=== PATIENT | male | born 1955 | race Caucasian/White ===

== ENCOUNTER 2017-10-18 15:13 | Outpatient (CLI) | payer MEDICARE ==
--- NOTE | 2017-10-18 16:26 | CT ---
NONCONTRAST HEAD CT 10/18/17 HISTORY: Followup intracranial hemorrhage. COMPARISON: 09/28/17, 09/27/17 at [facility]. FINDINGS: The previously noted hemorrhage in the cerebral rim is no longer seen. There is no midline shift. Bas ilar cisterns are patent. Brain volume is age appropriate. Cortical mina-white matter differentiation is preserved. Ventricles and sulci are patent and symmetric. Stable postsurgical changes involving the right mastoi d air cells. Opacification in the left mastoid air cells and left middle ear. The calvarium is intact . IMPRESSION: Interval resolution of the previously noted cerebellar vermian hemorrhage. POS: [facility]
== END 2017-10-18 15:14 | disposition home or self-care (01) ==
LOC: TBSIIMAG 15:13
PROVIDERS: ATTEND Neurological Surgery
DX: I61.9 Nontraumatic intracerebral hemorrhage, unspecified (principal)
CPT/HCPCS: 70450

== ENCOUNTER 2018-09-02 16:48 | Inpatient (IN) | payer MEDICARE ==
[2018-09-02 18:26] LABS: #Lymphocytes 1.5 thou/uL (1.20-3.40); #Monocytes 0.8 thou/uL (0.11-0.59); #Neutrophils 14.5 thou/uL (1.40-6.50); %Basophils 0.2 % (0.0-1.0); %Eosinophils 0.2 % (0.0-10.0); %Monocytes 4.5 % (0.0-10.0); %Neutrophils 86.1 % (42.0-75.0); Hemoglobin 14.2 g/dL (14.0-18.0); Mean Corpuscular HGB CONC 32.4 g/dL (32.0-36.0); Mean Corpuscular Hemoglobin 29.2 pg (27.0-31.0); Mean Platelet Volume 6.9 fL (7.4-10.4); Platelet Count 348 thou/uL (130-400); RBC Distribution Width 11.9 % (11.5-14.5); Red Blood Cell (RBC) Count 4.86 mill/uL (4.70-6.10); White Blood Cell (WBC) Count 16.9 thou/uL (4.8-10.8)
[2018-09-02 18:34] LABS: INR-International Normal Ratio 0.9; PTT 26.7 SEC (22.9-36.1); Prothrombin Time 12.4 SEC (12.0-14.7)
[2018-09-02 18:49] LABS: ALT (SGPT) 12 U/L (8-55); AST (SGOT) 12 U/L (5-34); Albumin 4.1 g/dL (3.4-4.8); Alkaline Phosphatase 62 U/L (40-150); Anion Gap 14 mmol/L (10-20); BUN (Urea Nitrogen) 25 mg/dL (8.4-25.7); Bilirubin, Total 0.8 mg/dL (0.2-1.2); Calc. Creatinine Clearance 0 mL/min (70-130); Calcium 9.1 mg/dL (7.8-10.44); Carbon Dioxide 26 mmol/L (23-31); Chloride 83 mmol/L (98-107); Estimated GFR-MDRD 71; Globulin 3.1 g/dL (2.4-3.5); Glucose 147 mg/dL (80-115); Potassium 4.5 mmol/L (3.5-5.1); Protein, Total 7.2 g/dL (5.8-8.1)
[2018-09-02 18:53] LABS: Sodium 118 mmol/L (136-145)
--- NOTE | 2018-09-02 19:23 | RAD ---
PORTABLE CHEST ONE VIEW: Date: 09-02-18 Time: 7:09 p.m. History: Altered mental status. FINDINGS: The heart size is normal. The lungs are expanded without lobar consolidation, pneumothoraces, yamilet p ulmonary edema or pleural effusions. IMPRESSION: No acute process. POS: [facility]
[2018-09-03] MEDS ORDERED: Senokot S 8.6-50 MG TAB PO PRN (01:25)
[2018-09-03] MEDS ORDERED: Bisacodyl 10 MG SUPP PR PRN (01:25)
[2018-09-03] MEDS ORDERED: Guaifenesin DM 100-10/5 ML UDCUP PO PRN (01:25)
[2018-09-03] MEDS ORDERED: Sodium Chloride 3% 500 ML IVPB SCH (01:45)
[2018-09-03 02:23] LABS: Band 2 % (5-11); Hemoglobin 14.4 g/dL (14.0-18.0); Lymphocytes 10 % (21-51); MDiff Complete? YES; Mean Corpuscular HGB CONC 34.2 g/dL (32.0-36.0); Mean Corpuscular Volume 90.4 fL (78.0-98.0); Mean Platelet Volume 6.6 fL (7.4-10.4); Monocytes 9 % (0-10); Neutrophil 79 % (42-75); Platelet Count 351 thou/uL (130-400); RBC Distribution Width 11.9 % (11.5-14.5); Red Blood Cell (RBC) Count 4.66 mill/uL (4.70-6.10); White Blood Cell (WBC) Count 20.4 thou/uL (4.8-10.8)
[2018-09-03 02:49] LABS: Thyroid Stimulating Hormone 1.3141 uIU/mL (0.35-4.94)
[2018-09-03 02:51] LABS: ALT (SGPT) 11 U/L (8-55); AST (SGOT) 14 U/L (5-34); Albumin 3.9 g/dL (3.4-4.8); Alkaline Phosphatase 58 U/L (40-150); Anion Gap 14 mmol/L (10-20); BUN (Urea Nitrogen) 27 mg/dL (8.4-25.7); Bilirubin, Total 0.8 mg/dL (0.2-1.2); Calc. Creatinine Clearance 97 mL/min (70-130); Calcium 9.4 mg/dL (7.8-10.44); Carbon Dioxide 26 mmol/L (23-31); Chloride 86 mmol/L (98-107); Estimated GFR-MDRD 80; Glucose 122 mg/dL (80-115); Potassium 4.2 mmol/L (3.5-5.1); Protein, Total 6.9 g/dL (5.8-8.1); Sodium 122 mmol/L (136-145)
[2018-09-03] MEDS: Acetaminophen 325 MG TAB PO PRN (04:10)
--- NOTE | 2018-09-03 04:16 | HP ---
REASON FOR ADMISSION: Quadriparesis from 08/26, hyponatremia, likely moderate dehydration. HISTORY OF PRESENTING ILLNESS: Please note majority of this history is obtained by talking to the patient's at bedside. The patient is lethargic. Per , the patient had right shoulder pain on 08/22/2018. He also became short of breath. He had uncontrolled hypertension with blood pressures going up to 200/111. He got admitted to [facility] and was there for 4 days. After that , he was walking with a walker. The patient went home and developed the same symptoms again on 08/26. The patient was told he had urinary tract infection and was given antibiotics and was discharged to inpatient rehab on the . At the rehab, the patient has not been able to move any of his extremities except for moving his right hand. They have tried to obtain an MRI of the brain and C-spine, but there was plenty of artifact with the patient moving during the MRI procedure and accurate interpretation was not able to be obtained. Physical therapy has been exercising on bed at the rehab and finally, a decision was made to transfer him to ER here and get hospitalized. At baseline, the patient is on home oxygen at 2.5 L either for heart failure or COPD, it is unclear, the does not know, thinks that it is for his heart. He sees Dr. Jmiénez for Cardiology, Dr. Cedeno for Pulmonology. No history of trauma to the C-spine. He apparently fell on Sunday when he was hospitalized at [facility], but he was able to get up and ambulate after that. No prior history of chronic neurologic issues including Parkinson's or prior history of Guillain-[place] syndrome. PAST MEDICAL AND SURGICAL HISTORY: The patient has had coronary artery disease and has had [address] Jiménez in 2010 and he had another 4 stents placed in 2013. Emphysema, likely end-stage and follows with Dr. Cedeno. History of CHF with unknown ejection fraction, benign prostatic hypertrophy, has had history of cerebellar bleed in September of 2017 and had seen a physician at [facility], they do not recall the name. History of right ear surgery with 7th nerve palsy in 1984, hernia repair, TURP, peptic ulcer disease. Colonoscopy x2 in the past with no history of colon cancer. CURRENT MEDICATIONS: The patient is on: 1. Carvedilol 12.5 mg twice daily. 2. Imdur 10 mg twice daily. 3. Plavix 75 mg daily. 4. Trazodone 50 mg p.o. at bedtime. 5. Fish oil 1000 mg twice daily. 6. Motrin p.r.n. for pain. 7. Pravastatin 80 mg p.o. daily. 8. Albuterol inhaler q.6 hourly p.r.n. 9. Aspirin 81 mg p.o. daily. 10. Dexilant 60 mg p.o. daily. 11. Fluoxetine 20 mg daily. 12. Ellipta Anoro inhaler daily. 13. Vitamin B12 1000 mcg p.o. daily. 14. Vitamin D3 1000 units p.o. daily. ALLERGIES: LEVAQUIN. PERSONAL HISTORY: Quit smoking in 2003, prior to which has smoked 1-1/2-pack a day for 30 years. Does not abuse alcohol or drugs. Lives with his . He was ambulating by himself prior to 08/22, of this year. FAMILY HISTORY: Mother at the age of 63 years, she has had history of CABG. Father got killed at his workplace when the patient was 10 years old. CODE STATUS: Full. Power of sports attorney is his . REVIEW OF SYSTEMS: CONSTITUTIONAL: Negative for weight loss or gain, ability to conduct usual activities. SKIN: Negative for rash, itching. EYES: Negative for double vision, pain. ENT/MOUTH: Negative for nose bleeding, neck stiffness, pain, tenderness. CARDIOVASCULAR: Negative for palpitations, dyspnea on exertion, orthopnea. RESPIRATORY: Negative for shortness of breath, wheezing, cough, hemoptysis, fever or night sweats. GASTROINTESTINAL: Negative for poor appetite, abdominal pain, heartburn, nausea , vomiting, constipation, or diarrhea. GENITOURINARY: Negative for urgency, frequency, dysuria, nocturia. MUSCULOSKELETAL: Negative for pain, swelling. NEUROLOGIC/PSYCHIATRIC: Negative for anxiety, depression. ALLERGY/IMMUNOLOGIC: Negative for skin rash, bleeding tendency. PHYSICAL EXAMINATION: GENERAL: The patient is a 63-year-old male, who is currently not in any acute distress. He is able to maintain airway. VITAL SIGNS: Blood pressure 138/80, pulse 74 per minute, respiratory rate 16 per minute, temperature 98.3 degrees Fahrenheit, saturating 95% on 2 L nasal cannula. NECK: Supple. No elevated JVD. HEENT: Eyes; extraocular muscles intact. Pupils reacting to light. Oral cavity, mucous membranes are dry. No exudates or congestion. CARDIOVASCULAR: S1 and S2 heard. Regular rhythm. RESPIRATORY: Air entry 1+ bilateral. There is rhonchi plus bilateral. No wheezes. ABDOMEN: Soft. Bowel sounds heard. No tenderness, rigidity, or guarding. EXTREMITIES: There is 1+ peripheral edema. No calf tenderness. Peripheral pulses are 1+ bilateral. No ischemic ulcerations or gangrene. 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 All other cranial nerves were intact. The patient has severe hypotonia. He is unable to lift any of the extremities. He can barely move the hands better on right side than left. He is right-handed person. Reflexes; right knee jerk is 1+, but all other reflexes in the lower extremities are absent at present. Strength is 0/5 in all 4 extremities. PSYCHIATRIC: The patient is very lethargic, but no obvious hallucinations or delusions. LABORATORY DATA: White count of 16 on arrival, H and H 14 and 43, platelet count 348 with 86% neutrophils. Sodium 118, serum bicarb 26, BUN 25, creatinine 1.0, serum glucose 147. Liver enzymes within normal limits. Troponin I 0.01. BNP less than 10. Albumin is 4.1. TSH 1.31. Urine culture drawn on the shows no growth. Chest x-ray done shows no acute process. MRI of the C-spine shows suboptimal evaluation due to motion artifact. There does appear to be varying degrees of significant central canal stenosis. Repeat imaging is recommended. MRI brain on 09/02/2018, showed limited evaluation due to motion degradation, grossly was unremarkable. EKG done shows normal sinus rhythm at 70 beats per minute. There is poor R-wave progression. 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 This was a rapid onset with the patient being able to only move both his hands. Otherwise , has severe hypotonia and mostly no reflexes in the lower extremities. Likely, the patient has quadriparesis and the exact etiology is unclear. I requested the ER physician, Dr. Brown to perform a lumbar puncture on him. The patient's sodium is very low and he also has moderate to severe dehydration. I have placed him on 3% sodium chloride and we will obtain q.4 hourly sodium levels. Once his sodium reaches around 126 millimoles per L, the patient will be switched over to 0.9% normal saline. Pancultures have been obtained including blood and urine. He does not have any diarrhea. TSH appears to be within normal limits. We will obtain Neurology, Neurosurgery, Nephrology, and Pulmonary Critical Care consultations. MRI brain with and without contrast along with MRI cervical spine with and without contrast and echo with 2D Doppler will be obtained. I have explained to that his prognosis is guarded at present. If his diaphragm and respiratory muscles are compromised, the patient will go into respiratory failure. The patient apparently wants to be resuscitated per and I have confirmed the same from him. He is clearly aware that he has end-stage emphysema and is on home oxygen with undiagnosed sleep apnea, as the patient could not afford 250 dollars as co-pay for sleep study in the past along with current quadriparesis. He is currently maintaining airway and will be closely monitored. He likely will need high-dose steroids. We will start this once Neurology evaluates him early this morning. We will continue aspirin, Lipitor, Coreg, fluoxetine for now. His Plavix will be held. We will continue to closely monitor him in the ICU. Job ID: [id number] MTDD
[2018-09-03 04:44] LABS: Free T4 (Free Thyroxine) 1.16 ng/dL (0.70-1.48)
--- NOTE | 2018-09-03 05:32 | PDOC.EVN ---
Event Note - Event Note Event Note: Patient was re-evaluated around 5 am, he has started to move his extremities now. He is able to move with gravity all 4 extremities, upper extre he lifts against gravity. No sob. continue 3%NS till sodium levels are 126, then switch to normal saline 0.9 at 50mls/hr.
[2018-09-03 05:58] LABS: Sodium 122 mmol/L (136-145)
[2018-09-03] MEDS ORDERED: Sodium Chloride 0.9% 1,000 ML IV SCH (06:45)
[2018-09-03] MEDS ORDERED: Lorazepam 2 MG/ML VIAL SLOW IVP SCH (08:00)
[2018-09-03] MEDS ORDERED: HYDROcodone/Acetaminophen 5/325 mg Tablet PO PRN (08:00)
[2018-09-03] MEDS: Aspirin Chewable 81 MG TAB PO SCH (08:29)
[2018-09-03] MEDS ORDERED: Enoxaparin Sodium 40 MG/0.4 ML SYRINGE SC SCH (09:00)
[2018-09-03] MEDS ORDERED: Ibuprofen 200 MG TAB PO SCH (09:00)
[2018-09-03] MEDS ORDERED: FLUoxetine HCl 20 MG CAP PO SCH (09:00)
[2018-09-03] MEDS ORDERED: cefTRIAXone\\ROCEPHIN 1 GM in Sodium Chloride 0.9% 100 ML IVPB SCH (09:15)
[2018-09-03 09:26] LABS: Potassium, Urine 44.6 mmol/L
[2018-09-03] MEDS: Carvedilol 6.25 MG TAB PO SCH ×2 (09:41→17:54)
[2018-09-03] MEDS: Famotidine 20 MG TAB PO SCH ×2 (09:41→21:10)
[2018-09-03 09:42] LABS: Sodium 125 mmol/L (136-145)
--- NOTE | 2018-09-03 12:01 | CON ---
DATE OF CONSULTATION: HISTORY OF PRESENT ILLNESS: The patient is a 63-year-old male with a past medical history of coronary artery disease with multiple prior stents placed by , congestive heart failure, end-stage COPD, who is recently being treated in rehab following a stay at the [facility] for chest pain and respiratory issues. At that time, the patient was reportedly ambulatory with a walker. However, during his time at rehab, he had progressive bilateral upper and lower extremity weakness. We attempted to obtain MRI of the cervical spine. Unfortunately, the patient was moving quite a bit during the exam and there was significant artifact, and suboptimal images were obtained. He was transferred to [facility] for further management of his worsening weakness. At that time, he was found to have significant hyponatremia at 118. This is currently being replaced by the Medicine Service, and the patient has had some improvement in his overall strength. He does have a history of a mechanical fall while at the [facility] initial evaluation, but was then able to ambulate without difficultly after that. No additional trauma was noted. PAST MEDICAL HISTORY: Hypertension, hyperlipidemia, coronary artery disease, COPD, CHF, peptic ulcer disease, prostate issues, history of cerebellar intracranial hemorrhage in 2018. PAST SURGICAL HISTORY: Multiple cardiac stents. SOCIAL HISTORY: Former smoker. Does not currently smoke, drink, or use any drugs. He previously lived at home with his . FAMILY HISTORY: Noncontributory. ALLERGIES: LEVAQUIN. REVIEW OF SYSTEMS: Per HPI. PHYSICAL EXAMINATION: GENERAL: The patient is awake, alert, in no acute distress. HEENT: Head, normocephalic and atraumatic. Eyes, PERRLA. Extraocular movements intact. ENT, oral mucosa is pink, intact, and moist. He has normal voice. NECK: Nontender to palpation. Free active range of motion. No meningismus. No nuchal rigidity. RESPIRATORY: He appears to be breathing comfortably. He is on 2 L nasal cannula. MUSCULOSKELETAL: He is significantly weak in bilateral upper and lower extremities. 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 He has decreased strength in the proximal upper extremity. He is unable to lift his arm overhead. In the lower extremities, he is able to wiggle his toes and his feet. He has significant loss of proximal strength in the legs. He is unable to lift these off the bed. He has normal reflexive and he has negative Damon's and negative clonus. NEURO: A and O x4. Strength noted in the musculoskeletal exam. ASSESSMENT AND PLAN: This is a 63-year-old male with progressively worsening upper and lower extremity weakness, which has been fairly rapid. No history of recent trauma other than a mechanical fall while at his previous hospital stay. He was reportedly ambulating fine after that. We will attempt to get a new MRI of the cervical spine for evaluation of his progressive weakness. The Medicine Services also consulted Neurology for evaluation of this patient. We will follow these results. Job ID: [id number]
[2018-09-03] MEDS ORDERED: Midazolam HCl 2 mg/2 ml Vial ONE (12:15)
[2018-09-03] MEDS ORDERED: Propofol 1,000 MG/100 ML VIAL IV ONE (12:16)
[2018-09-03 12:17] LABS: ANA Symphony (Qualitative) Negative (Negative); ANA Symphony (Quantitative) 0.1 Ratio (< 0.7 Negative); dsDNA IgG Antibody 0.5 IU/mL (<10 Negative)
[2018-09-03] MEDS ORDERED: CCU Electrolyte Replacement 1 EACH IVPB SCH (12:27)
[2018-09-03] MEDS ORDERED: SYSTANE 3.5 GM TUBE EA EYE PRN (12:27)
[2018-09-03] MEDS ORDERED: Ventilator Sedation Protocol 1 EACH FS SCH (12:30)
[2018-09-03] MEDS ORDERED: methylPREDNISolone Sod Succ 40 MG VIAL IVP SCH (12:30)
[2018-09-03] MEDS ORDERED: Midazolam HCl 2 mg/2 ml Vial SLOW IVP SCH (12:45)
[2018-09-03] MEDS ORDERED: Propofol BOLUS 1,000 MG/100 ML VIAL IV PRN (12:48)
[2018-09-03] MEDS ORDERED: DISCONTINUE PREVIOUS NARCOTIC PAIN MEDICATIONS AND BENZODIAZEPINES FS SCH (12:48)
[2018-09-03] MEDS ORDERED: Morphine 2 MG/ML SYRINGE SLOW IVP PRN (12:48)
[2018-09-03] MEDS ORDERED: Fentanyl BOLUS 250 ML IVPB PRN (12:48)
[2018-09-03] MEDS ORDERED: Lorazepam 2 MG/ML VIAL SLOW IVP PRN (12:48)
[2018-09-03] MEDS ORDERED: Potassium Chloride 20 MEQ TAB PO PRN (12:49)
[2018-09-03] MEDS ORDERED: Potassium Phosphate 9 MMOL in Sodium Chloride 0.9% 100 ML IVPB PRN (12:49)
[2018-09-03] MEDS ORDERED: Magnesium 2 GM/50 ML 2 GM in Premix Bag 1 BAG IVPB PRN (12:49)
[2018-09-03] MEDS ORDERED: Potassium Phosphate 15 MMOL in Sodium Chloride 0.9% 250 ML 250 ML IV PRN (12:49)
[2018-09-03] MEDS ORDERED: Potassium Phosphate 12 MMOL in Sodium Chloride 0.9% 250 ML 250 ML IV PRN (12:49)
[2018-09-03] MEDS ORDERED: Potassium Chloride 40 MEQ in Premix Bag 1 BAG IVPB PRN (12:49)
[2018-09-03] MEDS ORDERED: CCU ELECTROLYTE REPLACEMENT PROTOCOL FS PRN (12:49)
[2018-09-03] MEDS ORDERED: Magnesium Oxide 400 MG TAB PO PRN ×2 (12:49)
[2018-09-03] MEDS ORDERED: PHOS-NAK 1 PKT PACK PO PRN ×2 (12:49)
[2018-09-03] MEDS ORDERED: Fentanyl 100 MCG/2 ML VIAL ONE (12:57)
[2018-09-03] MEDS: Propofol 1,000 MG/100 ML VIAL IV PRN ×2 (13:33→18:06)
[2018-09-03 13:42] LABS: Actual Bicarbonate (HCO3a) 25.6 mEq/L (22-28); Base Excess (BEa) 1.2 mEq/L (-2.0 to +3.0); CO2 Tension 39.9 mmHg (35.0-45.0); Calcium, Ionized 1.15 mmol/L (1.12-1.30); Carboxyhemoglobin (COHb) 1.7 gm% (0.0-3.0); Hemoglobin (Hb) 13.8 g/dL (14.0-18.0); O2 Tension (PaO2) 94.5 mmHg (> 80.0); Potassium - ABG Lab 3.75 mmol/L (3.70-5.30); pH, Arterial 7.43 (7.35-7.45)
--- NOTE | 2018-09-03 13:43 | RAD ---
RADIOGRAPH CHEST 1 VIEW: Supine DATE: 09/03/2018 HISTORY: Status post intubation in 63-year-old male. FINDINGS: There is no airspace density or pulmonary edema. The lateral costophrenic angles are sharp. Supine po sitioning makes this study insensitive for the detection of pneumothorax. Endotracheal tube distal tip at mid thoracic trachea. No cardiomegaly or mediastinal widening. IMPRESSION: 1. No acute pulmonary findings. 2. Intubation.
[2018-09-03 13:51] LABS: ALV-art Gradient 76.655 (0-20); Puncture Site RRA
--- NOTE | 2018-09-03 15:12 | CT ---
CT guided lumbar puncture: DATE: 09/03/2018 HISTORY: 63-year-old male with altered mental status. CSF sampling requested to rule out meningitis. TECHNIQUE: Proxy signed informed consent obtained. Patient came to CT suite under general anesthesia. Skin of lo wer back prepared and draped in usual sterile fashion. 25-gauge needle used to apply buffered lidocaine. 22-gauge spinal needle advanced from right paramedian approach at the L2-3 interlaminal le savanah under step CT guidance, with distal tip placed into the thecal sac. CSF slowly removed, 1 mL placed in first vial, 3 mL in second vial, 3 mL in third vial, and 4 mL in fourth vial. CSF is either clear or perhaps minimally cloudy. Needle removed. Patient tolerated procedure well. No comp occasions. IMPRESSION: Successful lumbar puncture with acquisition of 11 mL cerebrospinal fluid sent to laboratory.
[2018-09-03 15:33] LABS: CSF Source CSF
[2018-09-03 15:34] LABS: Clarity Clear (Clear); RBC Count - Manual 0 /cumm (None Seen); Tube # 4; WBC/NonHematics Count - Manual 1 /cumm (0-5)
[2018-09-03] MEDS: cefTRIAXone\\ROCEPHIN 2 GM in Sodium Chloride 0.9% 100 ML IVPB SCH (15:35)
[2018-09-03 16:07] LABS: CSF, Glucose 88 mg/dl (40-70); CSF, Protein 163 mg/dL (15-40)
[2018-09-03 16:54] LABS: Sodium 125 mmol/L (136-145)
[2018-09-03] MEDS: fentaNYL Citrate/PF 2,000 MCG in Sodium Chloride 0.9% 60 ML IV SCH (18:48)
--- NOTE | 2018-09-03 19:05 | CON ---
DATE OF CONSULTATION: 09/03/2018 SERVICE: Pulmonary Medicine. REASON FOR CONSULTATION: ICU patient. HISTORY OF PRESENT ILLNESS: The patient is a 63-year-old white male with past medical history significant for recent paresis of the bilateral upper and lower extremities, and presentations to the emergency department because of urinary retention and urinary tract infections. He actually spent some time in hospital recently. He was discharged to rehab, but got increasingly weak. He started developing some slurred speech and was brought back to the emergency department. He had increasing weakness in the lower extremities. As such, an MRI of the head and neck was performed. Unfortunately, because the patient's agitation, he could not stay still during the MRI procedure. We did not get good pictures. Neurosurgery is requesting that we repeat with conscious sedation in order to help with his agitation issue, though he is intermittently obstructing without any sedation. He is intermittently sleepy and agitated. He is currently encephalopathic. As such, we are making preparations to electively intubate the patient to get the best quality pictures. I talked about the risks and benefits of an elective intubation with the patient's at bedside. In order to expedite an investigation, she accepted the risks associated with it including teeth issues, and an unlikely scenario in which he could pass away in the cameron-procedure period. PAST MEDICAL HISTORY: 1. Coronary artery disease. 2. COPD/emphysema. 3. Chronic hypoxic respiratory failure. 4. Chronic systolic heart failure. 5. BPH. 6. History of cerebellar bleed in September of 2017. 7. 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 8. Peptic ulcer disease. PAST SURGICAL HISTORY: 1. Transurethral resection of the prostate. 2. Herniorrhaphy. 3. Ear surgery. FAMILY HISTORY: Noncontributory. SOCIAL HISTORY: He has a remote history of smoking. He quit in 2003. Prior to that, he logged over 50 pack-year history. He denies any alcohol or illicit drugs. Recently, he came to us from a nursing facility/rehabilitation facility. Prior to July, he was ambulating without difficulties. He has no exposure to chemicals, dust, asbestos, or tuberculosis the is aware of. ALLERGIES: LEVAQUIN. MEDICATIONS: List of his inpatient medications was reviewed. No specific updates were made at this time. REVIEW OF SYSTEMS: This cannot be obtained because the patient has encephalopathy. PHYSICAL EXAMINATION: VITAL SIGNS: Afebrile, pulse 77, blood pressure 146/91, respirations 21, and saturation 95% on 2 L nasal cannula. GENERAL: The patient is somnolent. He is intermittently sedated and agitated. HEENT: Normocephalic and atraumatic. Sclerae white. Conjunctivae pink. Oral mucosa is moist without lesions. LUNGS: Decent air entry. There is a slightly prolonged expiratory phase. I do not hear polyphonic wheezing or significant crackles present. Rhonchi are there. HEART: Normal rate, regular. ABDOMEN: Soft, nontender, nondistended. Bowel sounds are positive. MUSCULOSKELETAL: No cyanosis or clubbing. There is trace 1+ pitting in the bilateral lower extremities. LABORATORY DATA: WBC 20.4, hemoglobin 14.4, and platelets about 351,000. Neutrophils 79% on top of 2% bands. INR 0.9. Sodium 129 and gently improving. Basic metabolic profile and liver function studies are otherwise unremarkable. Free T3 1.25, though the TSH falls within the normal limits. Uric acid level is unremarkable. Serum osmolality is reduced. Troponin and cortisol level are essentially unremarkable. Creatinine is downtrending. Urine sodium is reduced. IMAGING: Chest x-ray demonstrates no acute cardiopulmonary abnormality. There is a fairly significant left anterior oblique rotation. No consolidating changes or pneumothoraces are identified. There is decent contour of the bilateral diaphragm. No cephalization is present. MRI of the C-spine demonstrates probable central canal stenosis, though motion artifact prevented good interpretation. MRI of the brain demonstrates nothing grossly abnormal, but once again, motion artifact prevented good pictures. ASSESSMENT: 1. Chronic hypoxic respiratory failure. 2. Chronic obstructive pulmonary disease without current exacerbation. 3. Metabolic encephalopathy. 4. Hyponatremia. 5. Paresis of the bilateral upper and lower extremities. DISCUSSION AND PLAN: We will actively intubate the patient, so that we can expedite very good images with an MRI. The patient has already scheduled for an LP. Neurosurgery is following and requesting better images. We will electively intubate him, so that we can get these images. The risks and benefits of this were discussed with the patient's , and she is agreeable to proceed. Neurology has been consulted. The hyponatremia is correcting itself. As such, we will continue to observe through time. Pulmonary/Critical Care will follow along closely. CRITICAL CARE TIME: 30 minutes. Job ID: [id number] MTDD
--- NOTE | 2018-09-03 19:44 | CON ---
DATE OF CONSULTATION: 09/03/2018 REASON FOR CONSULT: Difficult Soares catheter placement, status post TURP. REASON FOR ADMISSION: Quadriplegia, 08/26 hyponatremia, mental status changes. HISTORY OF PRESENT ILLNESS: Mr. Page is a 63-year-old male currently in the ICU setting as he is being worked up for mental status changes. He is scheduled for lumbar puncture, MRI of the brain and spine as the final diagnosis of his quadriparesis is unclear. Due to mental status changes, moreover requiring strict I's and O's and concern regarding incomplete emptying, Soares catheter was attempted. at bedside relates that the patient was in rehab at [facility], and was subsequently transferred here to [facility] for higher level of care. They attempted to catheterize him at the rehab, however, unable to. Our nursing staff in the ICU tried x2 with a coude 14-Australian, unable to pass the Soares catheter. Therefore, urologic consultation was obtained. relates the patient underwent transurethral resection of prostate by Dr. Damon about 5 years ago. Over the last year, he has had decreased urinary caliber, double voiding, requiring him to sit to void complete. The patient has no prior history of having urinary retention requiring indwelling Soares catheter. Subjective history is obtained per , as well as chart review given his mental status changes. PAST MEDICAL HISTORY: 1. Coronary artery disease, status post stent. 2. Emphysema followed DR Posey 3. CHF. 4. BPH. 5. 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 6. History of seventh nerve palsy in 1984. 7. Peptic ulcer disease. SURGICAL HISTORY: Colonoscopy x2, cardiac stents, right ear surgery, transurethral resection of prostate by Dr. Damon at [facility] about 5 years ago. MEDICATIONS: Home medications include: 1. Imdur. 2. Carvedilol. 3. Plavix 75 mg. 4. Trazodone. 5. Albuterol. 6. Baby aspirin. 7. Fluoxetine. 9. Vitamin B. 10. Vitamin D. Current in-house medications include: 1. Baby aspirin. 2. Lovenox subcutaneous. 3. Dulcolax. 4. Carvedilol. 5. Hydrocodone. 6. Ibuprofen. 7. Nebulizers. 8. Steroids. 9. Methylprednisone. 10. Zofran. ALLERGIES: LEVAQUIN. SOCIAL HISTORY: Quit smoking in 2003. Prior history of 30 pack-year smoking history. Denies illicit drug use. Lives with his and was ambulating without assist prior to presenting this year in late July. FAMILY HISTORY: Positive for coronary artery disease. REVIEW OF SYSTEMS: A 10-point review of systems as above. PHYSICAL EXAMINATION: VITAL SIGNS: His vital signs are stable. He is afebrile, blood pressure 146/ 109. I's and O's, he has been incontinent. GENERAL: The patient is arousable with verbal stimuli. Answers questions. at bedside. HEENT: Grossly unremarkable. HEART: Regular rate. LUNGS: Clear. However, distant. ABDOMEN: Morbidly obese. There is a small umbilical hernia. No gross suprapubic distention appreciated. However, his body habitus is such that it is difficult to palpate obvious distention due to morbid obesity and globular abdomen. : Uncircumcised phallus. Meatus is grossly unremarkable. Testes descended. AMANDO demonstrates prostate about 30 g to 40 g with no discrete nodularity of concern. EXTREMITIES: No cyanosis, clubbing, or edema. NEUROLOGIC: Difficult to assess given his mental status. PSYCHIATRIC: Appears to be appropriate. However, he is confused with baseline mental status changes as above. PERTINENT LABORATORY DATA: White count 20,000 and presented with 16.9 white count, hemoglobin stable at 14, platelets 251, 79 segs. Coagulation profile is within normal limits. Renal function, sodium of 122, presented with sodium of 118; BUN 27; creatinine 0.95. LFTs are grossly unremarkable. UA culture was sent by nurse as he has voided approximately 400 mL. PVR check is 291 after voiding 400 mL spontaneously. BEDSIDE PROCEDURE: Informed consent was obtained. He was started on Rocephin preprocedure. The patient's genital area was formally prepped and draped. Using a flexible cystoscope, we surveyed the urethra. The urethra demonstrated a bulbar stricture and it was narrow. However, there is a mucosal flap from prior catheterization . I was able to negotiate a 0.35 Super Stiff wire, which passed without difficulty to the level of the bladder. I was unable to pass the cystoscope through the wire. Therefore, we transitioned to Bonifacio dilators. We subsequently dilated from 10-Australian to 22-Australian with ease. After the dilatation, repeat cystoscopy was performed demonstrating resolution of the stricture. There is a TUR defect from the previous TURP with no gross bladder neck contracture per se. I was able to enter the bladder. Visualization was somewhat suboptimal within the bladder due to hematuria component with the dilation. With the wire in situ confirmed to be in the bladder, I passed a 20-Australian [place] Tip 10 mL Soares catheter over the wire. There was some resistance at the level of the bladder neck. However, I was able to pass wire and was subsequently removed. Clear output of urine was noted. I did flush the catheter to ensure proper placement of the Soares catheter confirmed. It was secured to leg gravity bag with StatLock x2. UA, C and S have been obtained, which we will follow the results. IMPRESSION AND PLAN: Mr. Page is a 63-year-old male with history of congestive heart failure, coronary artery disease, history of benign prostatic hypertrophy, status post transurethral resection of prostate at an outside facility about 5 years ago, presents for quadriparesis, hyponatremia of unclear etiology. He is undergoing medical, neurologic workup. Due to inability to pass a Soares catheter, concern regarding urinary retention. Successful urethral stricture dilatation, Soares catheter placed over guidewire. UA, and C and S have been sent. It would be prudent to start the patient on antibiotic therapy until final culture can be reviewed. Pending his medical neurologic workup, voiding trial will be initiated by when mental status improves At minimum, Soares catheter needs to continue for the next 7 days due to urethral stricture dilatation. Hold Lovenox If urine output is clear, will proceed with re-initiating Lovenox. Job ID: [id number] [facility]
[2018-09-03 20:22] LABS: Potassium 3.5 mmol/L (3.5-5.1)
[2018-09-03] MEDS: Atorvastatin Calcium 40 MG TAB PO SCH (21:10)
[2018-09-03] MEDS ORDERED: Potassium Chloride 40 MEQ in Sodium Chloride 0.9% 500 ML IVPB SCH (21:15)
[2018-09-03] MEDS: Sodium Chloride 0.9% 1,000 ML IV SCH (21:27)
--- NOTE | 2018-09-03 22:54 | CON ---
DATE OF CONSULTATION: 09/03/2018 CONSULTING PHYSICIAN: Shilpa Galvan MD REASON FOR CONSULTATION: Hypernatremia. REASON FOR ADMISSION: Weakness. HISTORY OF PRESENT ILLNESS: This is a 63-year-old male with history of coronary artery disease, COPD, CHF, came to the hospital with above complaints and was found to have sodium level of 118. The patient was started on hypertonic saline, this morning sodium level is 125. Nephrology is consulted. The patient's last sodium was around 127 and 120. The patient not able to give a good history and was found to have right-sided weakness too. No nausea or vomiting reported. PAST MEDICAL HISTORY: Positive for heart disease, CHF, COPD. PAST SURGICAL HISTORY: TURP and hernia repair. HOME MEDICATIONS: 1. Carvedilol. 2. Imdur. 3. Plavix. 4. Trazodone. 5. Fish oil. 6. Motrin. 7. Pravastatin. 8. Albuterol. 9. Aspirin. 10. Fluoxetine. 11. Lyrica. 12. B12. 13. Vitamin D3. ALLERGIES: TO LEVAQUIN. SOCIAL HISTORY: Quit smoking. No alcohol use. FAMILY HISTORY: Positive for heart disease. REVIEW OF SYSTEMS: Could not be obtained. PHYSICAL EXAMINATION: GENERAL: This is a well-built male, in no apparent distress. VITAL SIGNS: Temperature 98.1, pulse 74, respiratory rate 18, blood pressure 147/91. HEENT: Atraumatic, normocephalic. NECK: Supple. CARDIOVASCULAR: S1 and S2 heard. RESPIRATORY: Clear to auscultation. MUSCULOSKELETAL: 1+ edema. DERMATOLOGIC: No rash. NEUROLOGICAL: Weakness present in all the extremities. LABORATORY DATA: Sodium 125, potassium 4.2, BUN is 27, and creatinine 0.9, hemoglobin is 14.4. ASSESSMENT AND PLAN: 1. Hyponatremia, most likely SIADH versus medications. Adequate correction with hypertonic saline. Plan is to hold hypertonic saline. Repeat labs at 3 p.m. or 4 p.m. today and further decision will be made based on the labs. 2. Hypochloremia. 3. Edema, controlled. 4. Hypertension, Stable. 5. We will continue close monitoring of sodium. We will follow. Job ID: [id number]
--- NOTE | 2018-09-03 23:06 | CON ---
DATE OF CONSULTATION: 09/03/2018 CONSULTING PHYSICIAN: Hospitalist Service. IMPRESSION: Possible Guillain-[place] versus cervical cord infarct. PLAN: 1. MRI of the cervical cord. 2. Consider need for IVIG depending on the findings. HISTORY OF PRESENT ILLNESS: Mr. Page is a 63-year-old man with a past history of COPD, coronary artery disease, cerebellar hemorrhage, hypertension, hyperlipidemia, who presents with a 2-week history of symptoms. He initially began complaining of bilateral shoulder pain. He was taken to the [facility] for evaluation. He apparently had some limited exam including a chest x-ray, was treated with some steroids and pain medication. He seemingly got better and was getting around with the use of a walker. They discharged him home. On return home, he started experiencing recurrent pain in the shoulder area according to his . At some point, he started experiencing some tingling and numbness in his hands and feet. He started having trouble walking again. He went back to the [facility] for evaluation. He was briefly admitted and then transferred over to rehab. His situation deteriorated with progressive weakness of his extremities. He was no longer able to walk whatsoever. He was transferred here for evaluation. They attempted an MRI of the cervical spine, but his images were uninterpretable. His lab work revealed a sodium of 122. He was initially treated with 3% saline and then switched over to normal saline. His sodium levels have gotten a bit better. He has been subsequently intubated and placed on sedation. PAST MEDICAL HISTORY: As listed above. ALLERGIES: LEVAQUIN. SOCIAL HISTORY: No tobacco or alcohol use. FAMILY HISTORY: Noncontributory. REVIEW OF SYSTEMS: Was through his , as noted above. PHYSICAL EXAMINATION: GENERAL: He is an overweight middle-aged man, on ventilatory support. VITAL SIGNS: Stable. He is afebrile. HEENT: Pupils are equal. Conjunctivae are clear. Eyes are conjugate. He is orally intubated. He had some spontaneous eye opening. Could not get him to follow any commands. NECK: Appeared to be supple. EXTREMITIES: No cyanosis. NEUROLOGIC: Exam was limited. His tone appeared to be reduced bilaterally. Reflexes were absent. Plantar response was mute on the right and questionably upgoing on the left. No abnormal movements were seen. Spinal analysis showed an acellular fluid with a protein over 160 and an elevated glucose. SUMMARY: A middle-aged man with subacute progressive paralysis of all 4 extremities with subjective sensory changes in the hands and feet in combination with bilateral shoulder pain. The leading possibility would appear to be a cervical cord infarct. This could explain the elevated protein as well. Guillain-[place] would be far better prognosis. I will await the MRI findings and make further recommendations. Job ID: [id number]
[2018-09-04] MEDS: Propofol 1,000 MG/100 ML VIAL IV PRN ×3 (03:35→21:01)
[2018-09-04 07:14] LABS: Anion Gap 10 mmol/L (10-20); BUN (Urea Nitrogen) 24 mg/dL (8.4-25.7); Calc. Creatinine Clearance 122 mL/min (70-130); Calcium 8.8 mg/dL (7.8-10.44); Carbon Dioxide 24 mmol/L (23-31); Chloride 97 mmol/L (98-107); Estimated GFR-MDRD Greater than 90; Glucose 119 mg/dL (80-115); Potassium 3.9 mmol/L (3.5-5.1); Sodium 127 mmol/L (136-145)
[2018-09-04 07:16] LABS: Actual Bicarbonate (HCO3a) 26.1 mEq/L (22-28); Base Excess (BEa) 0.2 mEq/L (-2.0 to +3.0); Calcium, Ionized 1.18 mmol/L (1.12-1.30); Carboxyhemoglobin (COHb) 1.7 gm% (0.0-3.0); Hemoglobin (Hb) 13.8 g/dL (14.0-18.0); O2 Tension (PaO2) 73.2 mmHg (> 80.0); Potassium - ABG Lab 3.83 mmol/L (3.70-5.30); pH, Arterial 7.36 (7.35-7.45)
[2018-09-04 07:22] LABS: Puncture Site L.R.
[2018-09-04] MEDS: Carvedilol 6.25 MG TAB PO SCH ×2 (07:48→17:19)
--- NOTE | 2018-09-04 08:07 | PRG ---
DATE OF SERVICE: 09/04/2018 SUBJECTIVE: The patient is intubated, sedated, getting ready to go down for MRI this morning. OBJECTIVE: VITAL SIGNS: Stable. He is afebrile. I's and O's 2293 in, urine output over 2 L, clear. ABDOMEN: Soft, morbidly obese. GENITOURINARY: Soares catheter is secured. Urine output is clear yellow. PERTINENT LABORATORY: Sodium 127, creatinine 0.77. Urine culture, final is negative. IMPRESSION AND PLAN: A 63-year-old male admitted due to hyponatremia, mental status changes, quadriparesis of unclear etiology. The patient is undergoing medical and urologic workup. Urology consultation was obtained due to inability pass Soares catheter. He has prior history of TURP. Cystoscopy at bedside yesterday demonstrated bulbar stricture dilated at bedside. As his urine output is clear , may re-initiate his Lovenox today. Continue Rocephin for the next few days given recent manipulation of his tract. Job ID: [id number] [facility]
[2018-09-04] MEDS: Famotidine 20 MG TAB PO SCH ×2 (09:00→20:25)
--- NOTE | 2018-09-04 09:23 | MRI ---
MRI Brain W WO Con: 09/04/2018 12:00 AM CLINICAL HISTORY: New onset quadriparesis. COMPARISON: Head CT September 2017 FINDINGS: Extra axial spaces: Normal in size and morphology for the patient's age. Acute infarction: None. Ventricular system: Normal in size and morphology for the patient's age. Basal cisterns: Normal. Cerebral parenchyma: Microvascular ischemic changes. Midline shift: None. Cerebellum: Normal. Brainstem: Normal. Paranasal sinuses:Mucosal thickening and retention cyst formation. Intraaxial Enhancement: None IMPRESSION: No acute intracranial abnormality. Microvascular ischemic disease of the cerebral white matter, mild/moderate in degree.
[2018-09-04] MEDS: Aspirin Chewable 81 MG TAB PO SCH (09:30)
--- NOTE | 2018-09-04 11:15 | MRI ---
MRI CERVICAL SPINE WITH AND WITHOUT CONTRAST: DATE: 09/04/2018. HISTORY: A 63-year-old male with spontaneous sudden onset of quadriparesis. TECHNIQUE: Multisequence MRI of the cervical spine obtained in sagittal and axial planes, pre- and post-IV injec tion of 18 mL of MultiHance Gadolinium-based contrast agent. FINDINGS: Endogastric tube and orogastric tube are present. The cervical spinal cord is normal in size and sign al. There is no abnormal intramedullary, extramedullary-intradural, extradural, intraosseous, or per ivertebral space abnormal enhancement or mass. There is no syringohydromyelia. No Chiari-I malforma tion. The cervical spinal canal is diffusely small in caliber on a congenital basis due to developme ntally short pedicles. No disk space narrowing at any level. No high-grade facet DJD. C1-2: No additional findings. C2-3: No additional findings. C3-4: No additional findings. C4-5: No additional findings. C5-6: Mild broad-based disk-osteophytic bar complex encroaches upon the anterior aspect of the spina l canal. Superimposed tiny focal central disk protrusion further encroaches upon the spinal canal. Minimal ligament flavum thickening encroaches upon the posterior aspect of the spinal canal. These c hanges, superimposed on the developmentally small caliber spinal canal, result in moderate to severe central spinal canal stenosis. There are small bilateral uncinate process osteophytes causing mild t o moderate right neural foraminal stenosis and moderate to severe left neural foraminal stenosis. C6-7: No additional findings. C7-T1: Normal. IMPRESSION: 1. Developmentally small caliber spinal canal. 2. Mild cervical spondylosis at C5-6 exacerbating the developmentally small caliber spinal canal, re sulting in moderate to severe central spinal canal stenosis, and high-grade left neural foraminal martha nosis. This is highly unlikely to be the cause of the patient's quadriparesis. 3. No other abnormality of the cervical spine. 4. The cervical spinal cord is normal. POS: [facility]
[2018-09-04] MEDS ORDERED: Enoxaparin Sodium 40 MG/0.4 ML SYRINGE SC SCH (11:30)
--- NOTE | 2018-09-04 11:43 | OP ---
DATE OF PROCEDURE: 09/03/2018 SERVICE: Pulmonary Medicine. PROCEDURE PERFORMED: Endotracheal intubation. CONSENT: The risks and benefits of the procedure were discussed with the patient's immediately prior to initiating. All questions were answered and alternative options discussed. MEDICATIONS: 1. Versed 2 mg IV push. 2. Etomidate 20 mg IV push. PREPROCEDURE DIAGNOSES: 1. Chronic hypoxic respiratory failure. 2. Metabolic encephalopathy, requiring sedation for accurate MRI. POSTPROCEDURE DIAGNOSES: 1. Chronic hypoxic respiratory failure. 2. Metabolic encephalopathy, requiring sedation for accurate MRI. DESCRIPTION OF PROCEDURE: Vital sign monitoring was accomplished by noninvasive hemodynamic monitoring, pulse oximetry, and telemetry. In the supine position, the patient was preoxygenated with [id number] ventilation and maintained with saturations of 100%. Following induction of anesthesia, a GlideScope was inserted through the mouth offering clear identification of the posterior oropharynx and laryngeal structures with a grade 1 view. A 7.5-Afghan endotracheal tube was visualized passing through the vocal cords. Placement was confirmed by condensation in the endotracheal tube and bi-axillary chest auscultation. The endotracheal tube was secured at 24 cm, measured at the teeth. The patient was placed on mechanical ventilation with good return of volumes. Postprocedure x-ray demonstrated good location for the endotracheal tube within the trachea. ESTIMATED BLOOD LOSS: None. COMPLICATIONS: None. Job ID: [id number]
--- NOTE | 2018-09-04 11:48 | PRG ---
DATE OF SERVICE: 09/04/2018 SUBJECTIVE: The patient was seen and examined in ICU. Remains intubated. OBJECTIVE: GENERAL: This is a well-built male seen in ICU, intubated. VITAL SIGNS: Temperature 97.2, pulse 81, respiratory rate 18, blood pressure 124/67. HEENT: Intubated. CVS: S1 and S2. RESPIRATORY: Clear. GI: Abdomen is soft. MUSCULOSKELETAL: No edema. DERMATOLOGIC: No skin rash. NEUROLOGIC: Currently intubated. LABORATORY DATA: Sodium is 127, potassium 3.9, BUN is 24, creatinine is 0.7. ASSESSMENT AND PLAN: 1. Hyponatremia, most likely SIADH. Given suspicion for Guillain-[place]. Plan is to continue on IV fluids for now and we will repeat a sodium at a noon time today. If no significant improvement, we will begin to stop IV fluids and continue treating for SIADH for now. We will monitor labs. 2. Hypochloremia. 3. Edema. 4. Hypertension. 5. 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 Follow up with Neurology. 6. We will follow. Job ID: [id number]
[2018-09-04 12:28] LABS: Potassium 3.8 mmol/L (3.5-5.1)
--- NOTE | 2018-09-04 14:32 | PRG ---
DATE OF SERVICE: 09/04/2018 SUBJECTIVE: The patient was seen and examined. I agree with Pat Catalan's evaluation. The patient is a 63-year-old man, who had initially presented with some neck and shoulder pain, which then over a period of couple of weeks has progressed now to quadriparesis. Quadriparesis became increasingly severe and ultimately prompted his evaluation. Currently, he is sedated and intubated, having just returned from MRI scan. Lumbar puncture was performed and results are pending. He has had Neurology evaluation. The patient has had better quality imaging now of the cervical spine and brain. The MRI of the brain reveals only chronic age-related changes and nothing to explain the current symptoms. MRI of the cervical spine reveals only moderate degenerative disease most pronounced at C5-C6, but without meaningful stenosis and certainly nothing from a degenerative perspective to explain the current deterioration. IMPRESSION AND PLAN: No neurosurgical lesions of the brain or cervical spine. We will defer to Neurology regarding ongoing evaluation. Job ID: [id number]
--- NOTE | 2018-09-04 15:44 | PDOC.EVN ---
Event Note - Event Note Event Note: Record reviewed. Patient seen and examined. He is having pain in his hips with lack of movement. He is awake, alert and fairly appropriate. sensation in both LE's and only spontaneous movement of the RUE. Otherwise, essentially quadriplegic. Imaging pending.
[2018-09-04] MEDS: cefTRIAXone\\ROCEPHIN 2 GM in Sodium Chloride 0.9% 100 ML IVPB SCH (15:45)
--- NOTE | 2018-09-04 15:47 | PDOC.PN ---
- Subjective Encounter Start Date: 09/04/18 Encounter Start Time: 13:40 Intubated, sedated. - Objective Resuscitation Status - Order Detail: 09/03/18 00:59 Resuscitation Status Routine Resuscitation Status: FULL: Full Resuscitation Discussed with: poa: Vital Signs & Weight: Vital Signs (12 hours) Temp Pulse Resp BP Pulse Ox 09/04/18 12:54 68 123/66 09/04/18 12:00 97.8 F 15 09/04/18 10:08 81 175/92 H 09/04/18 10:00 15 09/04/18 09:00 98.4 F 09/04/18 08:00 13 99 09/04/18 07:48 124/67 09/04/18 07:07 67 124/67 09/04/18 07:05 67 20 94 L 09/04/18 06:00 12 09/04/18 04:00 97.2 F L 12 Weight Admit Weight 190 lb 8 oz Weight 193 lb 12.581 oz Most Recent Monitor Data Heart Rate from ECG 70 NIBP 119/66 NIBP BP-Mean 83 Respiration from ECG 16 SpO2 96 I&O: 09/03/18 09/04/18 09/05/18 06:59 06:59 06:59 Intake Total 121 2293.9 120 Output Total 0 2195 340 Balance 121 98.9 -220 Result Diagrams: 09/03/18 01:55 09/04/18 11:42 Phys Exam - Physical Examination Constitutional: NAD Intubated, sedated, ventilated. Respiratory: no wheezing, no rales, no rhonchi Cardiovascular: RRR, no significant murmur Gastrointestinal: soft, non-tender, no distention, positive bowel sounds Musculoskeletal: no edema Psychiatric: normal affect Skin: normal turgor Dx/Plan (1) Quadriplegia Code(s): G82.50 - QUADRIPLEGIA, UNSPECIFIED Status: Acute (2) CAD (coronary artery disease) Code(s): I25.10 - ATHSCL HEART DISEASE OF [place] CORONARY ARTERY W/O ANG PCTRS Status: Acute (3) CHF (congestive heart failure) Code(s): I50.9 - HEART FAILURE, UNSPECIFIED Status: Acute (4) BPH (benign prostatic hyperplasia) Code(s): N40.0 - BENIGN PROSTATIC HYPERPLASIA WITHOUT LOWER URINRY TRACT SYMP Status: Acute - Plan * Had MRI, which apparently was negative for lesions. * May be able to wean off vent. * Check with Neuro to ensure no further imaging needed. * May be GBS, defer to neurology. * Soares per Urology. Continuing abx.
[2018-09-04] MEDS ORDERED: OCTAGAM 10% 60 GM, OCTAGAM 10% 10 GM in Premix Bag 1 BAG IVPB SCH (16:00)
[2018-09-04] MEDS: Sodium Chloride 0.9% 1,000 ML IV SCH (17:19)
[2018-09-04] MEDS: Atorvastatin Calcium 40 MG TAB PO SCH (20:25)
[2018-09-05] MEDS: Propofol 1,000 MG/100 ML VIAL IV PRN (05:53)
--- NOTE | 2018-09-05 07:47 | PRG ---
DATE OF SERVICE: 09/05/2018 SUBJECTIVE: The patient intubated. The patient did okay overnight. OBJECTIVE: VITAL SIGNS: Stable. Urine output 1700, clear yellow. ABDOMEN: Morbidly obese, protuberant. : Dry blood at the meatus, however, no active bleeding. Urine output itself is clear. Catheter is adequately secured. IMPRESSION: 1. Mr. Page is a 63-year-old male admitted for mental status changes, partial paralysis of unclear etiology. Per Neurology possible Guillain [place]. 2. Urologic consultation obtained due to difficult Soares. Initial post-void residual approximately 400 mL. Cystoscopy at bedside demonstrated urethral stricture, status post dilation at bedside, catheter placement over guidewire. Continue Rocephin for now for few days due to recent genitourinary manipulation. There was a transurethral resection defect with no obvious bladder neck contracture of concern. I will initiate a voiding trial, likely sometime next week, pending patient's clinical progress neurologically. Job ID: [id number] [facility]
[2018-09-05] MEDS: Carvedilol 6.25 MG TAB PO SCH ×2 (08:05→17:00)
[2018-09-05] MEDS: Aspirin Chewable 81 MG TAB PO SCH (09:05)
[2018-09-05] MEDS: Famotidine 20 MG TAB PO SCH ×2 (09:05→20:16)
[2018-09-05] MEDS: Enoxaparin Sodium 40 MG/0.4 ML SYRINGE SC SCH (09:06)
[2018-09-05] MEDS ORDERED: predniSONE 20 MG TAB PO SCH (10:30)
--- NOTE | 2018-09-05 10:51 | PRG ---
DATE OF SERVICE: 09/04/2018 SERVICE: Pulmonary Medicine. INTERVAL HISTORY: The patient is doing fine from respiratory standpoint. He is on mechanical ventilation. He just got back from his MRI of the spine, and brain. We will make preparations for extubation if Neurosurgery is done with additional studies that require MRI imaging. He cannot provide me with any additional elements of the history at this point. PHYSICAL EXAMINATION: VITAL SIGNS: Afebrile. Pulse 100, blood pressure 78/45, respirations 15, and saturation 93% on 2 L nasal cannula. GENERAL: The patient is awake and alert, in no apparent distress. LUNGS: Decent air entry. No crackles or wheezing is present. HEART: Normal rate, regular. ABDOMEN: Soft, nontender, nondistended. Bowel sounds are positive. MUSCULOSKELETAL: No cyanosis or clubbing. There is trace pitting in bilateral lower extremities. NEUROLOGIC: Grossly nonfocal. LABORATORY DATA: PH 7.36, pCO2 of 47, pO2 of 73. Sodium 127. Basic metabolic profile is otherwise unremarkable. LIZ is unremarkable. IMAGING DATA: 1. MRI of the C-spine demonstrates developmentally small caliber spinal cord. There is mild cervical spondylosis at C5-C6. This results in [id number] central spinal canal stenosis and high-grade left neuroforaminal stenosis. No other abnormalities of the C-spine are identified. Cervical spinal cord is normal. 2. MRI of the brain demonstrates no acute abnormality. ASSESSMENT: 1. 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 2. Chronic hypoxic respiratory failure. 3. Chronic obstructive pulmonary disease without current exacerbation. 4. Metabolic encephalopathy. 5. Hyponatremia. DISCUSSION AND PLAN: We will get CBC and basic metabolic panel in the morning. We will initiate a daily dose of steroids. Also schedule some nebulized medications. If Neurosurgery and Neurology do not need additional imaging, we will give the patient sedation holiday, put him on a spontaneous breathing trial, consider extubation. Pulmonary/Critical Care will continue to follow along. Critical care time: 30 minutes. Job ID: [id number] [facility]
[2018-09-05] MEDS ORDERED: Albumin 25% 25 GM/100 ML BOT IVPB SCH (11:30)
[2018-09-05] MEDS ORDERED: Sodium Chloride 0.9% 500 ML IV SCH (11:30)
[2018-09-05 11:37] LABS: Anion Gap 11 mmol/L (10-20); BUN (Urea Nitrogen) 20 mg/dL (8.4-25.7); Calc. Creatinine Clearance 0 mL/min (70-130); Calcium 8.1 mg/dL (7.8-10.44); Carbon Dioxide 22 mmol/L (23-31); Chloride 96 mmol/L (98-107); Estimated GFR-MDRD 75; Glucose 93 mg/dL (80-115); Magnesium 1.8 mg/dL (1.6-2.6); Phosphorus 4.2 mg/dL (2.3-4.7); Sodium 125 mmol/L (136-145)
[2018-09-05 11:45] LABS: Hemoglobin 13.5 g/dL (14.0-18.0); Mean Corpuscular HGB CONC 31.7 g/dL (32.0-36.0); Mean Corpuscular Hemoglobin 29.7 pg (27.0-31.0); Mean Corpuscular Volume 93.7 fL (78.0-98.0); Mean Platelet Volume 7.2 fL (7.4-10.4); Platelet Count 241 thou/uL (130-400); RBC Distribution Width 12.2 % (11.5-14.5); Red Blood Cell (RBC) Count 4.54 mill/uL (4.70-6.10); White Blood Cell (WBC) Count 21.9 thou/uL (4.8-10.8)
[2018-09-05 11:55] LABS: Band 19 % (5-11); Lymphocytes 5 % (21-51); MDiff Complete? YES; Monocytes 1 % (0-10); Neutrophil 74 % (42-75); RBC Morphology Normal; Reactive Lymphocytes 1 % (0-10)
--- NOTE | 2018-09-05 12:03 | PRG ---
DATE OF SERVICE: 09/05/2018 SUBJECTIVE: The patient was seen and examined in ICU. Remains intubated. OBJECTIVE: GENERAL: This is a well-built male, seen in ICU, intubated. VITAL SIGNS: Temperature 99.7, pulse 100, respiratory rate 18, blood pressure 78/45 up to 94/53. HEENT: Intubated. CV: S1 and S2 heard. RESPIRATORY: Clear. GI: Soft. MUSCULOSKELETAL: 1+ edema. DERMATOLOGIC: No skin rash. NEUROLOGICAL: Intubated. LABORATORY DATA: Sodium is 127, potassium 3.8, creatinine is 0.7. ASSESSMENT AND PLAN: 1. Hyponatremia, most likely secondary to Guillain-[place] Syndrome. Plan to monitor sodium. He is hypotensive today and need IV fluids. We will continue monitoring sodium closely with possible Guillain-[place] syndrome, treatment of which would help sodium. We will continue close monitoring. 2. Hypochloremia. 3. Edema. 4. 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 5. We will monitor sodium level closely. We will follow. Job ID: [id number] [facility]
[2018-09-05] MEDS: cefTRIAXone\\ROCEPHIN 2 GM in Sodium Chloride 0.9% 100 ML IVPB SCH (12:31)
[2018-09-05] MEDS ORDERED: Piperacillin/Tazobactam 3.375 GM in Sodium Chloride 0.9% 100 ML IVPB SCH (13:00)
[2018-09-05 13:13] LABS: West Nile Virus IgG Ab - CSF Positive (Negative); West Nile Virus IgM Ab - CSF Negative (Negative)
[2018-09-05] MEDS: fentaNYL Citrate/PF 2,000 MCG in Sodium Chloride 0.9% 60 ML IV SCH (15:36)
[2018-09-05] MEDS ORDERED: Vancomycin HCl 1.5 GM in Sodium Chloride 0.9% 250 ML 300 ML IVPB SCH (16:00)
[2018-09-05] MEDS ORDERED: Vancomycin HCl 1.5 GM in Premix Bag 1 BAG IVPB SCH (16:00)
[2018-09-05] MEDS ORDERED: OCTAGAM 10% 60 GM, OCTAGAM 10% 10 GM in Premix Bag 1 BAG IVPB SCH (16:00)
[2018-09-05] MEDS ORDERED: Sodium Chloride 0.9% 1,000 ML IV SCH ×2 (17:15→18:30)
--- NOTE | 2018-09-05 17:29 | PRG ---
DATE OF SERVICE: 09/05/2018 SERVICE: Pulmonary Medicine. INTERVAL HISTORY: The patient is doing poorly from respiratory standpoint. Oxygen requirements are going up. He stated he spiked a fever. He is also having very nasty purulent sputum production. He cannot provide any additional elements of the history at this point. Otherwise, there has been no change to his condition. His blood pressure is dropping off a little bit. PHYSICAL EXAMINATION: VITAL SIGNS: Afebrile with a T-max of 99.8, pulse 99, blood pressure 96/61, respirations are 18, and saturation 92% on 45% FiO2 and PEEP of 5. GENERAL: The patient is awake and alert, in no apparent distress. LUNGS: Decent air entry. Extensive rhonchi present. There is a prolonged expiratory phase. No wheezing or crackles are appreciated. HEART: Normal rate, regular. ABDOMEN: Soft, nontender, and nondistended. Bowel sounds are positive. MUSCULOSKELETAL: No cyanosis or clubbing. There is trace pitting in the bilateral lower extremities. NEUROLOGIC: Grossly nonfocal. LABORATORY DATA: WBC 21.9 and up trending, hemoglobin 13.5, and platelets are 241,000. Band count is 19%, which has jumped. INR 0.9. Sodium 125 and downtrending. Basic metabolic profile is otherwise unremarkable. Magnesium and phosphorus are within the normal limits. Acetylcholine receptor antibodies are negative. LIZ screen is also unremarkable. ASSESSMENT: 1. 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 2. Tjfez-uw-boohptf hypoxic respiratory failure. 3. Chronic obstructive pulmonary disease with acute exacerbation. 4. Community-acquired pneumonia secondary to overt aspiration. 5. Metabolic encephalopathy. 6. Hyponatremia. DISCUSSION AND PLAN: I will continue to trend the CBC and a basic metabolic profile. I will get chest x-ray tomorrow morning. Sputum will be sent for Gram stain and culture and we will initiate empiric antibiotics directed aspiration related organisms. I will leave the decreasing sodium to Nephrology. He is initiated therapy for Guillain-[place] syndrome with IVIG. Hopefully, he will have a quick neurologic recovery. CRITICAL CARE TIME: 30 minutes. Job ID: [id number]
[2018-09-05] MEDS: Piperacillin/Tazobactam 3.375 GM in Sodium Chloride 0.9% 100 ML IVPB SCH (18:38)
[2018-09-05 18:41] LABS: Potassium 4.5 mmol/L (3.5-5.1)
[2018-09-05] MEDS ORDERED: Sodium Chloride 3% 250 ML IVPB SCH (20:00)
[2018-09-05] MEDS: Atorvastatin Calcium 40 MG TAB PO SCH (20:17)
[2018-09-05] MEDS: Tolvaptan 15 MG TAB PO SCH ×2 (20:32→20:34)
[2018-09-06] MEDS: Piperacillin/Tazobactam 3.375 GM in Sodium Chloride 0.9% 100 ML IVPB SCH ×4 (00:02→17:45)
[2018-09-06 04:56] LABS: Hemoglobin 10.2 g/dL (14.0-18.0); Mean Corpuscular HGB CONC 31.9 g/dL (32.0-36.0); Mean Corpuscular Hemoglobin 30.4 pg (27.0-31.0); Mean Corpuscular Volume 95.5 fL (78.0-98.0); Mean Platelet Volume 7.6 fL (7.4-10.4); Platelet Count 187 thou/uL (130-400); RBC Distribution Width 12.1 % (11.5-14.5); Red Blood Cell (RBC) Count 3.35 mill/uL (4.70-6.10); White Blood Cell (WBC) Count 19.8 thou/uL (4.8-10.8)
[2018-09-06 04:57] LABS: Anion Gap 10 mmol/L (10-20); BUN (Urea Nitrogen) 21 mg/dL (8.4-25.7); Band 9 % (5-11); Calc. Creatinine Clearance 0 mL/min (70-130); Carbon Dioxide 19 mmol/L (23-31); Chloride 102 mmol/L (98-107); Estimated GFR-MDRD 75; Glucose 137 mg/dL (80-115); Hypochromia SLIGHT = 6-15 cells (100X) (0-5/hpf); Lymphocytes 4 % (21-51); MDiff Complete? YES; Monocytes 1 % (0-10); Neutrophil 86 % (42-75); Platelet Morphology Comment Appears Adequate; Potassium 4.3 mmol/L (3.5-5.1); Sodium 127 mmol/L (136-145)
--- NOTE | 2018-09-06 08:03 | RAD ---
PORTABLE CHEST: Date: 09/06/18 COMPARISON: 09/04/11 study. HISTORY: Intubation. Respiratory distress. FINDINGS: There has been a significant change in appearance of the chest. There is now consolidation in the lef t lung base, more suggestive of a pneumonic process than mucus plugging. I do not see any definite vo lume loss change. Patient is rotated and it is difficult to assess. Endotracheal tube is in satisfact ory position. The tip of the NG tube is somewhat difficult to visualize but appears to be at possibly the mid esophagus level. I would recommend a repeat film to evaluate NG tube placement. IMPRESSION: 1. Development of some consolidation in the left lower lobe. 2. Position of the NG tube appears to be mid esophagus on this study. Repeat film would be recommend ed as it is somewhat difficult to assess due to technique. POS: CHULA
--- NOTE | 2018-09-06 08:08 | PRG ---
DATE OF SERVICE: 09/06/2018 SUBJECTIVE: The patient is still intubated, sedated. OBJECTIVE: VITAL SIGNS: T-max of 100.3, T-current 99, blood pressure stable. I's and O's 2475 in, 1285 out. Urine output is clear yellow. ABDOMEN: Morbidly obese, protuberant, no rigidity, no rebound. : Soares catheter adequately secured, urine output clear. PERTINENT LABORATORY: White count 19, hemoglobin 10, platelet 187. Sodium 127, creatinine 1.0. Blood culture and urine culture negative. IMPRESSION AND PLAN: 1. Mr. Page is a 63-year-old male admitted for mental status changes, quadriparesis with suspected Guillain [place]. Neurology following. 2. Respiratory failure. 3. Pneumonia. 4. Hyponatremia. 5. Urologic issues of status post transurethral resection of the prostate, urethral stricture, status post cystoscopy, urethral stricture dilatation and catheter placement at bedside. Currently on broad-spectrum antibiotics of Zosyn and vancomycin by Primary Service due to pneumonia. Therefore, Rocephin discontinued. Continue indwelling Soares catheter. Do not remove his Soares catheter unless it is initiated by for voiding trial. No acute urologic issues at this time. Dr. Leyva will be covering me over the weekend. Job ID: [id number] [facility]
[2018-09-06] MEDS: Enoxaparin Sodium 40 MG/0.4 ML SYRINGE SC SCH (08:49)
[2018-09-06] MEDS: Famotidine 20 MG TAB PO SCH ×2 (08:50→21:23)
[2018-09-06] MEDS: predniSONE 20 MG TAB PO SCH (08:50)
[2018-09-06] MEDS: Aspirin Chewable 81 MG TAB PO SCH (08:50)
[2018-09-06] MEDS: Carvedilol 6.25 MG TAB PO SCH ×2 (08:52→17:43)
[2018-09-06] MEDS ORDERED: Tolvaptan 15 MG TAB PO ONE (11:49)
--- NOTE | 2018-09-06 13:18 | PRG ---
DATE OF SERVICE: 09/06/2018 SUBJECTIVE: Mr. Page remains intubated at this point. OBJECTIVE: VITAL SIGNS: His blood pressure is 109/57, pulse is 84, respirations are 12, saturations are 100%. NEUROLOGIC: He awakens despite being on propofol. I can get him to follow commands. He denies being in any pain. He has some movement of all 4 extremities, albeit is quite weak. He has no antigravity strength in the extremities that I can elicit. His MRI of the cervical spine did not show any evidence of a cord lesion. Given that his CSF showed a high protein with acellular fluid, I suspect that we are dealing with Guillain-[place] syndrome. He has been started on IVIG. Hopefully, I see some gradual improvement in strength. He will be weaned as able. Continue DVT prophylaxis. Agree with current management. Job ID: [id number]
[2018-09-06] MEDS ORDERED: Lorazepam 2 MG/ML VIAL SLOW IVP PRN (13:19)
--- NOTE | 2018-09-06 13:38 | PRG ---
DATE OF SERVICE: 09/06/2018 SERVICE: Pulmonary Medicine. INTERVAL HISTORY: The patient is doing really well from respiratory standpoint. Denies any current chest pain, fevers, cough, nausea, or vomiting. His strength is improving. He is following some simple commands. He is able to squeeze his upper extremities much better today. He is still too weak to lift his head up off the bed. PHYSICAL EXAMINATION: VITAL SIGNS: Afebrile, pulse 78, blood pressure 127/73, respirations 14, and saturation 97% on 33% FiO2 and a PEEP of 5. GENERAL: The patient is awake and alert, in no apparent distress. LUNGS: Much improved air entry. There is a prolonged expiratory phase. Rhonchi are much less intense. HEART: Normal rate. Regular. ABDOMEN: Soft, nontender, and nondistended. Bowel sounds are positive. MUSCULOSKELETAL: No cyanosis or clubbing. There is diffuse 1+ pitting throughout. LABORATORY DATA: WBC 19.8, hemoglobin 10.2, platelets 187,000. Band count is dropping to 9%. INR 0.9. Sodium increasing to 127. Basic metabolic profile is otherwise unremarkable. Creatinine is stable at 1.01. Lactate is unremarkable. CSF [place] IgG antibody is positive. IgM, however, is unremarkable. VDRL is nonreactive. Immunology is negative. Blood cultures x2, respiratory culture, and body fluid culture all negative to date. IMAGING: Chest x-ray demonstrates consolidation in the left lower lobe. Endotracheal tube is in good position. I feel that the course of the enteric catheter is running more inferior. That being said, we will pursue additional diagnostic studies. ASSESSMENT: 1. Acute on chronic hypoxic respiratory failure. 2. Community-acquired pneumonia, secondary to aspiration-related disease. 3. Quadriparesis, secondary to Guillain-[place] syndrome. 4. Chronic obstructive pulmonary disease with acute exacerbation. 5. Metabolic encephalopathy, improving. 6. Hyponatremia. DISCUSSION AND PLAN: We are going to interrupt the sedation. We will give him intermittent doses of Ativan or morphine, but only if he needs it. We will have him work with Physical Therapy and get him out of bed and into a chair. We will initiate tube feeds, but before we do that, we will need to confirm placement of this enteric catheter with a KUB. I have made multiple adjustments to the ventilator. I am putting him on pressure control ventilation as his lung function and strength have improved ever so slightly. CRITICAL CARE TIME: 30 minutes. Job ID: [id number]
--- NOTE | 2018-09-06 14:28 | PRG ---
DATE OF SERVICE: 09/06/2018 SUBJECTIVE: The patient was seen and examined in ICU. OBJECTIVE: GENERAL: This is a well-built male, seen in ICU, intubated. VITAL SIGNS: Temperature 98.9, pulse 80, respiratory rate 11, blood pressure . HEENT: Intubated. CV: S1 and S2 heard. RESPIRATORY: Clear. GI: Abdomen is soft. MUSCULOSKELETAL: 1+ edema. DERMATOLOGIC: No skin rash. NEUROLOGICAL: Intubated. LABORATORY DATA: Sodium is 127, potassium is 4.3, BUN is 21, and creatinine is 1.01. ASSESSMENT AND PLAN: 1. Hyponatremia, most likely syndrome of inappropriate antidiuretic hormone from Guillain-[place] syndrome. We will give tolvaptan. Sodium level is better with hypertonic saline. 2. Hypochloremia. 3. Edema. 4. Possible Guillain-[place] syndrome. We will follow. Plan is to give tolvaptan and monitor labs. Job ID: [id number]
--- NOTE | 2018-09-06 14:39 | RAD ---
ABDOMEN 1 VIEW: HISTORY: Placement of enteric catheter. FINDINGS/IMPRESSION: The tip of the enteric catheter is in the projection of the proximal stomach close to the GE junction . Further advancement is recommended. The bowel gas pattern is unremarkable. There are degenerative changes in the spine. A urinary carola ter is present. POS: CHULA
--- NOTE | 2018-09-06 17:29 | PDOC.PN ---
- Subjective Encounter Start Date: 09/06/18 Encounter Start Time: 10:00 Pt seen for followup re: acute hypoxic respiratory failure. Is intubated, opening eyes yo voice, nodding or shaking head to answer questions. - Objective Resuscitation Status - Order Detail: 09/03/18 00:59 Resuscitation Status Routine Resuscitation Status: FULL: Full Resuscitation Discussed with: poa: MARQUISE Reviewed: Yes Vital Signs & Weight: Vital Signs (12 hours) Temp Pulse Pulse Pulse Resp BP BP 09/06/18 16:00 98.8 F 15 09/06/18 15:18 88 131/74 09/06/18 14:23 82 13 09/06/18 14:00 87 15 138/86 09/06/18 12:00 98.9 F 17 09/06/18 11:41 77 78 119/60 09/06/18 10:51 83 115/66 09/06/18 10:00 14 09/06/18 08:52 110/56 L 09/06/18 08:00 98.8 F 15 09/06/18 07:55 83 110/56 L 09/06/18 07:53 83 17 09/06/18 05:55 16 BP Pulse Ox Pulse Ox Pulse Ox 09/06/18 16:00 09/06/18 15:18 09/06/18 14:23 97 09/06/18 14:00 09/06/18 12:00 09/06/18 11:41 127/76 98 98 09/06/18 10:51 09/06/18 10:00 09/06/18 08:52 09/06/18 08:00 99 09/06/18 07:55 09/06/18 07:53 100 09/06/18 05:55 Weight Admit Weight 190 lb 8 oz Weight 196 lb Most Recent Monitor Data Heart Rate from ECG 91 NIBP 147/89 NIBP BP-Mean 108 Respiration from ECG 18 SpO2 98 I&O: 09/05/18 09/06/18 09/07/18 06:59 06:59 06:59 Intake Total 1736.1 2472.3 7.9 Output Total 1925 1285 770 Balance -188.9 1187.3 -762.1 Result Diagrams: 09/06/18 04:17 09/06/18 04:17 EKG Reviewed by me: Yes (Tele: NSR) Phys Exam - Physical Examination Obese HEENT: moist MMs ETT Neck: no nodes Respiratory: clear to auscultation bilateral Cardiovascular: RRR Gastrointestinal: soft Neurological: moves all 4 limbs Psychiatric: normal affect Dx/Plan (1) Acute respiratory failure Code(s): J96.00 - ACUTE RESPIRATORY FAILURE, UNSP W HYPOXIA OR HYPERCAPNIA Status: Acute Qualifiers: Respiratory failure complication: hypoxia Qualified Code(s): J96.01 - Acute respiratory failure with hypoxia Comment: Improving, continues to be intubated, in CCU (2) Aspiration pneumonia Code(s): J69.0 - PNEUMONITIS DUE TO INHALATION OF FOOD AND VOMIT Status: Acute Comment: continue IV Zosyn (3) Hyponatremia Code(s): E87.1 - HYPO-OSMOLALITY AND HYPONATREMIA Status: Acute Comment: sodium improved to 127. (4) BPH (benign prostatic hyperplasia) Code(s): N40.0 - BENIGN PROSTATIC HYPERPLASIA WITHOUT LOWER URINRY TRACT SYMP Status: Chronic Comment: stable (5) CAD (coronary artery disease) Code(s): I25.10 - ATHSCL HEART DISEASE OF [place] CORONARY ARTERY W/O ANG PCTRS Status: Chronic Comment: stable - Plan * . Review of Systems - Review of Systems Cardiovascular: negative: chest pain, palpitations, orthopnea, paroxysmal nocturnal dyspnea, edema, light headedness Gastrointestinal: negative: Nausea, Vomiting, Abdominal Pain, Diarrhea, Constipation, Melena, Hematochezia - Medications/Allergies Allergies/Adverse Reactions: Allergies Allergy/AdvReac Type Severity Reaction Status Date / Time levofloxacin [From Levaquin] Allergy Verified 09/02/18 23:11 Medications: Current Medications Acetaminophen (Tylenol) 650 mg PO Q4H PRN PRN Reason: Headache/Fever/Mild Pain (1-3) Last Admin: 09/03/18 04:10 Dose: 650 mg Albuterol/Ipratropium (Duoneb) 3 ml NEB [id number] JUNAID Last Admin: 09/06/18 14:23 Dose: 3 ml Aspirin (Aspirin Chewable) 81 mg PO DAILY JUNAID Last Admin: 09/06/18 08:50 Dose: 81 mg Atorvastatin Calcium (Lipitor) 40 mg PO HS JUNAID Last Admin: 09/05/18 20:17 Dose: 40 mg Bisacodyl (Dulcolax) 10 mg NV DAILYPRN PRN PRN Reason: Constipation Carvedilol (Coreg) 6.25 mg PO BID-WM [facility] Last Admin: 09/06/18 08:52 Dose: 6.25 mg Enoxaparin Sodium (Lovenox) 40 mg SC 0900 [facility] Last Admin: 09/06/18 08:49 Dose: 40 mg Famotidine (Pepcid) 20 mg PO BID [facility] Last Admin: 09/06/18 08:50 Dose: 20 mg Potassium Chloride 40 meq/ (Sodium Chloride) 270 mls @ 135 mls/hr IVPB ASDIR PRN PRN Reason: FOR SERUM K+ 2.5 - 3.5 Potassium Chloride 40 meq/ (Device) 100 mls @ 50 mls/hr IVPB ASDIR PRN PRN Reason: FOR SERUM K+ 2.5 - 3.5 Magnesium Sulfate 1 gm/ Sodium (Chloride) 102 mls @ 102 mls/hr IV PRN PRN PRN Reason: MAG LEVEL 1.4 - 2.0 Magnesium Sulfate 2 gm/ Device 50 mls @ 50 mls/hr IVPB ASDIR PRN PRN Reason: MAGNESIUM < 1.4 Potassium Phosphate 9 mmol/ (Sodium Chloride) 103 mls @ 25.75 mls/hr IVPB ASDIR PRN PRN Reason: Phosphate 1.0-1.8 Potassium Phosphate 12 mmol/ (Sodium Chloride) 254 mls @ 63.5 mls/hr IV ASDIR PRN PRN Reason: Serum phosphate 0.5-0.9 Potassium Phosphate 15 mmol/ (Sodium Chloride) 255 mls @ 63.75 mls/hr IV ASDIR PRN PRN Reason: Serum Phos < 0.5 Piperacillin Sod/Tazobactam (Sod 3.375 gm/ Sodium Chloride) 100 mls @ 200 mls/ hr IVPB Q6HR [facility] Last Admin: 09/06/18 13:15 Dose: 100 mls Lorazepam (Ativan) 1 mg SLOW IVP Q1H PRN PRN Reason: Anxiety/Agitation Magnesium Oxide (Magnesium Oxide) 400 mg PO BIDPRN PRN PRN Reason: FOR SERUM MAG 1.4 - 2.0 Magnesium Oxide (Magnesium Oxide) 800 mg PO PRN PRN PRN Reason: FOR SERUM MAG < 1.4 Mineral Oil/White Petrolatum (Systane Nighttime Eye Ointment) 0 gm EA EYE PRN PRN PRN Reason: Dry Eyes Miscellaneous Medication (Ccu Electrolyte Replacement) 1 each IVPB ASDIR JUNAID Miscellaneous Medication (Phos-Nak) 1 pkt PO TIDPRN PRN PRN Reason: FOR PHOS LEVEL 1.0 - 1.8 Miscellaneous Medication (Phos-Nak) 2 pkt PO TIDPRN PRN PRN Reason: FOR PHOS LEVEL 0.5 - 1.0 Morphine Sulfate (Morphine) 1 mg SLOW IVP Q1H PRN PRN Reason: Moderate to Severe Pain (6-10) Discontinue Previous Narcotic Pain Medications And Benzodiazepines 1 each FS .ONE [facility] Stop: 10/03/18 12:48 Ccu Electrolyte (Replacement Protocol) 0 each FS PRN PRN PRN Reason: FOR ELECTROLYTE REPLACEMENT Ondansetron HCl (Zofran) 4 mg IVP Q6H PRN PRN Reason: Nausea/Vomiting Potassium Chloride (K-Dur) 40 meq PO ASDIR PRN PRN Reason: FOR SERUM K+ 2.5 - 3.5 Potassium Chloride (Klor-Con) 40 meq PER TUBE ASDIR PRN PRN Reason: FOR SERUM K+ 2.5-3.5 Prednisone (Prednisone) 40 mg PO QA-[facility] Stop: 09/10/18 08:01 Last Admin: 09/06/18 08:50 Dose: 40 mg Senna/Docusate Sodium (Senokot S) 2 tab PO BIDPRN PRN PRN Reason: Constipation Sodium Chloride (Flush - Normal Saline) 10 ml IVF Q12HR [facility] Last Admin: 09/06/18 08:52 Dose: 10 ml Sodium Chloride (Flush - Normal Saline) 10 ml IVF PRN PRN PRN Reason: Saline Flush
[2018-09-06] MEDS: Morphine 2 MG/ML SYRINGE SLOW IVP PRN ×2 (17:43→21:45)
[2018-09-06 20:07] LABS: Neuron Specific Enolase-CSF Less than 1.0 ug/L (1.0-7.0)
[2018-09-06 20:36] LABS: Anion Gap 12 mmol/L (10-20); BUN (Urea Nitrogen) 21 mg/dL (8.4-25.7); Calc. Creatinine Clearance 111 mL/min (70-130); Calcium 8.8 mg/dL (7.8-10.44); Carbon Dioxide 22 mmol/L (23-31); Chloride 104 mmol/L (98-107); Estimated GFR-MDRD 90; Glucose 142 mg/dL (80-115); Potassium 3.9 mmol/L (3.5-5.1); Sodium 134 mmol/L (136-145)
--- NOTE | 2018-09-06 21:21 | PDOC.PN ---
- Subjective Encounter Start Date: 09/05/18 Encounter Start Time: 10:30 Subjective: pt intubated, family updated - Objective Resuscitation Status - Order Detail: 09/03/18 00:59 Resuscitation Status Routine Resuscitation Status: FULL: Full Resuscitation Discussed with: poa: Vital Signs & Weight: Vital Signs (12 hours) Temp Pulse Pulse Pulse Resp BP BP 09/06/18 20:00 98.9 F 09/06/18 19:52 09/06/18 19:35 14 09/06/18 18:39 88 09/06/18 18:38 89 14 09/06/18 18:00 16 09/06/18 17:43 131/74 09/06/18 16:00 98.8 F 15 09/06/18 15:18 88 131/74 09/06/18 14:23 82 13 09/06/18 14:00 87 15 138/86 09/06/18 12:00 98.9 F 17 09/06/18 11:41 77 78 119/60 09/06/18 10:51 83 115/66 09/06/18 10:00 14 BP Pulse Ox Pulse Ox Pulse Ox 09/06/18 20:00 09/06/18 19:52 96 09/06/18 19:35 09/06/18 18:39 09/06/18 18:38 99 09/06/18 18:00 09/06/18 17:43 09/06/18 16:00 09/06/18 15:18 09/06/18 14:23 97 09/06/18 14:00 09/06/18 12:00 09/06/18 11:41 127/76 98 98 09/06/18 10:51 09/06/18 10:00 Weight Admit Weight 190 lb 8 oz Weight 196 lb Most Recent Monitor Data Heart Rate from ECG 91 NIBP 142/85 NIBP BP-Mean 104 Respiration from ECG 13 SpO2 95 I&O: 09/05/18 09/06/18 09/07/18 06:59 06:59 06:59 Intake Total 1736.1 2472.3 7.9 Output Total 1925 1285 1295 Balance -188.9 1187.3 -1287.1 Result Diagrams: 09/06/18 04:17 09/06/18 20:05 Phys Exam - Physical Examination Respiratory: no wheezing, no rales, clear to auscultation bilateral mild rhonchi all over Cardiovascular: RRR, no significant murmur, no rub, gallop, irregular Gastrointestinal: soft, non-tender, no distention, positive bowel sounds Musculoskeletal: no edema, pulses present, edema present Dx/Plan (1) Acute respiratory failure Code(s): J96.00 - ACUTE RESPIRATORY FAILURE, UNSP W HYPOXIA OR HYPERCAPNIA Status: Acute Qualifiers: Respiratory failure complication: hypoxia Qualified Code(s): J96.01 - Acute respiratory failure with hypoxia Comment: Improving, continues to be intubated, in CCU (2) Aspiration pneumonia Code(s): J69.0 - PNEUMONITIS DUE TO INHALATION OF FOOD AND VOMIT Status: Acute Comment: continue IV Zosyn (3) Quadriplegia Code(s): G82.50 - QUADRIPLEGIA, UNSPECIFIED Status: Acute (4) CAD (coronary artery disease) Code(s): I25.10 - ATHSCL HEART DISEASE OF [place] CORONARY ARTERY W/O ANG PCTRS Status: Chronic Comment: stable (5) Hyponatremia Code(s): E87.1 - HYPO-OSMOLALITY AND HYPONATREMIA Status: Acute (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 he may need plasmapherisis * . Review of Systems - Review of Systems Other: unable able to obtain - Medications/Allergies Allergies/Adverse Reactions: Allergies Allergy/AdvReac Type Severity Reaction Status Date / Time levofloxacin [From Levaquin] Allergy Verified 09/02/18 23:11 Medications: Current Medications Acetaminophen (Tylenol) 650 mg PO Q4H PRN PRN Reason: Headache/Fever/Mild Pain (1-3) Last Admin: 09/03/18 04:10 Dose: 650 mg Albuterol/Ipratropium (Duoneb) 3 ml NEB [id number] JUNAID Last Admin: 09/06/18 18:38 Dose: 3 ml Aspirin (Aspirin Chewable) 81 mg PO DAILY [facility] Last Admin: 09/06/18 08:50 Dose: 81 mg Atorvastatin Calcium (Lipitor) 40 mg PO HS [facility] Last Admin: 09/05/18 20:17 Dose: 40 mg Bisacodyl (Dulcolax) 10 mg [place] DAILYPRN PRN PRN Reason: Constipation Carvedilol (Coreg) 6.25 mg PO BID-[facility] Last Admin: 09/06/18 17:43 Dose: 6.25 mg Enoxaparin Sodium (Lovenox) 40 mg SC 0900 [facility] Last Admin: 09/06/18 08:49 Dose: 40 mg Famotidine (Pepcid) 20 mg PO BID [facility] Last Admin: 09/06/18 08:50 Dose: 20 mg Potassium Chloride 40 meq/ (Sodium Chloride) 270 mls @ 135 mls/hr IVPB ASDIR PRN PRN Reason: FOR SERUM K+ 2.5 - 3.5 Potassium Chloride 40 meq/ (Device) 100 mls @ 50 mls/hr IVPB ASDIR PRN PRN Reason: FOR SERUM K+ 2.5 - 3.5 Magnesium Sulfate 1 gm/ Sodium (Chloride) 102 mls @ 102 mls/hr IV PRN PRN PRN Reason: MAG LEVEL 1.4 - 2.0 Magnesium Sulfate 2 gm/ Device 50 mls @ 50 mls/hr IVPB ASDIR PRN PRN Reason: MAGNESIUM < 1.4 Potassium Phosphate 9 mmol/ (Sodium Chloride) 103 mls @ 25.75 mls/hr IVPB ASDIR PRN PRN Reason: Phosphate 1.0-1.8 Potassium Phosphate 12 mmol/ (Sodium Chloride) 254 mls @ 63.5 mls/hr IV ASDIR PRN PRN Reason: Serum phosphate 0.5-0.9 Potassium Phosphate 15 mmol/ (Sodium Chloride) 255 mls @ 63.75 mls/hr IV ASDIR PRN PRN Reason: Serum Phos < 0.5 Piperacillin Sod/Tazobactam (Sod 3.375 gm/ Sodium Chloride) 100 mls @ 200 mls/ hr IVPB Q6HR [facility] Last Admin: 09/06/18 17:45 Dose: 100 mls Lorazepam (Ativan) 1 mg SLOW IVP Q1H PRN PRN Reason: Anxiety/Agitation Magnesium Oxide (Magnesium Oxide) 400 mg PO BIDPRN PRN PRN Reason: FOR SERUM MAG 1.4 - 2.0 Magnesium Oxide (Magnesium Oxide) 800 mg PO PRN PRN PRN Reason: FOR SERUM MAG < 1.4 Mineral Oil/White Petrolatum (Systane Nighttime Eye Ointment) 0 gm EA EYE PRN PRN PRN Reason: Dry Eyes Miscellaneous Medication (Ccu Electrolyte Replacement) 1 each IVPB ASDIR JUNAID Miscellaneous Medication (Phos-Nak) 1 pkt PO TIDPRN PRN PRN Reason: FOR PHOS LEVEL 1.0 - 1.8 Miscellaneous Medication (Phos-Nak) 2 pkt PO TIDPRN PRN PRN Reason: FOR PHOS LEVEL 0.5 - 1.0 Morphine Sulfate (Morphine) 1 mg SLOW IVP Q1H PRN PRN Reason: Moderate to Severe Pain (6-10) Last Admin: 09/06/18 17:43 Dose: 1 mg Discontinue Previous Narcotic Pain Medications And Benzodiazepines 1 each FS .ONE [facility] Stop: 10/03/18 12:48 Ccu Electrolyte (Replacement Protocol) 0 each FS PRN PRN PRN Reason: FOR ELECTROLYTE REPLACEMENT Ondansetron HCl (Zofran) 4 mg IVP Q6H PRN PRN Reason: Nausea/Vomiting Potassium Chloride (K-Dur) 40 meq PO ASDIR PRN PRN Reason: FOR SERUM K+ 2.5 - 3.5 Potassium Chloride (Klor-Con) 40 meq PER TUBE ASDIR PRN PRN Reason: FOR SERUM K+ 2.5-3.5 Prednisone (Prednisone) 40 mg PO QAM-WM [facility] Stop: 09/10/18 08:01 Last Admin: 09/06/18 08:50 Dose: 40 mg Senna/Docusate Sodium (Senokot S) 2 tab PO BIDPRN PRN PRN Reason: Constipation Sodium Chloride (Flush - Normal Saline) 10 ml IVF Q12HR [facility] Last Admin: 09/06/18 08:52 Dose: 10 ml Sodium Chloride (Flush - Normal Saline) 10 ml IVF PRN PRN PRN Reason: Saline Flush
[2018-09-06] MEDS: Atorvastatin Calcium 40 MG TAB PO SCH (21:23)
[2018-09-07] MEDS: Piperacillin/Tazobactam 3.375 GM in Sodium Chloride 0.9% 100 ML IVPB SCH ×4 (00:16→17:43)
[2018-09-07] MEDS: Vancomycin HCl 1.25 GM in Sodium Chloride 0.9% 250 ML 250 ML IVPB SCH ×2 (06:02→18:14)
[2018-09-07] MEDS ORDERED: Vancomycin HCl 1 GM in Premix Bag 1 BAG IVPB SCH (09:00)
--- NOTE | 2018-09-07 09:58 | PRG ---
DATE OF SERVICE: 09/07/2018 TIME SPENT: 35 minutes of critical care time. SUBJECTIVE: The patient remains intubated on mechanical ventilation. He is actually much stronger than what I got in report. He did get 3 days of IVIG. His also noticed improvement in his strength. He can lift his head off the bed. He passed spontaneous breathing trial with tidal volumes about 1500 mL per breath on a pressure support of 5. He is able to move his arms without difficulty. He does have some weakness in his legs. OBJECTIVE: VITAL SIGNS: Temperature is 99.0, pulse 78, blood pressure 144/86, and O2 saturation 100%. HEENT: Otherwise unremarkable. NECK: No JVD. LUNGS: Clear to auscultation. CARDIAC: S1 and S2. Regular. ABDOMEN: Soft. EXTREMITIES: No edema. LABORATORY DATA: No new labs were done today. ASSESSMENT: 1. 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 2. Acute on chronic respiratory failure. 3. Left lower lobe pneumonia. 4. Improved encephalopathy. PLAN: 1. Trial of extubation, see if he tolerates. 2. Recheck labs tomorrow. 3. Have Speech Therapy assess swallowing. Job ID: [id number]
--- NOTE | 2018-09-07 10:18 | RAD ---
CHEST 1 VIEW: Date: 09/07/18 INDICATION: Sputum change, intubation. COMPARISON: Prior exam dated 09/06/18. FINDINGS: There is persistent consolidation and air space opacity involving both lower lobes, left greater than right. Patient is heavily rotated to the right side, limiting exam. ET tube and gastric catheter rem ain in position. No pneumothorax is evident. IMPRESSION: 1. Stable bilateral lower lobe air space opacities, left greater than right. 2. ET tube projects in expected position. Gastric catheter projects beyond the left hemidiaphragm an d beyond the field of view. POS: BH
[2018-09-07] MEDS: Enoxaparin Sodium 40 MG/0.4 ML SYRINGE SC SCH (10:24)
[2018-09-07] MEDS ORDERED: Bacteriostatic Water 30 ML VIAL FS PRN (11:02)
[2018-09-07] MEDS: Carvedilol 6.25 MG TAB PO SCH ×2 (11:09→16:11)
[2018-09-07] MEDS: Aspirin Chewable 81 MG TAB PO SCH (11:10)
[2018-09-07] MEDS: predniSONE 20 MG TAB PO SCH (11:10)
[2018-09-07] MEDS: Famotidine 20 MG TAB PO SCH (11:10)
--- NOTE | 2018-09-07 12:46 | EKG ---
Test Reason : Blood Pressure : / mmHG Vent. Rate : 070 BPM Atrial Rate : 070 BPM P-R Int : 152 ms QRS Dur : 106 ms QT Int : 400 ms P-R-T Axes : 059 063 094 degrees QTc Int : 432 ms Normal sinus rhythm Normal ECG Confirmed by SARAH MOYA DO ([id number]), mapping editor STARR SOARES ([id number]) on 09/07/2018 12:46:09 PM Referred By: Confirmed By:SARAH MOYA DO
--- NOTE | 2018-09-07 13:22 | PRG ---
DATE OF SERVICE: 09/07/2018 SUBJECTIVE: Patient was seen and examined at bedside and overnight events noted. Patient denies any shortness of breath or chest pain or palpitation. No history of nausea or vomiting or diarrhea or fever or chills or cramps. OBJECTIVE: GENERAL: This is a well-built male, in no apparent distress. VITAL SIGNS: Temperature 98.3, pulse 82, respiratory rate 14, blood pressure 149/97. HEENT: Atraumatic, normocephalic. Oral mucosa is moist NECK: Supple. CARDIOVASCULAR: S1, S2 heard. Rate and rhythm regular. RESPIRATORY: Clear to auscultation. GASTROINTESTINAL: Abdomen is soft. MUSCULOSKELETAL: No tenderness. No edema. DERMATOLOGIC: No skin rash. NEUROLOGIC: Alert and awake and oriented X3. No focal neurologic deficits. Moving all the extremities. PSYCHIATRIC: Mood and affect normal. LABORATORY DATA: Potassium 3.9, BUN is 21, creatinine 0.8, these are labs from yesterday. ASSESSMENT AND PLAN: 1. Hyponatremia, recheck labs. Sodium improved with tolvaptan. We will monitor. 2. Hypochloremia. 3. Edema. 4. Possible Guillain-[place]. Follow with Neurology. 5. The patient is feeling better. We will monitor sodium. Job ID: [id number]
[2018-09-07 13:38] LABS: Anion Gap 11 mmol/L (10-20); BUN (Urea Nitrogen) 26 mg/dL (8.4-25.7); Calc. Creatinine Clearance 106 mL/min (70-130); Calcium 9.1 mg/dL (7.8-10.44); Carbon Dioxide 24 mmol/L (23-31); Chloride 103 mmol/L (98-107); Estimated GFR-MDRD 89; Glucose 130 mg/dL (80-115); Potassium 3.3 mmol/L (3.5-5.1); Sodium 135 mmol/L (136-145)
--- NOTE | 2018-09-07 13:52 | PDOC.PN ---
- Subjective Encounter Start Date: 09/07/18 Encounter Start Time: 10:00 Pt seen for followup re: acute hypoxic respiratory failure. Extubated, answering questions, says he feels better. - Objective Resuscitation Status - Order Detail: 09/03/18 00:59 Resuscitation Status Routine Resuscitation Status: FULL: Full Resuscitation Discussed with: poa: Vital Signs & Weight: Vital Signs (12 hours) Temp Pulse Resp BP Pulse Ox 09/07/18 13:37 87 22 H 100 09/07/18 12:00 98.3 F 100 09/07/18 11:09 142/85 H 09/07/18 09:15 85 26 H 98 09/07/18 08:00 13 100 09/07/18 07:48 83 142/85 H 09/07/18 07:46 86 14 100 09/07/18 07:00 99.0 F 09/07/18 06:00 12 09/07/18 04:00 99.0 F 14 09/07/18 02:43 82 09/07/18 02:00 14 Weight Admit Weight 190 lb 8 oz Weight 190 lb 14.725 oz Most Recent Monitor Data Heart Rate from ECG 80 NIBP 141/92 NIBP BP-Mean 108 Respiration from ECG 15 SpO2 99 I&O: 09/06/18 09/07/18 09/08/18 06:59 06:59 06:59 Intake Total 2472.3 639.9 470 Output Total 1285 2475 735 Balance 1187.3 -1835.1 -265 Result Diagrams: 09/06/18 04:17 09/07/18 13:11 Phys Exam - Physical Examination Constitutional: NAD HEENT: moist MMs Neck: supple Respiratory: clear to auscultation bilateral Cardiovascular: RRR Gastrointestinal: soft Neurological: moves all 4 limbs Psychiatric: normal affect Deviation from normal: Oriented to person only Dx/Plan (1) Acute respiratory failure Code(s): J96.00 - ACUTE RESPIRATORY FAILURE, UNSP W HYPOXIA OR HYPERCAPNIA Status: Acute Qualifiers: Respiratory failure complication: hypoxia Qualified Code(s): J96.01 - Acute respiratory failure with hypoxia Comment: Improved, s/p intubation (2) Aspiration pneumonia Code(s): J69.0 - PNEUMONITIS DUE TO INHALATION OF FOOD AND VOMIT Status: Acute Comment: on IV Zosyn (3) Hyponatremia Code(s): E87.1 - HYPO-OSMOLALITY AND HYPONATREMIA Status: Acute Comment: sodium improved to 135. (4) BPH (benign prostatic hyperplasia) Code(s): N40.0 - BENIGN PROSTATIC HYPERPLASIA WITHOUT LOWER URINRY TRACT SYMP Status: Chronic Comment: stable (5) CAD (coronary artery disease) Code(s): I25.10 - ATHSCL HEART DISEASE OF [place] CORONARY ARTERY W/O ANG PCTRS Status: Chronic Comment: stable - Plan * . Review of Systems - Review of Systems Cardiovascular: negative: chest pain, palpitations, orthopnea, paroxysmal nocturnal dyspnea, edema, light headedness Gastrointestinal: negative: Nausea, Vomiting, Abdominal Pain, Diarrhea, Constipation, Melena, Hematochezia - Medications/Allergies Allergies/Adverse Reactions: Allergies Allergy/AdvReac Type Severity Reaction Status Date / Time levofloxacin [From Levaquin] Allergy Verified 09/02/18 23:11 Medications: Current Medications Acetaminophen (Tylenol) 650 mg PO Q4H PRN PRN Reason: Headache/Fever/Mild Pain (1-3) Last Admin: 09/03/18 04:10 Dose: 650 mg Albuterol/Ipratropium (Duoneb) 3 ml NEB [id number] [facility] Last Admin: 09/07/18 13:37 Dose: 3 ml Aspirin (Aspirin Chewable) 81 mg PO DAILY [facility] Last Admin: 09/07/18 11:10 Dose: Not Given Atorvastatin Calcium (Lipitor) 40 mg PO HS [facility] Last Admin: 09/06/18 21:23 Dose: 40 mg Bisacodyl (Dulcolax) 10 mg [place] DAILYPRN PRN PRN Reason: Constipation Last Admin: 09/07/18 11:27 Dose: 10 mg Carvedilol (Coreg) 6.25 mg PO BID-WM [facility] Last Admin: 09/07/18 11:09 Dose: Not Given Enoxaparin Sodium (Lovenox) 40 mg SC 0900 [facility] Last Admin: 09/07/18 10:24 Dose: 40 mg Famotidine (Pepcid) 20 mg SLOW IVP BID [facility] Hydralazine HCl (Apresoline) 10 mg SLOW IVP Q6H PRN PRN Reason: SBP Greater Than 170 Potassium Chloride 40 meq/ (Sodium Chloride) 270 mls @ 135 mls/hr IVPB ASDIR PRN PRN Reason: FOR SERUM K+ 2.5 - 3.5 Potassium Chloride 40 meq/ (Device) 100 mls @ 50 mls/hr IVPB ASDIR PRN PRN Reason: FOR SERUM K+ 2.5 - 3.5 Magnesium Sulfate 1 gm/ Sodium (Chloride) 102 mls @ 102 mls/hr IV PRN PRN PRN Reason: MAG LEVEL 1.4 - 2.0 Magnesium Sulfate 2 gm/ Device 50 mls @ 50 mls/hr IVPB ASDIR PRN PRN Reason: MAGNESIUM < 1.4 Potassium Phosphate 9 mmol/ (Sodium Chloride) 103 mls @ 25.75 mls/hr IVPB ASDIR PRN PRN Reason: Phosphate 1.0-1.8 Potassium Phosphate 12 mmol/ (Sodium Chloride) 254 mls @ 63.5 mls/hr IV ASDIR PRN PRN Reason: Serum phosphate 0.5-0.9 Potassium Phosphate 15 mmol/ (Sodium Chloride) 255 mls @ 63.75 mls/hr IV ASDIR PRN PRN Reason: Serum Phos < 0.5 Piperacillin Sod/Tazobactam (Sod 3.375 gm/ Sodium Chloride) 100 mls @ 200 mls/ hr IVPB Q6HR [facility] Last Admin: 09/07/18 11:36 Dose: 100 mls Vancomycin HCl 1.25 gm/ Sodium (Chloride) 250 mls @ 166.667 mls/hr IVPB 0600, 1800 [facility] Last Admin: 09/07/18 06:02 Dose: 250 mls Magnesium Oxide (Magnesium Oxide) 400 mg PO BIDPRN PRN PRN Reason: FOR SERUM MAG 1.4 - 2.0 Magnesium Oxide (Magnesium Oxide) 800 mg PO PRN PRN PRN Reason: FOR SERUM MAG < 1.4 Methylprednisolone Sodium Succinate (Solu-Medrol) 32 mg IVP DAILY [facility] Stop: 09/11/18 09:01 Mineral Oil/White Petrolatum (Systane Nighttime Eye Ointment) 0 gm EA EYE PRN PRN PRN Reason: Dry Eyes Miscellaneous Medication (Ccu Electrolyte Replacement) 1 each IVPB ASDIR [facility] Miscellaneous Medication (Phos-Nak) 1 pkt PO TIDPRN PRN PRN Reason: FOR PHOS LEVEL 1.0 - 1.8 Miscellaneous Medication (Phos-Nak) 2 pkt PO TIDPRN PRN PRN Reason: FOR PHOS LEVEL 0.5 - 1.0 Miscellaneous Medication (Pharmacy To Dose) 1 each IVPB PRN PRN PRN Reason: Pharmacy to dose Discontinue Previous Narcotic Pain Medications And Benzodiazepines 1 each FS .ONE [facility] Stop: 10/03/18 12:48 Ccu Electrolyte (Replacement Protocol) 0 each FS PRN PRN PRN Reason: FOR ELECTROLYTE REPLACEMENT Ondansetron HCl (Zofran) 4 mg IVP Q6H PRN PRN Reason: Nausea/Vomiting Potassium Chloride (K-Dur) 40 meq PO ASDIR PRN PRN Reason: FOR SERUM K+ 2.5 - 3.5 Potassium Chloride (Klor-Con) 40 meq PER TUBE ASDIR PRN PRN Reason: FOR SERUM K+ 2.5-3.5 Prednisone (Prednisone) 40 mg PO QAM-WM [facility] Stop: 09/10/18 08:01 Last Admin: 09/07/18 11:10 Dose: Not Given Senna/Docusate Sodium (Senokot S) 2 tab PO BIDPRN PRN PRN Reason: Constipation Sodium Chloride (Flush - Normal Saline) 10 ml IVF Q12HR [facility] Last Admin: 09/07/18 10:25 Dose: 10 ml Sodium Chloride (Flush - Normal Saline) 10 ml IVF PRN PRN PRN Reason: Saline Flush Sterile Water (Bacteriostatic Water) 1 ml FS PRN PRN PRN Reason: RECONSTITUTION
[2018-09-07] MEDS ORDERED: Lorazepam 2 MG/ML VIAL SLOW IVP PRN (17:59)
[2018-09-07] MEDS: Atorvastatin Calcium 40 MG TAB PO SCH (20:21)
[2018-09-07] MEDS: Famotidine/PF 20 mg/2ml Vial SLOW IVP SCH (20:22)
[2018-09-07] MEDS: Potassium Chloride 40 MEQ in Sodium Chloride 0.9% 250 ML 250 ML IVPB PRN (20:22)
[2018-09-07] MEDS: hydrALAZINE 20 MG/ML VIAL SLOW IVP PRN (22:13)
[2018-09-07] MEDS: Morphine 2 MG/ML SYRINGE SLOW IVP PRN (22:31)
[2018-09-08] MEDS: Piperacillin/Tazobactam 3.375 GM in Sodium Chloride 0.9% 100 ML IVPB SCH ×5 (00:09→23:44)
[2018-09-08] MEDS: Morphine 2 MG/ML SYRINGE SLOW IVP PRN (02:09)
[2018-09-08 04:43] LABS: Anion Gap 13 mmol/L (10-20); BUN (Urea Nitrogen) 21 mg/dL (8.4-25.7); Calc. Creatinine Clearance 114 mL/min (70-130); Calcium 9.1 mg/dL (7.8-10.44); Carbon Dioxide 22 mmol/L (23-31); Chloride 104 mmol/L (98-107); Estimated GFR-MDRD Greater than 90; Glucose 97 mg/dL (80-115); Potassium 3.3 mmol/L (3.5-5.1); Sodium 136 mmol/L (136-145)
[2018-09-08] MEDS: hydrALAZINE 20 MG/ML VIAL SLOW IVP PRN ×2 (05:04→14:08)
[2018-09-08] MEDS: Vancomycin HCl 1.25 GM in Sodium Chloride 0.9% 250 ML 250 ML IVPB SCH ×2 (05:05→18:23)
[2018-09-08 05:17] LABS: Band 3 % (5-11); Hemoglobin 11.4 g/dL (14.0-18.0); Lymphocytes 10 % (21-51); MDiff Complete? YES; Mean Corpuscular HGB CONC 32.8 g/dL (32.0-36.0); Mean Corpuscular Hemoglobin 29.8 pg (27.0-31.0); Mean Corpuscular Volume 90.9 fL (78.0-98.0); Mean Platelet Volume 6.8 fL (7.4-10.4); Monocytes 5 % (0-10); Neutrophil 82 % (42-75); Platelet Count 214 thou/uL (130-400); Platelet Morphology Comment Appears Adequate; RBC Distribution Width 12.2 % (11.5-14.5); RBC Morphology Normal; Red Blood Cell (RBC) Count 3.81 mill/uL (4.70-6.10); White Blood Cell (WBC) Count 17.4 thou/uL (4.8-10.8)
[2018-09-08] MEDS: Potassium Chloride 40 MEQ in Sodium Chloride 0.9% 250 ML 250 ML IVPB PRN (06:51)
[2018-09-08] MEDS: Carvedilol 6.25 MG TAB PO SCH ×2 (08:49→16:36)
[2018-09-08] MEDS: Aspirin Chewable 81 MG TAB PO SCH (08:50)
[2018-09-08] MEDS: Enoxaparin Sodium 40 MG/0.4 ML SYRINGE SC SCH (08:51)
[2018-09-08] MEDS: Famotidine/PF 20 mg/2ml Vial SLOW IVP SCH ×2 (08:51→21:19)
[2018-09-08] MEDS ORDERED: methylPREDNISolone Sod Succ 40 MG VIAL IVP SCH (09:00)
[2018-09-08] MEDS: methylPREDNISolone Sod Succ 40 MG VIAL IVP SCH (09:57)
--- NOTE | 2018-09-08 10:28 | PRG ---
DATE OF SERVICE: 09/08/2018 SUBJECTIVE: The patient has been extremely agitated since extubation. He wants to go home. He is currently seeing things on the [place]. OBJECTIVE: VITAL SIGNS: Temperature is 98.4, pulse 107, blood pressure 143/90, O2 saturation 94%. Intake for 24 hours 1400, output 2745. HEENT: Unremarkable. NECK: No JVD. LUNGS: Fairly clear anteriorly. CARDIAC: S1, S2. Regular. ABDOMEN: Soft and nontender. EXTREMITIES: No edema. Muscle strength is diminished throughout arms and legs. LABORATORY DATA: White blood cell count 17.4, hematocrit 34.6, and platelet count 214. Sodium 136, potassium 3.3, chloride 104, CO2 of 23, BUN 21, creatinine 0.8, and glucose 97. ASSESSMENT: 1. Guillain-[place] syndrome with some neurologic recovery and definite improvement in respiratory status. 2. 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 3. Left lower lobe pneumonia. PLAN: 1. Continue antibiotics. 2. Add some Geodon for the psychosis. 3. Stop oral steroids. Continue IV steroids. 4. Discussed with speech pathologist. Job ID: [id number]
--- NOTE | 2018-09-08 13:55 | PRG ---
DATE OF SERVICE: 09/08/2018 SUBJECTIVE: Patient was seen and examined at bedside and overnight events noted. Patient denies any shortness of breath or chest pain or palpitation. No history of nausea or vomiting or diarrhea or fever or chills or cramps. OBJECTIVE: GENERAL: This is a well-built male, in no apparent distress. VITAL SIGNS: Temperature 98.7, pulse 106, respiratory rate 18, blood pressure 170/77. Musculoskeletal : No tenderness, No edema HEENT: Atraumatic normocephalic Neck: Supple Cardiovascular: S1S2 heard, Rate and rhythm regular Respiratory: Clear to auscultation Gastrointestinal: Abdomen is soft Dermatologic : No skin rash Neurologic: Alert and awake and oriented X3 No focal neurologic deficits. Moving all the extremities. Psychiatric: Mood and affect normal LABORATORY DATA: Potassium is 3.3, sodium 136, BUN is 21, creatinine is 0.8. ASSESSMENT AND PLAN: 1. Hyponatremia. Labs are stable. 2. Edema, controlled. 3. Hypochloremia. 4. Possible Guillain-[place] syndrome. 5. Sodium level is stable. I will sign off. Monitor sodium closely. Please call back with any questions. Job ID: [id number] MTDD
[2018-09-08] MEDS: Ondansetron PF 4 MG/2 ML Vial IVP PRN ×2 (16:59→23:41)
[2018-09-08] MEDS ORDERED: Labetalol HCl 100 MG/20 ML VIAL SLOW IVP PRN (17:44)
[2018-09-08 17:51] LABS: Vancomycin, Trough 19.1 ug/mL
--- NOTE | 2018-09-08 18:44 | PDOC.PN ---
- Subjective Encounter Start Date: 09/08/18 Encounter Start Time: 09:20 Pt seen for followup re: acute hypoxic respiratory failure. Says he feels better. - Objective Resuscitation Status - Order Detail: 09/03/18 00:59 Resuscitation Status Routine Resuscitation Status: FULL: Full Resuscitation Discussed with: poa: MARQUISE Reviewed: Yes Vital Signs & Weight: Vital Signs (12 hours) Temp Pulse Resp BP Pulse Ox 09/08/18 18:26 92 22 H 96 09/08/18 18:01 101 H 188/110 H 09/08/18 16:36 144/86 H 09/08/18 16:00 98.4 F 09/08/18 14:08 97 09/08/18 13:56 97 17 98 09/08/18 12:00 98.7 F 09/08/18 09:00 98.2 F 09/08/18 08:49 174/121 H 09/08/18 08:00 95 09/08/18 07:53 104 H 20 94 L Weight Admit Weight 190 lb 8 oz Weight 190 lb 0.615 oz Most Recent Monitor Data Heart Rate from ECG 89 NIBP 170/105 NIBP BP-Mean 126 Respiration from ECG 14 SpO2 95 I&O: 09/07/18 09/08/18 09/09/18 06:59 06:59 06:59 Intake Total 639.9 1400 604 Output Total 3275 2745 1280 [place] -1835.1 -1345 -676 Result Diagrams: 09/08/18 04:05 09/08/18 04:05 Additional Labs: Tele: NSR Phys Exam - Physical Examination Constitutional: NAD HEENT: moist MMs Neck: supple Respiratory: clear to auscultation bilateral Cardiovascular: RRR Gastrointestinal: soft Psychiatric: normal affect Deviation from normal: Oriented to person only Dx/Plan (1) Acute respiratory failure Code(s): J96.00 - ACUTE RESPIRATORY FAILURE, UNSP W HYPOXIA OR HYPERCAPNIA Status: Acute Qualifiers: Respiratory failure complication: hypoxia Qualified Code(s): J96.01 - Acute respiratory failure with hypoxia Comment: Improved (2) Aspiration pneumonia Code(s): J69.0 - PNEUMONITIS DUE TO INHALATION OF FOOD AND VOMIT Status: Acute Comment: on IV Zosyn and vancomycin (3) BPH (benign prostatic hyperplasia) Code(s): N40.0 - BENIGN PROSTATIC HYPERPLASIA WITHOUT LOWER URINRY TRACT SYMP Status: Chronic Comment: stable (4) CAD (coronary artery disease) Code(s): I25.10 - ATHSCL HEART DISEASE OF [place] CORONARY ARTERY W/O ANG PCTRS Status: Chronic Comment: stable (5) Hyponatremia Code(s): E87.1 - HYPO-OSMOLALITY AND HYPONATREMIA Status: Resolved - Plan continue antibiotics, PT/OT, out of bed/ambulate * . Received IVIg for ? GBS Review of Systems - Review of Systems Constitutional: negative: fever, chills, sweats, weakness, malaise Cardiovascular: negative: chest pain, palpitations, orthopnea, paroxysmal nocturnal dyspnea, edema, light headedness - Medications/Allergies Allergies/Adverse Reactions: Allergies Allergy/AdvReac Type Severity Reaction Status Date / Time levofloxacin [From Levaquin] Allergy Verified 09/02/18 23:11 Medications: Current Medications Acetaminophen (Tylenol) 650 mg PO Q4H PRN PRN Reason: Headache/Fever/Mild Pain (1-3) Last Admin: 09/03/18 04:10 Dose: 650 mg Albuterol/Ipratropium (Duoneb) 3 ml NEB [id number] [facility] Last Admin: 09/08/18 18:26 Dose: 3 ml Aspirin (Aspirin Chewable) 81 mg PO DAILY [facility] Last Admin: 09/08/18 08:50 Dose: 81 mg Atorvastatin Calcium (Lipitor) 40 mg PO HS [facility] Last Admin: 09/07/18 20:21 Dose: Not Given Bisacodyl (Dulcolax) 10 mg [place] DAILYPRN PRN PRN Reason: Constipation Last Admin: 09/07/18 11:27 Dose: 10 mg Carvedilol (Coreg) 6.25 mg PO BID-WM [facility] Last Admin: 09/08/18 16:36 Dose: 6.25 mg Enoxaparin Sodium (Lovenox) 40 mg SC 0900 [facility] Last Admin: 09/08/18 08:51 Dose: 40 mg Famotidine (Pepcid) 20 mg SLOW IVP BID [facility] Last Admin: 09/08/18 08:51 Dose: 20 mg Hydralazine HCl (Apresoline) 10 mg SLOW IVP Q6H PRN PRN Reason: SBP Greater Than 170 Last Admin: 09/08/18 14:08 Dose: 10 mg Potassium Chloride 40 meq/ (Sodium Chloride) 270 mls @ 135 mls/hr IVPB ASDIR PRN PRN Reason: FOR SERUM K+ 2.5 - 3.5 Last Admin: 09/08/18 06:51 Dose: 270 mls Potassium Chloride 40 meq/ (Device) 100 mls @ 50 mls/hr IVPB ASDIR PRN PRN Reason: FOR SERUM K+ 2.5 - 3.5 Magnesium Sulfate 1 gm/ Sodium (Chloride) 102 mls @ 102 mls/hr IV PRN PRN PRN Reason: MAG LEVEL 1.4 - 2.0 Magnesium Sulfate 2 gm/ Device 50 mls @ 50 mls/hr IVPB ASDIR PRN PRN Reason: MAGNESIUM < 1.4 Potassium Phosphate 9 mmol/ (Sodium Chloride) 103 mls @ 25.75 mls/hr IVPB ASDIR PRN PRN Reason: Phosphate 1.0-1.8 Potassium Phosphate 12 mmol/ (Sodium Chloride) 254 mls @ 63.5 mls/hr IV ASDIR PRN PRN Reason: Serum phosphate 0.5-0.9 Potassium Phosphate 15 mmol/ (Sodium Chloride) 255 mls @ 63.75 mls/hr IV ASDIR PRN PRN Reason: Serum Phos < 0.5 Piperacillin Sod/Tazobactam (Sod 3.375 gm/ Sodium Chloride) 100 mls @ 200 mls/ hr IVPB Q6HR [facility] Last Admin: 09/08/18 17:32 Dose: 100 mls Vancomycin HCl 1.25 gm/ Sodium (Chloride) 250 mls @ 166.667 mls/hr IVPB 0600, 1800 [facility] Last Admin: 09/08/18 18:23 Dose: 250 mls Labetalol HCl (Normodyne) 10 mg SLOW IVP Q6H PRN PRN Reason: SBP Greater Than 180 Last Admin: 09/08/18 18:01 Dose: 10 mg Lorazepam (Ativan) 0.25 mg SLOW IVP Q12H PRN PRN Reason: Anxiety/Agitation Last Admin: 09/07/18 18:14 Dose: 0.25 mg Magnesium Oxide (Magnesium Oxide) 400 mg PO BIDPRN PRN PRN Reason: FOR SERUM MAG 1.4 - 2.0 Magnesium Oxide (Magnesium Oxide) 800 mg PO PRN PRN PRN Reason: FOR SERUM MAG < 1.4 Methylprednisolone Sodium Succinate (Solu-Medrol) 20 mg IVP DAILY [facility] Stop: 09/11/18 09:01 Last Admin: 09/08/18 09:57 Dose: 20 mg Mineral Oil/White Petrolatum (Systane Nighttime Eye Ointment) 0 gm EA EYE PRN PRN PRN Reason: Dry Eyes Miscellaneous Medication (Ccu Electrolyte Replacement) 1 each IVPB ASDIR JUNAID Miscellaneous Medication (Phos-Nak) 1 pkt PO TIDPRN PRN PRN Reason: FOR PHOS LEVEL 1.0 - 1.8 Miscellaneous Medication (Phos-Nak) 2 pkt PO TIDPRN PRN PRN Reason: FOR PHOS LEVEL 0.5 - 1.0 Miscellaneous Medication (Pharmacy To Dose) 1 each IVPB PRN PRN PRN Reason: Pharmacy to dose Morphine Sulfate (Morphine) 2 mg SLOW IVP Q2H PRN PRN Reason: Moderate to Severe Pain (6-10) Last Admin: 09/08/18 02:09 Dose: 2 mg Discontinue Previous Narcotic Pain Medications And Benzodiazepines 1 each FS .ONE [facility] Stop: 10/03/18 12:48 Ccu Electrolyte (Replacement Protocol) 0 each FS PRN PRN PRN Reason: FOR ELECTROLYTE REPLACEMENT Ondansetron HCl (Zofran) 4 mg IVP Q6H PRN PRN Reason: Nausea/Vomiting Last Admin: 09/08/18 16:59 Dose: 4 mg Potassium Chloride (K-Dur) 40 meq PO ASDIR PRN PRN Reason: FOR SERUM K+ 2.5 - 3.5 Potassium Chloride (Klor-Con) 40 meq PER TUBE ASDIR PRN PRN Reason: FOR SERUM K+ 2.5-3.5 Senna/Docusate Sodium (Senokot S) 2 tab PO BIDPRN PRN PRN Reason: Constipation Sodium Chloride (Flush - Normal Saline) 10 ml IVF Q12HR [facility] Last Admin: 09/08/18 10:00 Dose: 10 ml Sodium Chloride (Flush - Normal Saline) 10 ml IVF PRN PRN PRN Reason: Saline Flush Sterile Water (Bacteriostatic Water) 1 ml FS PRN PRN PRN Reason: RECONSTITUTION Ziprasidone (Geodon) 20 mg IM Q4H PRN PRN Reason: Agitation
[2018-09-08] MEDS: predniSONE 20 MG TAB PO SCH (20:35)
[2018-09-08] MEDS: Atorvastatin Calcium 40 MG TAB PO SCH (21:19)
[2018-09-09 00:32] LABS: #Lymphocytes 1.2 thou/uL (1.20-3.40); #Monocytes 1.2 thou/uL (0.11-0.59); #Neutrophils 11.7 thou/uL (1.40-6.50); %Basophils 0.1 % (0.0-1.0); %Eosinophils 0.1 % (0.0-10.0); %Lymphocytes 8.5 % (21.0-51.0); %Monocytes 8.6 % (0.0-10.0); %Neutrophils 82.7 % (42.0-75.0); Hemoglobin 11.4 g/dL (14.0-18.0); Mean Corpuscular HGB CONC 33.2 g/dL (32.0-36.0); Mean Corpuscular Hemoglobin 30.2 pg (27.0-31.0); Mean Corpuscular Volume 90.8 fL (78.0-98.0); Mean Platelet Volume 6.7 fL (7.4-10.4); Platelet Count 200 thou/uL (130-400); RBC Distribution Width 12.1 % (11.5-14.5); Red Blood Cell (RBC) Count 3.79 mill/uL (4.70-6.10); White Blood Cell (WBC) Count 14.2 thou/uL (4.8-10.8)
--- NOTE | 2018-09-09 00:47 | PDOC.EVN ---
Event Note - Event Note Event Note: RN called - Abd pain. KUB - Probable Ileus. Plan - NG tube - low int suction
[2018-09-09] MEDS: Ziprasidone 20 MG VIAL IM PRN ×2 (02:22→21:43)
[2018-09-09 05:18] LABS: #Lymphocytes 1.3 thou/uL (1.20-3.40); #Monocytes 1.4 thou/uL (0.11-0.59); #Neutrophils 11.8 thou/uL (1.40-6.50); %Basophils 0.2 % (0.0-1.0); %Eosinophils 0.3 % (0.0-10.0); %Lymphocytes 8.7 % (21.0-51.0); %Monocytes 9.6 % (0.0-10.0); %Neutrophils 81.2 % (42.0-75.0); Hemoglobin 10.9 g/dL (14.0-18.0); Mean Corpuscular HGB CONC 31.4 g/dL (32.0-36.0); Mean Corpuscular Hemoglobin 28.4 pg (27.0-31.0); Mean Corpuscular Volume 90.5 fL (78.0-98.0); Mean Platelet Volume 6.4 fL (7.4-10.4); Platelet Count 195 thou/uL (130-400); RBC Distribution Width 12.1 % (11.5-14.5); Red Blood Cell (RBC) Count 3.85 mill/uL (4.70-6.10); White Blood Cell (WBC) Count 14.6 thou/uL (4.8-10.8)
[2018-09-09 05:35] LABS: Phosphorus 4.7 mg/dL (2.3-4.7)
[2018-09-09 05:37] LABS: Anion Gap 14 mmol/L (10-20); BUN (Urea Nitrogen) 30 mg/dL (8.4-25.7); Calc. Creatinine Clearance 96 mL/min (70-130); Calcium 8.9 mg/dL (7.8-10.44); Carbon Dioxide 25 mmol/L (23-31); Chloride 107 mmol/L (98-107); Estimated GFR-MDRD 79; Glucose 112 mg/dL (80-115); Magnesium 1.8 mg/dL (1.6-2.6); Potassium 3.5 mmol/L (3.5-5.1); Sodium 142 mmol/L (136-145)
[2018-09-09] MEDS: Piperacillin/Tazobactam 3.375 GM in Sodium Chloride 0.9% 100 ML IVPB SCH ×3 (06:20→18:03)
[2018-09-09] MEDS: Vancomycin HCl 1.25 GM in Sodium Chloride 0.9% 250 ML 250 ML IVPB SCH ×2 (06:20→18:06)
--- NOTE | 2018-09-09 09:13 | PRG ---
DATE OF SERVICE: 09/09/2018 SUBJECTIVE: The patient extubated, alert, oriented, answers questions appropriately. Events over the weekend reviewed. OBJECTIVE: VITAL SIGNS: Stable. Urine output over 2 L clear. ABDOMEN: Soft, nontender, nondistended. : Soares catheter is adequately secured. EXTREMITIES: Moving all 4 extremities. Right upper extremity is weaker than his left. LABORATORY DATA: Pertinent labs; creatinine 0.9. Urine culture negative. Respiratory culture with MRSA. IMPRESSION AND PLAN: Mr. Page is a 63-year-old male, admitted for weakness, hyponatremia, mental status changes, urologic issues of urinary retention, PVR 400 mL, status post TURP in the remote past. He underwent cystoscopy, Soares catheter placement over guidewire, urethral stricture dilatation at bedside on September 03, 2018. Currently on antibiotics due to pneumonia. Recommend he continue his BPH medication, Flomax, Avodart. I will initiate voiding trial per my discretion pending his clinical course Do not remove Soares unless initiated by . Job ID: [id number] [facility]
--- NOTE | 2018-09-09 09:25 | RAD ---
KUB: INDICATION: Vomiting, rule out ileus. COMPARISON: Prior exam dated 09/06/2018. FINDINGS: The gastric catheter has been intervally removed. There is gaseous distention of the stomach as well as loops of large bowel in the lower abdomen. Catheter is seen within the lower aspect of the pelvi s. There is prominent cardiomegaly and chronic lung changes. IMPRESSION: 1. Nonspecific gaseous distention of the stomach and colon. 2. Interval removal of enteric catheter. 3. Soares catheter within the lower pelvis. POS: BH
[2018-09-09] MEDS ORDERED: Magnesium Sulfate 2 GM in Sodium Chloride 0.9% 100 ML IVPB SCH (11:45)
[2018-09-09] MEDS ORDERED: Potassium Chloride 40 MEQ in Premix Bag 1 BAG IVPB SCH (11:45)
--- NOTE | 2018-09-09 12:02 | PRG ---
DATE OF SERVICE: 09/09/2018 SERVICE: Pulmonary Medicine. INTERVAL HISTORY: The patient's strength has improved over the weekend. He is able to get extubated. He does not have any complaints of fevers, chills, cough, nausea, or vomiting. He has had increasing agitation and confusion. PHYSICAL EXAMINATION: VITAL SIGNS: Afebrile, pulse 100, blood pressure 160/97, respirations 25, and saturation 97% on 2 L nasal cannula. GENERAL: The patient is awake and alert, in no apparent distress. LUNGS: Very good air entry. Rhonchi that improved. There is mildly prolonged expiratory phase, but I do not hear any wheezing. No crackles are appreciated. HEART: Normal rate and regular. ABDOMEN: Soft, nontender, and nondistended. Bowel sounds are positive. MUSCULOSKELETAL: No cyanosis or clubbing. No pitting in the bilateral lower extremities. There is skin tenting throughout. NEUROLOGIC: Grossly nonfocal. LABORATORY DATA: Hemoglobin 10.9 and stable . Sodium 142, and up-trending. His potassium is 3.5. Magnesium 1.8, phosphorus 4.7. Sputum is growing MRSA. IMAGING: KUB demonstrates nonspecific bowel gas pattern. Enteric catheter had been removed. There is a Soares catheter in the lower pelvis. ASSESSMENT: 1. Acute hypoxic respiratory failure. 2. Community-acquired pneumonia, secondary to MRSA. 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 4. Chronic obstructive pulmonary disease with acute exacerbation. 5. Metabolic encephalopathy, resolving. 6. Delirium. 7. Hyponatremia, resolved. DISCUSSION AND PLAN: We will need to introduce some normal saline to prevent significant dehydration. The patient is without p.o., he has been having significant output from his NG tube. Potassium and magnesium will be replaced. We will repeat laboratories tomorrow morning at the earliest. Pulmonary/Critical Care will continue to follow along. From my perspective, he is stable for transition out of the ICU to the intermediate care unit, though he is not ready for the floor at this point. Job ID: [id number] [facility]
[2018-09-09] MEDS: Enoxaparin Sodium 40 MG/0.4 ML SYRINGE SC SCH (12:24)
[2018-09-09] MEDS: Aspirin Chewable 81 MG TAB PO SCH (12:25)
[2018-09-09] MEDS: Carvedilol 6.25 MG TAB PO SCH ×2 (12:25→18:04)
[2018-09-09] MEDS: Famotidine/PF 20 mg/2ml Vial SLOW IVP SCH ×2 (12:25→21:42)
--- NOTE | 2018-09-09 12:45 | RAD ---
XR Abdomen 2 View 2 view abdomen series CLINICAL INDICATION: Pain FINDINGS: Compared to previous day's exam Interstitial prominence at the lung bases. No free air. Differential air-fluid levels are present, involving scattered loops of air-filled bowel. Catheter tubing overlies the central pelvis. IMPRESSION: Differential air-fluid levels of the abdomen which may relate to a mechanical obstruction . Correlate clinically. Recommend continued imaging follow-up.
[2018-09-09] MEDS ORDERED: Magnesium 2 GM/50 ML 2 GM in Premix Bag 1 BAG IVPB SCH (13:00)
[2018-09-09] MEDS: Sodium Chloride 0.9% 1,000 ML IV SCH (13:57)
--- NOTE | 2018-09-09 18:59 | PDOC.PN ---
- Subjective Encounter Start Date: 09/09/18 Encounter Start Time: 11:00 Pt seen for followup re: acute hypoxic respiratory failure. Sleepy but arousable, wants to know if he can go home today. - Objective Resuscitation Status - Order Detail: 09/03/18 00:59 Resuscitation Status Routine Resuscitation Status: FULL: Full Resuscitation Discussed with: poa: MARQUISE Reviewed: Yes Vital Signs & Weight: Vital Signs (12 hours) Temp Pulse Pulse Resp BP BP BP 09/09/18 18:40 96 21 H 09/09/18 18:04 150/98 H 09/09/18 13:55 100 141/101 H 160/104 H 09/09/18 13:53 105 H 24 H 09/09/18 12:25 158/101 H 09/09/18 11:00 98.0 F 09/09/18 08:00 09/09/18 07:00 97.7 F Pulse Ox Pulse Ox 09/09/18 18:40 95 09/09/18 18:04 09/09/18 13:55 100 09/09/18 13:53 99 09/09/18 12:25 09/09/18 11:00 09/09/18 08:00 97 09/09/18 07:00 Weight Admit Weight 190 lb 8 oz Weight 190 lb 0.615 oz Most Recent Monitor Data Heart Rate from ECG 93 NIBP 150/98 NIBP BP-Mean 115 Respiration from ECG 25 SpO2 98 I&O: 09/08/18 09/09/18 09/10/18 06:59 06:59 06:59 Intake Total 1400 1012 1347 Output Total 7164 6605 1480 Balance -1345 -1573 -133 Result Diagrams: 09/10/18 04:17 09/10/18 04:17 EKG Reviewed by me: Yes (Tele: sinus tachycardia) Phys Exam - Physical Examination Obese Dry mucosae Neck: supple Respiratory: clear to auscultation bilateral Cardiovascular: RRR Gastrointestinal: soft Neurological: moves all 4 limbs Psychiatric: normal affect Dx/Plan (1) Acute respiratory failure Code(s): J96.00 - ACUTE RESPIRATORY FAILURE, UNSP W HYPOXIA OR HYPERCAPNIA Status: Acute Qualifiers: Respiratory failure complication: hypoxia Qualified Code(s): J96.01 - Acute respiratory failure with hypoxia Comment: Improved, to be transitioned out of CCU (2) Aspiration pneumonia Code(s): J69.0 - PNEUMONITIS DUE TO INHALATION OF FOOD AND VOMIT Status: Acute Comment: continue IV Zosyn and vancomycin. Sputum culture + for MRSA (3) BPH (benign prostatic hyperplasia) Code(s): N40.0 - BENIGN PROSTATIC HYPERPLASIA WITHOUT LOWER URINRY TRACT SYMP Status: Chronic Comment: stable (4) CAD (coronary artery disease) Code(s): I25.10 - ATHSCL HEART DISEASE OF [place] CORONARY ARTERY W/O ANG PCTRS Status: Chronic Comment: stable (5) Hyponatremia Code(s): E87.1 - HYPO-OSMOLALITY AND HYPONATREMIA Status: Resolved - Plan * . Review of Systems - Review of Systems Respiratory: negative: Cough, Shortness of Breath, SOB with Excertion, Pleuritic Pain, Wheezing Cardiovascular: negative: chest pain, palpitations, orthopnea, paroxysmal nocturnal dyspnea, edema, light headedness - Medications/Allergies Allergies/Adverse Reactions: Allergies Allergy/AdvReac Type Severity Reaction Status Date / Time [facility] Allergy Verified 09/02/18 23:11 Medications: Current Medications Acetaminophen (Tylenol) 650 mg PO Q4H PRN PRN Reason: Headache/Fever/Mild Pain (1-3) Last Admin: 09/03/18 04:10 Dose: 650 mg Albuterol/Ipratropium (Duoneb) 3 ml NEB [id number] [facility] Last Admin: 09/09/18 18:40 Dose: 3 ml Aspirin (Aspirin Chewable) 81 mg PO DAILY [facility] Last Admin: 09/09/18 12:25 Dose: 81 mg Atorvastatin Calcium (Lipitor) 40 mg PO HS [facility] Last Admin: 09/08/18 21:19 Dose: Not Given Bisacodyl (Dulcolax) 10 mg [place] DAILYPRN PRN PRN Reason: Constipation Last Admin: 09/07/18 11:27 Dose: 10 mg Carvedilol (Coreg) 6.25 mg PO BID-WM [facility] Last Admin: 09/09/18 18:04 Dose: 6.25 mg Enoxaparin Sodium (Lovenox) 40 mg SC 0900 [facility] Last Admin: 09/09/18 12:24 Dose: 40 mg Famotidine (Pepcid) 20 mg SLOW IVP BID [facility] Last Admin: 09/09/18 12:25 Dose: 20 mg Hydralazine HCl (Apresoline) 10 mg SLOW IVP Q6H PRN PRN Reason: SBP Greater Than 170 Last Admin: 09/08/18 14:08 Dose: 10 mg Piperacillin Sod/Tazobactam (Sod 3.375 gm/ Sodium Chloride) 100 mls @ 200 mls/ hr IVPB Q6HR [facility] Last Admin: 09/09/18 18:03 Dose: 100 mls Vancomycin HCl 1.25 gm/ Sodium (Chloride) 250 mls @ 166.667 mls/hr IVPB 0600, 1800 [facility] Last Admin: 09/09/18 18:06 Dose: 250 mls Sodium Chloride (Normal Saline 0.9%) 1,000 mls @ 75 mls/hr IV .[id number] [facility] Last Admin: 09/09/18 13:57 Dose: 1,000 mls Labetalol HCl (Normodyne) 10 mg SLOW IVP Q6H PRN PRN Reason: SBP Greater Than 180 Last Admin: 09/08/18 18:01 Dose: 10 mg Lorazepam (Ativan) 0.25 mg SLOW IVP Q12H PRN PRN Reason: Anxiety/Agitation Last Admin: 09/07/18 18:14 Dose: 0.25 mg Miscellaneous Medication (Ccu Electrolyte Replacement) 1 each IVPB ASDIR [facility] Miscellaneous Medication (Pharmacy To Dose) 1 each IVPB PRN PRN PRN Reason: Pharmacy to dose Discontinue Previous Narcotic Pain Medications And Benzodiazepines 1 each FS .ONE [facility] Stop: 10/03/18 12:48 Ccu Electrolyte (Replacement Protocol) 0 each FS PRN PRN PRN Reason: FOR ELECTROLYTE REPLACEMENT Ondansetron HCl (Zofran) 4 mg IVP Q6H PRN PRN Reason: Nausea/Vomiting Last Admin: 09/08/18 23:41 Dose: 4 mg Senna/Docusate Sodium (Senokot S) 2 tab PO BIDPRN PRN PRN Reason: Constipation Sodium Chloride (Flush - Normal Saline) 10 ml IVF Q12HR [facility] Last Admin: 09/09/18 12:26 Dose: 10 ml Sodium Chloride (Flush - Normal Saline) 10 ml IVF PRN PRN PRN Reason: Saline Flush Sterile Water (Bacteriostatic Water) 1 ml FS PRN PRN PRN Reason: RECONSTITUTION Ziprasidone (Geodon) 20 mg IM Q4H PRN PRN Reason: Agitation Last Admin: 09/09/18 02:22 Dose: 20 mg
[2018-09-09] MEDS: Atorvastatin Calcium 40 MG TAB PO SCH (21:43)
[2018-09-10] MEDS: Piperacillin/Tazobactam 3.375 GM in Sodium Chloride 0.9% 100 ML IVPB SCH ×5 (00:23→23:56)
[2018-09-10 05:04] LABS: #Eosinphils 0.1 thou/uL (0.0-0.7); #Lymphocytes 1.9 thou/uL (1.20-3.40); #Monocytes 1.3 thou/uL (0.11-0.59); #Neutrophils 12.3 thou/uL (1.40-6.50); %Basophils 0.1 % (0.0-1.0); %Eosinophils 0.4 % (0.0-10.0); %Lymphocytes 12.1 % (21.0-51.0); %Monocytes 8.4 % (0.0-10.0); Mean Corpuscular HGB CONC 32.9 g/dL (32.0-36.0); Mean Corpuscular Hemoglobin 29.8 pg (27.0-31.0); Mean Corpuscular Volume 90.8 fL (78.0-98.0); Mean Platelet Volume 7.1 fL (7.4-10.4); Platelet Count 192 thou/uL (130-400); RBC Distribution Width 12.3 % (11.5-14.5); Red Blood Cell (RBC) Count 3.68 mill/uL (4.70-6.10); White Blood Cell (WBC) Count 15.5 thou/uL (4.8-10.8)
[2018-09-10 05:25] LABS: Anion Gap 10 mmol/L (10-20); BUN (Urea Nitrogen) 25 mg/dL (8.4-25.7); Calc. Creatinine Clearance 107 mL/min (70-130); Calcium 9.3 mg/dL (7.8-10.44); Carbon Dioxide 30 mmol/L (23-31); Chloride 107 mmol/L (98-107); Estimated GFR-MDRD 90; Glucose 102 mg/dL (80-115); Potassium 3.1 mmol/L (3.5-5.1); Sodium 144 mmol/L (136-145)
[2018-09-10] MEDS: Sodium Chloride 0.9% 1,000 ML IV SCH ×3 (05:41→22:47)
[2018-09-10] MEDS: Vancomycin HCl 1.25 GM in Sodium Chloride 0.9% 250 ML 250 ML IVPB SCH (05:41)
--- NOTE | 2018-09-10 07:52 | PRG ---
DATE OF SERVICE: 09/10/2018 SUBJECTIVE: The patient alert, awake, cooperative to physical exam. OBJECTIVE: VITAL SIGNS: Stable, afebrile. I's and O's 4194 in, 5175, out of which urine output 1725, gastric drainage from NG 3450, bilious. ABDOMEN: Obese, protuberant. No rigidity. No rebound. : Soares catheter is clear. LABORATORY DATA: Urine culture negative. IMPRESSION AND PLAN: 1. Mr. Page is a 63-year-old male, admitted due to weakness, mental status changes, Guillain-[place]. 2. History of BPH, status post transurethral resection of prostate at [facility]. 3. History of urinary retention, PVR 400, underwent cysto, urethral stricture dilatation over guidewire, Soares catheter placement, September 05, 2018. Continue indwelling Soares catheter. As he has ileus, will keep an indwelling urethral Soares catheter. Voiding trial to be initiated by only. No new recommendations. Job ID: [id number] [facility]
[2018-09-10] MEDS: Famotidine/PF 20 mg/2ml Vial SLOW IVP SCH ×2 (08:03→22:47)
[2018-09-10] MEDS: Enoxaparin Sodium 40 MG/0.4 ML SYRINGE SC SCH (08:03)
[2018-09-10] MEDS: Ziprasidone 20 MG VIAL IM PRN ×3 (08:03→17:46)
[2018-09-10] MEDS: Carvedilol 6.25 MG TAB PO SCH ×2 (08:04→16:27)
[2018-09-10] MEDS: Aspirin Chewable 81 MG TAB PO SCH (08:04)
[2018-09-10] MEDS: Potassium Chloride 40 MEQ in Premix Bag 1 BAG IVPB SCH ×2 (09:28→12:42)
--- NOTE | 2018-09-10 10:10 | PRG ---
DATE OF SERVICE: 09/10/2018 SERVICE: Pulmonary Medicine. INTERVAL HISTORY: The patient's strength is improving day-by-day. Denies any current chest pain, fevers, cough, nausea, vomiting, or diarrhea. His output from the NG tube is decreasing. He continues to drink plenty of fluid. It is being sucked right up through the NG tube. That is most of his output. There were no significant overnight events. He is working with Physical Therapy currently. PHYSICAL EXAMINATION: VITAL SIGNS: Afebrile, pulse 106, blood pressure 148/77, respirations 27, saturation 94% on room air. GENERAL: The patient is awake and alert, in no apparent distress. LUNGS: Very good air entry. No prolonged expiratory phase, wheezing, crackles, or rhonchi. HEART: Normal rate and regular. ABDOMEN: Soft, nontender, nondistended. Bowel sounds are positive. MUSCULOSKELETAL: No cyanosis or clubbing. There is trace pitting in bilateral lower extremities. NEUROLOGIC: Grossly nonfocal. LABORATORY DATA: WBC 15.5, hemoglobin 11.0, and platelets 192,000. Basic metabolic profile is unremarkable except for potassium of 3.1. Sputum is growing MRSA. ASSESSMENT: 1. Acute hypoxic respiratory failure, improving. 2. Community-acquired pneumonia secondary to methicillin-resistant Staphylococcus aureus, aspiration related. 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 4. Chronic obstructive pulmonary disease with acute exacerbation, improving. 5. Metabolic encephalopathy, resolving. 6. Hyponatremia, resolved. 7. Delirium. DISCUSSION AND PLAN: We will send the patient to the floor. We will continue his saline. I will increase his rate to 100 per hour. I will clamp his NG tube. If his output decreases, we can consider removing this device. We will then cautiously introduce some clear liquids. He will keep working with Physical Therapy, Occupational Therapy, and Speech Pathology. He is stable for transition to the medical unit at this point. We will continue our mobilization efforts through time. Job ID: [id number]
[2018-09-10 17:41] LABS: Vancomycin, Trough 22.2 ug/mL
[2018-09-10] MEDS: Vancomycin HCl 1 GM in Premix Bag 1 BAG IVPB SCH (17:53)
--- NOTE | 2018-09-10 18:51 | PDOC.PN ---
- Subjective Encounter Start Date: 09/10/18 Encounter Start Time: 11:00 Pt seen for followup re: acute hypoxic respiratory failure. Says he feels better, knows he is in a hospital. - Objective Resuscitation Status - Order Detail: 09/03/18 00:59 Resuscitation Status Routine Resuscitation Status: FULL: Full Resuscitation Discussed with: poa: MARQUISE Reviewed: Yes Vital Signs & Weight: Vital Signs (12 hours) Temp Pulse Pulse Pulse Resp BP BP 09/10/18 18:37 84 24 H 09/10/18 16:27 150/98 H 09/10/18 15:13 106 H 26 H 09/10/18 08:30 109 H 105 H 162/102 H 09/10/18 08:04 150/98 H 09/10/18 07:42 09/10/18 07:35 09/10/18 07:30 99 25 H 09/10/18 07:00 98.0 F BP Pulse Ox Pulse Ox Pulse Ox 09/10/18 18:37 96 09/10/18 16:27 09/10/18 15:13 09/10/18 08:30 148/77 H 96 95 09/10/18 08:04 09/10/18 07:42 97 09/10/18 07:35 95 09/10/18 07:30 99 09/10/18 07:00 Weight Admit Weight 190 lb 8 oz Weight 184 lb 11.958 oz Most Recent Monitor Data Heart Rate from ECG 88 NIBP 112/67 NIBP BP-Mean 82 Respiration from ECG 25 SpO2 90 I&O: 09/09/18 09/10/18 09/11/18 06:59 06:59 06:59 Intake Total 1012 4194 1294 Output Total 2585 5175 810 Balance -1573 -981 484 Result Diagrams: 09/10/18 04:17 09/10/18 04:17 EKG Reviewed by me: Yes (Tele: sinus tachycardia) Phys Exam - Physical Examination Constitutional: NAD HEENT: moist MMs Neck: supple Respiratory: clear to auscultation bilateral S1, S2, reg, tachy Gastrointestinal: soft Musculoskeletal: edema present Neurological: moves all 4 limbs Psychiatric: normal affect Dx/Plan (1) Acute respiratory failure Code(s): J96.00 - ACUTE RESPIRATORY FAILURE, UNSP W HYPOXIA OR HYPERCAPNIA Status: Acute Qualifiers: Respiratory failure complication: hypoxia Qualified Code(s): J96.01 - Acute respiratory failure with hypoxia Comment: Improved (2) Aspiration pneumonia Code(s): J69.0 - PNEUMONITIS DUE TO INHALATION OF FOOD AND VOMIT Status: Acute Comment: continue IV Zosyn and vancomycin. (3) BPH (benign prostatic hyperplasia) Code(s): N40.0 - BENIGN PROSTATIC HYPERPLASIA WITHOUT LOWER URINRY TRACT SYMP Status: Chronic Comment: stable (4) CAD (coronary artery disease) Code(s): I25.10 - ATHSCL HEART DISEASE OF [place] CORONARY ARTERY W/O ANG PCTRS Status: Chronic Comment: stable (5) Hyponatremia Code(s): E87.1 - HYPO-OSMOLALITY AND HYPONATREMIA Status: Resolved - Plan continue antibiotics, PT/OT, speech therapy, DVT proph w/SCDs * . Potassium being replaced Review of Systems - Review of Systems Cardiovascular: negative: chest pain, palpitations, orthopnea, paroxysmal nocturnal dyspnea, edema, light headedness Gastrointestinal: negative: Nausea, Vomiting, Abdominal Pain, Diarrhea, Constipation, Melena, Hematochezia - Medications/Allergies Allergies/Adverse Reactions: Allergies Allergy/AdvReac Type Severity Reaction Status Date / Time levofloxacin [From Levaquin] Allergy Verified 09/02/18 23:11 Medications: Current Medications Acetaminophen (Tylenol) 650 mg PO Q4H PRN PRN Reason: Headache/Fever/Mild Pain (1-3) Last Admin: 09/03/18 04:10 Dose: 650 mg Albuterol/Ipratropium (Duoneb) 3 ml NEB [id number] [facility] Last Admin: 09/10/18 18:37 Dose: 3 ml Aspirin (Aspirin Chewable) 81 mg PO DAILY [facility] Last Admin: 09/10/18 08:04 Dose: 81 mg Atorvastatin Calcium (Lipitor) 40 mg PO HS [facility] Last Admin: 09/09/18 21:43 Dose: 40 mg Bisacodyl (Dulcolax) 10 mg [place] DAILYPRN PRN PRN Reason: Constipation Last Admin: 09/07/18 11:27 Dose: 10 mg Carvedilol (Coreg) 6.25 mg PO BID-[facility] Last Admin: 09/10/18 16:27 Dose: 6.25 mg Enoxaparin Sodium (Lovenox) 40 mg SC 0900 [facility] Last Admin: 09/10/18 08:03 Dose: 40 mg Famotidine (Pepcid) 20 mg SLOW IVP BID [facility] Last Admin: 09/10/18 08:03 Dose: 20 mg Hydralazine HCl (Apresoline) 10 mg SLOW IVP Q6H PRN PRN Reason: SBP Greater Than 170 Last Admin: 09/08/18 14:08 Dose: 10 mg Piperacillin Sod/Tazobactam (Sod 3.375 gm/ Sodium Chloride) 100 mls @ 200 mls/ hr IVPB Q6HR [facility] Last Admin: 09/10/18 16:27 Dose: 100 mls Sodium Chloride (Normal Saline 0.9%) 1,000 mls @ 100 mls/hr IV .Q10H [facility] Last Admin: 09/10/18 09:29 Dose: 1,000 mls Vancomycin HCl 1 gm/ Device 200 mls @ 200 mls/hr IVPB 0600,1800 [facility] Last Admin: 09/10/18 17:53 Dose: 200 mls Labetalol HCl (Normodyne) 10 mg SLOW IVP Q6H PRN PRN Reason: SBP Greater Than 180 Last Admin: 09/08/18 18:01 Dose: 10 mg Lorazepam (Ativan) 0.25 mg SLOW IVP Q12H PRN PRN Reason: Anxiety/Agitation Last Admin: 09/07/18 18:14 Dose: 0.25 mg Miscellaneous Medication (Pharmacy To Dose) 1 each IVPB PRN PRN PRN Reason: Pharmacy to dose Discontinue Previous Narcotic Pain Medications And Benzodiazepines 1 each FS .ONE [facility] Stop: 10/03/18 12:48 Ccu Electrolyte (Replacement Protocol) 0 each FS PRN PRN PRN Reason: FOR ELECTROLYTE REPLACEMENT Ondansetron HCl (Zofran) 4 mg IVP Q6H PRN PRN Reason: Nausea/Vomiting Last Admin: 09/08/18 23:41 Dose: 4 mg Senna/Docusate Sodium (Senokot S) 2 tab PO BIDPRN PRN PRN Reason: Constipation Sodium Chloride (Flush - Normal Saline) 10 ml IVF Q12HR [facility] Last Admin: 09/10/18 08:04 Dose: 10 ml Sodium Chloride (Flush - Normal Saline) 10 ml IVF PRN PRN PRN Reason: Saline Flush Sterile Water (Bacteriostatic Water) 1 ml FS PRN PRN PRN Reason: RECONSTITUTION Ziprasidone (Geodon) 20 mg IM Q4H PRN PRN Reason: Agitation Last Admin: 09/10/18 17:46 Dose: 20 mg
[2018-09-10] MEDS: Acetaminophen 325 MG TAB PO PRN (22:46)
[2018-09-10] MEDS: Atorvastatin Calcium 40 MG TAB PO SCH (22:46)
[2018-09-11] MEDS: Acetaminophen 325 MG TAB PO PRN (04:02)
[2018-09-11] MEDS: Ziprasidone 20 MG VIAL IM PRN (04:03)
[2018-09-11 04:52] LABS: #Eosinphils 0.1 thou/uL (0.0-0.7); #Lymphocytes 2.1 thou/uL (1.20-3.40); #Monocytes 1.1 thou/uL (0.11-0.59); #Neutrophils 13.3 thou/uL (1.40-6.50); %Basophils 0.2 % (0.0-1.0); %Eosinophils 0.5 % (0.0-10.0); %Lymphocytes 12.7 % (21.0-51.0); %Monocytes 6.4 % (0.0-10.0); %Neutrophils 80.2 % (42.0-75.0); Hemoglobin 9.9 g/dL (14.0-18.0); Mean Corpuscular HGB CONC 31.6 g/dL (32.0-36.0); Mean Corpuscular Hemoglobin 29.3 pg (27.0-31.0); Mean Corpuscular Volume 92.7 fL (78.0-98.0); Mean Platelet Volume 6.9 fL (7.4-10.4); Platelet Count 171 thou/uL (130-400); RBC Distribution Width 12.4 % (11.5-14.5); Red Blood Cell (RBC) Count 3.37 mill/uL (4.70-6.10); White Blood Cell (WBC) Count 16.6 thou/uL (4.8-10.8)
[2018-09-11 05:09] LABS: Anion Gap 9 mmol/L (10-20); BUN (Urea Nitrogen) 21 mg/dL (8.4-25.7); Calc. Creatinine Clearance 103 mL/min (70-130); Calcium 8.3 mg/dL (7.8-10.44); Carbon Dioxide 28 mmol/L (23-31); Chloride 105 mmol/L (98-107); Estimated GFR-MDRD 89; Glucose 133 mg/dL (80-115); Potassium 3.2 mmol/L (3.5-5.1); Sodium 139 mmol/L (136-145)
[2018-09-11] MEDS: Vancomycin HCl 1 GM in Premix Bag 1 BAG IVPB SCH ×2 (05:57→17:08)
[2018-09-11] MEDS: Piperacillin/Tazobactam 3.375 GM in Sodium Chloride 0.9% 100 ML IVPB SCH (05:57)
[2018-09-11] MEDS: Sodium Chloride 0.9% 1,000 ML IV SCH (05:57)
[2018-09-11] MEDS: Aspirin Chewable 81 MG TAB PO SCH (07:54)
[2018-09-11] MEDS: Carvedilol 6.25 MG TAB PO SCH ×2 (07:54→16:14)
[2018-09-11] MEDS: Enoxaparin Sodium 40 MG/0.4 ML SYRINGE SC SCH (07:57)
[2018-09-11] MEDS: Famotidine/PF 20 mg/2ml Vial SLOW IVP SCH ×2 (07:57→23:01)
--- NOTE | 2018-09-11 10:29 | PRG ---
DATE OF SERVICE: 09/11/2018 SERVICE: Pulmonary Medicine. INTERVAL HISTORY: The patient is doing fine from respiratory standpoint. He got agitated last night. He ended up getting a little bit of Geodon. He is currently somnolent. He is resting comfortably and has no complaints. There were no overnight events. There were no fevers. PHYSICAL EXAMINATION: VITAL SIGNS: Afebrile, pulse 91, blood pressure now 157/91, respirations 27, saturation 93% on 2 L nasal cannula. GENERAL: The patient is awake and alert, in no apparent distress. LUNGS: Decent air entry. No prolonged expiratory phase or wheezing is present. HEART: Normal rate and regular. ABDOMEN: Soft, nontender, nondistended. Bowel sounds are positive. MUSCULOSKELETAL: No cyanosis or clubbing. No pitting in bilateral lower extremities. NEUROLOGIC: Grossly nonfocal. LABORATORY DATA: WBC 16.6, hemoglobin 9.9, platelets 171,000. Potassium 3.2. Basic metabolic profile is otherwise unremarkable. Creatinine 0.87 and roughly stable. ASSESSMENT: 1. Acute hypoxic respiratory failure, improving. 2. Community-acquired pneumonia secondary to methicillin-resistant Staphylococcus aureus. 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 4. Chronic obstructive pulmonary disease with acute exacerbation, resolving. 5. Metabolic encephalopathy. 6. Delirium. DISCUSSION AND PLAN: The patient remains stable for transition to the floor. I will back off on his IV fluids since he is tolerating p.o., and we will give him an additional 80 mEq of potassium. We will advance his diet as tolerated. He has been on an appropriate course of Zosyn. He will need 2 additional days of the vancomycin. I will repeat a chest x-ray tomorrow morning. Job ID: [id number]
[2018-09-11] MEDS: Ondansetron PF 4 MG/2 ML Vial IVP PRN (19:31)
--- NOTE | 2018-09-11 20:36 | PDOC.PN ---
- Subjective Encounter Start Date: 09/11/18 Encounter Start Time: 11:30 Pt seen for followup re: acute hypoxic respiratory failure. Sleepy but arousable, feels better. - Objective Resuscitation Status - Order Detail: 09/03/18 00:59 Resuscitation Status Routine Resuscitation Status: FULL: Full Resuscitation Discussed with: poa: MARQUISE Reviewed: Yes Vital Signs & Weight: Vital Signs (12 hours) Temp Pulse Resp BP Pulse Ox 09/11/18 18:35 96 24 H 93 L 09/11/18 16:14 150/98 H 09/11/18 15:56 98 F 09/11/18 13:15 89 24 H 91 L Weight Admit Weight 190 lb 8 oz Weight 184 lb 11.958 oz Most Recent Monitor Data Heart Rate from ECG 103 NIBP 146/97 NIBP BP-Mean 113 Respiration from ECG 28 SpO2 93 I&O: 09/10/18 09/11/18 09/12/18 06:59 06:59 06:59 Intake Total 4194 3914 550 Output Total 5175 1435 700 Balance -981 2479 -150 Result Diagrams: 09/11/18 04:15 09/11/18 04:15 EKG Reviewed by me: Yes (Tele: NSR) Phys Exam - Physical Examination Constitutional: NAD HEENT: moist MMs Neck: no JVD Respiratory: clear to auscultation bilateral Cardiovascular: RRR Gastrointestinal: soft Musculoskeletal: edema present Neurological: moves all 4 limbs Psychiatric: normal affect Dx/Plan (1) Acute respiratory failure Code(s): J96.00 - ACUTE RESPIRATORY FAILURE, UNSP W HYPOXIA OR HYPERCAPNIA Status: Acute Qualifiers: Respiratory failure complication: hypoxia Qualified Code(s): J96.01 - Acute respiratory failure with hypoxia Comment: Improved, awaiting transfer out of CCU (2) Aspiration pneumonia Code(s): J69.0 - PNEUMONITIS DUE TO INHALATION OF FOOD AND VOMIT Status: Acute Comment: IV Zosyn and vancomycin. (3) BPH (benign prostatic hyperplasia) Code(s): N40.0 - BENIGN PROSTATIC HYPERPLASIA WITHOUT LOWER URINRY TRACT SYMP Status: Chronic Comment: stable (4) CAD (coronary artery disease) Code(s): I25.10 - ATHSCL HEART DISEASE OF [place] CORONARY ARTERY W/O ANG PCTRS Status: Chronic Comment: stable (5) Hyponatremia Code(s): E87.1 - HYPO-OSMOLALITY AND HYPONATREMIA Status: Resolved - Plan * . Review of Systems - Review of Systems Respiratory: negative: Cough, Shortness of Breath, SOB with Excertion, Pleuritic Pain, Wheezing Cardiovascular: negative: chest pain, palpitations, orthopnea, paroxysmal nocturnal dyspnea, edema, light headedness - Medications/Allergies Allergies/Adverse Reactions: Allergies Allergy/AdvReac Type Severity Reaction Status Date / Time [facility] Allergy Verified 09/02/18 23:11 Medications: Current Medications Acetaminophen (Tylenol) 650 mg PO Q4H PRN PRN Reason: Headache/Fever/Mild Pain (1-3) Last Admin: 09/11/18 04:02 Dose: 650 mg Albuterol/Ipratropium (Duoneb) 3 ml NEB [id number] [facility] Last Admin: 09/11/18 18:35 Dose: 3 ml Aspirin (Aspirin Chewable) 81 mg PO DAILY [facility] Last Admin: 09/11/18 07:54 Dose: 81 mg Atorvastatin Calcium (Lipitor) 40 mg PO HS [facility] Last Admin: 09/10/18 22:46 Dose: 40 mg Bisacodyl (Dulcolax) 10 mg [place] DAILYPRN PRN PRN Reason: Constipation Last Admin: 09/07/18 11:27 Dose: 10 mg Carvedilol (Coreg) 6.25 mg PO BID-[facility] Last Admin: 09/11/18 16:14 Dose: 6.25 mg Enoxaparin Sodium (Lovenox) 40 mg SC 0900 [facility] Last Admin: 09/11/18 07:57 Dose: 40 mg Famotidine (Pepcid) 20 mg SLOW IVP BID [facility] Last Admin: 09/11/18 07:57 Dose: 20 mg Hydralazine HCl (Apresoline) 10 mg SLOW IVP Q6H PRN PRN Reason: SBP Greater Than 170 Last Admin: 09/08/18 14:08 Dose: 10 mg Vancomycin HCl 1 gm/ Device 200 mls @ 200 mls/hr IVPB 0600,1800 [facility] Last Admin: 09/11/18 17:08 Dose: 200 mls Labetalol HCl (Normodyne) 10 mg SLOW IVP Q6H PRN PRN Reason: SBP Greater Than 180 Last Admin: 07/14/19 18:01 Dose: 10 mg Lorazepam (Ativan) 0.25 mg SLOW IVP Q12H PRN PRN Reason: Anxiety/Agitation Last Admin: 09/07/18 18:14 Dose: 0.25 mg Miscellaneous Medication (Pharmacy To Dose) 1 each IVPB PRN PRN PRN Reason: Pharmacy to dose Discontinue Previous Narcotic Pain Medications And Benzodiazepines 1 each FS .ONE [facility] Stop: 10/03/18 12:48 Ccu Electrolyte (Replacement Protocol) 0 each FS PRN PRN PRN Reason: FOR ELECTROLYTE REPLACEMENT Ondansetron HCl (Zofran) 4 mg IVP Q6H PRN PRN Reason: Nausea/Vomiting Last Admin: 09/11/18 19:31 Dose: 4 mg Ondansetron HCl (Zofran) 8 mg SLOW IVP Q6HR [facility] Ondansetron HCl (Zofran) 8 mg SLOW IVP NOW [facility] Stop: 09/11/18 23:00 Senna/Docusate Sodium (Senokot S) 2 tab PO BIDPRN PRN PRN Reason: Constipation Sodium Chloride (Flush - Normal Saline) 10 ml IVF Q12HR [facility] Last Admin: 09/11/18 07:58 Dose: 10 ml Sodium Chloride (Flush - Normal Saline) 10 ml IVF PRN PRN PRN Reason: Saline Flush Sterile Water (Bacteriostatic Water) 1 ml FS PRN PRN PRN Reason: RECONSTITUTION Ziprasidone (Geodon) 20 mg IM Q4H PRN PRN Reason: Agitation Last Admin: 09/11/18 04:03 Dose: 20 mg
[2018-09-11] MEDS ORDERED: Ondansetron PF 4 MG/2 ML Vial SLOW IVP SCH (20:45)
[2018-09-11] MEDS: Atorvastatin Calcium 40 MG TAB PO SCH (20:55)
--- NOTE | 2018-09-11 22:57 | RAD ---
EXAM: XR Abdomen 1 View/KUB PROVIDED CLINICAL HISTORY: Abdominal pain COMPARISON: 09/09/2018 FINDINGS: Nonspecific gaseous distention of predominantly colon. Overall nonspecific bowel gas pattern. Supine nature the study is not sensitive for detection of pneumoperitoneum. The image annotation suggests NG tube placement, though such as not evident on the image. Soares catheter redemonstrated. IMPRESSION: As above.
[2018-09-12 04:44] LABS: Anion Gap 11 mmol/L (10-20); BUN (Urea Nitrogen) 18 mg/dL (8.4-25.7); Calc. Creatinine Clearance 0 mL/min (70-130); Calcium 8.8 mg/dL (7.8-10.44); Carbon Dioxide 32 mmol/L (23-31); Chloride 101 mmol/L (98-107); Estimated GFR-MDRD Greater than 90; Glucose 108 mg/dL (80-115); Potassium 3.8 mmol/L (3.5-5.1); Sodium 140 mmol/L (136-145)
[2018-09-12] MEDS: Vancomycin HCl 1 GM in Premix Bag 1 BAG IVPB SCH ×2 (05:22→17:49)
[2018-09-12 05:29] LABS: Band 1 % (5-11); Eosinophils 1 % (0-10); Hemoglobin 10.2 g/dL (14.0-18.0); Hypochromia SLIGHT = 6-15 cells (100X) (0-5/hpf); Lymphocytes 7 % (21-51); MDiff Complete? YES; Mean Corpuscular HGB CONC 33.2 g/dL (32.0-36.0); Mean Corpuscular Hemoglobin 30.8 pg (27.0-31.0); Mean Corpuscular Volume 92.9 fL (78.0-98.0); Mean Platelet Volume 7.2 fL (7.4-10.4); Monocytes 5 % (0-10); Neutrophil 86 % (42-75); Platelet Count 208 thou/uL (130-400); Platelet Morphology Comment Appears Adequate; RBC Distribution Width 12.7 % (11.5-14.5); White Blood Cell (WBC) Count 21.8 thou/uL (4.8-10.8)
[2018-09-12] MEDS ORDERED: Ondansetron PF 4 MG/2 ML Vial SLOW IVP SCH (06:00)
--- NOTE | 2018-09-12 08:28 | RAD ---
XR Chest 1 View Portable HISTORY: Pneumonia COMPARISON: 09/07/2018 FINDINGS: The heart size is normal. There is been interval removal of the endotracheal tube. Nasogast agueda tube remains in place. The infiltrates in the left lower lung demonstrate interval improvement. The right lung is clear. No pneumothoraces or large effusions are seen. IMPRESSION: Resolving pneumonia.
--- NOTE | 2018-09-12 08:35 | PRG ---
DATE OF SERVICE: 09/12/2018 SUBJECTIVE: The patient is currently on BiPAP, arousable, afebrile. Events of overnight reviewed with nursing staff. He had significant bilious vomiting over 1 L. Urine output is 1340, pink tinged. OBJECTIVE: ABDOMEN: There is some ecchymosis of the subcutaneous tissue. GENITOURINARY: There is dry blood at the meatus. He did not have this few days ago, diaper not in place, He likely had a traumatic tug at the Soares catheter. I did flush his catheter at bedside, which demonstrates no clot, good placement. He does not have a diaper as I previously advised to prevent traumatic catheter removal. I did re-tape his catheter, nursing staff informed regarding keeping his catheter covered with diaper and secured with tape at all times. PERTINENT LABORATORY DATA: White count is 21, hemoglobin 10, and platelet 208. Creatinine 0.8. Sodium is 140. Urine culture negative. IMPRESSION AND PLAN: 1. Mr. 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 2. History of benign prostatic hyperplasia, status post transurethral resection of the prostate at [facility] few years ago. 3. History of urinary retention, PVR 400, status post cystoscopy, urethral stricture, dilation over guidewire, Soares catheter placement on September 05, 2018. Importance of keeping catheter secured out of harm's way to prevent catheter removal traumatically reviewed with nursing staff. Due to his deconditioned status, moreover concerning for evolving ileus leave indwelling Soares catheter. Do not remove Soares unless it is okay with . Job ID: [id number] MTDD
[2018-09-12] MEDS ORDERED: Potassium Chloride 40 MEQ in Premix Bag 1 BAG IVPB SCH (08:45)
[2018-09-12] MEDS: Enoxaparin Sodium 40 MG/0.4 ML SYRINGE SC SCH (09:17)
[2018-09-12] MEDS: Famotidine/PF 20 mg/2ml Vial SLOW IVP SCH ×2 (09:17→20:05)
[2018-09-12] MEDS ORDERED: Lactated Ringer's 1,000 ML IV SCH (09:30)
--- NOTE | 2018-09-12 09:38 | PRG ---
DATE OF SERVICE: 09/12/2018 SERVICE: Pulmonary Medicine. INTERVAL HISTORY: Overnight, the patient did poorly. He ended up having some nausea. He vomited significant amounts of vomitus. He then had an NG tube placed. An additional liter of fluid was extracted from the stomach. He had some hypoxemic respiratory failure around that time. He was placed on BiPAP. He is a little bit more confused today. That being said, his strength has not changed significantly. PHYSICAL EXAMINATION: VITAL SIGNS: Afebrile, pulse 114, respirations 26, and saturation 97%, currently on 31% delivered via BiPAP. HEENT: Normocephalic and atraumatic. Sclerae white. Conjunctivae pink. Oral mucosa is moist without lesions. LUNGS: Decent air entry. There are some rhonchi present. No prolonged expiratory phase. There, extensive wheezing is present. HEART: Normal rate and regular. ABDOMEN: Soft, nontender, and nondistended. Bowel sounds are hypoactive. : No Soares. NEUROLOGIC: Grossly nonfocal. LABORATORY DATA: WBC 21.8, hemoglobin 10.2, and platelets 208,000. INR 0.9. Basic metabolic profile is otherwise unremarkable except for a bicarb that is trending upward. ASSESSMENT: 1. Acute hypoxic respiratory failure. 2. Community-acquired pneumonia, secondary to methicillin-resistant Staphylococcus aureus, on antibiotics. 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 4. Ileus. 5. Chronic obstructive pulmonary disease with acute exacerbation, status post a course of therapy. 6. Metabolic encephalopathy, resolved. 7. Delirium. DISCUSSION AND PLAN: We will do a CT scan of the belly to make certain there are no obstructing lesions. I will give him a liter of IV fluids and start him on maintenance fluids. We will wean away BiPAP as tolerated. Pulmonary/Critical Care will continue to follow along. Job ID: [id number] [facility]
[2018-09-12] MEDS: Metoprolol Tartrate 5 MG/5 ML VIAL IVP SCH ×3 (09:41→20:06)
[2018-09-12] MEDS: Sodium Chloride 0.45% 1,000 ML IV SCH ×2 (09:41→23:02)
[2018-09-12] MEDS: Tamsulosin HCl 0.4 MG CAP PO SCH (09:43)
[2018-09-12] MEDS: Aspirin Chewable 81 MG TAB PO SCH (09:43)
[2018-09-12] MEDS: Carvedilol 6.25 MG TAB PO SCH (09:47)
[2018-09-12 11:12] LABS: Actual Bicarbonate (HCO3a) 36.2 mEq/L (22-28); Analyzer IN Cardio ER; Base Excess (BEa) 10.9 mEq/L (-2.0 to +3.0); Calcium, Ionized 1.11 mmol/L (1.12-1.30); Hemoglobin (Hb) 10.9 g/dL (14.0-18.0); O2 Tension (PaO2) 72.3 mmHg (> 80.0); Potassium - ABG Lab 3.72 mmol/L (3.70-5.30); pH, Arterial 7.46 (7.35-7.45)
[2018-09-12 11:21] LABS: Puncture Site LR
[2018-09-12] MEDS ORDERED: ISOVUE-370 76%-LOCM 1 ML ONE (13:28)
--- NOTE | 2018-09-12 15:38 | CT ---
ABDOMEN AND PELVIC CT SCAN WITH IV CONTRAST: HISTORY: Ileus, COPD, congestive heart failure, emphysema. FINDINGS: Somewhat confluent parenchymal changes in the left lower lobe, evidence for left lower lobe pneumonia and/or atelectasis with very small possible effusion. Poorly circumscribed pulmonary nodule seen in the right lower lobe on the highest-most axial image measuring approximately 0.6 cm in size. Consid er followup full chest CT for further assessment in this regard. Small hiatal hernia. Liver, gallbl adder, pancreas, spleen, and adrenal glands are unremarkable. The kidneys show no hydronephrosis. N o overt calculus. Normal-appearing appendix. Atherosclerosis of the aorta without evidence for sign ificant aneurysm. No evidence for large or small bowel obstruction. There are some sigmoid colon di verticulosis without acute diverticulitis. There is some slight focal wall thickening of the fundus of the stomach near the hiatal hernia probably related to some folding or slight kinking of the stoma ch. Evidence for bilateral umbilical and inguinal fat-containing hernias. Small nonspecific subcuta neous areas of fat stranding including one small air density in the left lateral lower abdomen and up per pelvis region. IMPRESSION: 1. Probable lung nodule up to 0.6 cm in the right lower lobe seen on the highest-most axial image an d also on the coronal study. 2. Evidence for left lower lobe pneumonia and/or atelectasis. 3. Minimal sigmoid colon diverticulosis without acute diverticulitis. No evidence for other signifi cant acute process in the abdomen and pelvis. No evidence for bowel obstruction. Other findings as above.
[2018-09-12 17:25] LABS: Vancomycin, Trough 23.3 ug/mL
--- NOTE | 2018-09-12 18:59 | PDOC.PN ---
- Subjective Encounter Start Date: 09/12/18 Encounter Start Time: 10:40 Pt seen for followup re:acute hypoxic respiratory failure. On BiPAP, sleepy but arousable, not answering questions, unable to complete ROS. - Objective Resuscitation Status - Order Detail: 09/03/18 00:59 Resuscitation Status Routine Resuscitation Status: FULL: Full Resuscitation Discussed with: poa: MARQUISE Reviewed: Yes Vital Signs & Weight: Vital Signs (12 hours) Temp Pulse Resp BP Pulse Ox 09/12/18 18:16 102 H 22 H 96 09/12/18 15:04 104 H 09/12/18 15:00 98.7 F 09/12/18 12:59 95 24 H 100 09/12/18 11:00 98.2 F 89 09/12/18 09:47 150/98 H 09/12/18 08:19 117 H 97 09/12/18 08:17 118 H 26 H 97 09/12/18 08:00 99.5 F 97 Weight Admit Weight 190 lb 8 oz Weight 2.97 oz Most Recent Monitor Data Heart Rate from ECG 86 NIBP 141/80 NIBP BP-Mean 100 Respiration from ECG 19 SpO2 96 I&O: 09/11/18 09/12/18 09/13/18 06:59 06:59 06:59 Intake Total 3914 750 2795 Output Total 1435 2790 2515 Balance 2479 -2040 280 Result Diagrams: 09/12/18 03:55 09/12/18 03:55 EKG Reviewed by me: Yes (Tele: NSR) Phys Exam - Physical Examination Constitutional: NAD HEENT: moist MMs NG tube Neck: supple Respiratory: clear to auscultation bilateral Cardiovascular: RRR Gastrointestinal: soft Neurological: moves all 4 limbs Deviation from normal: Unable to assess Dx/Plan (1) Acute respiratory failure Code(s): J96.00 - ACUTE RESPIRATORY FAILURE, UNSP W HYPOXIA OR HYPERCAPNIA Status: Acute Qualifiers: Respiratory failure complication: hypoxia Qualified Code(s): J96.01 - Acute respiratory failure with hypoxia Comment: on BiPAP (2) Vomiting Code(s): R11.10 - VOMITING, UNSPECIFIED Status: Acute Comment: NG tube to suction; no bowel obstruction on CT (3) Aspiration pneumonia Code(s): J69.0 - PNEUMONITIS DUE TO INHALATION OF FOOD AND VOMIT Status: Acute Comment: continue IV Zosyn and vancomycin. (4) BPH (benign prostatic hyperplasia) Code(s): N40.0 - BENIGN PROSTATIC HYPERPLASIA WITHOUT LOWER URINRY TRACT SYMP Status: Chronic Comment: stable (5) CAD (coronary artery disease) Code(s): I25.10 - ATHSCL HEART DISEASE OF [place] CORONARY ARTERY W/O ANG PCTRS Status: Chronic Comment: stable (6) Hyponatremia Code(s): E87.1 - HYPO-OSMOLALITY AND HYPONATREMIA Status: Resolved - Plan * . Review of Systems - Medications/Allergies Allergies/Adverse Reactions: Allergies Allergy/AdvReac Type Severity Reaction Status Date / Time levofloxacin [From Levaquin] Allergy Verified 09/02/18 23:11 Medications: Current Medications Acetaminophen (Tylenol) 650 mg PO Q4H PRN PRN Reason: Headache/Fever/Mild Pain (1-3) Last Admin: 09/11/18 04:02 Dose: 650 mg Albuterol/Ipratropium (Duoneb) 3 ml NEB [id number] [facility] Last Admin: 09/12/18 18:16 Dose: 3 ml Aspirin (Aspirin Chewable) 81 mg PO DAILY [facility] Last Admin: 09/12/18 09:43 Dose: Not Given Bisacodyl (Dulcolax) 10 mg [place] DAILYPRN PRN PRN Reason: Constipation Last Admin: 09/07/18 11:27 Dose: 10 mg Enoxaparin Sodium (Lovenox) 40 mg SC 0900 [facility] Last Admin: 09/12/18 09:17 Dose: 40 mg Famotidine (Pepcid) 20 mg SLOW IVP BID [facility] Last Admin: 09/12/18 09:17 Dose: 20 mg Hydralazine HCl (Apresoline) 10 mg SLOW IVP Q6H PRN PRN Reason: SBP Greater Than 170 Last Admin: 09/08/18 14:08 Dose: 10 mg Vancomycin HCl 1 gm/ Device 200 mls @ 200 mls/hr IVPB 0600,1800 [facility] Last Admin: 09/12/18 17:49 Dose: 200 mls Sodium Chloride (1/2 Normal Saline) 1,000 mls @ 75 mls/hr IV .[id number] [facility] Last Admin: 09/12/18 09:41 Dose: 1,000 mls Labetalol HCl (Normodyne) 10 mg SLOW IVP Q6H PRN PRN Reason: SBP Greater Than 180 Last Admin: 09/08/18 18:01 Dose: 10 mg Lorazepam (Ativan) 0.25 mg SLOW IVP Q12H PRN PRN Reason: Anxiety/Agitation Last Admin: 09/07/18 18:14 Dose: 0.25 mg Metoprolol Tartrate (Lopressor) 5 mg IVP Q6H [facility] Last Admin: 09/12/18 15:28 Dose: 5 mg Miscellaneous Medication (Pharmacy To Dose) 1 each IVPB PRN PRN PRN Reason: Pharmacy to dose Discontinue Previous Narcotic Pain Medications And Benzodiazepines 1 each FS .ONE [facility] Stop: 10/03/18 12:48 Ccu Electrolyte (Replacement Protocol) 0 each FS PRN PRN PRN Reason: FOR ELECTROLYTE REPLACEMENT Ondansetron HCl (Zofran) 4 mg IVP Q6H PRN PRN Reason: Nausea/Vomiting Last Admin: 09/11/18 19:31 Dose: 4 mg Senna/Docusate Sodium (Senokot S) 2 tab PO BIDPRN PRN PRN Reason: Constipation Sodium Chloride (Flush - Normal Saline) 10 ml IVF Q12HR [facility] Last Admin: 09/12/18 09:43 Dose: 10 ml Sodium Chloride (Flush - Normal Saline) 10 ml IVF PRN PRN PRN Reason: Saline Flush Sterile Water (Bacteriostatic Water) 1 ml FS PRN PRN PRN Reason: RECONSTITUTION Tamsulosin HCl (Flomax) 0.4 mg PO DAILY [facility] Last Admin: 09/12/18 09:43 Dose: Not Given
[2018-09-13 05:49] LABS: #Lymphocytes 1.5 thou/uL (1.20-3.40); #Monocytes 0.6 thou/uL (0.11-0.59); #Neutrophils 16.1 thou/uL (1.40-6.50); %Basophils 0.1 % (0.0-1.0); %Eosinophils 0.2 % (0.0-10.0); %Lymphocytes 8.3 % (21.0-51.0); %Monocytes 3.4 % (0.0-10.0); %Neutrophils 87.9 % (42.0-75.0); Hemoglobin 9.5 g/dL (14.0-18.0); Mean Corpuscular HGB CONC 32.5 g/dL (32.0-36.0); Mean Corpuscular Hemoglobin 30.1 pg (27.0-31.0); Mean Corpuscular Volume 92.6 fL (78.0-98.0); Mean Platelet Volume 7.3 fL (7.4-10.4); Platelet Count 215 thou/uL (130-400); RBC Distribution Width 12.9 % (11.5-14.5); Red Blood Cell (RBC) Count 3.16 mill/uL (4.70-6.10); White Blood Cell (WBC) Count 18.3 thou/uL (4.8-10.8)
[2018-09-13] MEDS: Vancomycin HCl 1 GM in Premix Bag 1 BAG IVPB SCH (05:53)
[2018-09-13] MEDS: Metoprolol Tartrate 5 MG/5 ML VIAL IVP SCH ×4 (05:53→19:49)
[2018-09-13 06:09] LABS: Phosphorus 3.7 mg/dL (2.3-4.7)
[2018-09-13 06:11] LABS: BUN (Urea Nitrogen) 18 mg/dL (8.4-25.7); Calc. Creatinine Clearance 0 mL/min (70-130); Calcium 9.2 mg/dL (7.8-10.44); Estimated GFR-MDRD 90; Glucose 101 mg/dL (80-115); Magnesium 1.8 mg/dL (1.6-2.6)
[2018-09-13 06:22] LABS: Anion Gap 16 mmol/L (10-20); Carbon Dioxide 38 mmol/L (23-31); Chloride 93 mmol/L (98-107); Sodium 144 mmol/L (136-145)
[2018-09-13] MEDS: Aspirin Chewable 81 MG TAB PO SCH (08:57)
--- NOTE | 2018-09-13 09:15 | PRG ---
DATE OF SERVICE: 09/13/2018 SUBJECTIVE: The patient currently had a bowel movement, nursing staff changing diaper. He is currently on BiPAP. OBJECTIVE: VITAL SIGNS: Afebrile. I's and O's; 3817 in and 4910 out. Urine output component 1700. NG tube over 3 L. ABDOMEN: Morbidly obese, protuberant. GENITOURINARY: Soares catheter adequately secured. DIAGNOSTIC DATA: White count 18, hemoglobin 9.5. Creatinine 0.8, sodium 144. Urine culture negative. respiratory culture with MRSA. CT of the abdomen and pelvis was performed yesterday due to ileus demonstrating incidental right lower lobe 6-mm pulmonary nodule, left lower lobe pneumonia, and diverticulosis. No evidence of mechanical bowel obstruction. Per my review, which I reviewed myself, the kidneys are grossly unremarkable. There is no significant enlargement of prostate of concern, Soares catheter in good position. IMPRESSION AND PLAN: 1. Mr. Page is a 63-year-old male admitted for generalized weakness, Guillain-[place]. 2. Methicillin-resistant Staphylococcus aureus pneumonia. 3. Ileus, the patient has bowel movements, however, continues to have significant NG output. CT above reviewed. 4. Urologic issues at urinary retention of postvoid residual 400, history of transurethral resection of the prostate at [facility]. 5. Urethral stricture, status post cystoscopy, urethral stricture dilatation at bedside. Catheter placement over guidewire on September 05, 2018. When the patient' s ileus has resolved, improved, pending his mental status, we will initiate voiding trial per . Continue to keep Soares catheter secured, keep out of harm's way to prevent traumatic catheter removal. Dr. Carreon covering me this weekend for p.r.n. issues. Job ID: [id number] [facility]
[2018-09-13] MEDS: Enoxaparin Sodium 40 MG/0.4 ML SYRINGE SC SCH (09:17)
[2018-09-13] MEDS: Famotidine/PF 20 mg/2ml Vial SLOW IVP SCH ×2 (09:18→19:47)
[2018-09-13] MEDS: Tamsulosin HCl 0.4 MG CAP PO SCH (09:20)
[2018-09-13] MEDS ORDERED: Potassium Chloride 40 MEQ in Sodium Chloride 0.9% 250 ML 250 ML IVPB SCH ×2 (09:45→10:00)
[2018-09-13] MEDS ORDERED: Magnesium Sulfate 2 GM in Sodium Chloride 0.9% 100 ML IVPB SCH (10:30)
--- NOTE | 2018-09-13 10:47 | PRG ---
DATE OF SERVICE: 09/13/2018 SERVICE: Pulmonary Medicine. INTERVAL HISTORY: The patient is doing poorly from respiratory standpoint. His oxygen requirements have gone up. He denies any current fevers, chills, nausea, or vomiting. There were no significant overnight events otherwise. Whenever he would cough, his saturations would pop up. Pretty easily, but he has to be encouraged to do so frequently. PHYSICAL EXAMINATION: VITAL SIGNS: Afebrile, pulse 103, blood pressure 115/67, respirations 12, saturation 91% on room air. GENERAL: The patient is awake and alert, in no apparent distress. LUNGS: He is breathing comfortably. Extensive rhonchi present in bilateral lung stephenson. It is little worse on the left. HEART: Normal rate and regular. ABDOMEN: Soft, nontender, nondistended. Bowel sounds are positive. MUSCULOSKELETAL: No cyanosis or clubbing. No pitting in the bilateral lower extremities. NEUROLOGIC: Grossly nonfocal. LABORATORY DATA: WBC 18.3, hemoglobin 9.5, platelets 215,000. PH 7.46, pCO2 of 52, pO2 of 72 when he was on a FiO2 of 50%. Potassium 3.0. Basic metabolic profile is otherwise unremarkable. Magnesium 1.8, phosphorus 3.7. Myelin basic protein is elevated. IMAGING DATA: CT of the abdomen and pelvis demonstrates a dense left lower lobe infiltrate. Minimal sigmoid diverticulosis without evidence of diverticulitis. No obvious evidence for acute intra-abdominal process. No bowel obstruction is identified. ASSESSMENT: 1. Acute hypoxic respiratory failure. 2. Community-acquired pneumonia secondary to methicillin-resistant Staphylococcus aureus. 3. Guillain-[place] syndrome. 4. Ileus. 5. Chronic obstructive pulmonary disease with acute exacerbation. 6. Metabolic encephalopathy. 7. Delirium. DISCUSSION AND PLAN: I will replace potassium and magnesium today. We will continue to trend this through time. I will monitor for increasing signs of sepsis. If identified, we may need to broaden our antibiotic coverage again. I am going to schedule some Reglan. Pulmonary will keep following. Job ID: [id number]
[2018-09-13] MEDS: Metoclopramide HCl 10 MG/2 ML VIAL IVP SCH ×2 (12:04→17:02)
[2018-09-13] MEDS: Potassium Chloride 40 MEQ in Premix Bag 1 BAG IVPB SCH ×3 (12:05→19:49)
[2018-09-13] MEDS: Sodium Chloride 0.45% 1,000 ML IV SCH (13:27)
[2018-09-13] MEDS: Vancomycin HCl 750 MG in Sodium Chloride 0.9% 250 ML 250 ML IVPB SCH (17:02)
--- NOTE | 2018-09-13 17:54 | PDOC.PN ---
- Subjective Encounter Start Date: 09/13/18 Encounter Start Time: 11:20 Pt seen for followup re: acute hypoxic respiratory failure. On BiPAP, sleepy but arousable, reports thirst. - Objective Resuscitation Status - Order Detail: 09/03/18 00:59 Resuscitation Status Routine Resuscitation Status: FULL: Full Resuscitation Discussed with: poa: MARQUISE Reviewed: Yes Vital Signs & Weight: Vital Signs (12 hours) Temp Pulse Pulse Pulse Pulse Resp BP 09/13/18 16:00 98.8 F 09/13/18 12:43 113 H 24 H 09/13/18 12:34 98.7 F 09/13/18 11:57 98.7 F 09/13/18 08:55 130 H 91 92 117/78 09/13/18 08:05 09/13/18 08:03 111 H 09/13/18 08:01 109 H 24 H 09/13/18 08:00 09/13/18 07:00 99.1 F BP Pulse Ox Pulse Ox Pulse Ox 09/13/18 16:00 09/13/18 12:43 92 L 09/13/18 12:34 09/13/18 11:57 09/13/18 08:55 122/71 88 L 90 L 09/13/18 08:05 87 L 09/13/18 08:03 09/13/18 08:01 90 L 09/13/18 08:00 88 L 09/13/18 07:00 Weight Admit Weight 190 lb 8 oz Weight 185 lb 3.013 oz Most Recent Monitor Data Heart Rate from ECG 105 NIBP 125/73 NIBP BP-Mean 90 Respiration from ECG 25 SpO2 96 I&O: 09/12/18 09/13/18 09/14/18 06:59 06:59 06:59 Intake Total 750 3817 1344 Output Total 2790 4910 1155 Balance -2040 -1093 189 Result Diagrams: 09/13/18 05:25 09/13/18 05:25 EKG Reviewed by me: Yes (Tele: NSR) Phys Exam - Physical Examination Constitutional: NAD HEENT: moist MMs Neck: supple Respiratory: clear to auscultation bilateral Cardiovascular: RRR Gastrointestinal: soft Musculoskeletal: edema present Neurological: moves all 4 limbs Deviation from normal: Sleepy Dx/Plan (1) Acute respiratory failure Code(s): J96.00 - ACUTE RESPIRATORY FAILURE, UNSP W HYPOXIA OR HYPERCAPNIA Status: Acute Qualifiers: Respiratory failure complication: hypoxia Qualified Code(s): J96.01 - Acute respiratory failure with hypoxia Comment: on BiPAP, managed in CCU (2) Vomiting Code(s): R11.10 - VOMITING, UNSPECIFIED Status: Acute Comment: NG tube to suction (3) Aspiration pneumonia Code(s): J69.0 - PNEUMONITIS DUE TO INHALATION OF FOOD AND VOMIT Status: Acute Comment: continue IV vancomycin. (4) BPH (benign prostatic hyperplasia) Code(s): N40.0 - BENIGN PROSTATIC HYPERPLASIA WITHOUT LOWER URINRY TRACT SYMP Status: Chronic Comment: stable (5) CAD (coronary artery disease) Code(s): I25.10 - ATHSCL HEART DISEASE OF [place] CORONARY ARTERY W/O ANG PCTRS Status: Chronic Comment: stable (6) Hyponatremia Code(s): E87.1 - HYPO-OSMOLALITY AND HYPONATREMIA Status: Resolved - Plan * . Review of Systems - Review of Systems Constitutional: weakness Cardiovascular: negative: chest pain, palpitations, orthopnea, paroxysmal nocturnal dyspnea, edema, light headedness Gastrointestinal: negative: Nausea, Vomiting, Abdominal Pain, Diarrhea, Constipation, Melena, Hematochezia - Medications/Allergies Allergies/Adverse Reactions: Allergies Allergy/AdvReac Type Severity Reaction Status Date / Time levofloxacin [From Levaquin] Allergy Verified 09/02/18 23:11 Medications: Current Medications Acetaminophen (Tylenol) 650 mg PO Q4H PRN PRN Reason: Headache/Fever/Mild Pain (1-3) Last Admin: 09/11/18 04:02 Dose: 650 mg Albuterol/Ipratropium (Duoneb) 3 ml NEB [id number] [facility] Last Admin: 09/13/18 12:43 Dose: 3 ml Aspirin (Aspirin Chewable) 81 mg PO DAILY [facility] Last Admin: 09/13/18 08:57 Dose: Not Given Bisacodyl (Dulcolax) 10 mg [place] DAILYPRN PRN PRN Reason: Constipation Last Admin: 09/07/18 11:27 Dose: 10 mg Enoxaparin Sodium (Lovenox) 40 mg SC 0900 [facility] Last Admin: 09/13/18 09:17 Dose: 40 mg Famotidine (Pepcid) 20 mg SLOW IVP BID [facility] Last Admin: 09/13/18 09:18 Dose: 20 mg Fluticasone Propionate (Flonase Nasal [place]) 0 gm NASAL DAILY [facility] Hydralazine HCl (Apresoline) 10 mg SLOW IVP Q6H PRN PRN Reason: SBP Greater Than 170 Last Admin: 09/08/18 14:08 Dose: 10 mg Sodium Chloride (1/2 Normal Saline) 1,000 mls @ 75 mls/hr IV .[id number] [facility] Last Admin: 09/13/18 13:27 Dose: Not Given Vancomycin HCl 750 mg/ Sodium (Chloride) 250 mls @ 250 mls/hr IVPB 0600,1800 [facility] Last Admin: 09/13/18 17:02 Dose: 250 mls Potassium Chloride 40 meq/ (Device) 100 mls @ 25 mls/hr IVPB Q4HR [facility] Stop: 09/14/18 00:59 Last Admin: 09/13/18 16:30 Dose: 100 mls Labetalol HCl (Normodyne) 10 mg SLOW IVP Q6H PRN PRN Reason: SBP Greater Than 180 Last Admin: 09/08/18 18:01 Dose: 10 mg Lorazepam (Ativan) 0.25 mg SLOW IVP Q12H PRN PRN Reason: Anxiety/Agitation Last Admin: 09/07/18 18:14 Dose: 0.25 mg Metoclopramide HCl (Reglan) 10 mg IVP Q6HR [facility] Stop: 09/14/18 00:00 Last Admin: 09/13/18 17:02 Dose: 10 mg Metoprolol Tartrate (Lopressor) 5 mg IVP Q6H [facility] Last Admin: 09/13/18 15:22 Dose: 5 mg Miscellaneous Medication (Pharmacy To Dose) 1 each IVPB PRN PRN PRN Reason: Pharmacy to dose Discontinue Previous Narcotic Pain Medications And Benzodiazepines 1 each FS .ONE [facility] Stop: 10/03/18 12:48 Ondansetron HCl (Zofran) 4 mg IVP Q6H PRN PRN Reason: Nausea/Vomiting Last Admin: 09/11/18 19:31 Dose: 4 mg Senna/Docusate Sodium (Senokot S) 2 tab PO BIDPRN PRN PRN Reason: Constipation Sodium Chloride (Flush - Normal Saline) 10 ml IVF Q12HR [facility] Last Admin: 09/13/18 09:20 Dose: Not Given Sodium Chloride (Flush - Normal Saline) 10 ml IVF PRN PRN PRN Reason: Saline Flush Sterile Water (Bacteriostatic Water) 1 ml FS PRN PRN PRN Reason: RECONSTITUTION Tamsulosin HCl (Flomax) 0.4 mg PO DAILY [facility] Last Admin: 09/13/18 09:20 Dose: Not Given
[2018-09-14] MEDS: Sodium Chloride 0.45% 1,000 ML IV SCH ×3 (00:11→20:33)
[2018-09-14] MEDS: Metoclopramide HCl 10 MG/2 ML VIAL IVP SCH (00:11)
[2018-09-14] MEDS: Metoprolol Tartrate 5 MG/5 ML VIAL IVP SCH ×4 (02:59→20:32)
[2018-09-14 04:54] LABS: #Eosinphils 0.1 thou/uL (0.0-0.7); #Lymphocytes 1.5 thou/uL (1.20-3.40); #Monocytes 0.8 thou/uL (0.11-0.59); #Neutrophils 12.5 thou/uL (1.40-6.50); %Basophils 0.1 % (0.0-1.0); %Eosinophils 0.4 % (0.0-10.0); %Monocytes 5.5 % (0.0-10.0); %Neutrophils 84.1 % (42.0-75.0); Mean Corpuscular HGB CONC 30.3 g/dL (32.0-36.0); Mean Corpuscular Hemoglobin 28.5 pg (27.0-31.0); Mean Corpuscular Volume 94.1 fL (78.0-98.0); Mean Platelet Volume 7.3 fL (7.4-10.4); Platelet Count 270 thou/uL (130-400); RBC Distribution Width 13.1 % (11.5-14.5); Red Blood Cell (RBC) Count 3.14 mill/uL (4.70-6.10); White Blood Cell (WBC) Count 14.8 thou/uL (4.8-10.8)
[2018-09-14 05:15] LABS: BUN (Urea Nitrogen) 22 mg/dL (8.4-25.7); Calc. Creatinine Clearance 77 mL/min (70-130); Calcium 9.1 mg/dL (7.8-10.44); Estimated GFR-MDRD 63; Glucose 89 mg/dL (80-115)
[2018-09-14 05:24] LABS: Anion Gap 19 mmol/L (10-20); Carbon Dioxide 36 mmol/L (23-31); Chloride 95 mmol/L (98-107); Potassium 3.4 mmol/L (3.5-5.1); Sodium 147 mmol/L (136-145)
[2018-09-14] MEDS: Vancomycin HCl 750 MG in Sodium Chloride 0.9% 250 ML 250 ML IVPB SCH (05:44)
[2018-09-14] MEDS: Enoxaparin Sodium 40 MG/0.4 ML SYRINGE SC SCH (08:16)
[2018-09-14] MEDS: Famotidine/PF 20 mg/2ml Vial SLOW IVP SCH ×2 (08:16→20:32)
[2018-09-14] MEDS: Aspirin Chewable 81 MG TAB PO SCH (08:16)
[2018-09-14] MEDS: Tamsulosin HCl 0.4 MG CAP PO SCH (08:17)
[2018-09-14] MEDS: Fluticasone Propionate Nasal Spray 16 gm Bottle NASAL SCH (08:19)
--- NOTE | 2018-09-14 11:55 | PRG ---
DATE OF SERVICE: 09/14/2018 SERVICE: Pulmonary Medicine. INTERVAL HISTORY: The patient is doing really well from respiratory standpoint. He is breathing comfortably. He continues to have significant amounts of output from the NG tube. He denies having any shortness of breath or chest discomfort currently. Otherwise, there has been no interval change to his condition. PHYSICAL EXAMINATION: VITAL SIGNS: Afebrile, pulse 117, blood pressure 129/73, respirations 19, saturation 93% on 50% FiO2 delivered via high-flow nasal cannula. HEENT: Normocephalic and atraumatic. Sclerae white. Conjunctivae pink. Oral mucosa is moist without lesions. LUNGS: Decent air entry. Rhonchi are present on the left, but improving. There is a prolonged expiratory phase, but not much in the way of wheezing. Crackles are not present today. HEART: Normal rate and regular. ABDOMEN: Soft, nontender, nondistended. Bowel sounds are positive. MUSCULOSKELETAL: No cyanosis or clubbing. There is no pitting in the bilateral lower extremities. If anything, there is some skin tenting throughout. NEUROLOGIC: Grossly nonfocal. ASSESSMENT: 1. Acute hypoxic respiratory failure. 2. Community-acquired pneumonia secondary to MRSA, status post full course of therapy with subsequent aspiration event. 3. Guillain-[place] syndrome. 4. Ileus. 5. Chronic obstructive pulmonary disease with acute exacerbation. 6. Metabolic encephalopathy. 7. Delirium. DISCUSSION AND PLAN: The patient is stable for transition out of the ICU to the intermediate care unit. We will watch for increasing signs of sepsis. If we see them, empirically initiate antibiotic therapy. At this point, he seems to be clearing his white blood cell count which is fine. His oxygen requirements are stable over the last 24 hours. Job ID: [id number]
[2018-09-14] MEDS: Ondansetron PF 4 MG/2 ML Vial IVP PRN (12:26)
[2018-09-14] MEDS: Potassium Chloride 40 MEQ in Premix Bag 1 BAG IVPB SCH ×2 (12:30→15:04)
--- NOTE | 2018-09-14 17:31 | PDOC.PN ---
- Subjective Encounter Start Date: 09/14/18 Encounter Start Time: 11:00 Pt seen for followup re: acute hypoxic respiratory failure. - Objective Resuscitation Status - Order Detail: 09/03/18 00:59 Resuscitation Status Routine Resuscitation Status: FULL: Full Resuscitation Discussed with: poa: MARQUISE Reviewed: Yes Vital Signs & Weight: Vital Signs (12 hours) Temp Pulse Pulse Pulse Resp BP BP 09/14/18 13:44 116 H 21 H 09/14/18 13:39 09/14/18 12:00 100 F H 09/14/18 08:51 108 H 85 129/98 H 110/73 09/14/18 07:38 09/14/18 07:26 117 H 23 H 09/14/18 06:58 09/14/18 06:57 99.2 F Pulse Ox Pulse Ox 09/14/18 13:44 97 09/14/18 13:39 97 09/14/18 12:00 09/14/18 08:51 94 L 09/14/18 07:38 92 L 09/14/18 07:26 93 L 09/14/18 06:58 93 L 09/14/18 06:57 Weight Admit Weight 190 lb 8 oz Weight 186 lb 11.704 oz Most Recent Monitor Data Heart Rate from ECG 107 NIBP 120/76 NIBP BP-Mean 90 Respiration from ECG 17 SpO2 96 I&O: 09/13/18 09/14/18 09/15/18 06:59 06:59 06:59 Intake Total 3817 2085 440 Output Total [address] [facility]1093 -975 -1260 Result Diagrams: 09/14/18 04:36 09/14/18 04:36 EKG Reviewed by me: Yes (Tele: NSR) Phys Exam - Physical Examination Constitutional: NAD HEENT: moist MMs Neck: supple Respiratory: clear to auscultation bilateral Cardiovascular: RRR Gastrointestinal: soft Neurological: moves all 4 limbs Psychiatric: normal affect Dx/Plan (1) Acute respiratory failure Code(s): J96.00 - ACUTE RESPIRATORY FAILURE, UNSP W HYPOXIA OR HYPERCAPNIA Status: Acute Qualifiers: Respiratory failure complication: hypoxia Qualified Code(s): J96.01 - Acute respiratory failure with hypoxia Comment: off of BiPAP (2) Vomiting Code(s): R11.10 - VOMITING, UNSPECIFIED Status: Acute Comment: NG tube output ongoing (3) Aspiration pneumonia Code(s): J69.0 - PNEUMONITIS DUE TO INHALATION OF FOOD AND VOMIT Status: Acute Comment: continue IV vancomycin. (4) BPH (benign prostatic hyperplasia) Code(s): N40.0 - BENIGN PROSTATIC HYPERPLASIA WITHOUT LOWER URINRY TRACT SYMP Status: Chronic Comment: stable (5) CAD (coronary artery disease) Code(s): I25.10 - ATHSCL HEART DISEASE OF [place] CORONARY ARTERY W/O ANG PCTRS Status: Chronic Comment: stable (6) Hyponatremia Code(s): E87.1 - HYPO-OSMOLALITY AND HYPONATREMIA Status: Resolved - Plan * . Review of Systems - Review of Systems Cardiovascular: negative: chest pain, palpitations, orthopnea, paroxysmal nocturnal dyspnea, edema, light headedness Gastrointestinal: negative: Nausea, Vomiting, Abdominal Pain, Diarrhea, Constipation, Melena, Hematochezia - Medications/Allergies Allergies/Adverse Reactions: Allergies Allergy/AdvReac Type Severity Reaction Status Date / Time levofloxacin [From Levaquin] Allergy Verified 09/02/18 23:11 Medications: Current Medications Acetaminophen (Tylenol) 650 mg PO Q4H PRN PRN Reason: Headache/Fever/Mild Pain (1-3) Last Admin: 09/11/18 04:02 Dose: 650 mg Albuterol/Ipratropium (Duoneb) 3 ml NEB [id number] [facility] Last Admin: 09/14/18 13:44 Dose: 3 ml Aspirin (Aspirin Chewable) 81 mg PO DAILY [facility] Last Admin: 09/14/18 08:16 Dose: Not Given Bisacodyl (Dulcolax) 10 mg [place] DAILYPRN PRN PRN Reason: Constipation Last Admin: 09/07/18 11:27 Dose: 10 mg Enoxaparin Sodium (Lovenox) 40 mg SC 0900 [facility] Last Admin: 09/14/18 08:16 Dose: 40 mg Famotidine (Pepcid) 20 mg SLOW IVP BID [facility] Last Admin: 09/14/18 08:16 Dose: 20 mg Fluticasone Propionate (Flonase Nasal [place]) 0 gm NASAL DAILY [facility] Last Admin: 09/14/18 08:19 Dose: 2 spr Hydralazine HCl (Apresoline) 10 mg SLOW IVP Q6H PRN PRN Reason: SBP Greater Than 170 Last Admin: 09/08/18 14:08 Dose: 10 mg Potassium Chloride 40 meq/ (Device) 100 mls @ 25 mls/hr IVPB Q4H [facility] Stop: 09/14/18 19:44 Last Admin: 09/14/18 15:04 Dose: 100 mls Sodium Chloride (1/2 Normal Saline) 1,000 mls @ 100 mls/hr IV .Q10H [facility] Last Admin: 09/14/18 12:36 Dose: 1,000 mls Labetalol HCl (Normodyne) 10 mg SLOW IVP Q6H PRN PRN Reason: SBP Greater Than 180 Last Admin: 09/08/18 18:01 Dose: 10 mg Lorazepam (Ativan) 0.25 mg SLOW IVP Q12H PRN PRN Reason: Anxiety/Agitation Last Admin: 09/07/18 18:14 Dose: 0.25 mg Metoprolol Tartrate (Lopressor) 5 mg IVP Q6H [facility] Last Admin: 09/14/18 15:04 Dose: 5 mg Miscellaneous Medication (Pharmacy To Dose) 1 each IVPB PRN PRN PRN Reason: Pharmacy to dose Discontinue Previous Narcotic Pain Medications And Benzodiazepines 1 each FS .ONE [facility] Stop: 10/03/18 12:48 Ondansetron HCl (Zofran) 4 mg IVP Q6H PRN PRN Reason: Nausea/Vomiting Last Admin: 09/14/18 12:26 Dose: 4 mg Senna/Docusate Sodium (Senokot S) 2 tab PO BIDPRN PRN PRN Reason: Constipation Sodium Chloride (Flush - Normal Saline) 10 ml IVF Q12HR [facility] Last Admin: 09/14/18 08:17 Dose: Not Given Sodium Chloride (Flush - Normal Saline) 10 ml IVF PRN PRN PRN Reason: Saline Flush Sterile Water (Bacteriostatic Water) 1 ml FS PRN PRN PRN Reason: RECONSTITUTION Tamsulosin HCl (Flomax) 0.4 mg PO DAILY [facility] Last Admin: 09/14/18 08:17 Dose: Not Given
[2018-09-15] MEDS: Sodium Chloride 0.45% 1,000 ML IV SCH (03:27)
[2018-09-15] MEDS: Metoprolol Tartrate 5 MG/5 ML VIAL IVP SCH ×4 (03:27→19:47)
[2018-09-15 05:53] LABS: #Eosinphils 0.1 thou/uL (0.0-0.7); #Lymphocytes 1.7 thou/uL (1.20-3.40); #Neutrophils 11.6 thou/uL (1.40-6.50); %Basophils 0.1 % (0.0-1.0); %Eosinophils 0.5 % (0.0-10.0); %Lymphocytes 11.8 % (21.0-51.0); %Monocytes 6.6 % (0.0-10.0); %Neutrophils 81.1 % (42.0-75.0); Mean Corpuscular HGB CONC 31.1 g/dL (32.0-36.0); Mean Corpuscular Hemoglobin 30.2 pg (27.0-31.0); Mean Corpuscular Volume 97.3 fL (78.0-98.0); Mean Platelet Volume 7.3 fL (7.4-10.4); Platelet Count 332 thou/uL (130-400); RBC Distribution Width 13.7 % (11.5-14.5); White Blood Cell (WBC) Count 14.3 thou/uL (4.8-10.8)
[2018-09-15 06:20] LABS: BUN (Urea Nitrogen) 25 mg/dL (8.4-25.7); Calc. Creatinine Clearance 68 mL/min (70-130); Calcium 9.2 mg/dL (7.8-10.44); Estimated GFR-MDRD 56; Glucose 93 mg/dL (80-115); Magnesium 2.5 mg/dL (1.6-2.6)
[2018-09-15 06:30] LABS: Anion Gap 21 mmol/L (10-20); Chloride 92 mmol/L (98-107); Potassium 3.1 mmol/L (3.5-5.1); Sodium 152 mmol/L (136-145)
[2018-09-15 06:33] LABS: Carbon Dioxide 42 mmol/L (23-31)
[2018-09-15] MEDS: Famotidine/PF 20 mg/2ml Vial SLOW IVP SCH ×2 (08:51→19:47)
[2018-09-15] MEDS: Enoxaparin Sodium 40 MG/0.4 ML SYRINGE SC SCH (08:51)
[2018-09-15] MEDS: Aspirin Chewable 81 MG TAB PO SCH (08:53)
[2018-09-15] MEDS: Tamsulosin HCl 0.4 MG CAP PO SCH (08:56)
[2018-09-15] MEDS: Fluticasone Propionate Nasal Spray 16 gm Bottle NASAL SCH (08:56)
[2018-09-15] MEDS ORDERED: Lactated Ringer's 1,000 ML IV SCH (12:45)
[2018-09-15] MEDS: D5 1/2 NS w/20 mEq KCL 1,000 ML IV SCH ×2 (12:51→19:47)
[2018-09-15] MEDS ORDERED: Potassium Chloride 40 MEQ in Sodium Chloride 0.9% 500 ML IVPB SCH (13:00)
[2018-09-15] MEDS ORDERED: Pantoprazole 40 MG VIAL IVP SCH (13:00)
--- NOTE | 2018-09-15 13:02 | PRG ---
DATE OF SERVICE: 09/15/2018 SERVICE: Pulmonary Medicine. INTERVAL HISTORY: The patient is doing okay from respiratory standpoint. He is breathing comfortably. Overnight, he started putting out some bloody material from the NG tube. It was on intermittent high suction. He cannot provide any additional elements of the history. He is having a little bit of nausea on and off, though he denies having shortness of breath or chest discomfort currently. He has not been able to tolerate p.o. basically since he has been here. PHYSICAL EXAMINATION: VITAL SIGNS: Afebrile. Pulse 121, blood pressure 113/93, respirations 23, saturation 95% on 50% via high-flow nasal cannula. HEENT: Normocephalic and atraumatic. Sclerae are white. Conjunctivae are pink. Oral mucosa is moist without lesions. LUNGS: Rhonchi are present, but improving. No prolonged expiratory phase or wheezing is appreciated. HEART: Tachycardic. Regular. ABDOMEN: Soft. Nontender and nondistended. Bowel sounds are actually positive. There is no rebound or guarding present. MUSCULOSKELETAL: No cyanosis or clubbing. There is no pitting in the bilateral lower extremities. NEUROLOGIC: Grossly nonfocal. LABORATORY DATA: WBC 14.3, hemoglobin 10.0, platelets 332,000. Bicarb 42, sodium 152, potassium 3.1, magnesium 2.5. Basic metabolic profile is otherwise unremarkable. Stool is growing Pseudomonas and yeast. Respiratory cultures are growing MRSA. C diff antigen and toxin are negative. ASSESSMENT: 1. Acute hypoxic respiratory failure. 2. Community-acquired pneumonia secondary to methicillin-resistant Staphylococcus aureus, status post full course of antibiotic therapy with subsequent aspiration event. 3. Ileus. 4. Chronic obstructive lung disease with acute exacerbation. 5. Metabolic encephalopathy. 6. Delirium. DISCUSSION AND PLAN: The patient has been without nutrition for too long. As such, we are going to need to initiate him on TPN. Place a PICC line to this end. He is currently volume depleted. A liter of lactated Ringer's will be provided. We will continue to follow laboratories through time. Job ID: [id number]
[2018-09-15] MEDS: Micafungin 100 MG in Sodium Chloride 0.9% 100 ML IVPB SCH (14:07)
--- NOTE | 2018-09-15 16:32 | PDOC.PN ---
- Subjective Encounter Start Date: 09/15/18 Encounter Start Time: 12:00 Pt seen for followup re; acute hypoxic respiratory failure. Sleepy but arousable, but not answering questions, unable to complete ROS. - Objective Resuscitation Status - Order Detail: 09/03/18 00:59 Resuscitation Status Routine Resuscitation Status: FULL: Full Resuscitation Discussed with: poa: MARQUISE Reviewed: Yes Vital Signs & Weight: Vital Signs (12 hours) Temp Pulse Resp Pulse Ox 09/15/18 16:22 96.9 F L 09/15/18 12:58 96 09/15/18 12:56 119 H 15 96 09/15/18 11:15 96.7 F L 09/15/18 08:00 96 09/15/18 07:25 96.7 F L 09/15/18 07:10 96 09/15/18 07:07 117 H 16 96 Weight Admit Weight 190 lb 8 oz Weight 181 lb 14.4 oz Most Recent Monitor Data Heart Rate from ECG 116 NIBP 114/76 NIBP BP-Mean 88 Respiration from ECG 22 SpO2 96 I&O: 09/14/18 09/15/18 09/16/18 06:59 06:59 06:59 Intake Total 2085 2124 Output Total 3060 4500 Balance -475 -0711 Result Diagrams: 09/22/18 05:37 09/22/18 05:37 EKG Reviewed by me: Yes (Tele: NSR) Phys Exam - Physical Examination Constitutional: NAD HEENT: moist MMs Neck: supple Respiratory: clear to auscultation bilateral Cardiovascular: RRR Gastrointestinal: soft Musculoskeletal: edema present Neurological: moves all 4 limbs Deviation from normal: Unable to assess Dx/Plan (1) Acute respiratory failure Code(s): J96.00 - ACUTE RESPIRATORY FAILURE, UNSP W HYPOXIA OR HYPERCAPNIA Status: Acute Qualifiers: Respiratory failure complication: hypoxia Qualified Code(s): J96.01 - Acute respiratory failure with hypoxia Comment: Pt is off of BiPAP, slow to improve (2) Vomiting Code(s): R11.10 - VOMITING, UNSPECIFIED Status: Acute Comment: Improved (3) Aspiration pneumonia Code(s): J69.0 - PNEUMONITIS DUE TO INHALATION OF FOOD AND VOMIT Status: Acute Comment: resp cx positive for mrsa and pt subsequently had aspiration pna (4) BPH (benign prostatic hyperplasia) Code(s): N40.0 - BENIGN PROSTATIC HYPERPLASIA WITHOUT LOWER URINRY TRACT SYMP Status: Chronic Comment: stable (5) CAD (coronary artery disease) Code(s): I25.10 - ATHSCL HEART DISEASE OF [place] CORONARY ARTERY W/O ANG PCTRS Status: Chronic Comment: stable (6) Hyponatremia Code(s): E87.1 - HYPO-OSMOLALITY AND HYPONATREMIA Status: Resolved - Plan * . Pt started on Ringer lactate. Being initiated on TPN. Review of Systems - Medications/Allergies Allergies/Adverse Reactions: Allergies Allergy/AdvReac Type Severity Reaction Status Date / Time levofloxacin [From Levaquin] Allergy Verified 09/02/18 23:11 Medications: Current Medications Acetaminophen (Tylenol) 650 mg PO Q4H PRN PRN Reason: Headache/Fever/Mild Pain (1-3) Last Admin: 09/11/18 04:02 Dose: 650 mg Albuterol/Ipratropium (Duoneb) 3 ml NEB [id number] [facility] Last Admin: 09/15/18 12:56 Dose: 3 ml Aspirin (Aspirin Chewable) 81 mg PO DAILY [facility] Last Admin: 09/15/18 08:53 Dose: Not Given Bisacodyl (Dulcolax) 10 mg [place] DAILYPRN PRN PRN Reason: Constipation Last Admin: 09/07/18 11:27 Dose: 10 mg Enoxaparin Sodium (Lovenox) 40 mg SC 0900 [facility] Last Admin: 09/15/18 08:51 Dose: 40 mg Famotidine (Pepcid) 20 mg SLOW IVP BID [facility] Last Admin: 09/15/18 08:51 Dose: 20 mg Fluticasone Propionate (Flonase Nasal [place]) 0 gm NASAL DAILY [facility] Last Admin: 09/15/18 08:56 Dose: Not Given Hydralazine HCl (Apresoline) 10 mg SLOW IVP Q6H PRN PRN Reason: SBP Greater Than 170 Last Admin: 09/08/18 14:08 Dose: 10 mg Potassium Chloride/Dextrose/Sod Cl (D5 1/2 Ns W/20 Meq Kcl) 1,000 mls @ 125 mls /hr IV .Q8H [facility] Last Admin: 09/15/18 12:51 Dose: 1,000 mls Micafungin Sodium 100 mg/ (Sodium Chloride) 100 mls @ 100 mls/hr IVPB Q24H [facility] Stop: 09/22/18 12:46 Last Admin: 09/15/18 14:07 Dose: 100 mls Potassium Chloride 40 meq/ (Sodium Chloride) 520 mls @ 130 mls/hr IVPB NOW [facility] Stop: 09/15/18 16:59 Last Admin: 09/15/18 14:07 Dose: 520 mls Labetalol HCl (Normodyne) 10 mg SLOW IVP Q6H PRN PRN Reason: SBP Greater Than 180 Last Admin: 09/08/18 18:01 Dose: 10 mg Lorazepam (Ativan) 0.25 mg SLOW IVP Q12H PRN PRN Reason: Anxiety/Agitation Last Admin: 09/07/18 18:14 Dose: 0.25 mg Metoprolol Tartrate (Lopressor) 5 mg IVP Q6H [facility] Last Admin: 09/15/18 14:10 Dose: 5 mg Discontinue Previous Narcotic Pain Medications And Benzodiazepines 1 each FS .ONE [facility] Stop: 10/03/18 12:48 Ondansetron HCl (Zofran) 4 mg IVP Q6H PRN PRN Reason: Nausea/Vomiting Last Admin: 09/14/18 12:26 Dose: 4 mg Pantoprazole Sodium (Protonix) 40 mg IVP Q12HR [facility] Senna/Docusate Sodium (Senokot S) 2 tab PO BIDPRN PRN PRN Reason: Constipation Sodium Chloride (Flush - Normal Saline) 10 ml IVF Q12HR [facility] Last Admin: 09/15/18 08:53 Dose: Not Given Sodium Chloride (Flush - Normal Saline) 10 ml IVF PRN PRN PRN Reason: Saline Flush Sterile Water (Bacteriostatic Water) 1 ml FS PRN PRN PRN Reason: RECONSTITUTION Tamsulosin HCl (Flomax) 0.4 mg PO DAILY [facility] Last Admin: 09/15/18 08:56 Dose: Not Given
[2018-09-15] MEDS: Pantoprazole 40 MG VIAL IVP SCH (19:47)
[2018-09-16] MEDS: Ondansetron PF 4 MG/2 ML Vial IVP PRN (01:11)
[2018-09-16] MEDS: D5 1/2 NS w/20 mEq KCL 1,000 ML IV SCH ×3 (02:20→20:01)
[2018-09-16] MEDS: Metoprolol Tartrate 5 MG/5 ML VIAL IVP SCH ×4 (02:58→20:01)
[2018-09-16 06:11] LABS: BUN (Urea Nitrogen) 25 mg/dL (8.4-25.7); Calc. Creatinine Clearance 65 mL/min (70-130); Calcium 8.7 mg/dL (7.8-10.44); Estimated GFR-MDRD 53; Glucose 144 mg/dL (80-115)
[2018-09-16 06:13] LABS: #Eosinphils 0.1 thou/uL (0.0-0.7); #Lymphocytes 1.7 thou/uL (1.20-3.40); #Monocytes 1.1 thou/uL (0.11-0.59); #Neutrophils 9.1 thou/uL (1.40-6.50); %Basophils 0.3 % (0.0-1.0); %Lymphocytes 13.8 % (21.0-51.0); %Monocytes 8.8 % (0.0-10.0); %Neutrophils 76.1 % (42.0-75.0); Hemoglobin 8.3 g/dL (14.0-18.0); MDiff Complete? YES; Mean Corpuscular HGB CONC 30.7 g/dL (32.0-36.0); Mean Corpuscular Hemoglobin 30.3 pg (27.0-31.0); Mean Corpuscular Volume 98.5 fL (78.0-98.0); Mean Platelet Volume 7.3 fL (7.4-10.4); Platelet Count 339 thou/uL (130-400); RBC Distribution Width 14.1 % (11.5-14.5); RBC Morphology Normal; Red Blood Cell (RBC) Count 2.76 mill/uL (4.70-6.10)
[2018-09-16 06:21] LABS: Anion Gap 15 mmol/L (10-20); Carbon Dioxide 36 mmol/L (23-31); Chloride 101 mmol/L (98-107); Potassium 3.1 mmol/L (3.5-5.1); Sodium 149 mmol/L (136-145)
--- NOTE | 2018-09-16 07:44 | RAD ---
ABDOMEN 1 VIEW: HISTORY: NG tube placement. FINDINGS: Nasogastric tube is present over the midline, gastric body and antrum. Contrast material within the colon. Visualized small bowel gas pattern nonspecific. Left abdomen and pelvis incompletely included. Urinary bladder catheter partially visualized. IMPRESSION: NG tube in good radiographic position. Transcribed Date/Time: 09/16/2018 8:09 AM
[2018-09-16] MEDS: Aspirin Chewable 81 MG TAB PO SCH (08:15)
[2018-09-16] MEDS: Tamsulosin HCl 0.4 MG CAP PO SCH (08:15)
--- NOTE | 2018-09-16 08:16 | PRG ---
DATE OF SERVICE: 09/16/2018 SUBJECTIVE: The patient is on BiPAP. OBJECTIVE: VITAL SIGNS: T-max of 100, T-current 99, blood pressure 102/84, pulse rate 90. Is and Os 3670 in, 2450 out of which urine output is over 1 L, clear. ABDOMEN: Morbidly obese, protuberant. : Soares catheter demonstrating clear yellow urine, secured and taped. PERTINENT LABORATORY DATA: White count 12, hemoglobin 8.3, platelets 239. Urine culture negative from 09/13. IMPRESSION AND PLAN: Mr. Page is a 63-year-old male admitted for, 1. Generalized weakness, Guillain-[place]. 2. Respiratory failure. 3. Pneumonia. 4. Ileus. 5. Metabolic encephalopathy. 6. Urologic issues of urinary retention, post-void residual 400 mL, difficult Soares catheter placement, status post cystoscopy, urethral stricture dilatation at bedside, catheter placement over guidewire, September 05. 7. History of transurethral resection of the prostate at [facility]. 8. Urethral stricture. Continue Flomax. We will leave indwelling Soares catheter due to metabolic encephalopathy, ileus. When the patient's mental status improves, we will initiate voiding trial. Keep catheter secured at bedside due to history of traumatic tug. We will follow aileen Job ID: [id number] [facility]
--- NOTE | 2018-09-16 08:35 | RAD ---
PORTABLE CHEST: COMPARISON: 09/12/2018 study. HISTORY: Followup of pneumonia. FINDINGS: Heart size and mediastinum within normal limits. The lungs are clear of any confluent infiltrative p rocess. The changes within the left lung base have almost completely resolved. Minimal residual int erstitial change remaining. IMPRESSION: Almost complete resolution of the left lower lobe parenchymal lung changes. POS: TPC
[2018-09-16] MEDS: Enoxaparin Sodium 40 MG/0.4 ML SYRINGE SC SCH (09:23)
[2018-09-16] MEDS: Pantoprazole 40 MG VIAL IVP SCH ×2 (09:24→20:01)
[2018-09-16] MEDS: Famotidine/PF 20 mg/2ml Vial SLOW IVP SCH ×2 (09:24→20:01)
[2018-09-16] MEDS: Fluticasone Propionate Nasal Spray 16 gm Bottle NASAL SCH (09:26)
--- NOTE | 2018-09-16 11:51 | EKG ---
Test Reason : Blood Pressure : / mmHG Vent. Rate : 123 BPM Atrial Rate : 123 BPM P-R Int : 134 ms QRS Dur : 090 ms QT Int : 326 ms P-R-T Axes : 072 082 264 degrees QTc Int : 466 ms Sinus tachycardia Marked ST abnormality, possible inferior subendocardial injury also with Anterior STT changes Abnormal ECG When compared with ECG of 02-SEP-2018 17:06, Vent. rate has increased BY [address] now depressed in Inferior leads ST now depressed in Anterolateral leads T wave inversion now evident in Inferior leads T wave inversion more evident in Anterolateral leads Confirmed by DR. Lenny LOPEZ ([id number]) on 09/16/2018 11:50:35 AM Referred By: ELIDIA Confirmed By:DR. Lenny LOPEZ
[2018-09-16] MEDS ORDERED: Potassium Chloride 40 MEQ in Sodium Chloride 0.9% 250 ML 250 ML IVPB SCH (12:00)
[2018-09-16] MEDS: Micafungin 100 MG in Sodium Chloride 0.9% 100 ML IVPB SCH (13:47)
--- NOTE | 2018-09-16 13:47 | PRG ---
DATE OF SERVICE: 09/16/2018 SERVICE: Pulmonary Medicine. INTERVAL HISTORY: The patient is doing really well from respiratory standpoint. He is actually breathing fairly well today. He is a little agitated. He is talking to his family, and does not quite understand the situation once again. He is having episodes of confusion, followed by agitation, followed by excessive sleepiness. Either way, he seems to be moving in the right direction. We clamped his NG tube yesterday. He did not have any output. As such, we are going to cautiously introduce tube feeds before we jump to TPN. He has completed a course of antibiotics. PHYSICAL EXAMINATION: VITAL SIGNS: Afebrile, pulse 98, blood pressure 138/89, respirations 18, and saturation 97% on 45% FiO2. GENERAL: The patient is awake and alert, in no apparent distress. HEENT: Normocephalic and atraumatic. Sclerae white. Conjunctivae pink. Oral mucosa is moist without lesions. LUNGS: Decent air entry. I do not appreciate any crackles. Rhonchi are present. They are much improved compared to 2 days ago. HEART: Normal rate. Minimally tachycardic, which is improved. ABDOMEN: Soft, nontender, and nondistended. Bowel sounds are positive. MUSCULOSKELETAL: No cyanosis or clubbing. There is no pitting in the bilateral lower extremities. NEUROLOGIC: Grossly nonfocal. LABORATORY DATA: WBC 12.0, hemoglobin 8.3, platelets 339,000. Sodium downtrending to 149, potassium 3.1. Creatinine 1.36 and peaking. Basic metabolic profile is otherwise unremarkable. Pre-albumin is 7.0. IMAGIN. Chest x-ray demonstrates complete resolution in the infiltrate. 2. Abdominal x-ray demonstrates good placement for a Dobhoff feeding tube. ASSESSMENT: 1. Acute hypoxic respiratory failure. 2. Community-acquired pneumonia secondary to methicillin-resistant Staphylococcus aureus, status post full course of antibiotic therapy with subsequent aspiration event. 3. Ileus. 4. Chronic obstructive pulmonary disease with acute exacerbation, resolved. 5. Metabolic encephalopathy. 6. Delirium. DISCUSSION AND PLAN: We will continue to hydrate the patient. We will cautiously introduce tube feeds. I will trickle them in over the next 24 hours. If he tolerates these with no residuals, we will gently advance through time. The patient's family has suggested that intubating him or doing chest compressions would be inconsistent with the patient's value structure. As such, they are requesting that we do everything we can to recover the patient to his previous state of health, short of intubating him or doing chest compressions once again. As such, we will change his code status over to DNAR. Pulmonary/Critical Care will continue to follow along. Job ID: [id number]
--- NOTE | 2018-09-16 15:06 | PDOC.PN ---
- Subjective Encounter Start Date: 09/16/18 Encounter Start Time: 11:15 Subjective: pt up in bed wants to drink soda - Objective Resuscitation Status - Order Detail: 09/16/18 13:20 Resuscitation Status Routine Resuscitation Status: DNAR: NO Resuscitation Discussed with: with all children at bedside with many grandchildren present Vital Signs & Weight: Vital Signs (12 hours) Temp Pulse Resp Pulse Ox 09/16/18 13:54 107 H 19 96 09/16/18 10:47 97.6 F 09/16/18 07:48 94 L 09/16/18 07:46 96.1 F L 09/16/18 07:45 101 H 18 94 L 09/16/18 07:36 93 L 09/16/18 03:56 99.2 F Weight Admit Weight 190 lb 8 oz Weight 182 lb 4.8 oz Most Recent Monitor Data Heart Rate from ECG 104 NIBP 89/71 NIBP BP-Mean 77 Respiration from ECG 24 SpO2 99 I&O: 09/15/18 09/16/18 09/17/18 06:59 06:59 06:59 Intake Total 2124 3670 Output Total 4500 2450 Balance -2376 1220 Result Diagrams: 09/16/18 05:29 09/16/18 05:29 Phys Exam - Physical Examination Neck: no nodes, no JVD, supple, full ROM Respiratory: no wheezing, no rales, no rhonchi, wheezing present, clear to auscultation bilateral Cardiovascular: RRR, no significant murmur, no rub, gallop, irregular Gastrointestinal: soft, non-tender, no distention, positive bowel sounds Neurological: moves all 4 limbs Dx/Plan (1) Acute respiratory failure Code(s): J96.00 - ACUTE RESPIRATORY FAILURE, UNSP W HYPOXIA OR HYPERCAPNIA Status: Acute Qualifiers: Respiratory failure complication: hypoxia Qualified Code(s): J96.01 - Acute respiratory failure with hypoxia Comment: Pt is off of BiPAP, slow to improve (2) Aspiration pneumonia Code(s): J69.0 - PNEUMONITIS DUE TO INHALATION OF FOOD AND VOMIT Status: Acute Comment: resp cx positive for mrsa and pt subsequently had aspiration pna (3) Quadriplegia Code(s): G82.50 - QUADRIPLEGIA, UNSPECIFIED Status: Acute (4) CAD (coronary artery disease) Code(s): I25.10 - ATHSCL HEART DISEASE OF [place] CORONARY ARTERY W/O ANG PCTRS Status: Chronic Comment: stable (5) Hyponatremia Code(s): E87.1 - HYPO-OSMOLALITY AND HYPONATREMIA Status: Acute (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 He is on high flow oxygen * . Review of Systems - Review of Systems Cardiovascular: negative: chest pain, palpitations, orthopnea, paroxysmal nocturnal dyspnea, edema, light headedness, other Gastrointestinal: negative: Nausea, Vomiting, Abdominal Pain, Diarrhea, Constipation, Melena, Hematochezia, Other Genitourinary: negative: Dysuria, Frequency, Incontinence, Hematuria, Retention , Other - Medications/Allergies Allergies/Adverse Reactions: Allergies Allergy/AdvReac Type Severity Reaction Status Date / Time levofloxacin [From Levaquin] Allergy Verified 09/02/18 23:11 Medications: Current Medications Acetaminophen (Tylenol) 650 mg PO Q4H PRN PRN Reason: Headache/Fever/Mild Pain (1-3) Last Admin: 09/11/18 04:02 Dose: 650 mg Albuterol/Ipratropium (Duoneb) 3 ml NEB [id number] [facility] Last Admin: 09/16/18 13:54 Dose: 3 ml Aspirin (Aspirin Chewable) 81 mg PO DAILY [facility] Last Admin: 09/16/18 08:15 Dose: Not Given Bisacodyl (Dulcolax) 10 mg DC DAILYPRN PRN PRN Reason: Constipation Last Admin: 09/07/18 11:27 Dose: 10 mg Enoxaparin Sodium (Lovenox) 40 mg SC 0900 [facility] Last Admin: 09/16/18 09:23 Dose: 40 mg Famotidine (Pepcid) 20 mg SLOW IVP BID [facility] Last Admin: 09/16/18 09:24 Dose: 20 mg Fluticasone Propionate (Flonase Nasal [place]) 0 gm NASAL DAILY [facility] Last Admin: 09/16/18 09:26 Dose: Not Given Hydralazine HCl (Apresoline) 10 mg SLOW IVP Q6H PRN PRN Reason: SBP Greater Than 170 Last Admin: 09/08/18 14:08 Dose: 10 mg Potassium Chloride/Dextrose/Sod Cl (D5 1/2 Ns W/20 Meq Kcl) 1,000 mls @ 125 mls /hr IV .Q8H [facility] Last Admin: 09/16/18 09:32 Dose: 1,000 mls Micafungin Sodium 100 mg/ (Sodium Chloride) 100 mls @ 100 mls/hr IVPB Q24H [facility] Stop: 09/22/18 12:46 Last Admin: 09/16/18 13:47 Dose: 100 mls Potassium Chloride 40 meq/ (Sodium Chloride) 270 mls @ 67.5 mls/hr IVPB 1200 [facility] Stop: 09/16/18 15:59 Last Admin: 09/16/18 12:43 Dose: 270 mls Labetalol HCl (Normodyne) 10 mg SLOW IVP Q6H PRN PRN Reason: SBP Greater Than 180 Last Admin: 09/08/18 18:01 Dose: 10 mg Lorazepam (Ativan) 0.25 mg SLOW IVP Q12H PRN PRN Reason: Anxiety/Agitation Last Admin: 09/07/18 18:14 Dose: 0.25 mg Metoprolol Tartrate (Lopressor) 5 mg IVP Q6H [facility] Last Admin: 09/16/18 09:25 Dose: 5 mg Discontinue Previous Narcotic Pain Medications And Benzodiazepines 1 each FS .ONE [facility] Stop: 10/03/18 12:48 Ondansetron HCl (Zofran) 4 mg IVP Q6H PRN PRN Reason: Nausea/Vomiting Last Admin: 09/16/18 01:11 Dose: 4 mg Pantoprazole Sodium (Protonix) 40 mg IVP Q12HR [facility] Last Admin: 09/16/18 09:24 Dose: 40 mg Senna/Docusate Sodium (Senokot S) 2 tab PO BIDPRN PRN PRN Reason: Constipation Sodium Chloride (Flush - Normal Saline) 10 ml IVF Q12HR [facility] Last Admin: 09/16/18 09:25 Dose: 10 ml Sodium Chloride (Flush - Normal Saline) 10 ml IVF PRN PRN PRN Reason: Saline Flush Sterile Water (Bacteriostatic Water) 1 ml FS PRN PRN PRN Reason: RECONSTITUTION Tamsulosin HCl (Flomax) 0.4 mg PO DAILY [facility] Last Admin: 09/16/18 08:15 Dose: Not Given
[2018-09-17] MEDS: D5 1/2 NS w/20 mEq KCL 1,000 ML IV SCH ×2 (02:56→12:50)
[2018-09-17] MEDS: Metoprolol Tartrate 5 MG/5 ML VIAL IVP SCH ×4 (02:56→21:24)
[2018-09-17 05:27] LABS: #Eosinphils 0.2 thou/uL (0.0-0.7); #Lymphocytes 1.8 thou/uL (1.20-3.40); #Monocytes 1.1 thou/uL (0.11-0.59); %Basophils 0.2 % (0.0-1.0); %Eosinophils 2.1 % (0.0-10.0); %Monocytes 9.5 % (0.0-10.0); %Neutrophils 72.2 % (42.0-75.0); Hemoglobin 8.3 g/dL (14.0-18.0); Mean Corpuscular HGB CONC 31.9 g/dL (32.0-36.0); Mean Platelet Volume 7.2 fL (7.4-10.4); Platelet Count 315 thou/uL (130-400); RBC Distribution Width 14.3 % (11.5-14.5); Red Blood Cell (RBC) Count 2.67 mill/uL (4.70-6.10); White Blood Cell (WBC) Count 11.1 thou/uL (4.8-10.8)
[2018-09-17 05:42] LABS: Phosphorus 2.6 mg/dL (2.3-4.7)
[2018-09-17 05:44] LABS: Anion Gap 12 mmol/L (10-20); BUN (Urea Nitrogen) 17 mg/dL (8.4-25.7); Calc. Creatinine Clearance 82 mL/min (70-130); Calcium 8.2 mg/dL (7.8-10.44); Carbon Dioxide 28 mmol/L (23-31); Chloride 106 mmol/L (98-107); Estimated GFR-MDRD 67; Glucose 138 mg/dL (80-115); Potassium 3.7 mmol/L (3.5-5.1); Sodium 142 mmol/L (136-145)
[2018-09-17] MEDS: Tamsulosin HCl 0.4 MG CAP PO SCH (08:43)
[2018-09-17] MEDS: Aspirin Chewable 81 MG TAB PO SCH (08:43)
[2018-09-17] MEDS: Enoxaparin Sodium 40 MG/0.4 ML SYRINGE SC SCH (08:43)
[2018-09-17] MEDS: Pantoprazole 40 MG VIAL IVP SCH (08:44)
[2018-09-17] MEDS: Famotidine/PF 20 mg/2ml Vial SLOW IVP SCH (08:44)
--- NOTE | 2018-09-17 08:45 | PRG ---
DATE OF SERVICE: 09/17/2018 SUBJECTIVE: The patient is more alert today, feels warm; however, he is afebrile. OBJECTIVE: VITAL SIGNS: Stable. I's and O's, urine output approximately 1350 clear, secured. ABDOMEN: Obese. There is gross loose bowel movement, saturating his gown and his diaper. LABORATORY DATA: White count 11, hemoglobin 8.3, platelet 215. Creatinine 1.11. IMPRESSION AND PLAN: 1. Mr. Page is a 63-year-old male admitted due to generalized weakness, found to have Guillain-[place]. 2. Respiratory failure. 3. Encephalopathy. 4. Pneumonia. 5. Urologic issues of urinary retention of PVR of 400 mL. 6. Urethral stricture, status post TURP at [facility], requiring Soares catheter placement over guidewire urethral stricture dilatated. Awaiting the patient to improve medically before voiding trial. The patient is having large loose bowel movements, Primary Service considering tube feeds.When he is medically more stable, ileus improved/ resolved, will initiate voiding trial per . Continue Flomax. Job ID: [id number] MTDD
[2018-09-17] MEDS: Acetaminophen 325 MG TAB PO PRN (10:27)
[2018-09-17] MEDS: Fluticasone Propionate Nasal Spray 16 gm Bottle NASAL SCH (12:41)
[2018-09-17] MEDS: Micafungin 100 MG in Sodium Chloride 0.9% 100 ML IVPB SCH (12:51)
--- NOTE | 2018-09-17 12:58 | PRG ---
DATE OF SERVICE: 09/17/2018 SERVICE: Pulmonary Medicine. INTERVAL HISTORY: The patient is doing really well from respiratory standpoint. Overnight, he has been tolerating his trickle feeds. His residuals have been essentially nothing. We are going to be pushing those rates today. He did have a bowel movement overnight. He looks much more comfortable today. No complaints of fevers, chills, or overnight events. PHYSICAL EXAMINATION: VITAL SIGNS: Afebrile, pulse 93, blood pressure 151/75, respirations 18, and saturation 99% on 3L nasal cannula currently. GENERAL: The patient is awake and alert, in no apparent distress. LUNGS: Very good air entry with no prolonged expiratory phase. He has no crackles or wheezing today. HEART: Normal rate, regular. ABDOMEN: Soft, nontender, and nondistended. Bowel sounds are positive. MUSCULOSKELETAL: No cyanosis or clubbing. There is no pitting in the bilateral lower extremities. NEUROLOGIC: Grossly nonfocal. LABORATORY DATA: WBC 11.1, hemoglobin now at 8.3, and platelets 315,000. Basic metabolic profile, magnesium, and phosphorus are all unremarkable. His creatinine has downtrended to 1.11. Sodium has improved to 142. C diff antigen and toxin were previously unremarkable. ASSESSMENT: 1. Acute hypoxic respiratory failure. 2. Community-acquired pneumonia secondary to methicillin-resistant Staphylococcus aureus. 3. Ileus. 4. Chronic obstructive pulmonary disease with acute exacerbation, resolved. 5. Metabolic encephalopathy, improving. 6. Delirium, stable. DISCUSSION AND PLAN: I am reassured that he is tolerating his trickle feeds. We will advance the rate over the next 24 hours. I will drop his IV fluid rate down to 50 mL/h. If he is tolerating the full rate feeds over the next 24 hours, we will consider feeding him, and removing the NG tube. We are going to wean the FiO2 as tolerated. Hopefully, he will be on nasal cannula by the end of the day. We will continue our mobilization efforts through time. Job ID: [id number]
--- NOTE | 2018-09-17 17:41 | PDOC.HOSPP ---
- Subjective Subjective: pt up in bed no complains. His mentation is clear and able to answer questions currently. - Objective Vital Signs & Weight: Vital Signs (12 hours) Temp Pulse Pulse Pulse Resp BP BP 09/17/18 15:18 97.0 F L 09/17/18 13:09 100 28 H 09/17/18 12:33 09/17/18 10:51 97.0 F L 09/17/18 09:15 93 91 151/75 H 131/77 09/17/18 07:30 97.3 F L 09/17/18 07:13 09/17/18 07:01 09/17/18 07:00 96 27 H Pulse Ox 09/17/18 15:18 09/17/18 13:09 09/17/18 12:33 99 09/17/18 10:51 09/17/18 09:15 09/17/18 07:30 09/17/18 07:13 99 09/17/18 07:01 100 09/17/18 07:00 Weight Admit Weight 190 lb 8 oz Weight 187 lb 6.4 oz Most Recent Monitor Data Heart Rate from ECG 107 NIBP 125/39 NIBP BP-Mean 67 Respiration from ECG 33 SpO2 94 I&O: 09/16/18 09/17/18 09/18/18 06:59 06:59 06:59 Intake Total 3670 3525 Output Total 2450 1350 800 Balance 1220 2175 -800 Result Diagrams: 09/17/18 04:46 09/17/18 04:46 ROS - Review of Systems All systems: All other ROS were reviewed and found negative. Respiratory: denies: cough, dry, shortness of breath, hemoptysis, SOB with excertion, pleuritic pain, sputum, wheezing, other Cardiovascular: denies: chest pain, palpitations, orthopnea, paroxysmal noc. dyspnea, edema, light headedness, other Gastrointestinal: denies: nausea, vomitting, abdominal pain, diarrhea, constipation, melena, hematochezia, other - Medication Medications: Active Medications Generic Name Dose Route Start Last Admin Trade Name Freq PRN Reason Stop Dose Admin Acetaminophen 650 mg 09/03/18 01:25 09/17/18 10:27 Tylenol PO 650 mg Q4H PRN Administration Headache/Fever/Mild Pain (1-3) Albuterol/Ipratropium 3 ml 09/03/18 07:00 09/17/18 13:09 Duoneb NEB 3 ml [id number] JUNAID Administration Aspirin 81 mg 09/03/18 09:00 09/17/18 08:43 Aspirin Chewable PO 81 mg DAILY JUNAID Administration Bisacodyl 10 mg 09/03/18 01:25 09/07/18 11:27 Dulcolax [place] 10 mg DAILYPRN PRN Administration Constipation Enoxaparin Sodium 40 mg 09/05/18 09:00 09/17/18 08:43 Lovenox SC 40 mg 0900 JUNAID Administration Fluticasone Propionate 0 gm 09/14/18 09:00 09/17/18 12:41 Flonase Nasal [place] NASAL Not Given DAILY JUNAID Hydralazine HCl 10 mg 09/07/18 10:54 09/08/18 14:08 Apresoline SLOW IVP 10 mg Q6H PRN Administration SBP Greater Than 170 Micafungin Sodium 100 mg/ 100 mls @ 100 mls/hr 09/15/18 12:45 09/17/18 12:51 Sodium Chloride IVPB 09/22/18 12:46 100 mls Q24H JUNAID Administration Potassium Chloride/Dextrose/Sod Cl 1,000 mls @ 50 mls/hr 09/17/18 12:17 09/17 12:50 D5 1/2 Ns W/20 Meq Kcl IV 1,000 mls .Q20H JUNAID Administration Labetalol HCl 10 mg 09/08/18 17:44 09/08/18 18:01 Normodyne SLOW IVP 10 mg Q6H PRN Administration SBP Greater Than 180 Lorazepam 0.25 mg 09/07/18 17:59 09/07/18 18:14 Ativan SLOW IVP 0.25 mg Q12H PRN Administration Anxiety/Agitation Metoprolol Tartrate 5 mg 09/12/18 09:30 09/17/18 16:57 Lopressor IVP 5 mg Q6H JUNAID Administration Ondansetron HCl 4 mg 09/03/18 01:25 09/16/18 01:11 Zofran IVP 4 mg Q6H PRN Administration Nausea/Vomiting Sodium Chloride 10 ml 09/03/18 09:00 09/17/18 08:44 Flush - Normal Saline IVF 10 ml Q12HR JUNAID Administration Tamsulosin HCl 0.4 mg 09/12/18 09:00 09/17/18 08:43 Flomax PO 0.4 mg DAILY JUNAID Administration - Exam Heart: negative: RRR, no murmur, no gallops, no rubs, normal peripheral pulses, irregular, diminshed peripheral pulses, murmur present, II/IV, III/IV Respiratory: rhonchi Gastrointestinal: negative: soft, non-tender, non-distended, normal bowel sounds , no palpable masses, no hepatomegaly, no splenomegaly, no bruit, tender to palpation, distended, diminished bowl sounds, voluntary guarding Hosp A/P (1) Acute respiratory failure Code(s): J96.00 - ACUTE RESPIRATORY FAILURE, UNSP W HYPOXIA OR HYPERCAPNIA Status: Acute Qualifiers: Respiratory failure complication: hypoxia Qualified Code(s): J96.01 - Acute respiratory failure with hypoxia (2) Aspiration pneumonia Code(s): J69.0 - PNEUMONITIS DUE TO INHALATION OF FOOD AND VOMIT Status: Acute (3) Quadriplegia Code(s): G82.50 - QUADRIPLEGIA, UNSPECIFIED Status: Acute (4) CAD (coronary artery disease) Code(s): I25.10 - ATHSCL HEART DISEASE OF [place] CORONARY ARTERY W/O ANG PCTRS Status: Chronic (5) Hyponatremia Code(s): E87.1 - HYPO-OSMOLALITY AND HYPONATREMIA Status: Acute (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 he is being weaned off oxygen. continue ng tube feeding for now and iv fluids. once off high flow will reevaluate pt for swallow to advance diet.
[2018-09-18] MEDS: Metoprolol Tartrate 5 MG/5 ML VIAL IVP SCH ×5 (04:27→21:18)
[2018-09-18] MEDS: D5 1/2 NS w/20 mEq KCL 1,000 ML IV SCH (09:00)
[2018-09-18] MEDS: Enoxaparin Sodium 40 MG/0.4 ML SYRINGE SC SCH (10:08)
[2018-09-18] MEDS: Aspirin Chewable 81 MG TAB PO SCH (10:09)
[2018-09-18] MEDS: Tamsulosin HCl 0.4 MG CAP PO SCH (10:09)
[2018-09-18] MEDS: Pantoprazole 40 MG GRANULES PACKET PER TUBE SCH (10:09)
[2018-09-18] MEDS: Fluticasone Propionate Nasal Spray 16 gm Bottle NASAL SCH (10:10)
--- NOTE | 2018-09-18 11:05 | PRG ---
DATE OF SERVICE: 09/18/2018 SUBJECTIVE: The patient is sleeping, appears to be in no acute distress. OBJECTIVE: VITAL SIGNS: Stable. He is afebrile. Urine output over 1 L. GENERAL: He had an episode of emesis. ABDOMEN: Morbidly obese, distended. No rigidity. No rebound. Soares catheter is secured, draining clear yellow urine. IMPRESSION: 1. Mr. Page is a 63-year-old male with encephalopathy. 2. Guillain-[place]. 3. Ileus. 4. Pneumonia. 5. Urologic issues of urethral stricture, status post TURP. Soares catheter placement over guidewire, urethral stricture dilatation at bedside. Continue indwelling Soares catheter. Job ID: [id number]
[2018-09-18] MEDS: Micafungin 100 MG in Sodium Chloride 0.9% 100 ML IVPB SCH (12:16)
--- NOTE | 2018-09-18 12:42 | PRG ---
DATE OF SERVICE: 09/18/2018 SERVICE: Pulmonary Medicine. INTERVAL HISTORY: The patient is actually doing pretty well from mentation standpoint. He is breathing comfortably. He has been weaned down to 1 L nasal cannula. He does not have any complaints of nausea, vomiting, or diarrhea. He is tolerating tube feeds quite well. Otherwise, there has been no significant change to his condition. PHYSICAL EXAMINATION: VITAL SIGNS: Afebrile, pulse 94, blood pressure 134/88, respirations 37, and saturation 95% on 1 L nasal cannula. HEENT: Normocephalic and atraumatic. Sclerae white. Conjunctivae pink. Oral mucosa is moist without lesions. LUNGS: Decent air entry. Some dependent crackles are present. Rhonchi are also noted. No prolonged expiratory phase or wheezing is appreciated. HEART: Normal rate and regular. ABDOMEN: Soft, nontender, and nondistended. Bowel sounds positive. MUSCULOSKELETAL: No cyanosis or clubbing. No pitting in the bilateral lower extremities. NEUROLOGIC: Grossly nonfocal ASSESSMENT: 1. Acute hypoxic respiratory failure. 2. Community-acquired pneumonia secondary to methicillin-resistant Staphylococcus aureus, status post full course of therapy. 3. Ileus, resolving. 4. Chronic obstructive pulmonary disease with acute exacerbation, resolved. 5. Metabolic encephalopathy, improving. 6. Delirium, improving. DISCUSSION AND PLAN: I will continue to wean oxygen away as tolerated. We are going to check residuals in the NG tube. If they remain quite low on his tube feeds that he had overnight, we will go ahead and discontinue the NG tube and initiate some p.o. nutrition provided that speech suggests he can swallow well. I am going to repeat laboratories tomorrow morning. For the time being, I will continue his gentle rate of half NS. Job ID: [id number]
[2018-09-18] MEDS: Acetaminophen 325 MG TAB PO PRN (21:40)
[2018-09-19 05:16] LABS: #Eosinphils 0.1 thou/uL (0.0-0.7); #Lymphocytes 1.8 thou/uL (1.20-3.40); #Monocytes 0.9 thou/uL (0.11-0.59); #Neutrophils 5.2 thou/uL (1.40-6.50); %Eosinophils 1.6 % (0.0-10.0); %Lymphocytes 22.5 % (21.0-51.0); %Monocytes 10.6 % (0.0-10.0); %Neutrophils 65.3 % (42.0-75.0); Hemoglobin 8.8 g/dL (14.0-18.0); Mean Corpuscular HGB CONC 33.4 g/dL (32.0-36.0); Mean Corpuscular Hemoglobin 31.8 pg (27.0-31.0); Mean Corpuscular Volume 95.5 fL (78.0-98.0); Mean Platelet Volume 7.1 fL (7.4-10.4); Platelet Count 376 thou/uL (130-400); Red Blood Cell (RBC) Count 2.77 mill/uL (4.70-6.10)
[2018-09-19 05:34] LABS: Phosphorus 2.9 mg/dL (2.3-4.7)
[2018-09-19 05:35] LABS: Anion Gap 11 mmol/L (10-20); BUN (Urea Nitrogen) 12 mg/dL (8.4-25.7); Calc. Creatinine Clearance 82 mL/min (70-130); Calcium 8.2 mg/dL (7.8-10.44); Carbon Dioxide 25 mmol/L (23-31); Chloride 106 mmol/L (98-107); Estimated GFR-MDRD 67; Glucose 149 mg/dL (80-115); Magnesium 1.7 mg/dL (1.6-2.6); Sodium 138 mmol/L (136-145)
[2018-09-19] MEDS: Acetaminophen 325 MG TAB PO PRN ×2 (06:35→20:12)
[2018-09-19] MEDS: D5 1/2 NS w/20 mEq KCL 1,000 ML IV SCH (06:35)
[2018-09-19] MEDS: Enoxaparin Sodium 40 MG/0.4 ML SYRINGE SC SCH (09:02)
[2018-09-19] MEDS: Aspirin Chewable 81 MG TAB PO SCH (09:02)
[2018-09-19] MEDS: Pantoprazole 40 MG GRANULES PACKET PER TUBE SCH (09:02)
[2018-09-19] MEDS: Metoprolol Tartrate 5 MG/5 ML VIAL IVP SCH (09:03)
[2018-09-19] MEDS: Tamsulosin HCl 0.4 MG CAP PO SCH (09:03)
--- NOTE | 2018-09-19 09:06 | PRG ---
DATE OF SERVICE: 09/19/2018 SUBJECTIVE: The patient is alert and awake, mental status has significantly improved, he is oriented x3. Per nursing staff, he is tolerating tube feeds with minimal residual. OBJECTIVE: VITAL SIGNS: Stable. He is afebrile. He had a T-max of 100.6. Urine output 2625, clear. ABDOMEN: Morbidly obese, protuberant. No rigidity. No rebound. Urine output clear. PERTINENT LABORATORY DATA: White count 8000. Creatinine 1.1. IMPRESSION AND PLAN: Mr. Page is a 63-year-old male admitted for metabolic encephalopathy, Guillain-[place], respiratory failure, pneumonia with urologic issues of urinary retention of 400 mL, urethral stricture, status post TURP, status post cysto, stricture dilatation at bedside. He is to continue his Flomax. If he continues to improve, tolerating tube feeds, I anticipate voiding trial in the next few days. Continue indwelling Soares catheter for now. Job ID: [id number]
[2018-09-19] MEDS: Fluticasone Propionate Nasal Spray 16 gm Bottle NASAL SCH (09:38)
[2018-09-19] MEDS: Micafungin 100 MG in Sodium Chloride 0.9% 100 ML IVPB SCH (11:58)
[2018-09-19] MEDS ORDERED: Magnesium 2 GM/50 ML 2 GM in Premix Bag 1 BAG IVPB SCH (13:15)
--- NOTE | 2018-09-19 13:18 | PRG ---
DATE OF SERVICE: 09/19/2018 SERVICE: Pulmonary Medicine. INTERVAL HISTORY: The patient is doing outstanding from respiratory standpoint. He is breathing comfortably. There has been no interval change to his condition otherwise. He is tolerating his tube feeds overnight. His residuals have been essentially non-existent. Otherwise, there has been no interval change to his condition. PHYSICAL EXAMINATION: VITAL SIGNS: Afebrile, pulse 95, blood pressure 140/84, respirations 30, and saturation 98% on 3 L nasal cannula. HEENT: Normocephalic and atraumatic. Sclerae white. Conjunctivae pink. Oral mucosa is moist without lesions. LUNGS: Decent air entry. No prolonged expiratory phase is present. Rhonchi are noted. No wheezing. HEART: Normal rate and regular. ABDOMEN: Soft, nontender, and nondistended. Bowel sounds are positive. MUSCULOSKELETAL: No cyanosis or clubbing. There is no pitting in the bilateral lower extremities. NEUROLOGIC: Grossly nonfocal. LABORATORY DATA: WBC 8.0, hemoglobin 8.8, platelets 376,000. Basic metabolic profile is completely unremarkable. Creatinine is stable, BUN continues to trend downward. Magnesium 1.7 and phosphorus 2.9. ASSESSMENT: 1. Acute hypoxic respiratory failure, resolved. 2. Community-acquired pneumonia secondary to methicillin-resistant Staphylococcus aureus, status post full course of antibiotic. 3. Ileus, resolved. 4. Chronic obstructive pulmonary disease with acute exacerbation, resolved. 5. Metabolic encephalopathy, resolved. 6. Delirium. 7. Guillain-[place] syndrome, resolving. DISCUSSION AND PLAN: I will replace the magnesium. I will give him a lab holiday tomorrow morning. I will put in a case management consultation for placement. At this point, from purely respiratory perspective, the patient is stable for discharge from the hospital. He is tolerating p.o. As such, I will discontinue his IV fluids. Job ID: [id number]
--- NOTE | 2018-09-19 15:15 | PDOC.HOSPP ---
- Subjective Subjective: pt up in bed no complains - Objective Vital Signs & Weight: Vital Signs (12 hours) Temp Pulse Pulse Resp BP Pulse Ox Pulse Ox 09/19/18 14:58 97.8 F 09/19/18 13:40 105 H 28 H 96 09/19/18 11:54 78 130/87 96 09/19/18 10:40 97.7 F 09/19/18 08:00 95 09/19/18 07:14 119 H 20 95 09/19/18 07:10 97.6 F 09/19/18 04:00 98.3 F Weight Admit Weight 190 lb 8 oz Weight 187 lb 6.4 oz Most Recent Monitor Data Heart Rate from ECG 104 NIBP 126/85 NIBP BP-Mean 98 Respiration from ECG 19 SpO2 97 I&O: 09/18/18 09/19/18 09/20/18 06:59 06:59 06:59 Intake Total 967 1870 120 Output Total 1800 2625 Balance -833 -213 120 Result Diagrams: 09/19/18 05:00 09/19/18 05:00 Additional Labs: Accuchecks 09/19/18 06:29 POC Glucose 150 H ROS - Review of Systems All systems: All other ROS were reviewed and found negative. Respiratory: denies: cough, dry, shortness of breath, hemoptysis, SOB with excertion, pleuritic pain, sputum, wheezing, other Cardiovascular: denies: chest pain, palpitations, orthopnea, paroxysmal noc. dyspnea, edema, light headedness, other - Medication Medications: Active Medications Generic Name Dose Route Start Last Admin Trade Name Freq PRN Reason Stop Dose Admin Acetaminophen 650 mg 09/03/18 01:25 09/19/18 06:35 Tylenol PO 650 mg Q4H PRN Administration Headache/Fever/Mild Pain (1-3) Albuterol/Ipratropium 3 ml 09/03/18 07:00 09/19/18 13:40 Duoneb NEB 3 ml [id number] JUNAID Administration Aspirin 81 mg 09/03/18 09:00 09/19/18 09:02 Aspirin Chewable PO 81 mg DAILY JUNAID Administration Bisacodyl 10 mg 09/03/18 01:25 09/07/18 11:27 Dulcolax [place] 10 mg DAILYPRN PRN Administration Constipation Enoxaparin Sodium 40 mg 09/05/18 09:00 09/19/18 09:02 Lovenox SC 40 mg 0900 JUNAID Administration Fluticasone Propionate 0 gm 09/14/18 09:00 09/19/18 09:38 Flonase Nasal [place] NASAL 1 spr DAILY JUNAID Administration Hydralazine HCl 10 mg 09/07/18 10:54 09/08/18 14:08 Apresoline SLOW IVP 10 mg Q6H PRN Administration SBP Greater Than 170 Magnesium Sulfate 2 gm/ Device 50 mls @ 50 mls/hr 09/19/18 13:15 09/19/18 15: 01 IVPB 09/19/18 15:15 50 mls NOW JUNAID Administration Labetalol HCl 10 mg 09/08/18 17:44 09/08/18 18:01 Normodyne SLOW IVP 10 mg Q6H PRN Administration SBP Greater Than 180 Ondansetron HCl 4 mg 09/03/18 01:25 09/16/18 01:11 Zofran IVP 4 mg Q6H PRN Administration Nausea/Vomiting Pantoprazole Sodium 40 mg 09/18/18 09:00 09/19/18 09:02 Protonix PER TUBE 40 mg DAILY JUNAID Administration Sodium Chloride 10 ml 09/03/18 09:00 09/19/18 09:03 Flush - Normal Saline IVF 10 ml Q12HR JUNAID Administration Tamsulosin HCl 0.4 mg 09/12/18 09:00 09/19/18 09:03 Flomax PO 0.4 mg DAILY JUNAID Administration - Exam Heart: negative: RRR, no murmur, no gallops, no rubs, normal peripheral pulses, irregular, diminshed peripheral pulses, murmur present, II/IV, III/IV Respiratory: negative: CTAB, no wheezes, no rales, no ronchi, normal chest expansion, no tachypnea, normal percussion, rales, rhonchi, tachypneic, wheezes Gastrointestinal: negative: soft, non-tender, non-distended, normal bowel sounds , no palpable masses, no hepatomegaly, no splenomegaly, no bruit, tender to palpation, distended, diminished bowl sounds, voluntary guarding Hosp A/P (1) Acute respiratory failure Code(s): J96.00 - ACUTE RESPIRATORY FAILURE, UNSP W HYPOXIA OR HYPERCAPNIA Status: Acute Qualifiers: Respiratory failure complication: hypoxia Qualified Code(s): J96.01 - Acute respiratory failure with hypoxia (2) Aspiration pneumonia Code(s): J69.0 - PNEUMONITIS DUE TO INHALATION OF FOOD AND VOMIT Status: Acute (3) Quadriplegia Code(s): G82.50 - QUADRIPLEGIA, UNSPECIFIED Status: Acute (4) CAD (coronary artery disease) Code(s): I25.10 - ATHSCL HEART DISEASE OF [place] CORONARY ARTERY W/O ANG PCTRS Status: Chronic (5) Hyponatremia Code(s): E87.1 - HYPO-OSMOLALITY AND HYPONATREMIA Status: Acute (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 pt's diet advanced. may consider inpatient rehab. luis fernando in place.
[2018-09-19] MEDS: Metoprolol Tartrate 25 MG TAB PO SCH (20:12)
[2018-09-19] MEDS: Ondansetron PF 4 MG/2 ML Vial IVP PRN (20:53)
[2018-09-20 00:11] LABS: Bacteria/HPF 4+ HPF (None Seen); Bilirubin Negative (Negative); Blood, Urine 2+ (Negative); Clarity Turbid (Clear); Glucose, Urine (Dipstick) Normal (Negative); Leukocyte 500 Leu/uL (Negative); Nitrite Negative (Negative); Protein, Urine (Dipstick) 100 mg/dL (Neg-Trace); Squamous Epithelial 0-3 HPF (0-3); Urobilinogen 3 mg/dL (Less than 2); WBC/HPF Greater than 50 HPF (0-3)
[2018-09-20 00:14] LABS: Urine Culture Reflex Yes Yes
[2018-09-20] MEDS ORDERED: Melatonin 3 MG TAB PO PRN (00:37)
[2018-09-20] MEDS: Acetaminophen 325 MG TAB PO PRN ×3 (01:44→21:06)
[2018-09-20] MEDS: cefTRIAXone\\ROCEPHIN 1 GM in Sodium Chloride 0.9% 100 ML IVPB SCH (01:45)
[2018-09-20] MEDS: Tamsulosin HCl 0.4 MG CAP PO SCH (08:24)
[2018-09-20] MEDS: Aspirin Chewable 81 MG TAB PO SCH (08:24)
[2018-09-20] MEDS: Metoprolol Tartrate 25 MG TAB PO SCH ×2 (08:25→21:07)
[2018-09-20] MEDS: Fluticasone Propionate Nasal Spray 16 gm Bottle NASAL SCH (08:25)
[2018-09-20] MEDS: Enoxaparin Sodium 40 MG/0.4 ML SYRINGE SC SCH (08:25)
[2018-09-20] MEDS: Pantoprazole 40 MG GRANULES PACKET PER TUBE SCH (08:26)
--- NOTE | 2018-09-20 08:30 | PRG ---
DATE OF SERVICE: 09/20/2018 SUBJECTIVE: The patient is alert and awake, and without complaints. Denies nausea or vomiting. Tolerating orals. UA and C and S sent per nursing staff, as there was concern regarding malodorous urine, has been on Rocephin due to pneumonia. OBJECTIVE: VITAL SIGNS: Stable. He has been afebrile more than 24 hours. Currently 98.8. ABDOMEN: Obese, protuberant. No rigidity. No rebound. Soares catheter removed at bedside for voiding trial LABORATORY DATA: White count yesterday is 8. Renal function is stable. Creatinine 1.1. IMPRESSION/PLAN: Mr. Page is a 63-year-old male admitted for [facility], resolving. 1. Ileus, resolving. 2. Respiratory failure, pneumonia, improved. Overall, the patient's condition has improved clinically. 3. Disposition, pending for rehab. Soares catheter is removed this morning for a voiding trial. Nursing staff to inform me regarding his postvoid residual. Continue Flomax. If there is no significant postvoid residual of concern, the patient maybe discharged to rehab without a Soares catheter. continue his Flomax. Regarding a repeat UA and C and S, I do expect colonization as he had an indwelling urethral Soares catheter for the last few weeks. Typically, we do not treat bacteria-associated with chronic indwelling urethral Soares catheter. However, given the circumstances, may treat with culture-targeted therapy for a course of 7 days if culture finalized. Of note, the patient is currently on Rocephin. addendum, patient has been voiding uneventfully. PVR was checked less than 100 mL, therefore does not require replacement of indwelling Soares catheter. Discharged to rehabilitation ok from urologic perspective. [facility] u[facility] Dr. Coyne covering me this weekend. Job ID: [id number] [facility]
--- NOTE | 2018-09-20 10:00 | PRG ---
DATE OF SERVICE: 09/20/2018 SERVICE: Pulmonary Medicine. INTERVAL HISTORY: The patient is doing fine from Respiratory standpoint. His Soares catheter removed today. He does not have much of an appetite. He is not eating much food. He did not have any complaints of nausea or vomiting. He is passing gas. PHYSICAL EXAMINATION: VITAL SIGNS: Afebrile, pulse 99, blood pressure 119/77, respirations 16, saturation 99% on room air. GENERAL: The patient is awake and alert, in no apparent distress. LUNGS: Decent air entry without any prolonged expiratory phase or wheezing present. HEART: Normal rate and regular. ABDOMEN: Soft, nontender, and nondistended. Bowel sounds are positive. MUSCULOSKELETAL: No cyanosis or clubbing. There is no pitting in the bilateral lower extremities. NEUROLOGIC: Grossly nonfocal. ASSESSMENT: 1. Acute hypoxic respiratory failure, resolved. 2. Community-acquired pneumonia secondary to methicillin-resistant Staphylococcus aureus, status post full course antibiotic. 3. Guillain-[place] syndrome, resolved. 4. Ileus, resolved. 5. Chronic obstructive pulmonary disease with acute exacerbation, resolved. 6. Metabolic encephalopathy, improving. 7. Delirium. DISCUSSION AND PLAN: I will repeat laboratories tomorrow morning. We will watch him through the weekend. If he can tolerate p.o. and his strength improves, he can be considered for transition to a rehabilitation facility or retirement facility on Sunday. He will need to remain in the IMCU until he becomes less impulsive. Job ID: [id number]
[2018-09-20] MEDS: Dextrose 5 %-0.45 % NaCl 1,000 ML IV SCH (12:16)
[2018-09-20] MEDS ORDERED: Docusate 100 MG CAP PO PRN (12:30)
--- NOTE | 2018-09-20 15:35 | PDOC.HOSPP ---
- Subjective Subjective: pt up in bed does not want any iv fluids to be started. - Objective Vital Signs & Weight: Vital Signs (12 hours) Temp Pulse Pulse Pulse Resp BP BP 09/20/18 14:03 91 18 09/20/18 11:59 98.8 F 09/20/18 10:53 93 118/72 09/20/18 09:59 92 143/81 H 09/20/18 08:00 98.5 F 09/20/18 07:32 09/20/18 07:29 99 16 09/20/18 05:00 98.8 F BP Pulse Ox Pulse Ox Pulse Ox 09/20/18 14:03 99 09/20/18 11:59 09/20/18 10:53 124/70 96 09/20/18 09:59 99 09/20/18 08:00 97 09/20/18 07:32 99 09/20/18 07:29 99 09/20/18 05:00 Weight Admit Weight 190 lb 8 oz Weight 189 lb 2.506 oz Most Recent Monitor Data Heart Rate from ECG 95 NIBP 118/72 NIBP BP-Mean 87 Respiration from ECG 19 SpO2 97 I&O: 09/19/18 09/20/18 09/21/18 06:59 06:59 06:59 Intake Total 1870 830 Output Total 2629 1525 Balance -951 -249 Result Diagrams: 09/19/18 05:00 09/19/18 05:00 ROS - Review of Systems All systems: All other ROS were reviewed and found negative. ENT: denies: ear pain, ear discharge, nose pain, nose discharge, nose congestion , mouth pain, mouth swelling, throat pain, throat swelling, other Respiratory: denies: cough, dry, shortness of breath, hemoptysis, SOB with excertion, pleuritic pain, sputum, wheezing, other Cardiovascular: denies: chest pain, palpitations, orthopnea, paroxysmal noc. dyspnea, edema, light headedness, other - Medication Medications: Active Medications Generic Name Dose Route Start Last Admin Trade Name Freq PRN Reason Stop Dose Admin Acetaminophen 650 mg 09/03/18 01:25 09/20/18 08:25 Tylenol PO 650 mg Q4H PRN Administration Headache/Fever/Mild Pain (1-3) Albuterol/Ipratropium 3 ml 09/03/18 07:00 09/20/18 14:03 Duoneb NEB 3 ml [id number] JUNAID Administration Aspirin 81 mg 09/03/18 09:00 09/20/18 08:24 Aspirin Chewable PO 81 mg DAILY JUNAID Administration Bisacodyl 10 mg 09/03/18 01:25 09/07/18 11:27 Dulcolax [place] 10 mg DAILYPRN PRN Administration Constipation Enoxaparin Sodium 40 mg 09/05/18 09:00 09/20/18 08:25 Lovenox SC 40 mg 0900 JUNAID Administration Fluticasone Propionate 0 gm 09/14/18 09:00 09/20/18 08:25 Flonase Nasal [place] NASAL 1 spr DAILY JUNAID Administration Hydralazine HCl 10 mg 09/07/18 10:54 09/08/18 14:08 Apresoline SLOW IVP 10 mg Q6H PRN Administration SBP Greater Than 170 Ceftriaxone Sodium 1 gm/ 100 mls @ 200 mls/hr 09/20/18 02:00 09/20/18 01:45 Sodium Chloride IVPB 100 mls Q24HR JUNAID Administration Dextrose/Sodium Chloride 1,000 mls @ 50 mls/hr 09/20/18 09:30 09/20/18 12:16 D5 1/2 Ns IV Not Given .Q20H JUNAID Labetalol HCl 10 mg 09/08/18 17:44 09/08/18 18:01 Normodyne SLOW IVP 10 mg Q6H PRN Administration SBP Greater Than 180 Metoprolol Tartrate 25 mg 09/19/18 21:00 09/20/18 08:25 Lopressor PO 25 mg BID JUNAID Administration Ondansetron HCl 4 mg 09/03/18 01:25 09/19/18 20:53 Zofran IVP 4 mg Q6H PRN Administration Nausea/Vomiting Sodium Chloride 10 ml 09/03/18 09:00 09/20/18 08:26 Flush - Normal Saline IVF 10 ml Q12HR JUNAID Administration Tamsulosin HCl 0.4 mg 09/12/18 09:00 09/20/18 08:24 Flomax PO 0.4 mg DAILY JUNAID Administration - Exam Neck: negative: supple, symmetric, no JVD, no Thyromegaly, no lymphadenopathy, no carotid bruit, JVD Heart: negative: RRR, no murmur, no gallops, no rubs, normal peripheral pulses, irregular, diminshed peripheral pulses, murmur present, II/IV, III/IV Respiratory: negative: CTAB, no wheezes, no rales, no ronchi, normal chest expansion, no tachypnea, normal percussion, rales, rhonchi, tachypneic, wheezes Hosp A/P (1) Acute respiratory failure Code(s): J96.00 - ACUTE RESPIRATORY FAILURE, UNSP W HYPOXIA OR HYPERCAPNIA Status: Acute Qualifiers: Respiratory failure complication: hypoxia Qualified Code(s): J96.01 - Acute respiratory failure with hypoxia (2) Aspiration pneumonia Code(s): J69.0 - PNEUMONITIS DUE TO INHALATION OF FOOD AND VOMIT Status: Acute (3) Quadriplegia Code(s): G82.50 - QUADRIPLEGIA, UNSPECIFIED Status: Acute (4) CAD (coronary artery disease) Code(s): I25.10 - ATHSCL HEART DISEASE OF [place] CORONARY ARTERY W/O ANG PCTRS Status: Chronic (5) Hyponatremia Code(s): E87.1 - HYPO-OSMOLALITY AND HYPONATREMIA Status: Acute (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 Explained to pt and the importance of this. I will check labs in am. rehab to evaluate pt. he has been started on ceftriaxone for uti.
[2018-09-20] MEDS: Mometasone Furoate 120 PUFF 220 MCG INH SCH (18:40)
[2018-09-20] MEDS ORDERED: Carvedilol 6.25 MG TAB PO SCH (21:00)
[2018-09-20] MEDS: traZODone HCl 50 MG TAB PO SCH (21:07)
[2018-09-20] MEDS: Atorvastatin Calcium 20 MG TAB PO SCH (21:07)
[2018-09-20] MEDS: Melatonin 3 MG TAB PO SCH (21:15)
[2018-09-21] MEDS: cefTRIAXone\\ROCEPHIN 1 GM in Sodium Chloride 0.9% 100 ML IVPB SCH (02:15)
[2018-09-21] MEDS ORDERED: Sterile Water 10 ML VIAL FS SCH (05:02)
[2018-09-21] MEDS: Activase 2 MG VIAL CATH SCH ×2 (05:16→06:37)
[2018-09-21] MEDS: Dextrose 5 %-0.45 % NaCl 1,000 ML IV SCH (05:17)
[2018-09-21 05:58] LABS: #Basophils 0.1 thou/uL (0.0-0.2); #Eosinphils 0.2 thou/uL (0.0-0.7); #Neutrophils 4.9 thou/uL (1.40-6.50); %Basophils 0.9 % (0.0-1.0); %Eosinophils 2.2 % (0.0-10.0); %Lymphocytes 24.4 % (21.0-51.0); %Monocytes 12.2 % (0.0-10.0); %Neutrophils 60.3 % (42.0-75.0); Hemoglobin 8.5 g/dL (14.0-18.0); Mean Corpuscular HGB CONC 33.8 g/dL (32.0-36.0); Mean Corpuscular Hemoglobin 32.5 pg (27.0-31.0); Mean Corpuscular Volume 96.2 fL (78.0-98.0); Mean Platelet Volume 6.8 fL (7.4-10.4); Platelet Count 444 thou/uL (130-400); RBC Distribution Width 15.6 % (11.5-14.5); Red Blood Cell (RBC) Count 2.61 mill/uL (4.70-6.10); White Blood Cell (WBC) Count 8.1 thou/uL (4.8-10.8)
[2018-09-21 06:20] LABS: Anion Gap 12 mmol/L (10-20); BUN (Urea Nitrogen) 16 mg/dL (8.4-25.7); Calc. Creatinine Clearance 92 mL/min (70-130); Calcium 8.3 mg/dL (7.8-10.44); Carbon Dioxide 24 mmol/L (23-31); Chloride 104 mmol/L (98-107); Estimated GFR-MDRD 75; Glucose 119 mg/dL (80-115); Sodium 136 mmol/L (136-145)
[2018-09-21] MEDS: Aspirin Chewable 81 MG TAB PO SCH (08:49)
[2018-09-21] MEDS: FLUoxetine HCl 20 MG CAP PO SCH (08:49)
[2018-09-21] MEDS: Clopidogrel Bisulfate 75 MG TAB PO SCH (08:49)
[2018-09-21] MEDS: Tamsulosin HCl 0.4 MG CAP PO SCH (08:49)
[2018-09-21] MEDS: Metoprolol Tartrate 25 MG TAB PO SCH ×2 (08:49→20:30)
[2018-09-21] MEDS: Enoxaparin Sodium 40 MG/0.4 ML SYRINGE SC SCH (08:50)
[2018-09-21] MEDS: Fluticasone Propionate Nasal Spray 16 gm Bottle NASAL SCH (08:56)
[2018-09-21] MEDS ORDERED: Isosorbide Mononitrate 20 MG TAB PO SCH (09:00)
--- NOTE | 2018-09-21 10:36 | PRG ---
DATE OF SERVICE: 09/21/2018 SUBJECTIVE: Mat Page, this morning, remains in the MICU, weak, but denies any shortness of breath. He has presumed Guillain-[place] syndrome, respiratory failure, pneumonia ileus, slowly resolving. OBJECTIVE: VITAL SIGNS: Blood pressure is 119/76, room air saturations 93%, temperature 98, pulse 90. CHEST: No wheezing or crackles. CARDIAC: Normal S1, S2. No gallops. ABDOMEN: No masses. LABORATORY DATA: Unremarkable. White count 8000. He was started on empiric broad-spectrum antibiotics yesterday, though I see all cultures are negative. IMPRESSION AND PLAN: Presumed urinary tract infection, hypertension, Guillain-[place], weakness, ileus. PT supportive care. Await cultures . Job ID: [id number]
[2018-09-21] MEDS: Acetaminophen 325 MG TAB PO PRN ×3 (11:32→22:27)
--- NOTE | 2018-09-21 17:04 | PDOC.HOSPP ---
- Subjective Subjective: 63 y/o male with CAD, PUD, HTN and others admitted with acute quadriparesis. Recieved IVIG for GBS with improvement. Was intubated for respiratory failure and has improved and currently off oxygen. Developed hypotension after isosorbide earlier toda. Feeling better. Still coughing. - Objective Vital Signs & Weight: Vital Signs (12 hours) Temp Pulse Resp BP Pulse Ox 09/21/18 15:13 96.8 F L 09/21/18 14:21 104 H 13 99 09/21/18 12:30 98 17 98/60 97 09/21/18 11:16 97.8 F 09/21/18 08:15 98.3 F 09/21/18 07:36 96.4 F L 09/21/18 07:32 97 09/21/18 07:30 108 H 17 97 Weight Admit Weight 190 lb 8 oz Weight 189 lb 2.506 oz Most Recent Monitor Data Heart Rate from ECG 106 NIBP 90/66 NIBP BP-Mean 74 Respiration from ECG 20 SpO2 94 I&O: 09/20/18 09/21/18 09/22/18 06:59 06:59 06:59 Intake Total 830 1435 100 Output Total 1525 1325 200 Balance -695 110 -100 Result Diagrams: 09/22/18 05:37 09/22/18 05:37 ROS - Review of Systems All systems: All other ROS were reviewed and found negative. - Medication Medications: Active Medications Generic Name Dose Route Start Last Admin Trade Name Freq PRN Reason Stop Dose Admin Acetaminophen 650 mg 09/03/18 01:25 09/21/18 11:32 Tylenol PO 650 mg Q4H PRN Administration Headache/Fever/Mild Pain (1-3) Albuterol/Ipratropium 3 ml 09/03/18 07:00 09/21/18 14:21 Duoneb NEB 3 ml [id number] JUNAID Administration Aspirin 81 mg 09/03/18 09:00 09/21/18 08:49 Aspirin Chewable PO 81 mg DAILY JUNAID Administration Atorvastatin Calcium 20 mg 09/20/18 21:00 09/20/18 21:07 Lipitor PO 20 mg Q2DAYS@2100 JUNAID Administration Bisacodyl 10 mg 09/03/18 01:25 09/07/18 11:27 Dulcolax [place] 10 mg DAILYPRN PRN Administration Constipation Clopidogrel Bisulfate 75 mg 09/21/18 09:00 09/21/18 08:49 Plavix PO 75 mg DAILY JUNAID Administration Enoxaparin Sodium 40 mg 09/05/18 09:00 09/21/18 08:50 Lovenox SC 40 mg 0900 JUNAID Administration Fluoxetine HCl 20 mg 09/21/18 09:00 09/21/18 08:49 Prozac PO 20 mg DAILY JUNAID Administration Fluticasone Propionate 0 gm 09/14/18 09:00 09/21/18 08:56 Flonase Nasal [place] NASAL 1 spr DAILY JUNAID Administration Hydralazine HCl 10 mg 09/07/18 10:54 09/08/18 14:08 Apresoline SLOW IVP 10 mg Q6H PRN Administration SBP Greater Than 170 Ceftriaxone Sodium 1 gm/ 100 mls @ 200 mls/hr 09/20/18 02:00 09/21/18 02:15 Sodium Chloride IVPB 100 mls Q24HR JUNAID Administration Dextrose/Sodium Chloride 1,000 mls @ 50 mls/hr 09/20/18 09:30 09/21/18 05:17 D5 1/2 Ns IV 1,000 mls .Q20H JUNAID Administration Isosorbide Mononitrate 10 mg 09/21/18 09:00 09/21/18 08:48 Ismo PO 10 mg DAILY JUNAID Administration Labetalol HCl 10 mg 09/08/18 17:44 09/08/18 18:01 Normodyne SLOW IVP 10 mg Q6H PRN Administration SBP Greater Than 180 Melatonin 6 mg 09/20/18 21:00 09/20/18 21:15 Melatonin PO 6 mg HS JUNAID Administration Metoprolol Tartrate 25 mg 09/19/18 21:00 09/21/18 08:49 Lopressor PO 25 mg BID JUNAID Administration Mometasone Furoate 1 puff 09/20/18 18:30 09/20/18 18:40 Asmanex [place] INH 1 puff 1830 JUNAID Administration Ondansetron HCl 4 mg 09/03/18 01:25 09/19/18 20:53 Zofran IVP 4 mg Q6H PRN Administration Nausea/Vomiting Pantoprazole Sodium 40 mg 09/21/18 09:00 09/21/18 08:49 Protonix PO 40 mg DAILY JUNAID Administration Sodium Chloride 10 ml 09/03/18 09:00 09/21/18 08:49 Flush - Normal Saline IVF 10 ml Q12HR JUNAID Administration Tamsulosin HCl 0.4 mg 09/12/18 09:00 09/21/18 08:49 Flomax PO 0.4 mg DAILY JUNAID Administration Trazodone HCl 50 mg 09/20/18 21:00 09/20/18 21:07 Desyrel PO 50 mg HS JUNAID Administration - Exam awake alert Eye: PERRL ENT: normocephalic atraumatic Neck: supple, no JVD Heart: RRR (Tachycardia) Respiratory: no wheezes (Fair air entry with some transmitted sound.), no ronchi Gastrointestinal: soft, non-tender, non-distended, normal bowel sounds Extremities: no cyanosis, no clubbing, no edema Neurological: CN's grossly intact Psychiatric: normal affect (Moving all limbs but with decreased power), A&O x 3 Hosp A/P (1) KENNY (acute kidney injury) Code(s): N17.9 - ACUTE KIDNEY FAILURE, UNSPECIFIED Status: Acute (2) Acute anemia Code(s): D64.9 - ANEMIA, UNSPECIFIED Status: Acute (3) PUD (peptic ulcer disease) Code(s): K27.9 - PEPTIC ULC, SITE UNSP, UNSP AC OR CHR, W/O HEMOR OR PERF Status: Acute (4) Ileus Code(s): K56.7 - ILEUS, UNSPECIFIED Status: Acute (5) Acute respiratory failure Code(s): J96.00 - ACUTE RESPIRATORY FAILURE, UNSP W HYPOXIA OR HYPERCAPNIA Status: Acute Qualifiers: Respiratory failure complication: hypoxia Qualified Code(s): J96.01 - Acute respiratory failure with hypoxia (6) Aspiration pneumonia Code(s): J69.0 - PNEUMONITIS DUE TO INHALATION OF FOOD AND VOMIT Status: Acute (7) CHF (congestive heart failure) Code(s): I50.9 - HEART FAILURE, UNSPECIFIED Status: Acute (8) 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 Start mucolytic. Follow H/H. Get stool occult blood and iron chemistry Continue metoprolol and increase as tolerated.
[2018-09-21] MEDS: Mometasone Furoate 120 PUFF 220 MCG INH SCH (19:17)
[2018-09-21] MEDS: Melatonin 3 MG TAB PO SCH (20:28)
[2018-09-21] MEDS: traZODone HCl 50 MG TAB PO SCH (20:30)
[2018-09-21] MEDS: guaiFENesin ER 600 MG TAB PO SCH (20:31)
[2018-09-21] MEDS: Atorvastatin Calcium 10 MG TAB PO SCH (20:31)
[2018-09-22] MEDS: cefTRIAXone\\ROCEPHIN 1 GM in Sodium Chloride 0.9% 100 ML IVPB SCH (02:39)
[2018-09-22] MEDS: Dextrose 5 %-0.45 % NaCl 1,000 ML IV SCH ×2 (02:40→22:48)
[2018-09-22] MEDS: Acetaminophen 325 MG TAB PO PRN ×3 (05:59→20:45)
[2018-09-22 06:13] LABS: #Basophils 0.1 thou/uL (0.0-0.2); #Eosinphils 0.2 thou/uL (0.0-0.7); #Lymphocytes 2.2 thou/uL (1.20-3.40); #Monocytes 1.2 thou/uL (0.11-0.59); #Neutrophils 5.6 thou/uL (1.40-6.50); %Basophils 0.7 % (0.0-1.0); %Lymphocytes 23.6 % (21.0-51.0); %Monocytes 12.9 % (0.0-10.0); %Neutrophils 60.8 % (42.0-75.0); Hemoglobin 8.7 g/dL (14.0-18.0); Mean Corpuscular Hemoglobin 32.6 pg (27.0-31.0); Mean Corpuscular Volume 95.9 fL (78.0-98.0); Mean Platelet Volume 7.2 fL (7.4-10.4); Platelet Count 436 thou/uL (130-400); RBC Distribution Width 15.5 % (11.5-14.5); Red Blood Cell (RBC) Count 2.65 mill/uL (4.70-6.10); White Blood Cell (WBC) Count 9.1 thou/uL (4.8-10.8)
[2018-09-22 06:38] LABS: Anion Gap 12 mmol/L (10-20); BUN (Urea Nitrogen) 14 mg/dL (8.4-25.7); Calc. Creatinine Clearance 93 mL/min (70-130); Calcium 8.4 mg/dL (7.8-10.44); Carbon Dioxide 22 mmol/L (23-31); Chloride 106 mmol/L (98-107); Estimated GFR-MDRD 76; Glucose 125 mg/dL (80-115); Iron 39 ug/dL (65-175); Iron Binding Capacity, Total 191 mcg/dL (261-462); Potassium 3.5 mmol/L (3.5-5.1); Sodium 136 mmol/L (136-145)
--- NOTE | 2018-09-22 09:21 | PRG ---
DATE OF SERVICE: 09/22/2018 SUBJECTIVE: This morning, he is better. He is weak, still got a poor appetite. Trying to get him to rehab. OBJECTIVE: VITAL SIGNS: His temperature is 98, his saturations are _92%_ on room air, blood pressure 125/74, heart rate 95. CHEST: Decreased breath sounds. No wheezing. CARDIAC: Normal S1 and S2. No gallops. ABDOMEN: No masses. ASSESSMENT: Urinary tract infection, Escherichia coli, antibiotic; anemia; severe deconditioning; coronary artery disease, respiratory failure improved. PLAN: Pulmonary re[place]olds, continue with PT, neb treatments, supportive care. Placement. Job ID: [id number] MTDD
[2018-09-22] MEDS: Clopidogrel Bisulfate 75 MG TAB PO SCH (10:06)
[2018-09-22] MEDS: Aspirin Chewable 81 MG TAB PO SCH (10:06)
[2018-09-22] MEDS: Enoxaparin Sodium 40 MG/0.4 ML SYRINGE SC SCH (10:06)
[2018-09-22] MEDS: Metoprolol Tartrate 25 MG TAB PO SCH ×2 (10:07→20:46)
[2018-09-22] MEDS: guaiFENesin ER 600 MG TAB PO SCH ×2 (10:07→20:45)
[2018-09-22] MEDS: Fluticasone Propionate Nasal Spray 16 gm Bottle NASAL SCH (10:07)
[2018-09-22] MEDS: FLUoxetine HCl 20 MG CAP PO SCH (10:07)
[2018-09-22] MEDS: Tamsulosin HCl 0.4 MG CAP PO SCH (10:08)
--- NOTE | 2018-09-22 13:08 | PDOC.HOSPP ---
- Subjective Subjective: 63 y/o male with CAD, PUD, HTN and others admitted with acute quadriparesis. Recieved IVIG for GBS with improvement. Was intubated for respiratory failure and has improved and currently off oxygen. Still with weakness and unable to ambulate. denied chest pain, fever or palpitations. - Objective Vital Signs & Weight: Vital Signs (12 hours) Temp Pulse Pulse Pulse Resp BP BP 09/22/18 11:21 97.9 F 09/22/18 10:19 110 H 106 H 113/91 H 136/115 H 09/22/18 07:47 09/22/18 07:32 96.8 F L 09/22/18 06:11 09/22/18 06:10 102 H 18 09/22/18 04:28 98.8 F Pulse Ox Pulse Ox Pulse Ox 09/22/18 11:21 09/22/18 10:19 96 98 09/22/18 07:47 94 L 09/22/18 07:32 09/22/18 06:11 99 09/22/18 06:10 09/22/18 04:28 Weight Admit Weight 190 lb 8 oz Weight 189 lb 2.506 oz Most Recent Monitor Data Heart Rate from ECG 95 NIBP 125/74 NIBP BP-Mean 91 Respiration from ECG 23 SpO2 92 I&O: 09/21/18 09/22/18 09/23/18 06:59 06:59 06:59 Intake Total 1435 1690 Output Total 1325 1600 Balance 110 90 Result Diagrams: 09/22/18 05:37 09/22/18 05:37 ROS - Review of Systems All systems: All other ROS were reviewed and found negative. - Medication Medications: Active Medications Generic Name Dose Route Start Last Admin Trade Name Freq PRN Reason Stop Dose Admin Acetaminophen 650 mg 09/03/18 01:25 09/22/18 05:59 Tylenol PO 650 mg Q4H PRN Administration Headache/Fever/Mild Pain (1-3) Albuterol/Ipratropium 3 ml 09/03/18 07:00 09/22/18 06:10 Duoneb NEB 3 ml [id number] JUNAID Administration Aspirin 81 mg 09/03/18 09:00 09/22/18 10:06 Aspirin Chewable PO 81 mg DAILY JUNAID Administration Atorvastatin Calcium 20 mg 09/20/18 21:00 09/20/18 21:07 Lipitor PO 20 mg Q2DAYS@2100 JUNAID Administration Atorvastatin Calcium 10 mg 09/21/18 21:00 09/21/18 20:31 Lipitor PO 10 mg Q2DAYS@2100 JUNAID Administration Bisacodyl 10 mg 09/03/18 01:25 09/07/18 11:27 Dulcolax [place] 10 mg DAILYPRN PRN Administration Constipation Clopidogrel Bisulfate 75 mg 09/21/18 09:00 09/22/18 10:06 Plavix PO 75 mg DAILY JUNAID Administration Enoxaparin Sodium 40 mg 09/05/18 09:00 09/22/18 10:06 Lovenox SC 40 mg 0900 JUNAID Administration Fluoxetine HCl 20 mg 09/21/18 09:00 09/22/18 10:07 Prozac PO 20 mg DAILY JUNAID Administration Fluticasone Propionate 0 gm 09/14/18 09:00 09/22/18 10:07 Flonase Nasal [place] NASAL 1 spr DAILY JUNAID Administration Guaifenesin 600 mg 09/21/18 21:00 09/22/18 10:07 Mucinex PO 600 mg Q12HR JUNAID Administration Hydralazine HCl 10 mg 09/07/18 10:54 09/08/18 14:08 Apresoline SLOW IVP 10 mg Q6H PRN Administration SBP Greater Than 170 Ceftriaxone Sodium 1 gm/ 100 mls @ 200 mls/hr 09/20/18 02:00 09/22/18 02:39 Sodium Chloride IVPB 100 mls Q24HR JUNAID Administration Dextrose/Sodium Chloride 1,000 mls @ 50 mls/hr 09/20/18 09:30 09/22/18 02:40 D5 1/2 Ns IV 1,000 mls .Q20H JUNAID Administration Labetalol HCl 10 mg 09/08/18 17:44 09/08/18 18:01 Normodyne SLOW IVP 10 mg Q6H PRN Administration SBP Greater Than 180 Melatonin 6 mg 09/20/18 21:00 09/21/18 20:28 Melatonin PO 6 mg HS JUNAID Administration Metoprolol Tartrate 50 mg 09/22/18 09:00 09/22/18 10:07 Lopressor PO 50 mg BID JUNAID Administration Mometasone Furoate 1 puff 09/20/18 18:30 09/21/18 19:17 Asmanex Twisthaler INH 1 puff 1830 JUNAID Administration Ondansetron HCl 4 mg 09/03/18 01:25 09/19/18 20:53 Zofran IVP 4 mg Q6H PRN Administration Nausea/Vomiting Pantoprazole Sodium 40 mg 09/21/18 09:00 09/22/18 10:08 Protonix PO 40 mg DAILY JUNAID Administration Sodium Chloride 10 ml 09/03/18 09:00 09/22/18 10:08 Flush - Normal Saline IVF 10 ml Q12HR JUNAID Administration Tamsulosin HCl 0.4 mg 09/12/18 09:00 09/22/18 10:08 Flomax PO 0.4 mg DAILY JUNAID Administration Trazodone HCl 50 mg 09/20/18 21:00 09/21/18 20:30 Desyrel PO 50 mg HS JUNAID Administration - Exam awake alert Eye: anicteric sclera ENT: normocephalic atraumatic Neck: supple, no JVD Heart: RRR (Tachycardic) Respiratory: no wheezes, no ronchi (Fair air entry bilaterally with some transmitted sound.) Gastrointestinal: soft, non-tender, non-distended, normal bowel sounds Extremities: no cyanosis, no edema Neurological: CN's grossly intact (Power is decreased all limbs 4/5 upper limbs and 3+/5 lower limbs) Psychiatric: A&O x 3 Hosp A/P (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 Status: Acute (2) Acute respiratory failure Code(s): J96.00 - ACUTE RESPIRATORY FAILURE, UNSP W HYPOXIA OR HYPERCAPNIA Status: Acute Qualifiers: Respiratory failure complication: hypoxia Qualified Code(s): J96.01 - Acute respiratory failure with hypoxia (3) KENNY (acute kidney injury) Code(s): N17.9 - ACUTE KIDNEY FAILURE, UNSPECIFIED Status: Acute (4) Acute anemia Code(s): D64.9 - ANEMIA, UNSPECIFIED Status: Acute (5) PUD (peptic ulcer disease) Code(s): K27.9 - PEPTIC ULC, SITE UNSP, UNSP AC OR CHR, W/O HEMOR OR PERF Status: Acute (6) Ileus Code(s): K56.7 - ILEUS, UNSPECIFIED Status: Acute (7) Aspiration pneumonia Code(s): J69.0 - PNEUMONITIS DUE TO INHALATION OF FOOD AND VOMIT Status: Acute (8) CHF (congestive heart failure) Code(s): I50.9 - HEART FAILURE, UNSPECIFIED Status: Acute Qualifiers: Heart failure type: diastolic (9) Hyponatremia Code(s): E87.1 - HYPO-OSMOLALITY AND HYPONATREMIA Status: Acute (10) Quadriplegia Code(s): G82.50 - QUADRIPLEGIA, UNSPECIFIED Status: Acute (11) UTI (urinary tract infection) Status: Acute (12) BPH (benign prostatic hyperplasia) Code(s): N40.0 - BENIGN PROSTATIC HYPERPLASIA WITHOUT LOWER URINRY TRACT SYMP Status: Chronic (13) CAD (coronary artery disease) Code(s): I25.10 - ATHSCL HEART DISEASE OF [place] CORONARY ARTERY W/O ANG PCTRS Status: Chronic - Plan Increase metoprolol to 50 bid given sinus tachycardia Get repeat CXR and procalcitonin given persistent tachycardia give 40 meq of KCl to get serum potassium around 4 Continue other treatments rocephin, bronchodilators, mucinex as well as PT/OT.
[2018-09-22] MEDS ORDERED: Potassium Chloride 20 MEQ TAB PO SCH (13:15)
--- NOTE | 2018-09-22 13:36 | RAD ---
PORTABLE CHEST 1 VIEW: Date: 09/22/18 Time: 1302 hours HISTORY: Sinus tachycardia. FINDINGS: Comparison made with exam of 09/16/18. The heart size is borderline. The lungs are well expanded without focal areas of consolidation, pneum othoraces, or pleural effusions. IMPRESSION: No acute process. POS: [facility]
[2018-09-22] MEDS: Mometasone Furoate 120 PUFF 220 MCG INH SCH (19:27)
[2018-09-22] MEDS: Atorvastatin Calcium 20 MG TAB PO SCH (20:45)
[2018-09-22] MEDS: traZODone HCl 50 MG TAB PO SCH (20:45)
[2018-09-22] MEDS: Melatonin 3 MG TAB PO SCH ×2 (22:10→22:47)
[2018-09-23] MEDS: cefTRIAXone\\ROCEPHIN 1 GM in Sodium Chloride 0.9% 100 ML IVPB SCH (02:10)
[2018-09-23] MEDS: Acetaminophen 325 MG TAB PO PRN ×2 (05:47→12:55)
--- NOTE | 2018-09-23 07:53 | PRG ---
DATE OF SERVICE: 09/23/2018 SUBJECTIVE: The patient is alert, oriented, and cooperative. OBJECTIVE: VITAL SIGNS: Stable. He is 98 and 141/79. I's and O's 2335 in and 1725 out. Urine output 1725. ABDOMEN: Morbidly obese and protuberant. : No gross blood at the meatus. LABORATORY DATA: White count 9.1, hemoglobin 8.7, and platelet 436. Creatinine 0.99. Urine culture results reviewed demonstrating E. coli Proteus, multidrug resistant, resistant to Rocephin. IMPRESSION AND PLAN: 1. Mr. Page is a 63-year-old male, admitted for diffuse body weakness and Guillain-[place]. 2. Respiratory failure, pneumonia. 3. History of transurethral resection of the prostate, urethral stricture status post cystoscopy, stricture dilatation, catheter placement at bedside. He underwent voiding trial last week, PVR less than 100 mL. PVR this morning 80 mL, minimal. Patient appears to be urinating well, denies sensation of incomplete void. Urine culture results reviewed multidrug resistance. Given his protracted hospital stay, manipulation, it is reasonable to treat. Discontinue Rocephin, meropenem initiated if it is okay with Pulmonology. The patient currently undergoing PT, medical optimization prior to discharge. Job ID: [id number] [facility]
[2018-09-23] MEDS ORDERED: Meropenem 2 GM in Admixture Fee 1 EACH IVPB SCH (08:00)
[2018-09-23] MEDS: Meropenem 2 GM, Admixture Fee 1 EACH in Sodium Chloride 0.9% 100 ML IVPB SCH ×3 (09:50→23:22)
[2018-09-23] MEDS: Clopidogrel Bisulfate 75 MG TAB PO SCH (09:53)
[2018-09-23] MEDS: Aspirin Chewable 81 MG TAB PO SCH (09:53)
[2018-09-23] MEDS: Enoxaparin Sodium 40 MG/0.4 ML SYRINGE SC SCH (09:53)
[2018-09-23] MEDS: FLUoxetine HCl 20 MG CAP PO SCH (09:54)
[2018-09-23] MEDS: Fluticasone Propionate Nasal Spray 16 gm Bottle NASAL SCH (09:54)
[2018-09-23] MEDS: guaiFENesin ER 600 MG TAB PO SCH ×2 (09:54→21:36)
[2018-09-23] MEDS: Metoprolol Tartrate 25 MG TAB PO SCH ×2 (09:55→21:27)
[2018-09-23] MEDS: Tamsulosin HCl 0.4 MG CAP PO SCH (09:55)
[2018-09-23] MEDS ORDERED: Gabapentin 100 MG CAP PO SCH (13:00)
--- NOTE | 2018-09-23 13:34 | PRG ---
DATE OF SERVICE: 09/23/2018 SERVICE: Pulmonary Medicine. INTERVAL HISTORY: The patient is doing fine from respiratory standpoint. He is breathing very comfortably. He has no complaints of chest discomfort, nausea, or vomiting. Otherwise, he is breathing comfortably. His biggest complaint today is a numbness and tingling sensation in bilateral lower extremities. He has put on meropenem overnight because his E coli growing in the urine was jarrell-resistant. PHYSICAL EXAMINATION: VITAL SIGNS: Afebrile, pulse 114, blood pressure 132/100, respirations 17, and saturation 98%, currently on room air. GENERAL: The patient is awake and alert, in no apparent distress. LUNGS: Very good air entry without any prolonged expiratory phase or wheezing. HEART: Normal rate and regular. ABDOMEN: Soft. Minimally distended. Bowel sounds are hypoactive. : No Soares catheter. NEUROLOGIC: Grossly nonfocal. LABORATORY DATA: WBC 9.1, hemoglobin 8.7, platelets 436,000. Basic metabolic profile was previously unremarkable. Procalcitonin is 0.22. Urine culture is growing E coli and Proteus. E coli is fairly resistant species. The Proteus is pansensitive. IMAGING DATA: Chest x-ray demonstrates no acute cardiopulmonary abnormality. No pleural effusions are identified. IMPRESSION: 1. Acute hypoxic respiratory failure, resolved. 2. Healthcare-associated pneumonia, actually known. 3. Community-acquired pneumonia secondary to methicillin-resistant Staphylococcus aureus, status post full course of antibiotic. 4. Guillain-[place] syndrome, resolved. 5. Ileus, resolved. 6. Chronic obstructive pulmonary disease with acute exacerbation, resolved. 7. Metabolic encephalopathy, resolved. 8. Delirium, resolved. 9. Urinary tract infection. DISCUSSION AND PLAN: The patient will need 10 days of antibiotics. A PICC line can be placed. I scheduled gabapentin 3 times daily to see if this helps out with some of his leg discomfort. We will transfer him to the floor but from my perspective, he is stable for transition out of the hospital to a rehabilitation facility. Job ID: [id number]
[2018-09-23] MEDS: Ondansetron PF 4 MG/2 ML Vial IVP PRN (16:33)
[2018-09-23] MEDS: Dextrose 5 %-0.45 % NaCl 1,000 ML IV SCH ×2 (17:18→21:43)
--- NOTE | 2018-09-23 18:27 | PDOC.HOSPP ---
- Subjective Subjective: Patient seen and examined for multiple medical issues. Sharp pain in B/L LE. No new focal deficits. No new complaints. No overnight events - Objective Vital Signs & Weight: Vital Signs (12 hours) Temp Pulse Pulse Pulse Resp BP BP 09/23/18 15:22 97.0 F L 09/23/18 14:01 88 18 09/23/18 10:13 114 H 117 H 132/100 H 108/63 09/23/18 07:33 114 H 18 09/23/18 07:14 97.1 F L Pulse Ox 09/23/18 15:22 09/23/18 14:01 99 09/23/18 10:13 09/23/18 07:33 99 09/23/18 07:14 Weight Admit Weight 190 lb 8 oz Weight 189 lb 2.506 oz Most Recent Monitor Data Heart Rate from ECG 94 NIBP 137/101 NIBP BP-Mean 113 Respiration from ECG 15 SpO2 100 I&O: 09/22/18 09/23/18 09/24/18 06:59 06:59 06:59 Intake Total 1690 2335 1300 Output Total 1600 1725 900 Balance 90 610 400 Result Diagrams: 09/24/18 04:50 09/22/18 05:37 EKG Reviewed by me: Yes (SR) ROS - Review of Systems All systems: All other ROS were reviewed and found negative. Respiratory: denies: cough, dry, shortness of breath, hemoptysis, SOB with excertion, pleuritic pain, sputum, wheezing, other Cardiovascular: denies: chest pain, palpitations, orthopnea, paroxysmal noc. dyspnea, edema, light headedness, other - Medication Medications: Active Medications Generic Name Dose Route Start Last Admin Trade Name Freq PRN Reason Stop Dose Admin Acetaminophen 650 mg 09/03/18 01:25 09/23/18 12:55 Tylenol PO 650 mg Q4H PRN Administration Headache/Fever/Mild Pain (1-3) Albuterol/Ipratropium 3 ml 09/03/18 07:00 09/23/18 14:01 Duoneb NEB 3 ml [id number] JUNAID Administration Aspirin 81 mg 09/03/18 09:00 09/23/18 09:53 Aspirin Chewable PO 81 mg DAILY JUNAID Administration Atorvastatin Calcium 20 mg 09/20/18 21:00 09/22/18 20:45 Lipitor PO 20 mg Q2DAYS@2100 JUNAID Administration Atorvastatin Calcium 10 mg 09/21/18 21:00 09/21/18 20:31 Lipitor PO 10 mg Q2DAYS@2100 JUNAID Administration Bisacodyl 10 mg 09/03/18 01:25 09/07/18 11:27 Dulcolax [place] 10 mg DAILYPRN PRN Administration Constipation Clopidogrel Bisulfate 75 mg 09/21/18 09:00 09/23/18 09:53 Plavix PO 75 mg DAILY JUNAID Administration Enoxaparin Sodium 40 mg 09/05/18 09:00 09/23/18 09:53 Lovenox SC 40 mg 0900 JUNAID Administration Fluoxetine HCl 20 mg 09/21/18 09:00 09/23/18 09:54 Prozac PO 20 mg DAILY JUNAID Administration Fluticasone Propionate 0 gm 09/14/18 09:00 09/23/18 09:54 Flonase Nasal [place] NASAL 1 spr DAILY JUNAID Administration Guaifenesin 600 mg 09/21/18 21:00 09/23/18 09:54 Mucinex PO 600 mg Q12HR JUNAID Administration Hydralazine HCl 10 mg 09/07/18 10:54 09/08/18 14:08 Apresoline SLOW IVP 10 mg Q6H PRN Administration SBP Greater Than 170 Dextrose/Sodium Chloride 1,000 mls @ 50 mls/hr 09/20/18 09:30 09/23/18 17:18 D5 1/2 Ns IV 1,000 mls .Q20H JUNAID Administration Meropenem 2 gm/ Miscellaneous 100 mls @ 0 mls/hr 09/23/18 08:00 09/23/18 17: 16 Medication 1 each/ Sodium IVPB 100 mls Chloride 0000,0800,1600 JUNAID Administration Labetalol HCl 10 mg 09/08/18 17:44 09/08/18 18:01 Normodyne SLOW IVP 10 mg Q6H PRN Administration SBP Greater Than 180 Melatonin 6 mg 09/20/18 21:00 09/22/18 22:47 Melatonin PO 6 mg HS JUNAID Administration Metoprolol Tartrate 50 mg 09/22/18 09:00 09/23/18 09:55 Lopressor PO 50 mg BID JUNAID Administration Mometasone Furoate 1 puff 09/20/18 18:30 09/22/18 19:27 Asmanex Twisthaler INH 1 puff 1830 JUNAID Administration Ondansetron HCl 4 mg 09/03/18 01:25 09/23/18 16:33 Zofran IVP 4 mg Q6H PRN Administration Nausea/Vomiting Pantoprazole Sodium 40 mg 09/21/18 09:00 09/23/18 09:55 Protonix PO 40 mg DAILY JUNAID Administration Sodium Chloride 10 ml 09/03/18 09:00 09/23/18 09:55 Flush - Normal Saline IVF 10 ml Q12HR JUNAID Administration Tamsulosin HCl 0.4 mg 09/12/18 09:00 09/23/18 09:55 Flomax PO 0.4 mg DAILY JUNAID Administration Trazodone HCl 50 mg 09/20/18 21:00 09/22/18 20:45 Desyrel PO 50 mg HS JUNAID Administration - Exam NAD Heart: RRR, no rubs Respiratory: CTAB, no rales Gastrointestinal: soft, non-tender, normal bowel sounds Extremities: no edema Neurological: no new deficit Psychiatric: normal affect, A&O x 3 Hosp A/P (1) UTI (urinary tract infection) Status: Acute (2) 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
[2018-09-23] MEDS: Mometasone Furoate 120 PUFF 220 MCG INH SCH (18:52)
[2018-09-23] MEDS: traZODone HCl 50 MG TAB PO SCH (21:36)
[2018-09-23] MEDS: Melatonin 3 MG TAB PO SCH (21:36)
[2018-09-23] MEDS: Gabapentin 300 MG CAP PO SCH (21:37)
[2018-09-23] MEDS: Atorvastatin Calcium 10 MG TAB PO SCH (21:37)
[2018-09-24 05:31] LABS: Prothrombin Time 13.1 SEC (12.0-14.7)
[2018-09-24 05:38] LABS: Platelet Count 433 thou/uL (130-400)
--- NOTE | 2018-09-24 07:40 | PRG ---
DATE OF SERVICE: 09/24/2018 SUBJECTIVE: The patient without complaints, sleeping, easily arousable. OBJECTIVE: VITAL SIGNS: Stable. He relates no significant dysuria, urine flow was adequate. Denies sensation of incomplete void. ABDOMEN: Morbidly obese, protuberant. No suprapubic tenderness or distention. No CVA tenderness of concern. : Grossly unremarkable. No blood at the meatus. PERTINENT LABS: 1. On September 22, white count 9, hemoglobin 8.7. 2. Creatinine 0.99. 3. Urine culture from indwelling Soares catheter prior to voiding on discharge demonstrates greater than 100,000 CFU of Escherichia coli, Proteus unable to quantitate. E coli does demonstrate multi-drug resistants, currently on meropenem. IMPRESSION AND PLAN: Mr. Page is a 63-year-old male, admitted for, 1. Generalized weakness, found to have Guillain-[place], resolving. 2. Respiratory failure, pneumonia. 3. Urologic issues of urethral stricture, status post transurethral resection of the prostate at [facility] few years ago, presented with PVR of 400 mL, nursing staff unable to place Soares catheter. Therefore, he requires cystoscopy at bedside and stricture dilatation. He underwent a voiding trial last week, continues to void with no significant postvoid residual of concern. Recheck PVR yesterday is 80 mL, which is minimal. Urine culture positive with indwelling Soares catheter. Given the course of manipulation, I agree with antibiotic regimen. He is currently on meropenem for pneumonia, AND urinary tract infection component. When the patient is ready to be discharged, from urologic perspective, he may be transitioned to oral antibiotic regimen based on urine culture sensitivity, Bactrim DS one p.o. b.i.d. may be provided for course of 5 to 7 days. Multi drug resistance noted on urine culture. will sign off as he is voiding without significant issues. Elective followup is advised in chart Discharge to rehab pending. Job ID: [id number] [facility]
[2018-09-24] MEDS: Meropenem 2 GM, Admixture Fee 1 EACH in Sodium Chloride 0.9% 100 ML IVPB SCH ×3 (08:00→23:19)
[2018-09-24] MEDS: Enoxaparin Sodium 40 MG/0.4 ML SYRINGE SC SCH ×2 (09:30→09:38)
[2018-09-24] MEDS: FLUoxetine HCl 20 MG CAP PO SCH (09:30)
[2018-09-24] MEDS: Aspirin Chewable 81 MG TAB PO SCH ×2 (09:30→09:39)
[2018-09-24] MEDS: Metoprolol Tartrate 25 MG TAB PO SCH ×3 (09:30→21:30)
[2018-09-24] MEDS: Clopidogrel Bisulfate 75 MG TAB PO SCH (09:30)
[2018-09-24] MEDS: Gabapentin 300 MG CAP PO SCH ×2 (09:30→23:10)
[2018-09-24] MEDS: guaiFENesin ER 600 MG TAB PO SCH ×2 (09:30→23:09)
[2018-09-24] MEDS: Acetaminophen 325 MG TAB PO PRN (09:54)
[2018-09-24] MEDS: Ondansetron PF 4 MG/2 ML Vial IVP PRN (09:54)
[2018-09-24] MEDS: Fluticasone Propionate Nasal Spray 16 gm Bottle NASAL SCH (11:00)
[2018-09-24 11:04] LABS: Hemoglobin 5.8 g/dL (14.0-18.0); Mean Corpuscular HGB CONC 32.3 g/dL (32.0-36.0); Mean Corpuscular Hemoglobin 31.9 pg (27.0-31.0); Mean Corpuscular Volume 98.5 fL (78.0-98.0); Mean Platelet Volume 7.2 fL (7.4-10.4); Platelet Count 487 thou/uL (130-400); RBC Distribution Width 16.9 % (11.5-14.5); Red Blood Cell (RBC) Count 1.83 mill/uL (4.70-6.10); White Blood Cell (WBC) Count 18.4 thou/uL (4.8-10.8)
[2018-09-24 11:23] LABS: Anisocytosis MODERATE=16-30 cells (100X) (0-5/hpf); Band 4 % (5-11); Lymphocytes 12 % (21-51); MDiff Complete? YES; Metamyelocyte 1 % (0-0); Microcytosis SLIGHT = 6-15 cells (100X) (0-5/hpf); Monocytes 10 % (0-10); Myelocyte 3 % (0-0); Neutrophil 70 % (42-75); Nucleated RBC 1 % (0); Platelet Morphology Comment Appears Increased; Polychromasia MODERATE = 3-4 cells (100X) (0-2/hpf)
[2018-09-24 11:27] LABS: ALT (SGPT) 24 U/L (8-55); AST (SGOT) 29 U/L (5-34); Albumin 2.5 g/dL (3.4-4.8); Alkaline Phosphatase 49 U/L (40-150); Anion Gap 12 mmol/L (10-20); BUN (Urea Nitrogen) 37 mg/dL (8.4-25.7); Bilirubin, Total 0.3 mg/dL (0.2-1.2); Calc. Creatinine Clearance 88 mL/min (70-130); Calcium 7.9 mg/dL (7.8-10.44); Carbon Dioxide 21 mmol/L (23-31); Chloride 105 mmol/L (98-107); Estimated GFR-MDRD 72; Globulin 3.2 g/dL (2.4-3.5); Glucose 152 mg/dL (80-115); Protein, Total 5.7 g/dL (5.8-8.1); Sodium 134 mmol/L (136-145)
[2018-09-24] MEDS ORDERED: Furosemide 20 MG/2 ML VIAL SLOW IVP SCH (11:45)
[2018-09-24] MEDS ORDERED: Magnesium 2 GM/50 ML 2 GM in Premix Bag 1 BAG IVPB SCH ×2 (12:00→17:00)
[2018-09-24] MEDS ORDERED: Gabapentin 300 MG CAP PO SCH (12:00)
[2018-09-24] MEDS: Pantoprazole 80 MG, Admixture Fee 1 EACH in Sodium Chloride 0.9% 100 ML IVP SCH ×2 (12:56→23:27)
[2018-09-24] MEDS: Dextrose 5 %-0.45 % NaCl 1,000 ML IV SCH (13:09)
[2018-09-24] MEDS: Tamsulosin HCl 0.4 MG CAP PO SCH (13:17)
--- NOTE | 2018-09-24 16:52 | PRG ---
DATE OF SERVICE: 09/24/2018 SERVICE: Pulmonary Medicine. INTERVAL HISTORY: The patient was doing fine from Respiratory standpoint, but overnight, he started becoming more tachypneic and tachycardic. His hemoglobin this morning demonstrated a significant drop. He became pale. Currently, he is sleeping. He ended up getting a liter of fluid, and he has been started on 2 units of blood. His heart rate and blood pressure have both stabilized. GI consultation has subsequently been placed. He ended up having bloody bowel movements x2 yesterday. PHYSICAL EXAMINATION: VITAL SIGNS: Afebrile, pulse 96, blood pressure 104/68, respirations 20, and saturation 96% on 1.5 L nasal cannula. GENERAL: The patient is awake and alert, in no apparent distress. LUNGS: Very good air entry. No prolonged expiratory phase or wheezing appreciated. HEART: Normal rate regular. ABDOMEN: Soft, nontender, and nondistended. Bowel sounds are positive. MUSCULOSKELETAL: No cyanosis or clubbing. No pitting in the bilateral lower extremities. NEUROLOGIC: Grossly nonfocal. LABORATORY DATA: WBC 18.4, hemoglobin 5.8, platelets 487,000. Basic metabolic profile is unremarkable, except for creatinine is up trending to 1.04 and sodium 134. Liver function studies are otherwise unremarkable. Magnesium 1.5. Urine culture is growing E. coli, which is pansensitive and Proteus, which is pansensitive. ASSESSMENT: 1. Acute hypoxic respiratory failure, resolved. 2. Community acquired pneumonia, secondary to methicillin-resistant Staphylococcus aureus, status post full course of antibiotic. 3. Guillain-[place] syndrome, resolved. 4. Ileus, resolved. 5. Chronic obstructive pulmonary disease with acute exacerbation, at baseline. 6. Acute blood loss anemia. 7. Upper gastrointestinal bleed, suspected. 8. Urinary tract infection secondary to multi-drug resistant species. DISCUSSION AND PLAN: I agree with GI consultation. We will repeat hemoglobin after the second unit of blood. Magnesium will be replaced. Pulmonary/Critical Care will continue to follow along for the time being. I will put him on contact precaution because of the extended spectrum beta-lactamase producing E. coli that he carries. Job ID: [id number]
[2018-09-24 22:14] LABS: Hemoglobin 9.5 g/dL (14.0-18.0); Mean Corpuscular Hemoglobin 30.8 pg (27.0-31.0); Mean Corpuscular Volume 93.2 fL (78.0-98.0); Mean Platelet Volume 7.4 fL (7.4-10.4); Platelet Count 296 thou/uL (130-400); RBC Distribution Width 18.1 % (11.5-14.5); Red Blood Cell (RBC) Count 3.08 mill/uL (4.70-6.10)
[2018-09-24 22:36] LABS: Band 1 % (5-11); Hypochromia SLIGHT = 6-15 cells (100X) (0-5/hpf); Lymphocytes 9 % (21-51); MDiff Complete? YES; Monocytes 6 % (0-10); Neutrophil 84 % (42-75); Nucleated RBC 1 % (0); Platelet Morphology Comment Appears Adequate; Polychromasia SLIGHT = 2-3 cells (100X) (0-2/hpf)
--- NOTE | 2018-09-24 22:40 | PDOC.HOSPP ---
- Subjective Subjective: Patient seen and examined for multiple medical issues around 11am. No melena reported. FOBT positive last night. No N/V/abd pain. No new complaints. No overnight events - Objective Vital Signs & Weight: Vital Signs (12 hours) Temp Pulse Resp BP BP Pulse Ox 09/24/18 21:10 98.0 F 17 108/72 94 L 09/24/18 16:12 98 F 96 20 104/68 96 09/24/18 14:28 95 16 09/24/18 11:41 92 L 09/24/18 11:01 97.4 F L 121 H 20 96/58 L 98 Weight Admit Weight 190 lb 8 oz Weight 189 lb 2.506 oz Most Recent Monitor Data Heart Rate from ECG 98 NIBP 87/70 NIBP BP-Mean 75 Respiration from ECG 17 SpO2 97 I&O: 09/23/18 09/24/18 09/25/18 06:59 06:59 06:59 Intake Total 2335 1300 1400 Output Total 1725 900 Balance 761 473 3155 Result Diagrams: 09/25/18 04:27 09/25/18 04:27 ROS - Review of Systems All systems: All other ROS were reviewed and found negative. Respiratory: denies: cough, dry, shortness of breath, hemoptysis, SOB with excertion, pleuritic pain, sputum, wheezing, other Cardiovascular: denies: chest pain, palpitations, orthopnea, paroxysmal noc. dyspnea, edema, light headedness, other - Medication Medications: Active Medications Generic Name Dose Route Start Last Admin Trade Name Freq PRN Reason Stop Dose Admin Acetaminophen 650 mg 09/03/18 01:25 09/24/18 09:54 Tylenol PO 650 mg Q4H PRN Administration Headache/Fever/Mild Pain (1-3) Albuterol/Ipratropium 3 ml 09/03/18 07:00 09/24/18 14:28 Duoneb NEB 3 ml [id number] JUNAID Administration Aspirin 81 mg 09/03/18 09:00 09/24/18 09:39 Aspirin Chewable PO Not Given DAILY JUNAID Atorvastatin Calcium 20 mg 09/20/18 21:00 09/22/18 20:45 Lipitor PO 20 mg Q2DAYS@2100 JUNAID Administration Atorvastatin Calcium 10 mg 09/21/18 21:00 09/23/18 21:37 Lipitor PO 10 mg Q2DAYS@2100 JUNAID Administration Bisacodyl 10 mg 09/03/18 01:25 09/07/18 11:27 Dulcolax [place] 10 mg DAILYPRN PRN Administration Constipation Clopidogrel Bisulfate 75 mg 09/21/18 09:00 09/24/18 09:30 Plavix PO Not Given DAILY JUNAID Fluoxetine HCl 20 mg 09/21/18 09:00 09/24/18 09:30 Prozac PO 20 mg DAILY JUNAID Administration Fluticasone Propionate 0 gm 09/14/18 09:00 09/24/18 11:00 Flonase Nasal [place] NASAL 1 spr DAILY JUNAID Administration Guaifenesin 600 mg 09/21/18 21:00 09/24/18 09:30 Mucinex PO 600 mg Q12HR JUNAID Administration Hydralazine HCl 10 mg 09/07/18 10:54 09/08/18 14:08 Apresoline SLOW IVP 10 mg Q6H PRN Administration SBP Greater Than 170 Meropenem 2 gm/ Miscellaneous 100 mls @ 0 mls/hr 09/23/18 08:00 09/24/18 15: 30 Medication 1 each/ Sodium IVPB 100 mls Chloride 0000,0800,1600 JUNAID Administration Pantoprazole Sodium 80 mg/ 100 mls @ 10 mls/hr 09/24/18 11:45 09/24/18 12:56 Miscellaneous Medication 1 IVP 100 mls each/ Sodium Chloride INF JUNAID Administration Dextrose/Sodium Chloride 1,000 mls @ 30 mls/hr 09/24/18 12:00 09/24/18 13:09 D5 1/2 Ns IV 1,000 mls .Q24H JUNAID Administration Labetalol HCl 10 mg 09/08/18 17:44 09/08/18 18:01 Normodyne SLOW IVP 10 mg Q6H PRN Administration SBP Greater Than 180 Melatonin 6 mg 09/20/18 21:00 09/23/18 21:36 Melatonin PO 6 mg HS JUNAID Administration Metoprolol Tartrate 25 mg 09/24/18 15:00 09/24/18 21:30 Lopressor PO Not Given TID JUNAID Mometasone Furoate 1 puff 09/20/18 18:30 09/23/18 18:52 Asmanex Tw[place]hal[place] INH 1 puff 1830 JUNAID Administration Ondansetron HCl 4 mg 09/03/18 01:25 09/24/18 09:54 Zofran IVP 4 mg Q6H PRN Administration Nausea/Vomiting Sodium Chloride 10 ml 09/03/18 09:00 09/24/18 09:38 Flush - Normal Saline IVF Not Given Q12HR JUNAID Tamsulosin HCl 0.4 mg 09/12/18 09:00 09/24/18 13:17 Flomax PO 0.4 mg DAILY JUNAID Administration Trazodone HCl 50 mg 09/20/18 21:00 09/23/18 21:36 Desyrel PO 50 mg HS JUNAID Administration - Exam NAD Heart: RRR, no rubs Respiratory: CTAB, no rales Gastrointestinal: soft, non-tender, non-distended, normal bowel sounds Extremities: no edema Neurological: no new deficit Psychiatric: A&O x 3 Hosp A/P (1) Acute anemia Code(s): D64.9 - ANEMIA, UNSPECIFIED Status: Acute (2) UTI (urinary tract infection) Status: Acute (3) 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 - GUILLAIN-BARRE SYNDROME Status: Acute (4) BPH (benign prostatic hyperplasia) Code(s): N40.0 - BENIGN PROSTATIC HYPERPLASIA WITHOUT LOWER URINRY TRACT SYMP Status: Chronic (5) CAD (coronary artery disease) Code(s): I25.10 - ATHSCL HEART DISEASE OF [place] CORONARY ARTERY W/O ANG PCTRS Status: Chronic (6) Hypomagnesemia Code(s): E83.42 - HYPOMAGNESEMIA Status: Acute (7) Other issues per previous notes - Plan DVT proph w/SCDs Anemia - suspected acute GI blood loss Transfuse 2 units PRBC Protonix drip Consult GI HH Q6h Replace Magnessium Cont other meds as below AM labs Await PICC line placement Reduce Metoprolol dose ASA/Plavix/Lovenox held
[2018-09-24] MEDS: Melatonin 3 MG TAB PO SCH (23:07)
[2018-09-24] MEDS: Atorvastatin Calcium 20 MG TAB PO SCH (23:08)
[2018-09-24] MEDS: traZODone HCl 50 MG TAB PO SCH (23:09)
[2018-09-25] MEDS: Mometasone Furoate 120 PUFF 220 MCG INH SCH ×2 (00:33→20:18)
--- NOTE | 2018-09-25 00:39 | CON ---
DATE OF CONSULTATION: 09/24/2018 CHIEF COMPLAINT: Weakness and anemia. HISTORY OF PRESENT ILLNESS: Mr. 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 He had respiratory failure requiring mechanical ventilation. He has since been extubated and transferred out of the ICU to the floor. He is being evaluated for transfer to rehab. However, last night, he became very pale and had worsening weakness and passed couple of black stools. He was found to have severe anemia this morning with hemoglobin of 5.8. He passed 3 more black stools today. He has had no nausea or vomiting yesterday and today, but he did have vomiting earlier in the hospital course that was treated with NG suction. He has no abdominal pain now. No chest pain or shortness of breath. Last upper endoscopy was around 2014, at which time the carcinoid lesion was ablated in the first portion of the duodenum. He has been followed previously by Dr. Rascon for this. Earlier this hospital stay was noted to be anemic and iron studies were obtained that were most consistent with anemia of chronic disease, now with passing the black stools, concern is for possible upper gastrointestinal bleed. PAST MEDICAL HISTORY: Guillain-[place], new diagnosis, treated with IVIG. MRSA pneumonia with respiratory failure treated in this hospital stay. History of COPD. 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 Coronary artery disease, status post multiple coronary artery stents, a total of nine stents placed. CHF, BPH, cerebellar hemorrhage. PAST SURGICAL HISTORY: Hernia repair, TURP, upper and lower endoscopy. FAMILY HISTORY: Negative for GI malignancy. SOCIAL HISTORY: He quit smoking in 2003. No alcohol or drugs. ALLERGIES: LEVOFLOXACIN. CURRENT INPATIENT MEDICATIONS: Include, 1. Aspirin. 2. Atorvastatin. 3. Plavix. 4. Fluoxetine. 5. Gabapentin. 6. Magnesium. 7. Melatonin. 8. Meropenem. 9. Metoprolol. 10. Mometasone inhaler. 11. Pantoprazole. 12. Tamsulosin. 13. Trazodone. REVIEW OF SYSTEMS: Negative x10 systems reviewed except as stated in history of present illness. PHYSICAL EXAMINATION: VITAL SIGNS: Temperature 98.0, pulse 96, blood pressure 104/68. GENERAL: He is extremely pale. He is in no acute distress. He is alert and oriented x3. HEENT: His eyes have no scleral icterus. Oropharynx is clear without lesions. No cervical or supraclavicular lymphadenopathy. LUNGS: Clear to auscultation bilaterally. HEART: Regular rate and rhythm without murmur. ABDOMEN: Soft, nontender, and nondistended. Bowel sounds are present. EXTREMITIES: Trace lower extremity edema. 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 RECTAL: Reveals black liquidy stool in the rectal vault. LABORATORY DATA: Hemoglobin is 5.8 today, white blood cell count 18.4, platelets 487. INR 1.0, creatinine 1.04. Bilirubin 0.3, AST 29, ALT 24, alkaline phosphatase 49, and albumin 2.5. IMPRESSION AND PLAN: 1. Anemia of acute blood loss with hemoglobin of 5.8 today. He has received 1 unit transfusion so far. He is very pale. We will give the 2nd unit faster and recheck post transfusion CBC. I expect he will need an additional unit beyond that. a. Proton pump inhibitor drip. b. Plan for upper endoscopy in the morning, depending on the results of his post transfusion CBC, if we have to do the procedure tonight, we will. c. Hold Plavix and aspirin. 2. Guillain-[place] syndrome. 3. History of duodenal carcinoid. Job ID: [id number]
[2018-09-25 04:46] LABS: Reticulocyte Count 8.2 % (0.5-1.5)
[2018-09-25 04:47] LABS: #Eosinphils 0.3 thou/uL (0.0-0.7); #Lymphocytes 2.8 thou/uL (1.20-3.40); #Monocytes 1.5 thou/uL (0.11-0.59); %Basophils 0.1 % (0.0-1.0); %Eosinophils 1.5 % (0.0-10.0); %Lymphocytes 15.1 % (21.0-51.0); %Neutrophils 75.3 % (42.0-75.0); Hemoglobin 8.2 g/dL (14.0-18.0); Mean Corpuscular HGB CONC 33.9 g/dL (32.0-36.0); Mean Corpuscular Hemoglobin 31.1 pg (27.0-31.0); Mean Corpuscular Volume 91.8 fL (78.0-98.0); Mean Platelet Volume 7.1 fL (7.4-10.4); Platelet Count 299 thou/uL (130-400); RBC Distribution Width 18.3 % (11.5-14.5); Red Blood Cell (RBC) Count 2.64 mill/uL (4.70-6.10); White Blood Cell (WBC) Count 18.6 thou/uL (4.8-10.8)
[2018-09-25 05:03] LABS: Anion Gap 9 mmol/L (10-20); BUN (Urea Nitrogen) 42 mg/dL (8.4-25.7); Calc. Creatinine Clearance 103 mL/min (70-130); Calcium 7.9 mg/dL (7.8-10.44); Carbon Dioxide 23 mmol/L (23-31); Chloride 106 mmol/L (98-107); Estimated GFR-MDRD 86; Glucose 118 mg/dL (80-115); Potassium 3.6 mmol/L (3.5-5.1); Sodium 134 mmol/L (136-145)
[2018-09-25] MEDS: Acetaminophen 325 MG TAB PO PRN (06:24)
--- NOTE | 2018-09-25 08:47 | PDOC.HOSPP ---
- Subjective Subjective: Patient seen and examined for multiple medical issues around 11am. No melena reported. FOBT positive last night. No N/V/abd pain. No new complaints. No overnight events - Objective Vital Signs & Weight: Vital Signs (12 hours) Temp Pulse Resp BP BP Pulse Ox 09/25/18 08:05 97.3 F L 111 H 20 114/68 98 09/25/18 07:16 107 H 16 09/25/18 05:00 98.0 F 106 H 18 96/62 92 L 09/25/18 03:56 115 H 18 92 L 09/25/18 00:00 98.3 F 102 H 20 105/68 96 09/24/18 21:10 98.0 F 17 108/72 94 L Weight Admit Weight 190 lb 8 oz Weight 178 lb 3.2 oz Most Recent Monitor Data Heart Rate from ECG 98 NIBP 87/70 NIBP BP-Mean 75 Respiration from ECG 17 SpO2 97 I&O: 09/24/18 09/25/18 09/26/18 06:59 06:59 06:59 Intake Total 1300 2180 Output Total 900 Balance 400 2180 Result Diagrams: 09/25/18 04:27 09/25/18 04:27 Additional Labs: Laboratory Tests 09/24/18 09/24/18 10:42 10:42 Hgb 5.8 L* Magnesium 1.5 L ROS - Review of Systems All systems: All other ROS were reviewed and found negative. Respiratory: denies: cough, dry, shortness of breath, hemoptysis, SOB with excertion, pleuritic pain, sputum, wheezing, other Cardiovascular: denies: chest pain, palpitations, orthopnea, paroxysmal noc. dyspnea, edema, light headedness, other - Medication Medications: Active Medications Generic Name Dose Route Start Last Admin Trade Name Freq PRN Reason Stop Dose Admin Acetaminophen 650 mg 09/03/18 01:25 09/25/18 06:24 Tylenol PO 650 mg Q4H PRN Administration Headache/Fever/Mild Pain (1-3) Albuterol/Ipratropium 3 ml 09/03/18 07:00 09/25/18 07:16 Duoneb NEB 3 ml [id number] JUNAID Administration Aspirin 81 mg 09/03/18 09:00 09/24/18 09:39 Aspirin Chewable PO Not Given DAILY JUNAID Atorvastatin Calcium 20 mg 07/26/19 21:00 09/24/18 23:08 Lipitor PO 20 mg Q2DAYS@2100 JUNAID Administration Atorvastatin Calcium 10 mg 09/21/18 21:00 09/23/18 21:37 Lipitor PO 10 mg Q2DAYS@2100 JUNAID Administration Bisacodyl 10 mg 09/03/18 01:25 09/07/18 11:27 Dulcolax [place] 10 mg DAILYPRN PRN Administration Constipation Clopidogrel Bisulfate 75 mg 09/21/18 09:00 09/24/18 09:30 Plavix PO Not Given DAILY JUNAID Fluoxetine HCl 20 mg 09/21/18 09:00 09/24/18 09:30 Prozac PO 20 mg DAILY JUNAID Administration Fluticasone Propionate 0 gm 09/14/18 09:00 09/24/18 11:00 Flonase Nasal [place] NASAL 1 spr DAILY JUNAID Administration Gabapentin 300 mg 09/24/18 21:00 09/24/18 23:10 Neurontin PO 300 mg BID JUNAID Administration Guaifenesin 600 mg 09/21/18 21:00 09/24/18 23:09 Mucinex PO 600 mg Q12HR JUNAID Administration Hydralazine HCl 10 mg 09/07/18 10:54 09/08/18 14:08 Apresoline SLOW IVP 10 mg Q6H PRN Administration SBP Greater Than 170 Meropenem 2 gm/ Miscellaneous 100 mls @ 0 mls/hr 09/23/18 08:00 09/24/18 23: 19 Medication 1 each/ Sodium IVPB 100 mls Chloride 0000,0800,1600 JUNAID Administration Pantoprazole Sodium 80 mg/ 100 mls @ 10 mls/hr 09/24/18 11:45 09/24/18 23:27 Miscellaneous Medication 1 IVP 100 mls each/ Sodium Chloride INF JUNAID Administration Dextrose/Sodium Chloride 1,000 mls @ 30 mls/hr 09/24/18 12:00 09/24/18 13:09 D5 1/2 Ns IV 1,000 mls .Q24H JUNAID Administration Labetalol HCl 10 mg 09/08/18 17:44 09/08/18 18:01 Normodyne SLOW IVP 10 mg Q6H PRN Administration SBP Greater Than 180 Melatonin 6 mg 09/20/18 21:00 09/24/18 23:07 Melatonin PO 6 mg HS JUNAID Administration Metoprolol Tartrate 25 mg 09/24/18 15:00 09/24/18 21:30 Lopressor PO Not Given TID JUNAID Mometasone Furoate 1 puff 09/20/18 18:30 09/25/18 00:33 Asmanex Twisthaler INH Not Given 1830 JUNAID Ondansetron HCl 4 mg 09/03/18 01:25 09/24/18 09:54 Zofran IVP 4 mg Q6H PRN Administration Nausea/Vomiting Sodium Chloride 10 ml 09/03/18 09:00 09/24/18 23:15 Flush - Normal Saline IVF 10 ml Q12HR JUNAID Administration Tamsulosin HCl 0.4 mg 09/12/18 09:00 09/24/18 13:17 Flomax PO 0.4 mg DAILY JUNAID Administration Trazodone HCl 50 mg 09/20/18 21:00 09/24/18 23:09 Desyrel PO 50 mg HS JUNAID Administration - Exam NAD (pale) Neck: supple Heart: RRR, no rubs Respiratory: CTAB, no rales Extremities: no edema Skin: no rashes Neurological: no new deficit Hosp A/P (1) UTI (urinary tract infection) Status: Acute (2) 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 - GUILLAIN-BARRE SYNDROME Status: Acute (3) BPH (benign prostatic hyperplasia) Code(s): N40.0 - BENIGN PROSTATIC HYPERPLASIA WITHOUT LOWER URINRY TRACT SYMP Status: Chronic (4) CAD (coronary artery disease) Code(s): I25.10 - ATHSCL HEART DISEASE OF [place] CORONARY ARTERY W/O ANG PCTRS Status: Chronic (5) Anemia Code(s): D64.9 - ANEMIA, UNSPECIFIED Status: Acute (6) Hypomagnesemia Code(s): E83.42 - HYPOMAGNESEMIA Status: Acute (7) Other issues per previous notes - Plan Anemia - suspected acute GI blood loss Transfuse 2 units PRBC Protonix drip Consult GI HH Q6h Replace Magnessium Cont other meds as below AM labs Await PICC line placement Reduce Metoprolol dose ASA/Plavix/Lovenox held
[2018-09-25] MEDS: Meropenem 2 GM, Admixture Fee 1 EACH in Sodium Chloride 0.9% 100 ML IVPB SCH ×2 (08:52→17:44)
[2018-09-25] MEDS: Metoprolol Tartrate 25 MG TAB PO SCH ×3 (08:56→21:36)
[2018-09-25] MEDS ORDERED: Fentanyl 100 MCG/2 ML VIAL ONE (11:31)
[2018-09-25] MEDS ORDERED: Ondansetron HCl/PF 4 MG/2 ML Vial IVP PRN (13:25)
[2018-09-25] MEDS ORDERED: Ondansetron PF 4 MG/2 ML Vial ONE (13:25)
[2018-09-25] MEDS ORDERED: Lorazepam 0.5 MG TAB PO PRN (14:30)
[2018-09-25 14:42] LABS: Hemoglobin 7.9 g/dL (14.0-18.0)
[2018-09-25] MEDS ORDERED: Loratadine 10 MG TAB PO SCH (14:45)
--- NOTE | 2018-09-25 14:54 | OP ---
DATE OF PROCEDURE: 09/25/2018 OPERATIVE PROCEDURES: 1. Esophagogastroduodenoscopy. 2. Injection of 1:10,000 epinephrine, a total of 9 mL injected. 3. Hemoclip placement. PREOPERATIVE DIAGNOSIS: Acute upper gastrointestinal bleeding. POSTOPERATIVE DIAGNOSES: 1. Hiatal hernia. 2. No esophageal pathology seen. 3. Large amount of blood and blood clots in the proximal stomach. 4. Normal gastric body, antrum, and also duodenum. The blood was mostly in a proximal stomach, especially the fundus, cardia, and greater curvature. 5. Visible vessel over the proximal stomach with mild oozing, injected with epinephrine 1:10,000 followed by hemoclip placed. DESCRIPTION OF PROCEDURE: The patient was not given sedation because of reason Guillain-Estill syndrome with muscle weakness. The patient was placed on left lateral position and the throat was anesthetized with Cetacaine spray. Please see Anesthesia record for medication given to this procedure. A bite block was placed. A Pentax video gastroscope under direct vision passed over oropharynx past the GE junction into the stomach. The esophageal mucosa appeared normal. There was some blood staining of the distal esophagus from regurg stain from blood from the proximal stomach. The GE junction with no pathology. There was hiatal hernia. The patient was found to have blood clots and blood pooling in the proximal stomach, fundus, cardia, and greater curvature. The gastric body, gastric antrum, duodenal bulb, descending duodenum noted. A power suction was attached to the scope and multiple passes made and removal of multiple large blood clots. The blood seemed to be coming from the proximal stomach, especially, fundus, greater curvature, and cardia. Very difficult to locate exactly the site of bleeding. It was a very lengthy procedure. The time spent was almost an hour and 30 minutes. Finally, I was able to locate vessel over the proximal stomach and I did inject 1:10,000 epinephrine solution to a total dose of 9 mL. Following this, the bleeding stopped. I was able to place a hemoclip over the vessel. The patient still has some more bleeding in the fundus and I am not sure clear if he has another source of bleeding. Multiple passes were made to remove the blood clots. At the end of the procedure, I do not really see any more active bleeding, but I cannot be certain because of what was left was the blood clots in the proximal stomach. The stomach was decompressed and the scope was removed. RECOMMENDATIONS: 1. N.p.o. 2. Stat CBC, type and crossmatch. 3. IV PPI. 4. If bleeding continues, we will repeat the EGD tomorrow again. Job ID: [id number] [email or web address]
[2018-09-25] MEDS: Fluticasone Propionate Nasal Spray 16 gm Bottle NASAL SCH (15:14)
[2018-09-25] MEDS: Gabapentin 300 MG CAP PO SCH ×2 (15:15→21:36)
[2018-09-25] MEDS: Tamsulosin HCl 0.4 MG CAP PO SCH (15:16)
[2018-09-25] MEDS: FLUoxetine HCl 20 MG CAP PO SCH (15:16)
[2018-09-25] MEDS: guaiFENesin ER 600 MG TAB PO SCH ×2 (15:16→21:35)
[2018-09-25] MEDS: Dextrose 5 %-0.45 % NaCl 1,000 ML IV SCH (15:22)
[2018-09-25 15:33] LABS: Hemoglobin 7.9 g/dL (14.0-18.0); Mean Corpuscular HGB CONC 33.4 g/dL (32.0-36.0); Mean Corpuscular Hemoglobin 30.1 pg (27.0-31.0); Mean Corpuscular Volume 90.1 fL (78.0-98.0); Mean Platelet Volume 7.1 fL (7.4-10.4); Platelet Count 367 thou/uL (130-400); RBC Distribution Width 18.5 % (11.5-14.5); Red Blood Cell (RBC) Count 2.61 mill/uL (4.70-6.10)
[2018-09-25 15:57] LABS: Anisocytosis SLIGHT = 6-15 cells (100X) (0-5/hpf); Band 10 % (5-11); Lymphocytes 8 % (21-51); MDiff Complete? YES; Metamyelocyte 1 % (0-0); Monocytes 2 % (0-10); Myelocyte 2 % (0-0); Neutrophil 77 % (42-75); Nucleated RBC 2 % (0); Platelet Morphology Comment Appears Adequate; Polychromasia MODERATE = 3-4 cells (100X) (0-2/hpf); White Blood Cell (WBC) Count 25.8 thou/uL (4.8-10.8)
[2018-09-25] MEDS ORDERED: EPINEPHrine 1 MG/10 ML Abboject SYRINGE ONE (17:13)
--- NOTE | 2018-09-25 18:26 | PDOC.HOSPP ---
- Subjective Subjective: Pt seen for followup re: GI bleed. Denies chest pain, shortness of breath, fevers or chills. - Objective Vital Signs & Weight: Vital Signs (12 hours) Temp Pulse Resp BP Pulse Ox 09/25/18 16:33 97.8 F 88 20 101/67 99 09/25/18 14:15 97.8 F 98 22 H 118/76 95 09/25/18 08:05 97.3 F L 111 H 20 114/68 98 09/25/18 08:00 98 09/25/18 07:16 107 H 16 Weight Admit Weight 190 lb 8 oz Weight 178 lb 3.2 oz Most Recent Monitor Data Heart Rate from ECG 98 NIBP 87/70 NIBP BP-Mean 75 Respiration from ECG 17 SpO2 97 I&O: 09/24/18 09/25/18 09/26/18 06:59 06:59 06:59 Intake Total 1300 2180 Output Total 900 Balance 400 2180 Result Diagrams: 09/25/18 14:28 09/25/18 04:27 Additional Labs: Labs and MARs reviewed by me ROS - Review of Systems All systems: All other ROS were reviewed and found negative. Cardiovascular: reports: other. denies: chest pain, palpitations, orthopnea, paroxysmal noc. dyspnea, edema, light headedness Gastrointestinal: denies: nausea, vomitting, abdominal pain, diarrhea, constipation, melena, hematochezia - Medication Medications: Active Medications Generic Name Dose Route Start Last Admin Trade Name Freq PRN Reason Stop Dose Admin Acetaminophen 650 mg 09/03/18 01:25 09/25/18 06:24 Tylenol PO 650 mg Q4H PRN Administration Headache/Fever/Mild Pain (1-3) Albuterol/Ipratropium 3 ml 09/03/18 07:00 09/25/18 13:29 Duoneb NEB Not Given [id number] JUNAID Aspirin 81 mg 09/03/18 09:00 09/24/18 09:39 Aspirin Chewable PO Not Given DAILY JUNAID Atorvastatin Calcium 20 mg 09/20/18 21:00 09/24/18 23:08 Lipitor PO 20 mg Q2DAYS@2100 JUNAID Administration Atorvastatin Calcium 10 mg 09/21/18 21:00 09/23/18 21:37 Lipitor PO 10 mg Q2DAYS@2100 JUNAID Administration Bisacodyl 10 mg 09/03/18 01:25 09/07/18 11:27 Dulcolax [place] 10 mg DAILYPRN PRN Administration Constipation Clopidogrel Bisulfate 75 mg 09/21/18 09:00 09/24/18 09:30 Plavix PO Not Given DAILY JUNAID Fluoxetine HCl 20 mg 09/21/18 09:00 09/25/18 15:16 Prozac PO 20 mg DAILY JUNAID Administration Fluticasone Propionate 0 gm 09/14/18 09:00 09/25/18 15:14 Flonase Nasal [place] NASAL 1 spr DAILY JUNAID Administration Gabapentin 300 mg 09/24/18 21:00 09/25/18 15:15 Neurontin PO 300 mg BID JUNAID Administration Guaifenesin 600 mg 09/21/18 21:00 09/25/18 15:16 Mucinex PO 600 mg Q12HR JUNAID Administration Hydralazine HCl 10 mg 09/07/18 10:54 09/08/18 14:08 Apresoline SLOW IVP 10 mg Q6H PRN Administration SBP Greater Than 170 Meropenem 2 gm/ Miscellaneous 100 mls @ 0 mls/hr 09/23/18 08:00 09/25/18 17: 44 Medication 1 each/ Sodium IVPB 100 mls Chloride 0000,0800,1600 JUNAID Administration Pantoprazole Sodium 80 mg/ 100 mls @ 10 mls/hr 09/24/18 11:45 09/24/18 23:27 Miscellaneous Medication 1 IVP 100 mls each/ Sodium Chloride INF JUNAID Administration Dextrose/Sodium Chloride 1,000 mls @ 30 mls/hr 09/24/18 12:00 09/25/18 15:22 D5 1/2 Ns IV 1,000 mls .Q24H JUNAID Administration Labetalol HCl 10 mg 09/08/18 17:44 09/08/18 18:01 Normodyne SLOW IVP 10 mg Q6H PRN Administration SBP Greater Than 180 Melatonin 6 mg 09/20/18 21:00 09/24/18 23:07 Melatonin PO 6 mg HS JUNAID Administration Metoprolol Tartrate 25 mg 09/24/18 15:00 09/25/18 15:22 Lopressor PO 25 mg TID JUNAID Administration Mometasone Furoate 1 puff 09/20/18 18:30 09/25/18 00:33 Asmanex [place] INH Not Given 1830 JUNAID Ondansetron HCl 4 mg 09/03/18 01:25 09/24/18 09:54 Zofran IVP 4 mg Q6H PRN Administration Nausea/Vomiting Sodium Chloride 10 ml 09/03/18 09:00 09/25/18 15:16 Flush - Normal Saline IVF Not Given Q12HR JUNAID Tamsulosin HCl 0.4 mg 09/12/18 09:00 09/25/18 15:16 Flomax PO 0.4 mg DAILY JUNAID Administration Trazodone HCl 50 mg 09/20/18 21:00 09/24/18 23:09 Desyrel PO 50 mg HS JUNAID Administration - Exam NAD Eye: anicteric sclera ENT: normocephalic atraumatic Neck: supple Heart: RRR Respiratory: CTAB Gastrointestinal: soft Psychiatric: normal affect Hosp A/P (1) Upper GI bleed Code(s): K92.2 - GASTROINTESTINAL HEMORRHAGE, UNSPECIFIED Status: Acute (2) Aspiration pneumonia Code(s): J69.0 - PNEUMONITIS DUE TO INHALATION OF FOOD AND VOMIT Status: Acute (3) BPH (benign prostatic hyperplasia) Code(s): N40.0 - BENIGN PROSTATIC HYPERPLASIA WITHOUT LOWER URINRY TRACT SYMP Status: Chronic (4) CAD (coronary artery disease) Code(s): I25.10 - ATHSCL HEART DISEASE OF [place] CORONARY ARTERY W/O ANG PCTRS Status: Chronic (5) Hyponatremia Code(s): E87.1 - HYPO-OSMOLALITY AND HYPONATREMIA Status: Resolved (6) Acute respiratory failure Code(s): J96.00 - ACUTE RESPIRATORY FAILURE, UNSP W HYPOXIA OR HYPERCAPNIA Status: Resolved Qualifiers: Respiratory failure complication: hypoxia Qualified Code(s): J96.01 - Acute respiratory failure with hypoxia (7) Vomiting Code(s): R11.10 - VOMITING, UNSPECIFIED Status: Resolved - Plan For EGD today. Continue IV meropenem. Transfuse PRN. Hyponatremia mild, likely asymptomatic.
[2018-09-25 18:35] LABS: Hemoglobin 7.4 g/dL (14.0-18.0); Mean Corpuscular HGB CONC 33.8 g/dL (32.0-36.0); Mean Corpuscular Hemoglobin 31.3 pg (27.0-31.0); Mean Corpuscular Volume 92.6 fL (78.0-98.0); Platelet Count 314 thou/uL (130-400); RBC Distribution Width 18.5 % (11.5-14.5); Red Blood Cell (RBC) Count 2.38 mill/uL (4.70-6.10)
[2018-09-25 19:04] LABS: Anisocytosis SLIGHT = 6-15 cells (100X) (0-5/hpf); Band 15 % (5-11); Lymphocytes 6 % (21-51); MDiff Complete? YES; Monocytes 6 % (0-10); Neutrophil 72 % (42-75); Nucleated RBC 1 % (0); Ovalocytes SLIGHT = 2-5 cells (100X) (0-1/hpf); Platelet Morphology Comment Appears Adequate; Polychromasia MODERATE = 3-4 cells (100X) (0-2/hpf); Reactive Lymphocytes 1 % (0-10); Tear Drops SLIGHT = 2-5 cells (100X) (0-1/hpf); White Blood Cell (WBC) Count 23.5 thou/uL (4.8-10.8)
[2018-09-25] MEDS: Pantoprazole 80 MG, Admixture Fee 1 EACH in Sodium Chloride 0.9% 100 ML IVP SCH (21:22)
[2018-09-25] MEDS: traZODone HCl 50 MG TAB PO SCH (21:35)
[2018-09-25] MEDS: Atorvastatin Calcium 10 MG TAB PO SCH (21:35)
[2018-09-25] MEDS: Melatonin 3 MG TAB PO SCH (21:35)
[2018-09-26] MEDS: Acetaminophen 325 MG TAB PO PRN ×3 (00:15→20:22)
[2018-09-26] MEDS: Meropenem 2 GM, Admixture Fee 1 EACH in Sodium Chloride 0.9% 100 ML IVPB SCH ×4 (00:17→23:12)
[2018-09-26] MEDS ORDERED: Gabapentin 300 MG CAP PO SCH (01:00)
[2018-09-26 07:10] LABS: Hemoglobin 7.8 g/dL (14.0-18.0); Mean Corpuscular HGB CONC 34.1 g/dL (32.0-36.0); Mean Corpuscular Hemoglobin 30.6 pg (27.0-31.0); Mean Corpuscular Volume 89.7 fL (78.0-98.0); Mean Platelet Volume 7.3 fL (7.4-10.4); Platelet Count 262 thou/uL (130-400); Red Blood Cell (RBC) Count 2.54 mill/uL (4.70-6.10); White Blood Cell (WBC) Count 17.5 thou/uL (4.8-10.8)
[2018-09-26 07:24] LABS: Anisocytosis MODERATE=16-30 cells (100X) (0-5/hpf); Band 3 % (5-11); Lymphocytes 10 % (21-51); MDiff Complete? YES; Monocytes 7 % (0-10); Neutrophil 80 % (42-75); Platelet Morphology Comment Appears Adequate; Polychromasia MODERATE = 3-4 cells (100X) (0-2/hpf)
[2018-09-26] MEDS: guaiFENesin ER 600 MG TAB PO SCH ×2 (08:48→20:21)
[2018-09-26] MEDS: Gabapentin 300 MG CAP PO SCH ×2 (08:48→20:21)
[2018-09-26] MEDS: FLUoxetine HCl 20 MG CAP PO SCH (08:48)
[2018-09-26] MEDS: Fluticasone Propionate Nasal Spray 16 gm Bottle NASAL SCH (08:49)
[2018-09-26] MEDS: Metoprolol Tartrate 25 MG TAB PO SCH ×3 (08:49→20:21)
[2018-09-26] MEDS: Tamsulosin HCl 0.4 MG CAP PO SCH (08:49)
[2018-09-26] MEDS: Pantoprazole 80 MG, Admixture Fee 1 EACH in Sodium Chloride 0.9% 100 ML IVP SCH ×2 (08:50→23:11)
[2018-09-26] MEDS ORDERED: Loratadine 10 MG TAB PO SCH (09:00)
--- NOTE | 2018-09-26 10:06 | PDOC.HOSPP ---
- Subjective Subjective: 63 y/o male with CAD, PUD, HTN and others admitted with acute quadriparesis. Recieved IVIG for GBS with improvement. Was intubated for respiratory failure and has improved and currently off oxygen. Developed GI bleeding and was found to have bleeding vessel in the stomach on EGD. S/p PRBC transfusion. Still with weakness and unable to ambulate. Repeat EGD is planned today. - Objective Vital Signs & Weight: Vital Signs (12 hours) Temp Pulse Pulse Resp BP BP Pulse Ox 09/26/18 08:02 98.6 F 119 H 20 103/62 95 09/26/18 07:52 116 H 16 100 09/26/18 01:30 97.8 F 98 18 112/71 09/26/18 00:35 99 18 99 09/25/18 22:18 98.6 F 96 18 105/67 Weight Admit Weight 190 lb 8 oz Weight 178 lb 3.2 oz Most Recent Monitor Data Heart Rate from ECG 98 NIBP 87/70 NIBP BP-Mean 75 Respiration from ECG 17 SpO2 97 I&O: 09/25/18 09/26/18 09/27/18 06:59 06:59 06:59 Intake Total 2180 1150 Balance 2180 1150 Result Diagrams: 09/26/18 06:11 09/25/18 04:27 Additional Labs: Accuchecks 09/25/18 20:16 POC Glucose 117 H ROS - Review of Systems All systems: All other ROS were reviewed and found negative. - Medication Medications: Active Medications Generic Name Dose Route Start Last Admin Trade Name Freq PRN Reason Stop Dose Admin Acetaminophen 650 mg 09/03/18 01:25 09/26/18 00:15 Tylenol PO 650 mg Q4H PRN Administration Headache/Fever/Mild Pain (1-3) Albuterol/Ipratropium 3 ml 09/03/18 07:00 09/26/18 07:52 Duoneb NEB 3 ml [id number] JUNAID Administration Aspirin 81 mg 09/03/18 09:00 09/24/18 09:39 Aspirin Chewable PO Not Given DAILY JUNAID Atorvastatin Calcium 20 mg 09/20/18 21:00 09/24/18 23:08 Lipitor PO 20 mg Q2DAYS@2100 JUNAID Administration Atorvastatin Calcium 10 mg 09/21/18 21:00 09/25/18 21:35 Lipitor PO 10 mg Q2DAYS@2100 JUNAID Administration Bisacodyl 10 mg 09/03/18 01:25 09/07/18 11:27 Dulcolax [place] 10 mg DAILYPRN PRN Administration Constipation Clopidogrel Bisulfate 75 mg 09/21/18 09:00 09/24/18 09:30 Plavix PO Not Given DAILY JUNAID Fluoxetine HCl 20 mg 09/21/18 09:00 09/26/18 08:48 Prozac PO 20 mg DAILY JUNAID Administration Fluticasone Propionate 0 gm 09/14/18 09:00 09/26/18 08:49 Flonase Nasal [place] NASAL 1 spr DAILY JUNAID Administration Gabapentin 300 mg 09/24/18 21:00 09/26/18 08:48 Neurontin PO 300 mg BID JUNAID Administration Guaifenesin 600 mg 09/21/18 21:00 09/26/18 08:48 Mucinex PO 600 mg Q12HR JUNAID Administration Hydralazine HCl 10 mg 09/07/18 10:54 09/08/18 14:08 Apresoline SLOW IVP 10 mg Q6H PRN Administration SBP Greater Than 170 Meropenem 2 gm/ Miscellaneous 100 mls @ 0 mls/hr 09/23/18 08:00 09/26/18 08: 47 Medication 1 each/ Sodium IVPB 100 mls Chloride 0000,0800,1600 JUNAID Administration Pantoprazole Sodium 80 mg/ 100 mls @ 10 mls/hr 09/24/18 11:45 09/26/18 08:50 Miscellaneous Medication 1 IVP 100 mls each/ Sodium Chloride INF JUNAID Administration Labetalol HCl 10 mg 09/08/18 17:44 09/08/18 18:01 Normodyne SLOW IVP 10 mg Q6H PRN Administration SBP Greater Than 180 Melatonin 6 mg 09/20/18 21:00 09/25/18 21:35 Melatonin PO 6 mg HS JUNAID Administration Metoprolol Tartrate 25 mg 09/24/18 15:00 09/26/18 08:49 Lopressor PO 25 mg TID JUNAID Administration Mometasone Furoate 1 puff 09/20/18 18:30 09/25/18 20:18 Asmanex [place] INH 1 puff 1830 JUNAID Administration Ondansetron HCl 4 mg 09/03/18 01:25 09/24/18 09:54 Zofran IVP 4 mg Q6H PRN Administration Nausea/Vomiting Sodium Chloride 10 ml 09/03/18 09:00 09/26/18 08:49 Flush - Normal Saline IVF 10 ml Q12HR JUNAID Administration Tamsulosin HCl 0.4 mg 09/12/18 09:00 09/26/18 08:49 Flomax PO 0.4 mg DAILY JUNAID Administration Trazodone HCl 50 mg 09/20/18 21:00 09/25/18 21:35 Desyrel PO 50 mg HS JUNAID Administration - Exam awake alert Eye: anicteric sclera ENT: normocephalic atraumatic Heart: RRR (Tachycardic) Respiratory: no wheezes, no ronchi ([place] air entry bilaterally with some transmitted sound) Gastrointestinal: soft, non-distended, normal bowel sounds Extremities: no cyanosis, no edema Neurological: CN's grossly intact (Moving all limbs but weakly) Hosp A/P (1) GI (gastrointestinal hemorrhage) Code(s): K92.2 - GASTROINTESTINAL HEMORRHAGE, UNSPECIFIED Status: Acute (2) Acute blood loss anemia Code(s): D62 - ACUTE POSTHEMORRHAGIC ANEMIA Status: Acute (3) 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 - GUILLAIN-BARRE SYNDROME Status: Acute (4) Acute respiratory failure Code(s): J96.00 - ACUTE RESPIRATORY FAILURE, UNSP W HYPOXIA OR HYPERCAPNIA Status: Resolved Qualifiers: Respiratory failure complication: hypoxia Qualified Code(s): J96.01 - Acute respiratory failure with hypoxia (5) KENNY (acute kidney injury) Code(s): N17.9 - ACUTE KIDNEY FAILURE, UNSPECIFIED Status: Acute (6) Acute anemia Code(s): D64.9 - ANEMIA, UNSPECIFIED Status: Acute (7) PUD (peptic ulcer disease) Code(s): K27.9 - PEPTIC ULC, SITE UNSP, UNSP AC OR CHR, W/O HEMOR OR PERF Status: Acute (8) Ileus Code(s): K56.7 - ILEUS, UNSPECIFIED Status: Acute (9) Aspiration pneumonia Code(s): J69.0 - PNEUMONITIS DUE TO INHALATION OF FOOD AND VOMIT Status: Acute (10) CHF (congestive heart failure) Code(s): I50.9 - HEART FAILURE, UNSPECIFIED Status: Acute Qualifiers: Heart failure type: diastolic (11) Hyponatremia Code(s): E87.1 - HYPO-OSMOLALITY AND HYPONATREMIA Status: Acute (12) Quadriplegia Code(s): G82.50 - QUADRIPLEGIA, UNSPECIFIED Status: Acute (13) UTI (urinary tract infection) Status: Acute (14) BPH (benign prostatic hyperplasia) Code(s): N40.0 - BENIGN PROSTATIC HYPERPLASIA WITHOUT LOWER URINRY TRACT SYMP Status: Chronic (15) CAD (coronary artery disease) Code(s): I25.10 - ATHSCL HEART DISEASE OF [place] CORONARY ARTERY W/O ANG PCTRS Status: Chronic - Plan Continue PPI infusion. DC hypotonic solution as serum sodium is low. Continue IV antibiotics and other treatments. For Repeat EGD today. Monitor H/H and transfuse as needed. PT/OT to continue.
[2018-09-26] MEDS ORDERED: Ketamine 50 MG/ML (10ML VIAL) ONE (14:09)
[2018-09-26] MEDS ORDERED: Ondansetron HCl/PF 4 MG/2 ML Vial IVP PRN (14:44)
[2018-09-26] MEDS ORDERED: Promethazine HCl 25 MG/ML VIAL SLOW IVP PRN (14:44)
[2018-09-26] MEDS ORDERED: Promethazine HCl 25 MG/ML VIAL IM PRN (14:44)
--- NOTE | 2018-09-26 15:46 | PRG ---
DATE OF SERVICE: 09/26/2018 SERVICE: Pulmonary Medicine. INTERVAL HISTORY: The patient is doing outstanding from respiratory standpoint. He is breathing comfortably. He looks much less toxic today, and his face has a better color to it. Bleeding lesion was identified. He may need to be going back down for a repeat EGD at some point today or tomorrow. Otherwise, there has been no change to his condition. His hemoglobins have stabilized to touch overnight. LABORATORY DATA: Hemoglobin 7.8, down from 8.0. WBC 17.5 and downtrending. Neutrophils are 80%, band count has improved to 3%. Glucose 117. ASSESSMENT: 1. Acute hypoxic respiratory failure, resolving. 2. Community-acquired pneumonia secondary to methicillin-resistant Staphylococcus aureus, status post full course of antibiotic. 3. Guillain-Somers syndrome, resolved. 4. Ileus, resolved. 5. Chronic obstructive pulmonary disease, status post treatment for exacerbation. 6. Acute blood loss anemia. 7. Visible vessel bleeding in the proximal stomach with oozing, status post epinephrine injection and hemoclip placement. 8. Urinary tract infection secondary to multi-drug resistant Escherichia coli. DISCUSSION AND PLAN: The patient is doing fine from a respiratory standpoint. I will continue to follow, intermittently while the patient remains inhouse. Once his bleeding issues resolve, he will be stable for transition out of the hospital. Please call with additional questions or concerns through time. Job ID: [id number]
--- NOTE | 2018-09-26 17:16 | OP ---
DATE OF PROCEDURE: 09/26/2018 INDICATION FOR PROCEDURE: Upper gastrointestinal bleeding. PROCEDURE PERFORMED: Esophagogastroduodenoscopy (diagnostic). DESCRIPTION OF PROCEDURE: After the risks and benefits of the procedure were explained to the patient and the patient's surrogate including risks of bleeding, infection, perforation, reactions to anesthesia, aspiration and/or pain, informed consent was obtained. The patient was then taken to the endoscopy suite, where sedation was administered via ketamine and anesthesia support. Once adequate sedation was achieved, the standard gastroscope was introduced into the mouth and with intubation of the esophagus and stomach with the findings listed below. The duodenum was not adequately visualized during this examination due to increased risk of dislodging the hemoclip that was placed yesterday. The patient tolerated the procedure well with no immediate perioperative complications. Upon conclusion of the procedure, all equipment was removed from the patient, and he was transferred to PACU in satisfactory condition. FINDINGS: Esophagus: Normal-appearing mucosa was seen in the proximal, mid, and distal esophagus. There was no evidence of erosions, ulcerations, mass, lesions, or active/recent bleeding. The diaphragmatic pinch was seen at approximately 43 cm past the incisors while the GE junction was well seen at 40 cm past the incisors indicating a 3 cm hiatal hernia. Stomach: Mild mucosal erythema was seen in the gastric cardia, fundus, body, and along the greater curvature without any associated abnormalities. Normal-appearing mucosa was seen in the gastric antrum and along the incisura; however, a 3 to 4 mm ulceration was seen in the proximal stomach located immediately adjacent to the gastroesophageal junction and along the lesser curvature. This ulceration was clean based and did not exhibit any high-risk stigmata of active or recent bleeding. A hemoclip was seen also placed across this ulceration consistent with the upper endoscopy performed yesterday without any evidence of active/recent bleeding from this region as well. Other than that described ulceration, there was no additional areas of other pathology and there was no evidence of blood within the stomach itself. Duodenum: The duodenum was not visualized during this examination due to increased risk of dislodging the hemoclip with advancing the scope into the duodenum. IMPRESSION: 1. A 3 to 4 mm ulceration was seen in the proximal stomach without any high-risk stigmata of recent bleeding with a hemoclip placed across the center of it with good hemostasis achieved. 2. Mild mucosal erythema seen in the proximal stomach as well. 3. A 3 cm hiatal hernia. RECOMMENDATIONS: 1. Would continue to trend H and H and transfuse as necessary to maintain an H and H of 09/15. 2. Continue to monitor clinically for signs of active GI bleeding. 3. Would refrain from any anticoagulation in light of recent GI bleed. 4. Would continue PPI drip for the next 24 hours and then transfer the patient to pantoprazole 40 mg b.i.d. 5. We will place the patient on a clear liquid diet and potentially advance diet as tolerated tomorrow. We will continue to follow. Please call with any questions. Job ID: [id number]
[2018-09-26] MEDS: Mometasone Furoate 120 PUFF 220 MCG INH SCH (18:53)
[2018-09-26] MEDS: Atorvastatin Calcium 20 MG TAB PO SCH (20:22)
[2018-09-26] MEDS: traZODone HCl 50 MG TAB PO SCH (20:22)
[2018-09-26] MEDS: Melatonin 3 MG TAB PO SCH (20:22)
[2018-09-27 06:27] LABS: ALT (SGPT) 9 U/L (8-55); AST (SGOT) 21 U/L (5-34); Albumin 2.4 g/dL (3.4-4.8); Alkaline Phosphatase 45 U/L (40-150); Anion Gap 9 mmol/L (10-20); BUN (Urea Nitrogen) 16 mg/dL (8.4-25.7); Bilirubin, Total 0.6 mg/dL (0.2-1.2); Calc. Creatinine Clearance 113 mL/min (70-130); Carbon Dioxide 28 mmol/L (23-31); Chloride 101 mmol/L (98-107); Estimated GFR-MDRD Greater than 90; Globulin 2.9 g/dL (2.4-3.5); Glucose 103 mg/dL (80-115); Potassium 3.7 mmol/L (3.5-5.1); Protein, Total 5.3 g/dL (5.8-8.1); Sodium 134 mmol/L (136-145)
[2018-09-27 07:40] LABS: #Eosinphils 0.1 thou/uL (0.0-0.7); #Lymphocytes 1.7 thou/uL (1.20-3.40); #Monocytes 1.1 thou/uL (0.11-0.59); #Neutrophils 13.6 thou/uL (1.40-6.50); %Basophils 0.1 % (0.0-1.0); %Eosinophils 0.8 % (0.0-10.0); %Lymphocytes 10.2 % (21.0-51.0); %Monocytes 6.9 % (0.0-10.0); %Neutrophils 82.1 % (42.0-75.0); Anisocytosis SLIGHT = 6-15 cells (100X) (0-5/hpf); Elliptocytes SLIGHT = 2-5 cells (100X) (0-1/hpf); Hemoglobin 7.2 g/dL (14.0-18.0); MDiff Complete? YES; Mean Corpuscular HGB CONC 33.8 g/dL (32.0-36.0); Mean Corpuscular Hemoglobin 31.2 pg (27.0-31.0); Mean Corpuscular Volume 92.2 fL (78.0-98.0); Platelet Count 249 thou/uL (130-400); Platelet Morphology Comment Appears Adequate; Polychromasia MODERATE = 3-4 cells (100X) (0-2/hpf); RBC Distribution Width 20.7 % (11.5-14.5); Red Blood Cell (RBC) Count 2.32 mill/uL (4.70-6.10); Stomatocytes SLIGHT = 2-5 cells (100X) (0-1/hpf); Tear Drops SLIGHT = 2-5 cells (100X) (0-1/hpf); White Blood Cell (WBC) Count 16.5 thou/uL (4.8-10.8)
[2018-09-27] MEDS: Acetaminophen 325 MG TAB PO PRN ×3 (08:51→18:25)
[2018-09-27] MEDS: Metoprolol Tartrate 25 MG TAB PO SCH ×3 (08:53→20:58)
[2018-09-27] MEDS: Meropenem 2 GM, Admixture Fee 1 EACH in Sodium Chloride 0.9% 100 ML IVPB SCH ×3 (08:53→23:20)
[2018-09-27] MEDS: Fluticasone Propionate Nasal Spray 16 gm Bottle NASAL SCH (08:54)
[2018-09-27] MEDS: Tamsulosin HCl 0.4 MG CAP PO SCH (08:54)
[2018-09-27] MEDS: guaiFENesin ER 600 MG TAB PO SCH ×2 (08:54→20:57)
[2018-09-27] MEDS: FLUoxetine HCl 20 MG CAP PO SCH (08:54)
[2018-09-27] MEDS: Gabapentin 300 MG CAP PO SCH ×2 (08:54→20:57)
--- NOTE | 2018-09-27 11:04 | PDOC.HOSPP ---
- Subjective Subjective: 63 y/o male with CAD, PUD, HTN and others admitted with acute quadriparesis. Recieved IVIG for GBS with improvement. Was intubated for respiratory failure and has improved and currently off oxygen. Developed GI bleeding and was found to have bleeding vessel in the stomach on EGD. S/p 3 PRBC transfusion. Still with weakness and unable to ambulate. Repeat EGD om 09/26/2018 showed gastric ulcere but with no bleeding. Refusing clear liquids. - Objective Vital Signs & Weight: Vital Signs (12 hours) Temp Pulse Resp BP BP Pulse Ox 09/27/18 08:00 99.2 F 113 H 16 103/66 93 L 09/27/18 07:04 97 09/27/18 07:02 111 H 16 97 09/27/18 04:14 98.8 F 100 22 H 109/68 96 09/27/18 00:49 103 H 18 96 09/27/18 00:24 99.3 F 102 H 16 94/57 L 96 Weight Admit Weight 190 lb 8 oz Weight 186 lb Most Recent Monitor Data Heart Rate from ECG 98 NIBP 87/70 NIBP BP-Mean 75 Respiration from ECG 17 SpO2 97 I&O: 09/26/18 09/27/18 09/28/18 06:59 06:59 06:59 Intake Total 1150 900 Balance 1150 900 Result Diagrams: 09/27/18 05:37 09/27/18 05:37 ROS - Review of Systems All systems: All other ROS were reviewed and found negative. - Medication Medications: Active Medications Generic Name Dose Route Start Last Admin Trade Name Freq PRN Reason Stop Dose Admin Acetaminophen 650 mg 09/03/18 01:25 09/27/18 08:51 Tylenol PO 650 mg Q4H PRN Administration Headache/Fever/Mild Pain (1-3) Albuterol/Ipratropium 3 ml 09/03/18 07:00 09/27/18 07:02 Duoneb NEB 3 ml [id number] JUNAID Administration Atorvastatin Calcium 20 mg 09/20/18 21:00 09/26/18 20:22 Lipitor PO 20 mg Q2DAYS@2100 JUNAID Administration Atorvastatin Calcium 10 mg 09/21/18 21:00 09/25/18 21:35 Lipitor PO 10 mg Q2DAYS@2100 JUNAID Administration Bisacodyl 10 mg 09/03/18 01:25 09/07/18 11:27 Dulcolax [place] 10 mg DAILYPRN PRN Administration Constipation Fluoxetine HCl 20 mg 09/21/18 09:00 09/27/18 08:54 Prozac PO 20 mg DAILY JUNAID Administration Fluticasone Propionate 0 gm 09/14/18 09:00 09/27/18 08:54 Flonase Nasal [place] NASAL 1 spr DAILY JUNAID Administration Gabapentin 300 mg 09/24/18 21:00 09/27/18 08:54 Neurontin PO 300 mg BID JUNAID Administration Guaifenesin 600 mg 09/21/18 21:00 09/27/18 08:54 Mucinex PO 600 mg Q12HR JUNAID Administration Hydralazine HCl 10 mg 09/07/18 10:54 09/08/18 14:08 Apresoline SLOW IVP 10 mg Q6H PRN Administration SBP Greater Than 170 Meropenem 2 gm/ Miscellaneous 100 mls @ 0 mls/hr 09/23/18 08:00 09/27/18 08: 53 Medication 1 each/ Sodium IVPB 100 mls Chloride 0000,0800,1600 JUNAID Administration Pantoprazole Sodium 80 mg/ 100 mls @ 10 mls/hr 09/24/18 11:45 09/26/18 23:11 Miscellaneous Medication 1 IVP 100 mls each/ Sodium Chloride INF JUNAID Administration Labetalol HCl 10 mg 09/08/18 17:44 09/08/18 18:01 Normodyne SLOW IVP 10 mg Q6H PRN Administration SBP Greater Than 180 Melatonin 6 mg 09/20/18 21:00 09/26/18 20:22 Melatonin PO 6 mg HS JUNAID Administration Metoprolol Tartrate 25 mg 09/24/18 15:00 09/27/18 08:53 Lopressor PO 25 mg TID JUNAID Administration Mometasone Furoate 1 puff 09/20/18 18:30 09/26/18 18:53 Asmanex Twisthaler INH 1 puff 1830 JUNAID Administration Ondansetron HCl 4 mg 09/03/18 01:25 09/24/18 09:54 Zofran IVP 4 mg Q6H PRN Administration Nausea/Vomiting Sodium Chloride 10 ml 09/03/18 09:00 09/27/18 08:55 Flush - Normal Saline IVF 10 ml Q12HR JUNAID Administration Tamsulosin HCl 0.4 mg 09/12/18 09:00 09/27/18 08:54 Flomax PO 0.4 mg DAILY JUNAID Administration Trazodone HCl 50 mg 09/20/18 21:00 09/26/18 20:22 Desyrel PO 50 mg HS JUNAID Administration - Exam awake alert Eye: anicteric sclera ENT: normocephalic atraumatic Neck: supple, symmetric Heart: RRR Respiratory: no rales, no ronchi (Fair air entry with transmitted sounds) Gastrointestinal: soft, non-tender, non-distended, normal bowel sounds Extremities: no cyanosis Neurological: CN's grossly intact (Moving all limbs but weakly) Psychiatric: A&O x 3 Hosp A/P (1) Acute blood loss anemia Code(s): D62 - ACUTE POSTHEMORRHAGIC ANEMIA Status: Acute (2) GI (gastrointestinal hemorrhage) Code(s): K92.2 - GASTROINTESTINAL HEMORRHAGE, UNSPECIFIED Status: Acute (3) 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 - GUILLAIN-BARRE SYNDROME Status: Acute (4) Acute respiratory failure Code(s): J96.00 - ACUTE RESPIRATORY FAILURE, UNSP W HYPOXIA OR HYPERCAPNIA Status: Resolved Qualifiers: Respiratory failure complication: hypoxia Qualified Code(s): J96.01 - Acute respiratory failure with hypoxia (5) KENNY (acute kidney injury) Code(s): N17.9 - ACUTE KIDNEY FAILURE, UNSPECIFIED Status: Acute (6) Acute anemia Code(s): D64.9 - ANEMIA, UNSPECIFIED Status: Acute (7) PUD (peptic ulcer disease) Code(s): K27.9 - PEPTIC ULC, SITE UNSP, UNSP AC OR CHR, W/O HEMOR OR PERF Status: Acute (8) Ileus Code(s): K56.7 - ILEUS, UNSPECIFIED Status: Acute (9) Aspiration pneumonia Code(s): J69.0 - PNEUMONITIS DUE TO INHALATION OF FOOD AND VOMIT Status: Acute (10) CHF (congestive heart failure) Code(s): I50.9 - HEART FAILURE, UNSPECIFIED Status: Acute Qualifiers: Heart failure type: diastolic (11) Hyponatremia Code(s): E87.1 - HYPO-OSMOLALITY AND HYPONATREMIA Status: Acute (12) Quadriplegia Code(s): G82.50 - QUADRIPLEGIA, UNSPECIFIED Status: Acute (13) UTI (urinary tract infection) Status: Acute (14) BPH (benign prostatic hyperplasia) Code(s): N40.0 - BENIGN PROSTATIC HYPERPLASIA WITHOUT LOWER URINRY TRACT SYMP Status: Chronic (15) CAD (coronary artery disease) Code(s): I25.10 - ATHSCL HEART DISEASE OF [place] CORONARY ARTERY W/O ANG PCTRS Status: Chronic - Plan Transfuse 1 more unit of PRBC as HB dropped to 7.2 from 7.8. We will continue to monitor H/H. Start oral supplementa. Diet advancement as Per GI,. Continue PPI Continue meropenem for ESBL E coli UTI PT/OT to continue.
[2018-09-27 14:12] VITALS: BMI 29.9
--- NOTE | 2018-09-27 16:08 | PRG ---
DATE OF SERVICE: 09/27/2018 SERVICE: Pulmonary Medicine. INTERVAL HISTORY: The patient is doing fine from respiratory standpoint. Breathing comfortably. He slept well last night. He went down for a repeat EGD yesterday evening. There are no stigmata of high risk rebleed. Good hemostasis was verified. Otherwise, there were no significant events that occurred. PHYSICAL EXAMINATION: VITAL SIGNS: Afebrile with a T-max of 99.2. Pulse 91, blood pressure 86/53, respirations 16, and saturation 96% on 2 L nasal cannula. GENERAL: The patient is awake and alert, in no apparent distress. LUNGS: Very good air entry. No prolonged expiratory phase or wheezing is appreciated. HEART: Normal rate and regular. ABDOMEN: Soft, nontender, and nondistended. Bowel sounds are positive. MUSCULOSKELETAL: No cyanosis or clubbing. No pitting in the bilateral lower extremities. NEUROLOGIC: Grossly nonfocal. LABORATORY DATA: Hemoglobin is trending down to 7.2, white blood cells 16.5 and improving, platelets 249,000. Sodium 134, basic metabolic profile and liver function studies are otherwise unremarkable. ASSESSMENT: 1. Acute hypoxic respiratory failure, resolving. 2. Community-acquired pneumonia secondary methicillin-resistant Staphylococcus aureus, status post full course of antibiotic. 3. Guillain-[place] syndrome, improving. 4. Ileus, resolved. 5. Chronic obstructive pulmonary disease, status post treatment for acute exacerbation. 6. Acute blood loss anemia. 7. Peptic ulcer disease, status post endoscopy with epinephrine injection and hemoclip placement. 8. Urinary tract infection secondary to multidrug resistant Escherichia coli. DISCUSSION AND PLAN: The patient is doing fine from respiratory standpoint. At this point, he has no further requirements for inpatient Pulmonary/Critical Care opinion, and I will follow intermittently through time. If he has a setback through the weekend, please give me a phone call. His BUN has improved dramatically. As such, my suspicion is that his GI bleed has resolved. His hemoglobin continues to trickle down, but that is likely associated with volume adjustments. Job ID: [id number]
--- NOTE | 2018-09-27 17:16 | PRG ---
DATE OF SERVICE: 09/27/2018 SUBJECTIVE: Mr. Page had no bowel movement today. He has no abdominal pain or other acute complaints. OBJECTIVE: VITAL SIGNS: Temperature 98.0, pulse 95, blood pressure 95/56. GENERAL: He is in no acute distress. LUNGS: Clear to auscultation bilaterally. HEART: Regular rate and rhythm. ABDOMEN: Soft, nontender, nondistended. Bowel sounds are present. EXTREMITIES: No lower extremity edema. LABORATORY DATA: Hemoglobin is 7.2. He received 1 unit transfusion last night and 1 unit transfusion this afternoon. 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 Chan. Followup endoscopy yesterday by Dr. Cobb showed no ongoing active bleeding. RECOMMENDATIONS: 1. Continue pantoprazole 40 mg orally twice daily. 2. Advance to solid diet. 3. Continue to follow the trend of the hemoglobin and transfuse as necessary. 4. Dr. Cobb will cover the weekend. Job ID: [id number]
[2018-09-27 18:01] LABS: Hemoglobin 8.4 g/dL (14.0-18.0)
[2018-09-27] MEDS: Mometasone Furoate 120 PUFF 220 MCG INH SCH (18:32)
[2018-09-27] MEDS: Melatonin 3 MG TAB PO SCH (20:57)
[2018-09-27] MEDS: Atorvastatin Calcium 10 MG TAB PO SCH (20:57)
[2018-09-27] MEDS: traZODone HCl 50 MG TAB PO SCH (20:57)
[2018-09-28] MEDS: Acetaminophen 325 MG TAB PO PRN ×3 (02:41→20:14)
[2018-09-28 05:43] LABS: Hemoglobin 8.2 g/dL (14.0-18.0)
[2018-09-28] MEDS: FLUoxetine HCl 20 MG CAP PO SCH (07:54)
[2018-09-28] MEDS: Metoprolol Tartrate 25 MG TAB PO SCH ×3 (07:55→20:14)
[2018-09-28] MEDS: guaiFENesin ER 600 MG TAB PO SCH ×2 (07:55→20:14)
[2018-09-28] MEDS: Meropenem 2 GM, Admixture Fee 1 EACH in Sodium Chloride 0.9% 100 ML IVPB SCH ×3 (07:55→23:52)
[2018-09-28] MEDS: Gabapentin 300 MG CAP PO SCH ×2 (07:55→20:14)
[2018-09-28] MEDS: Tamsulosin HCl 0.4 MG CAP PO SCH (07:55)
[2018-09-28] MEDS: Fluticasone Propionate Nasal Spray 16 gm Bottle NASAL SCH (07:56)
--- NOTE | 2018-09-28 12:54 | PDOC.HOSPP ---
- Subjective Subjective: Patient seen and examined, no new issues. - Objective Vital Signs & Weight: Vital Signs (12 hours) Temp Pulse Resp BP Pulse Ox 09/28/18 11:54 99.1 F 93 20 89/57 L 94 L 09/28/18 08:05 94 L 09/28/18 08:03 114 H 26 H 09/28/18 07:56 99.8 F H 108 H 18 122/79 100 09/28/18 05:50 98.4 F 104 H 18 125/77 97 Weight Admit Weight 190 lb 8 oz Weight 189 lb 3.2 oz Most Recent Monitor Data Heart Rate from ECG 98 NIBP 87/70 NIBP BP-Mean 75 Respiration from ECG 17 SpO2 97 I&O: 09/27/18 09/28/18 09/29/18 06:59 06:59 06:59 Intake Total 900 2490 Balance 900 2490 Result Diagrams: 09/28/18 04:47 09/27/18 05:37 ROS - Review of Systems All systems: All other ROS were reviewed and found negative. - Medication Medications: Active Medications Generic Name Dose Route Start Last Admin Trade Name Freq PRN Reason Stop Dose Admin Acetaminophen 650 mg 09/03/18 01:25 09/28/18 07:59 Tylenol PO 650 mg Q4H PRN Administration Headache/Fever/Mild Pain (1-3) Albuterol/Ipratropium 3 ml 09/03/18 07:00 09/28/18 08:03 Duoneb NEB 3 ml [id number] JUNAID Administration Atorvastatin Calcium 20 mg 09/20/18 21:00 09/26/18 20:22 Lipitor PO 20 mg Q2DAYS@2100 JUNAID Administration Atorvastatin Calcium 10 mg 09/21/18 21:00 09/27/18 20:57 Lipitor PO 10 mg Q2DAYS@2100 JUNAID Administration Bisacodyl 10 mg 09/03/18 01:25 09/07/18 11:27 Dulcolax [place] 10 mg DAILYPRN PRN Administration Constipation Fluoxetine HCl 20 mg 09/21/18 09:00 09/28/18 07:54 Prozac PO 20 mg DAILY JUNAID Administration Fluticasone Propionate 0 gm 09/14/18 09:00 09/28/18 07:56 Flonase Nasal [place] NASAL 1 spr DAILY JUNAID Administration Gabapentin 300 mg 09/24/18 21:00 09/28/18 07:55 Neurontin PO 300 mg BID JUNAID Administration Guaifenesin 600 mg 09/21/18 21:00 09/28/18 07:55 Mucinex PO 600 mg Q12HR JUNAID Administration Hydralazine HCl 10 mg 09/07/18 10:54 09/08/18 14:08 Apresoline SLOW IVP 10 mg Q6H PRN Administration SBP Greater Than 170 Meropenem 2 gm/ Miscellaneous 100 mls @ 0 mls/hr 09/23/18 08:00 09/28/18 07: 55 Medication 1 each/ Sodium IVPB 100 mls Chloride 0000,0800,1600 JUNAID Administration Labetalol HCl 10 mg 09/08/18 17:44 09/08/18 18:01 Normodyne SLOW IVP 10 mg Q6H PRN Administration SBP Greater Than 180 Melatonin 6 mg 09/20/18 21:00 09/27/18 20:57 Melatonin PO 6 mg HS JUNAID Administration Metoprolol Tartrate 25 mg 09/24/18 15:00 09/28/18 07:55 Lopressor PO 25 mg TID JUNAID Administration Mometasone Furoate 1 puff 09/20/18 18:30 09/27/18 18:32 Asmanex Twisthaler INH 1 puff 1830 JUNAID Administration Ondansetron HCl 4 mg 09/03/18 01:25 09/24/18 09:54 Zofran IVP 4 mg Q6H PRN Administration Nausea/Vomiting Pantoprazole Sodium 40 mg 09/27/18 21:00 09/28/18 07:55 Protonix PO 40 mg BID JUNAID Administration Sodium Chloride 10 ml 09/03/18 09:00 09/28/18 07:55 Flush - Normal Saline IVF 10 ml Q12HR JUNAID Administration Tamsulosin HCl 0.4 mg 09/12/18 09:00 09/28/18 07:55 Flomax PO 0.4 mg DAILY JUNAID Administration Trazodone HCl 50 mg 09/20/18 21:00 09/27/18 20:57 Desyrel PO 50 mg HS JUNAID Administration - Exam NAD, awake alert Eye: PERRL, anicteric sclera ENT: normocephalic atraumatic, no oropharyngeal lesions Neck: supple, symmetric, no JVD Heart: RRR, no murmur, no gallops Respiratory: CTAB, no wheezes, no rales Gastrointestinal: soft, non-tender, non-distended Extremities: no cyanosis, no clubbing, no edema Hosp A/P (1) Anemia Code(s): D64.9 - ANEMIA, UNSPECIFIED Status: Acute (2) 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 - GUILLAIN-BARRE SYNDROME Status: Acute - Plan - pending placement - no changes in plan of care
--- NOTE | 2018-09-28 16:46 | PRG ---
DATE OF SERVICE: SUBJECTIVE: The patient did not have any acute events or problems overnight. He currently denies any nausea, vomiting, fevers, chills, abdominal pain, hematemesis, melena, or hematochezia. He did have one solid bowel movement earlier this morning per that was dark brown in coloration with "dark black spots." OBJECTIVE: VITAL SIGNS: Temperature 99.1, pulse 93, blood pressure 89/57, respiratory rate 16, saturating 94% on 2 L nasal cannula. GENERAL: The patient is sitting at bedside, in no acute distress. Alert and oriented x3. RESPIRATORY: Clear to auscultation bilaterally. CARDIOVASCULAR: Regular rate and rhythm. ABDOMEN: Normoactive bowel sounds. Soft, nontender, nondistended. EXTREMITIES: No cyanosis, clubbing, or edema. LABORATORY DATA: Hemoglobin 8.2, hematocrit 24.4. IMAGING DATA: No current GI imaging is available for review. ASSESSMENT: The patient is a 63-year-old male with past medical history of coronary artery disease, chronic obstructive pulmonary disease/emphysema, congestive heart failure, benign prostatic hypertrophy, cerebellar bleed in September 2017 and peptic ulcer disease, presenting with bleeding gastric ulcer/Dieulafoy lesion, melena. The patient was initially admitted to the hospital for increased weakness and has had a complicated hospital course which has included increased melena in light of an upper GI bleed that was intervened upon via EGD on September 25, 2018 with a hemoclip placed over the visible vessel in the proximal stomach. Repeat upper endoscopy on September 26, 2018, did not show any additional bleeding with good hemostasis achieved with a hemoclip. Since that time, he has not had any further episodes of melenic type stools, although he did have a mildly downtrending H and H that required the infusion of 1 unit of PRBCs on September 27, 2018. At this time, his decreasing H and H could be due to equilibration of his circulating blood volume to his GI bleed versus installation of blood product, however, continued GI bleeding could not necessarily ruled out at this time (albeit unlikely). RECOMMENDATIONS: 1. Would continue to trend his H and H and transfuse as necessary to maintain an H and H of 7/21. 2. Continue to monitor clinically for signs of active GI bleeding. 3. Would continue pantoprazole 40 mg b.i.d. 4. Advance diet as tolerated. We will continue to follow. Please call with any questions. Job ID: [id number]
[2018-09-28] MEDS: Mometasone Furoate 120 PUFF 220 MCG INH SCH (18:56)
[2018-09-28] MEDS: Atorvastatin Calcium 20 MG TAB PO SCH (20:13)
[2018-09-28] MEDS: traZODone HCl 50 MG TAB PO SCH (20:13)
[2018-09-28] MEDS: Melatonin 3 MG TAB PO SCH (20:13)
[2018-09-29] MEDS: Acetaminophen 325 MG TAB PO PRN (05:55)
[2018-09-29] MEDS: Meropenem 2 GM, Admixture Fee 1 EACH in Sodium Chloride 0.9% 100 ML IVPB SCH (09:34)
[2018-09-29] MEDS: guaiFENesin ER 600 MG TAB PO SCH (09:35)
[2018-09-29] MEDS: FLUoxetine HCl 20 MG CAP PO SCH (09:35)
[2018-09-29] MEDS: Tamsulosin HCl 0.4 MG CAP PO SCH (09:35)
[2018-09-29] MEDS: Metoprolol Tartrate 25 MG TAB PO SCH (09:35)
[2018-09-29] MEDS: Gabapentin 300 MG CAP PO SCH (09:35)
[2018-09-29] MEDS: Fluticasone Propionate Nasal Spray 16 gm Bottle NASAL SCH (09:35)
--- NOTE | 2018-09-29 12:06 | PDOC.EVN ---
Event Note - Event Note Event Note: DC SUMMARY #[id number]
--- NOTE | 2018-09-29 12:26 | DIS ---
DATE OF ADMISSION: 09/02/2018 DATE OF DISCHARGE: 09/29/2018 ADMITTING DIAGNOSES: Hyponatremia, quadriplegia, moderate dehydration, coronary artery disease, history of colon cancer, peptic ulcer disease, history of nerve palsy. DISCHARGE DIAGNOSES: Guillain-[place] syndrome, hypertension, hyperlipidemia, anemia, community-acquired pneumonia, interstitial lung disease, metabolic encephalopathy. HOSPITAL COURSE: This is a 63-year-old male, who was admitted to Internal Medicine team, also seen very closely by Urology, Pulmonary team, GI, as well as Nephrology. The patient was started on the medical therapy for Guillain-[place]. During his stay here, the patient developed a possible GI bleed, was taken to the OR for the procedure. The patient at the point in time of discharge was stable, going to rehab, hemoglobin stable. He had an EGD done, which showed a hiatal hernia. No esophageal pathology noted. Normal gastric body, antrum, and duodenum. The patient also was found to have 3 to 4 mm ulceration in the proximal stomach without any risk of stigmata and 3 cm hiatal hernia. GI bleeding was not present at the point in time of discharge. Hemoglobin was stable lying in and around 8 for the past 3 days. The patient's condition was stable. He had an MRI of the brain done, which showed no acute intracranial processes or abnormalities. The patient received evaluation by Physical Therapy and occupational Therapy in the hospital, and was deemed stable for discharge to the rehab. Heart rates were a little bit elevated in the low 100 to upper 90s. This is attributed to anxiety as well as pain. The patient stated that he would be willing to partake in physical therapy. The patient at the point in time of discharge, was given Merrem for antibiotics. He had E coli in his urine as well as Proteus mirabilis in his urine and thus, was given Merrem sensitivity, to be taken for 10 days, had completed 4 days in the hospital and would be needing it for 6 more days, so to be stopped on the . The patient advised to follow up with the rehab. Family advised to follow up with the patient's progress. He remains a high risk for readmission, if the patient does not follow directions, take his medications in a timely manner, or refuse any medications at the rehab. Family also made aware of other options such as Palliative and Hospice Care, stated that they would like to pursue the rehab option first and if that fails, they would consider it. Case and plan discussed with the patient and family at length. They understood and agreed with this plan. DISPOSITION: Rehab. MEDICATIONS: See MAR. ACTIVITY: As tolerated with assistance as needed. DIET: Low-fat, low-calorie, high-fiber diet. CONDITION: Stable. PROGNOSIS: Guarded. Once again, case and plan discussed with the patient and family at length. They understood and agreed with this plan. Job ID: [id number]
[2018-09-29 12:30] VITALS: BP 121/82; TEMP 98
== END 2018-09-29 13:30 | DRG 94 ==
LOC: ERS 16:48 → 2SE 21:00 → CCU 09-03 01:56 → IMCU/EMU 09-14 19:39 → T4-A 09-23 19:42
PROVIDERS: ADMIT Internal Medicine; ATTEND Internal Medicine
PROC: 0BH17EZ Insertion of Endotracheal Airway into Trachea, Via Natural or Artificial Opening (ICD-10-PCS; 2018-09-03)
PROC: 5A1945Z Respiratory Ventilation, 24-96 Consecutive Hours (ICD-10-PCS; 2018-09-03)
PROC: 0T7C8ZZ Dilation of Bladder Neck, Via Natural or Artificial Opening Endoscopic (ICD-10-PCS; principal; 2018-09-04)
PROC: 3E0G8GC Introduction of Other Therapeutic Substance into Upper GI, Via Natural or Artificial Opening Endoscopic (ICD-10-PCS; 2018-09-25)
PROC: 0W3P8ZZ Control Bleeding in Gastrointestinal Tract, Via Natural or Artificial Opening Endoscopic (ICD-10-PCS; 2018-09-25)
PROC: 0DJ08ZZ Inspection of Upper Intestinal Tract, Via Natural or Artificial Opening Endoscopic (ICD-10-PCS; 2018-09-26)
PROC: 30233N1 Transfusion of Nonautologous Red Blood Cells into Peripheral Vein, Percutaneous Approach (ICD-10-PCS; 2018-09-26)
DX: G61.0 Guillain-Barre syndrome (principal); G93.41 Metabolic encephalopathy; J96.21 Acute and chronic respiratory failure with hypoxia; G82.50 Quadriplegia, unspecified; J69.0 Pneumonitis due to inhalation of food and vomit; J84.9 Interstitial pulmonary disease, unspecified; I50.22 Chronic systolic (congestive) heart failure; E22.2 Syndrome of inappropriate secretion of antidiuretic hormone; K56.7 Ileus, unspecified; N17.9 Acute kidney failure, unspecified; D62 Acute posthemorrhagic anemia; N39.0 Urinary tract infection, site not specified; K92.2 Gastrointestinal hemorrhage, unspecified; E66.01 Morbid (severe) obesity due to excess calories; E83.42 Hypomagnesemia; I11.0 Hypertensive heart disease with heart failure; J43.9 Emphysema, unspecified; E87.8 Other disorders of electrolyte and fluid balance, not elsewhere classified; Z51.5 Encounter for palliative care; E78.5 Hyperlipidemia, unspecified; D64.9 Anemia, unspecified; E86.0 Dehydration; I25.10 Atherosclerotic heart disease of native coronary artery without angina pectoris; K44.9 Diaphragmatic hernia without obstruction or gangrene; F41.9 Anxiety disorder, unspecified; B96.20 Unspecified Escherichia coli [E. coli] as the cause of diseases classified elsewhere; N40.0 Benign prostatic hyperplasia without lower urinary tract symptoms; F32.9 Major depressive disorder, single episode, unspecified; G58.9 Mononeuropathy, unspecified; Z85.038 Personal history of other malignant neoplasm of large intestine; Z86.73 Personal history of transient ischemic attack (TIA), and cerebral infarction without residual deficits; Z90.49 Acquired absence of other specified parts of digestive tract; Z87.891 Personal history of nicotine dependence; Z88.1 Allergy status to other antibiotic agents; Z68.30 Body mass index [BMI] 30.0-30.9, adult; Z87.11 Personal history of peptic ulcer disease
CPT/HCPCS: 36415; 36416; 36430; 70553; 71045; 72131; 72156; 74018; 74019; 74177; 77002; 80048; 80053; 80202; 81001; 82274; 82436; 82533; 82728; 82805; 82945; 83519; 83540; 83550; 83605; 83630; 83735; 83873; 83930; 83935; 84100; 84133; 84134; 84145; 84157; 84300; 84439; 84443; 84481; 84484; 84550; 85014; 85018; 85025; 85046; 85049; 85610; 85730; 86038; 86225; 86316; 86592; 86788; 86789; 86850; 86900; 86901; 87040; 87045; 87046; 87070; 87077; 87086; 87186; 87205; 87324; 87449; 87899; 89051; 89220; 93005; 93010; 93306; 94002; 94003; 94150; 94640; 94660; 94760; C9113; J0171; J0360; J0696; J1568; J1650; J2060; J2185; J2248; J2250; J2270; J2405; J2543; J2704; J2765; J2920; J2997; J3010; J3370; J3475; J3480; J3486; J3490; J7050; J7131; J7512; J7620; P9016; P9047; Q9966; S0028

== ENCOUNTER 2019-02-20 09:41 | Emergency (ER) | payer MEDICARE ==
--- NOTE | 2019-02-20 10:10 | RAD ---
Frontal radiograph chest: 02/20/2019 COMPARISON: 10/14/2018 HISTORY: Shortness of breath FINDINGS: Heart and mediastinal contours are stable. Stable prominence of the cardiac silhouette. The re is increased linear interstitial density with pulmonary hyperinflation. No pneumothorax or pleural fluid. No lobar consolidation or alveolar edema. IMPRESSION: No focal consolidation or alveolar edema.
[2019-02-20 11:05] LABS: #Eosinphils 0.3 thou/uL (0.0-0.7); #Lymphocytes 1.5 thou/uL (1.20-3.40); #Monocytes 0.9 thou/uL (0.11-0.59); %Basophils 0.2 % (0.0-1.0); %Eosinophils 2.4 % (0.0-10.0); %Lymphocytes 11.9 % (21.0-51.0); %Monocytes 7.1 % (0.0-10.0); %Neutrophils 78.4 % (42.0-75.0); Hemoglobin 11.4 g/dL (14.0-18.0); Mean Corpuscular Hemoglobin 27.5 pg (27.0-31.0); Mean Corpuscular Volume 88.6 fL (78.0-98.0); Mean Platelet Volume 6.8 fL (7.4-10.4); Platelet Count 252 thou/uL (130-400); RBC Distribution Width 13.6 % (11.5-14.5); Red Blood Cell (RBC) Count 4.14 mill/uL (4.70-6.10); White Blood Cell (WBC) Count 12.8 thou/uL (4.8-10.8)
[2019-02-20 11:29] LABS: ALT (SGPT) Less than 7 U/L (8-55); AST (SGOT) 8 U/L (5-34); Albumin 3.7 g/dL (3.4-4.8); Alkaline Phosphatase 55 U/L (40-110); Anion Gap 10 mmol/L (10-20); BUN (Urea Nitrogen) 13 mg/dL (8.4-25.7); Bilirubin, Total 0.3 mg/dL (0.2-1.2); CK (CPK) 88 U/L (30-200); Calc. Creatinine Clearance 0 mL/min (70-130); Carbon Dioxide 33 mmol/L (23-31); Chloride 103 mmol/L (98-107); Estimated GFR-MDRD 80; Globulin 3.6 g/dL (2.4-3.5); Glucose 118 mg/dL (80-115); Potassium 4.2 mmol/L (3.5-5.1); Protein, Total 7.3 g/dL (5.8-8.1); Sodium 142 mmol/L (136-145)
== END 2019-02-20 14:55 | disposition home or self-care (01) ==
LOC: ERS 09:41
DX: R06.02 Shortness of breath (principal); J43.9 Emphysema, unspecified; I50.9 Heart failure, unspecified; I25.10 Atherosclerotic heart disease of native coronary artery without angina pectoris; F41.9 Anxiety disorder, unspecified; F32.9 Major depressive disorder, single episode, unspecified; Z79.1 Long term (current) use of non-steroidal anti-inflammatories (NSAID); Z79.899 Other long term (current) drug therapy; Z79.82 Long term (current) use of aspirin
CPT/HCPCS: 71045; 80053; 82550; 83605; 83880; 85025; 87804; 93005

== ENCOUNTER 2019-05-13 12:48 | Outpatient (CLI) | payer MEDICARE ==
--- NOTE | 2019-05-13 14:15 | CT ---
CT chest noncontrast low-dose screening HISTORY: Tobacco abuse. Screening. FINDINGS: Lungs are well-inflated. Scattered areas of peripheral parenchymal scarring. Most pronounce d at the right anterior lung base. Lingula of the left upper lobe is congenitally enlarged and hyperexpanded, resulting in slight rightw lewis shift of the heart. Bronchial anatomy appears to be normal. Within the posterolateral aspect of the right lower lobe is a 0.3 cm subpleural nodule. A 0.3 cm focu s of nodular prominence is associated with parenchymal scarring at the right anterolateral costophrenic angle. No pleural fluid or pneumothorax. Lack of contrast limits evaluation of the soft tissues. There is pr ominent calcification in the coronary arteries. Small hiatal hernia. IMPRESSION : Peripheral scarring and tiny nodules as detailed above. Lung RADS category 2. Benign. Suggest routine screening. Atherosclerosis. Small hiatal hernia.
== END 2019-05-13 12:49 | disposition home or self-care (01) ==
LOC: CT 12:48
PROVIDERS: ATTEND Family Medicine Sports Medicine
DX: Z12.2 Encounter for screening for malignant neoplasm of respiratory organs (principal); Z87.891 Personal history of nicotine dependence; I25.10 Atherosclerotic heart disease of native coronary artery without angina pectoris; K44.9 Diaphragmatic hernia without obstruction or gangrene; R91.8 Other nonspecific abnormal finding of lung field; J98.4 Other disorders of lung
CPT/HCPCS: G0297

== ENCOUNTER 2020-06-18 09:19 | Outpatient (CLI) | payer MEDICARE | END 2020-06-18 09:20 | disposition home or self-care (01) | LOC: BICCT 09:19 | PROVIDERS: ATTEND Family Medicine Sports Medicine | DX: Z12.2 Encounter for screening for malignant neoplasm of respiratory organs (principal); J43.2 Centrilobular emphysema; Z87.891 Personal history of nicotine dependence | CPT/HCPCS: 71271 ==

== ENCOUNTER 2020-07-22 16:31 | Emergency (ER) | payer MEDICARE ==
[2020-07-22 17:22] LABS: Mean Corpuscular HGB CONC 31.3 g/dL (32.0-36.0); Mean Corpuscular Hemoglobin 28.7 pg (27.0-31.0); Mean Corpuscular Volume 91.8 fL (78.0-98.0); Mean Platelet Volume 7.1 fL (7.4-10.4); Platelet Count 258 thou/uL (130-400); RBC Distribution Width 12.8 % (11.5-14.5); Red Blood Cell (RBC) Count 4.52 mill/uL (4.70-6.10)
[2020-07-22 17:43] LABS: Band 16 % (5-11); Lymphocytes 15 % (21-51); MDiff Complete? YES; Monocytes 7 % (0-10); Neutrophil 62 % (42-75); Platelet Morphology Comment Appears Adequate; White Blood Cell (WBC) Count 21.9 thou/uL (4.8-10.8)
[2020-07-22 17:51] LABS: ALT (SGPT) 8 U/L (8-55); AST (SGOT) 11 U/L (5-34); Alkaline Phosphatase 92 U/L (40-110); Anion Gap 16 mmol/L (10-20); BUN (Urea Nitrogen) 20 mg/dL (8.4-25.7); Bilirubin, Total 0.9 mg/dL (0.2-1.2); Calc. Creatinine Clearance 0 mL/min (70-130); Calcium 8.8 mg/dL (7.8-10.44); Carbon Dioxide 29 mmol/L (23-31); Chloride 93 mmol/L (98-107); Globulin 3.6 g/dL (2.4-3.5); Glucose 107 mg/dL (80-115); Potassium 3.9 mmol/L (3.5-5.1); Protein, Total 7.6 g/dL (5.8-8.1); Sodium 134 mmol/L (136-145)
[2020-07-22] MEDS ORDERED: methylPREDNISolone Sod Succ/PF 125 MG/2 ML VIAL ONE (17:58)
== END 2020-07-22 19:12 | disposition home or self-care (01) ==
LOC: ERS 16:31
DX: J44.1 Chronic obstructive pulmonary disease with (acute) exacerbation (principal); I11.0 Hypertensive heart disease with heart failure; I50.9 Heart failure, unspecified; E78.6 Lipoprotein deficiency; N40.0 Benign prostatic hyperplasia without lower urinary tract symptoms; I25.10 Atherosclerotic heart disease of native coronary artery without angina pectoris; E11.9 Type 2 diabetes mellitus without complications; Z87.891 Personal history of nicotine dependence; Z79.84 Long term (current) use of oral hypoglycemic drugs; Z79.82 Long term (current) use of aspirin; Z79.899 Other long term (current) drug therapy
CPT/HCPCS: 36415; 71045; 80053; 83880; 84484; 85025; 93005; 96374; J2930; J7620

== ENCOUNTER 2020-11-07 16:14 | Observation (INO) | payer MEDICARE ==
[~2020-11-07 16:14] MED LIST: Iopamidol-370 76% 500 ML 1 ML ONE
[2020-11-07 16:36] LABS: #Eosinphils 0.7 thou/uL (0.0-0.7); #Lymphocytes 2.7 thou/uL (1.20-3.40); #Monocytes 0.9 thou/uL (0.11-0.59); #Neutrophils 7.5 thou/uL (1.40-6.50); %Basophils 0.3 % (0.0-1.0); %Eosinophils 5.6 % (0.0-10.0); %Lymphocytes 23.1 % (21.0-51.0); %Monocytes 7.7 % (0.0-10.0); %Neutrophils 63.3 % (42.0-75.0); Hemoglobin 13.4 g/dL (14.0-18.0); Mean Corpuscular HGB CONC 32.1 g/dL (32.0-36.0); Mean Corpuscular Volume 90.5 fL (78.0-98.0); Mean Platelet Volume 6.8 fL (7.4-10.4); Platelet Count 273 thou/uL (130-400); RBC Distribution Width 13.4 % (11.5-14.5); Red Blood Cell (RBC) Count 4.61 mill/uL (4.70-6.10); White Blood Cell (WBC) Count 11.8 thou/uL (4.8-10.8)
[2020-11-07 16:57] LABS: ALT (SGPT) 10 U/L (8-55); AST (SGOT) 12 U/L (5-34); Albumin 4.1 g/dL (3.4-4.8); Alkaline Phosphatase 81 U/L (40-110); Anion Gap 12 mmol/L (10-20); BUN (Urea Nitrogen) 18 mg/dL (8.4-25.7); Bilirubin, Total 0.4 mg/dL (0.2-1.2); Calc. Creatinine Clearance 0 mL/min (70-130); Calcium 9.1 mg/dL (7.8-10.44); Carbon Dioxide 32 mmol/L (23-31); Chloride 95 mmol/L (98-107); Globulin 3.3 g/dL (2.4-3.5); Glucose 124 mg/dL (80-115); Lipase 20 U/L (8-78); Potassium 3.8 mmol/L (3.5-5.1); Protein, Total 7.4 g/dL (5.8-8.1); Sodium 135 mmol/L (136-145)
[2020-11-07] MEDS ORDERED: cefTRIAXone\\ROCEPHIN 1 GM VIAL ONE (17:04)
[2020-11-07] MEDS ORDERED: Aspirin Chewable 81 MG TAB ONE (17:04)
[2020-11-07] MEDS ORDERED: predniSONE 20 MG TAB ONE (17:04)
[2020-11-07 17:07] LABS: Actual Bicarbonate (HCO3v) 29 mEq/L (22-28); Analyzer IN Cardio ER; Base Excess 4.3 mEq/L (-2.0 to +3.0); Calcium, Ionized (venous) 1.03 mmol/L (1.16-1.32); Chloride (VBG) 97 mmol/L (98-106); Hemoglobin (Hb) 12.8 g/dL (12.6-17.4); Potassium (VBG) 3.79 mmol/L (3.70-5.30); Sodium 133.9 mmol/L (133-146); pH (venous) 7.43 (7.32-7.43)
[2020-11-07 18:45] LABS: SARS-CoV-2 NAA Rapid Test Not Detected (NotDetected)
[2020-11-07 20:11] LABS: Troponin I Less than 0.010 ng/mL (< 0.028)
[2020-11-07] MEDS ORDERED: Acetaminophen 325 MG TAB PO PRN (22:22)
[2020-11-07] MEDS ORDERED: Ondansetron ODT 4 MG TAB PO PRN (22:22)
[2020-11-07] MEDS ORDERED: Ondansetron PF 4 MG/2 ML Vial IVP PRN (22:22)
[2020-11-07] MEDS ORDERED: Acetaminophen 650 MG Suppository PR PRN (22:22)
[2020-11-07] MEDS ORDERED: Azithromycin 500 MG in Sodium Chloride 0.9% 250 ML 250 ML IVPB SCH (22:30)
[2020-11-07] MEDS ORDERED: Nitroglycerin 0.4 MG TAB (25 Tab Bottle) SL PRN (22:59)
[2020-11-07] MEDS ORDERED: Docusate 100 MG CAP PO PRN (22:59)
[2020-11-07 23:20] LABS: Troponin I Less than 0.010 ng/mL (< 0.028)
[2020-11-07] MEDS ORDERED: Dextrose 5% in Water 1,000 ML IV PRN (23:20)
[2020-11-07] MEDS ORDERED: HumaLOG 300 UNITS/3 ML VIAL SC PRN ×2 (23:20)
[2020-11-07] MEDS ORDERED: Dextrose 50% Abboject 50 ML SYRINGE SLOW IVP PRN (23:20)
[2020-11-07] MEDS ORDERED: Sodium Chloride 0.9% 1,000 ML IV SCH (23:45)
[2020-11-07] MEDS ORDERED: Gabapentin 300 MG CAP PO SCH (23:45)
[2020-11-07] MEDS ORDERED: traZODone HCl 50 MG TAB PO SCH (23:45)
[2020-11-07] MEDS ORDERED: traMADol HCl 50 MG TAB PO SCH (23:45)
[2020-11-08 00:19] LABS: Lactic Acid 2.6 mmol/L (0.5-2.2)
[2020-11-08 01:36] VITALS: BMI 36.1
[2020-11-08 05:43] LABS: #Lymphocytes 1.7 thou/uL (1.20-3.40); #Monocytes 0.3 thou/uL (0.11-0.59); #Neutrophils 12.6 thou/uL (1.40-6.50); %Basophils 0.1 % (0.0-1.0); %Eosinophils 0.1 % (0.0-10.0); %Lymphocytes 11.8 % (21.0-51.0); %Monocytes 2.1 % (0.0-10.0); Hemoglobin 13.1 g/dL (14.0-18.0); Mean Corpuscular HGB CONC 31.9 g/dL (32.0-36.0); Mean Corpuscular Hemoglobin 28.8 pg (27.0-31.0); Mean Corpuscular Volume 90.2 fL (78.0-98.0); Platelet Count 260 thou/uL (130-400); RBC Distribution Width 13.1 % (11.5-14.5); Red Blood Cell (RBC) Count 4.55 mill/uL (4.70-6.10); White Blood Cell (WBC) Count 14.6 thou/uL (4.8-10.8)
[2020-11-08 06:06] LABS: Anion Gap 16 mmol/L (10-20); BUN (Urea Nitrogen) 18 mg/dL (8.4-25.7); Calc. Creatinine Clearance 79 mL/min (70-130); Carbon Dioxide 23 mmol/L (23-31); Chloride 99 mmol/L (98-107); Glucose 249 mg/dL (80-115); Potassium 4.4 mmol/L (3.5-5.1); Sodium 134 mmol/L (136-145)
[2020-11-08] MEDS ORDERED: Mometasone 100 MCG/PUFF (1 INHALER) INH SCH (06:30)
[2020-11-08] MEDS ORDERED: Gabapentin 300 MG CAP PO SCH (09:00)
[2020-11-08] MEDS ORDERED: Non-Formulary Item 1 EACH (Dexlansoprazole [Dexilant] 60 MG Cap.Dr.Bp) PO SCH (09:00)
[2020-11-08] MEDS ORDERED: Non-Formulary Item 1 EACH (Buspirone Hcl [Buspirone Hcl] 15 MG Tablet) PO SCH (09:00)
[2020-11-08] MEDS ORDERED: DULoxetine 30 MG CAP PO SCH (09:00)
[2020-11-08] MEDS ORDERED: traMADol HCl 50 MG TAB PO SCH (09:00)
[2020-11-08] MEDS ORDERED: Clopidogrel Bisulfate 75 MG TAB PO SCH (09:00)
[2020-11-08] MEDS ORDERED: Isosorbide Mononitrate 20 MG TAB PO SCH (09:00)
[2020-11-08] MEDS ORDERED: Enoxaparin Sodium 40 MG/0.4 ML SYRINGE SC SCH (09:00)
[2020-11-08] MEDS ORDERED: Aspirin 81 mg Enteric Coated Tablet PO SCH (09:00)
[2020-11-08] MEDS ORDERED: busPIRone HCl 10 MG TAB PO SCH (09:00)
[2020-11-08] MEDS ORDERED: Carvedilol 6.25 MG TAB PO SCH (09:00)
[2020-11-08] MEDS ORDERED: Cholecalciferol 1,000 UNITS (25 MCG) TAB PO SCH (09:00)
[2020-11-08] MEDS ORDERED: cefTRIAXone\\ROCEPHIN 1 GM in Sodium Chloride 0.9% 100 ML IVPB SCH (09:45)
[2020-11-08] MEDS ORDERED: methylPREDNISolone Sod Succ/PF 125 MG/2 ML VIAL IVP SCH (10:15)
[2020-11-08 11:19] VITALS: BP 118/60; TEMP 98.8
[2020-11-08] MEDS ORDERED: traZODone HCl 50 MG TAB PO SCH (21:00)
[2020-11-08] MEDS ORDERED: Atorvastatin Calcium 20 MG TAB PO SCH (21:00)
[2020-11-08] MEDS ORDERED: methylPREDNISolone Sod Succ 40 MG VIAL IVP SCH (23:59)
[2020-11-09] MEDS ORDERED: cefTRIAXone\\ROCEPHIN 1 GM in Sodium Chloride 0.9% 100 ML IVPB SCH (10:00)
[2020-11-09] MEDS ORDERED: Atorvastatin Calcium 10 MG TAB PO SCH (21:00)
== END 2020-11-08 11:41 | disposition home or self-care (01) ==
LOC: ERS 16:14 → 2NO 18:50
PROVIDERS: ADMIT Internal Medicine; ATTEND Internal Medicine
DX: A41.9 Sepsis, unspecified organism (principal); R65.20 Severe sepsis without septic shock; J43.9 Emphysema, unspecified; J18.0 Bronchopneumonia, unspecified organism; J96.21 Acute and chronic respiratory failure with hypoxia; E87.1 Hypo-osmolality and hyponatremia; I13.0 Hypertensive heart and chronic kidney disease with heart failure and stage 1 through stage 4 chronic kidney disease, or unspecified chronic kidney disease; E11.22 Type 2 diabetes mellitus with diabetic chronic kidney disease; N18.30 Chronic kidney disease, stage 3 unspecified; I50.32 Chronic diastolic (congestive) heart failure; D63.1 Anemia in chronic kidney disease; E78.5 Hyperlipidemia, unspecified; E66.9 Obesity, unspecified; Z68.36 Body mass index [BMI] 36.0-36.9, adult; Z20.822 Contact with and (suspected) exposure to COVID-19; Z99.81 Dependence on supplemental oxygen; Z88.1 Allergy status to other antibiotic agents; Z88.8 Allergy status to other drugs, medicaments and biological substances; Z79.82 Long term (current) use of aspirin; Z79.02 Long term (current) use of antithrombotics/antiplatelets; Z79.890 Hormone replacement therapy; Z79.51 Long term (current) use of inhaled steroids; Z79.891 Long term (current) use of opiate analgesic; Z79.899 Other long term (current) drug therapy; Z87.891 Personal history of nicotine dependence
CPT/HCPCS: 71046; 71275; 80048; 80053; 82805; 82962; 83605; 83690; 84484 ×2; 85025 ×2; 87040; 93005; 96375 ×2; 96376; G0378 ×3; U0002; 36415; 36416; 96374; J0456; J0696; J1815; J2930; J3490; J7050; J7512; Q9967

== ENCOUNTER 2020-11-27 09:16 | Observation (INO) | payer MEDICARE ==
[2020-11-27 10:39] LABS: #Basophils 0.1 thou/uL (0.0-0.2); #Eosinphils 0.1 thou/uL (0.0-0.7); #Lymphocytes 2.4 thou/uL (1.20-3.40); #Monocytes 1.5 thou/uL (0.11-0.59); #Neutrophils 14.3 thou/uL (1.40-6.50); %Basophils 0.3 % (0.0-1.0); %Eosinophils 0.4 % (0.0-10.0); %Lymphocytes 13.1 % (21.0-51.0); %Monocytes 8.1 % (0.0-10.0); Hemoglobin 13.2 g/dL (14.0-18.0); Mean Corpuscular HGB CONC 30.2 g/dL (32.0-36.0); Mean Corpuscular Hemoglobin 26.7 pg (27.0-31.0); Mean Corpuscular Volume 88.3 fL (78.0-98.0); Mean Platelet Volume 7.3 fL (7.4-10.4); Platelet Count 281 thou/uL (130-400); RBC Distribution Width 13.2 % (11.5-14.5); Red Blood Cell (RBC) Count 4.96 mill/uL (4.70-6.10); White Blood Cell (WBC) Count 18.3 thou/uL (4.8-10.8)
[2020-11-27 11:09] LABS: ALT (SGPT) 11 U/L (8-55); AST (SGOT) 22 U/L (5-34); Albumin 3.9 g/dL (3.4-4.8); Alkaline Phosphatase 87 U/L (40-110); Anion Gap 19 mmol/L (10-20); BUN (Urea Nitrogen) 22 mg/dL (8.4-25.7); Bilirubin, Total 0.6 mg/dL (0.2-1.2); Calc. Creatinine Clearance 0 mL/min (70-130); Calcium 9.4 mg/dL (7.8-10.44); Carbon Dioxide 26 mmol/L (23-31); Chloride 90 mmol/L (98-107); Globulin 4.1 g/dL (2.4-3.5); Glucose 210 mg/dL (80-115); Potassium 3.9 mmol/L (3.5-5.1); Sodium 131 mmol/L (136-145)
[2020-11-27] MEDS ORDERED: Vancomycin 1 GM/200 ML BAG ONE (12:38)
[2020-11-27] MEDS ORDERED: cefOXitin Sodium/Dextrose 2 GM/50 ML BAG ONE (12:40)
[2020-11-27 12:59] LABS: Actual Bicarbonate (HCO3a) 26.2 mEq/L (22-28); Analyzer IN Cardio ER; Base Excess (BEa) 4.2 mEq/L (-2.0 to +3.0); CO2 Tension 31.4 mmHg (35.0-45.0); Calcium, Ionized (arterial) 1.12 mmol/L (1.12-1.30); Carboxyhemoglobin (COHb) 0.4 gm% (0.0-3.0); Hemoglobin (Hb) 14.1 g/dL (14.0-18.0); O2 Tension (PaO2), arterial 66.5 mmHg (> 80.0); Potassium - ABG Lab 2.66 mmol/L (3.70-5.30); pH, Arterial 7.54 (7.35-7.45)
[2020-11-27 13:00] LABS: Puncture Site RRA
[2020-11-27 13:43] LABS: Bacteria/HPF None Seen HPF (None Seen); Bilirubin Negative (Negative); Blood, Urine 1+ (Negative); Clarity Clear (Clear); Glucose, Urine (Dipstick) Normal (Negative); Ketone, Urine 10 mg/dL (Negative); Leukocyte Negative Leu/uL (Negative); Nitrite Negative (Negative); Protein, Urine (Dipstick) 100 mg/dL (Neg-Trace); Specific Gravity, Urine 1.014 (1.002-1.036); Squamous Epithelial None Seen HPF (0-3); Urobilinogen Normal mg/dL (Less than 2); WBC/HPF 0-3 HPF (0-3)
[2020-11-27 14:24] LABS: SARS-CoV-2 NAA Rapid Test Not Detected (NotDetected)
[2020-11-27] MEDS ORDERED: Dextrose 50% Abboject 50 ML SYRINGE SLOW IVP PRN (15:27)
[2020-11-27] MEDS ORDERED: Albuterol Sulfate 2.5 mg/3 ml Neb NEB PRN (15:27)
[2020-11-27] MEDS ORDERED: HumaLOG 300 UNITS/3 ML VIAL SC PRN (15:27)
[2020-11-27] MEDS ORDERED: Dextrose 5% in Water 1,000 ML IV PRN (15:27)
[2020-11-27] MEDS ORDERED: Acetaminophen 325 MG TAB PO PRN (15:27)
[2020-11-27] MEDS ORDERED: Sodium Chloride 0.9% 1,000 ML IV SCH (15:30)
[2020-11-27] MEDS ORDERED: Vancomycin 1 GM in Premix Bag 1 BAG IVPB SCH (17:15)
[2020-11-27] MEDS: methylPREDNISolone Sod Succ 40 MG VIAL IVP SCH ×2 (17:48→23:20)
[2020-11-27] MEDS: HumaLOG 300 UNITS/3 ML VIAL SC PRN (18:24)
[2020-11-27] MEDS: Famotidine 20 MG TAB PO SCH (20:50)
[2020-11-27] MEDS ORDERED: Docusate 100 MG CAP PO PRN (21:18)
[2020-11-27] MEDS ORDERED: Nitroglycerin 0.4 MG TAB (25 Tab Bottle) SL PRN (21:18)
[2020-11-27] MEDS ORDERED: traMADol HCl 50 MG TAB PO PRN (21:30)
[2020-11-27] MEDS ORDERED: rOPINIRole HCl 0.25 MG TAB PO SCH ×2 (22:22→23:00)
[2020-11-27] MEDS ORDERED: traZODone HCl 50 MG TAB PO SCH ×2 (22:22→23:00)
[2020-11-27] MEDS ORDERED: Oxybutynin ER 5 MG TAB PO SCH ×2 (22:22→23:00)
[2020-11-27] MEDS ORDERED: Gabapentin 300 MG CAP PO SCH (23:00)
[2020-11-27] MEDS ORDERED: Melatonin 3 MG TAB PO SCH (23:00)
[2020-11-27] MEDS ORDERED: Carvedilol 6.25 MG TAB PO SCH (23:00)
[2020-11-27] MEDS ORDERED: Atorvastatin Calcium 20 MG TAB PO SCH (23:00)
[2020-11-27] MEDS: Cefepime 1 GM in Sodium Chloride 0.9% 100 ML IVPB SCH (23:20)
[2020-11-28 01:53] VITALS: BMI 43.8
[2020-11-28] MEDS: Cefepime 1 GM in Sodium Chloride 0.9% 100 ML IVPB SCH ×3 (05:47→21:11)
[2020-11-28] MEDS: HumaLOG 300 UNITS/3 ML VIAL SC PRN ×2 (05:48→17:07)
[2020-11-28] MEDS: methylPREDNISolone Sod Succ 40 MG VIAL IVP SCH ×4 (05:48→23:40)
[2020-11-28 06:44] LABS: #Lymphocytes 1.4 thou/uL (1.20-3.40); #Monocytes 0.4 thou/uL (0.11-0.59); #Neutrophils 10.4 thou/uL (1.40-6.50); %Basophils 0.1 % (0.0-1.0); %Eosinophils 0.1 % (0.0-10.0); %Lymphocytes 11.7 % (21.0-51.0); %Monocytes 3.2 % (0.0-10.0); %Neutrophils 84.9 % (42.0-75.0); Hemoglobin 13.5 g/dL (14.0-18.0); Mean Corpuscular HGB CONC 31.7 g/dL (32.0-36.0); Mean Corpuscular Volume 88.4 fL (78.0-98.0); Mean Platelet Volume 7.2 fL (7.4-10.4); Platelet Count 296 thou/uL (130-400); RBC Distribution Width 13.1 % (11.5-14.5); Red Blood Cell (RBC) Count 4.82 mill/uL (4.70-6.10); White Blood Cell (WBC) Count 12.3 thou/uL (4.8-10.8)
[2020-11-28 07:02] LABS: Anion Gap 18 mmol/L (10-20); BUN (Urea Nitrogen) 22 mg/dL (8.4-25.7); Calc. Creatinine Clearance 90 mL/min (70-130); Calcium 9.2 mg/dL (7.8-10.44); Carbon Dioxide 27 mmol/L (23-31); Chloride 93 mmol/L (98-107); Glucose 218 mg/dL (80-115); Potassium 3.4 mmol/L (3.5-5.1); Sodium 135 mmol/L (136-145)
[2020-11-28] MEDS: Mometasone 100 MCG/PUFF (1 INHALER) INH SCH ×2 (07:32→19:15)
[2020-11-28] MEDS ORDERED: Carvedilol 6.25 MG TAB PO SCH (09:00)
[2020-11-28] MEDS ORDERED: Gabapentin 300 MG CAP PO SCH (09:00)
[2020-11-28] MEDS: Gabapentin 300 MG CAP PO SCH ×2 (09:05→20:41)
[2020-11-28] MEDS: busPIRone HCl 5 MG TAB PO SCH (09:06)
[2020-11-28] MEDS: DULoxetine 30 MG CAP PO SCH (09:07)
[2020-11-28] MEDS: Clopidogrel Bisulfate 75 MG TAB PO SCH (09:07)
[2020-11-28] MEDS: Hydrochlorothiazide 25 MG TAB PO SCH (09:07)
[2020-11-28] MEDS: Famotidine 20 MG TAB PO SCH ×2 (09:07→20:38)
[2020-11-28] MEDS: Enoxaparin Sodium 40 MG/0.4 ML SYRINGE SC SCH (09:08)
[2020-11-28] MEDS: Carvedilol 6.25 MG TAB PO SCH ×2 (09:08→20:38)
[2020-11-28] MEDS: Isosorbide Mononitrate 20 MG TAB PO SCH (09:09)
[2020-11-28] MEDS ORDERED: VANCOMYCIN 2 GRAM/400 ML BAG 2 GM in Premix Bag 1 BAG IVPB SCH (12:00)
[2020-11-28] MEDS ORDERED: Potassium Chloride 20 MEQ TAB PO SCH (14:00)
[2020-11-28] MEDS: Aspirin 81 mg Enteric Coated Tablet PO SCH (20:39)
[2020-11-28] MEDS ORDERED: Atorvastatin Calcium 20 MG TAB PO SCH (21:00)
[2020-11-28] MEDS ORDERED: Melatonin 3 MG TAB PO SCH (21:00)
[2020-11-28] MEDS ORDERED: Oxybutynin ER 5 MG TAB PO SCH (21:00)
[2020-11-28] MEDS ORDERED: rOPINIRole HCl 0.25 MG TAB PO SCH (21:00)
[2020-11-28] MEDS ORDERED: traZODone HCl 50 MG TAB PO SCH (21:00)
[2020-11-29] MEDS: Cefepime 1 GM in Sodium Chloride 0.9% 100 ML IVPB SCH ×2 (05:50→14:45)
[2020-11-29] MEDS: methylPREDNISolone Sod Succ 40 MG VIAL IVP SCH (05:51)
[2020-11-29] MEDS: HumaLOG 300 UNITS/3 ML VIAL SC PRN ×2 (06:07→11:58)
[2020-11-29 06:43] LABS: #Basophils 0.1 thou/uL (0.0-0.2); #Lymphocytes 1.4 thou/uL (1.20-3.40); #Monocytes 0.8 thou/uL (0.11-0.59); #Neutrophils 13.8 thou/uL (1.40-6.50); %Basophils 0.7 % (0.0-1.0); %Eosinophils 0.3 % (0.0-10.0); %Lymphocytes 8.9 % (21.0-51.0); %Monocytes 4.7 % (0.0-10.0); %Neutrophils 85.5 % (42.0-75.0); Hemoglobin 13.2 g/dL (14.0-18.0); Mean Corpuscular HGB CONC 32.4 g/dL (32.0-36.0); Mean Corpuscular Hemoglobin 28.5 pg (27.0-31.0); Mean Corpuscular Volume 87.8 fL (78.0-98.0); Platelet Count 333 thou/uL (130-400); Red Blood Cell (RBC) Count 4.65 mill/uL (4.70-6.10); White Blood Cell (WBC) Count 16.2 thou/uL (4.8-10.8)
[2020-11-29 07:04] LABS: Anion Gap 17 mmol/L (10-20); BUN (Urea Nitrogen) 25 mg/dL (8.4-25.7); Calc. Creatinine Clearance 85 mL/min (70-130); Calcium 9.1 mg/dL (7.8-10.44); Carbon Dioxide 24 mmol/L (23-31); Chloride 97 mmol/L (98-107); Glucose 263 mg/dL (80-115); Magnesium 2.3 mg/dL (1.6-2.6); Potassium 3.4 mmol/L (3.5-5.1); Sodium 135 mmol/L (136-145)
[2020-11-29] MEDS: Mometasone 100 MCG/PUFF (1 INHALER) INH SCH (07:54)
[2020-11-29 08:47] VITALS: TEMP 98
[2020-11-29] MEDS: Hydrochlorothiazide 25 MG TAB PO SCH (09:23)
[2020-11-29] MEDS: Isosorbide Mononitrate 20 MG TAB PO SCH (09:23)
[2020-11-29] MEDS: DULoxetine 30 MG CAP PO SCH (09:24)
[2020-11-29] MEDS: Famotidine 20 MG TAB PO SCH (09:24)
[2020-11-29] MEDS: Gabapentin 300 MG CAP PO SCH (09:24)
[2020-11-29] MEDS: Aspirin 81 mg Enteric Coated Tablet PO SCH (09:25)
[2020-11-29] MEDS: Carvedilol 6.25 MG TAB PO SCH (09:25)
[2020-11-29] MEDS: Clopidogrel Bisulfate 75 MG TAB PO SCH (09:25)
[2020-11-29] MEDS: busPIRone HCl 5 MG TAB PO SCH (09:26)
[2020-11-29] MEDS: Enoxaparin Sodium 40 MG/0.4 ML SYRINGE SC SCH (09:34)
[2020-11-29] MEDS ORDERED: Potassium Chloride 20 MEQ TAB PO SCH (10:00)
[2020-11-29 12:06] VITALS: BP 112/75
[2020-11-29 12:32] LABS: Vancomycin, Trough 14.5 ug/mL
[2020-11-29] MEDS ORDERED: methylPREDNISolone Sod Succ 40 MG VIAL IVP SCH (21:00)
== END 2020-11-29 15:19 | disposition home or self-care (01) ==
LOC: ERS 09:16 → SURG B 17:36
PROVIDERS: ADMIT Internal Medicine; ATTEND Internal Medicine
DX: J44.1 Chronic obstructive pulmonary disease with (acute) exacerbation (principal); J96.21 Acute and chronic respiratory failure with hypoxia; D72.829 Elevated white blood cell count, unspecified; I13.0 Hypertensive heart and chronic kidney disease with heart failure and stage 1 through stage 4 chronic kidney disease, or unspecified chronic kidney disease; E11.22 Type 2 diabetes mellitus with diabetic chronic kidney disease; N18.9 Chronic kidney disease, unspecified; I50.32 Chronic diastolic (congestive) heart failure; N17.9 Acute kidney failure, unspecified; D63.1 Anemia in chronic kidney disease; E87.1 Hypo-osmolality and hyponatremia; I25.10 Atherosclerotic heart disease of native coronary artery without angina pectoris; E78.5 Hyperlipidemia, unspecified; G61.0 Guillain-Barre syndrome; E87.6 Hypokalemia; Z87.891 Personal history of nicotine dependence; Z79.02 Long term (current) use of antithrombotics/antiplatelets; Z79.82 Long term (current) use of aspirin; Z79.899 Other long term (current) drug therapy; Z88.1 Allergy status to other antibiotic agents; Z95.5 Presence of coronary angioplasty implant and graft; Z99.81 Dependence on supplemental oxygen; Z20.822 Contact with and (suspected) exposure to COVID-19
CPT/HCPCS: 36600; 71045; 80048 ×2; 80053; 80202; 82805; 82962 ×3; 83605; 83735; 83880; 84484; 85025 ×3; 87040; 87070; 87205; 93005; 94640 ×3; 96366; 96372 ×2; 96374; 96375 ×2; 96376 ×3; 99285; G0378 ×4; U0002; 36415; 36416; 81003; 81015; J0692; J0694; J1650; J1815; J2920; J3370; J3490; J7050; J7620

== ENCOUNTER 2021-01-01 17:54 | Emergency (ER) | payer MEDICARE ==
[~2021-01-01 17:54] MED LIST changes: +Iopamidol 370 76% 100 ML VIAL ONE; -Iopamidol-370 76% 500 ML 1 ML ONE
[2021-01-01] MEDS ORDERED: methylPREDNISolone Sod Succ/PF 125 MG/2 ML VIAL ONE ×2 (18:14→18:27)
[2021-01-01 18:28] LABS: #Eosinphils 0.2 thou/uL (0.0-0.7); #Lymphocytes 2.3 thou/uL (1.20-3.40); #Monocytes 0.9 thou/uL (0.11-0.59); #Neutrophils 6.6 thou/uL (1.40-6.50); %Basophils 0.5 % (0.0-1.0); %Eosinophils 1.7 % (0.0-10.0); %Lymphocytes 22.8 % (21.0-51.0); %Monocytes 8.6 % (0.0-10.0); %Neutrophils 66.4 % (42.0-75.0); Hemoglobin 12.4 g/dL (14.0-18.0); Mean Corpuscular HGB CONC 33.2 g/dL (32.0-36.0); Mean Corpuscular Hemoglobin 30.4 pg (27.0-31.0); Mean Corpuscular Volume 91.5 fL (78.0-98.0); Mean Platelet Volume 6.1 fL (7.4-10.4); Platelet Count 344 thou/uL (130-400); RBC Distribution Width 13.9 % (11.5-14.5); Red Blood Cell (RBC) Count 4.09 mill/uL (4.70-6.10)
[2021-01-01 18:50] LABS: ALT (SGPT) 18 U/L (8-55); AST (SGOT) 21 U/L (5-34); Albumin 4.1 g/dL (3.4-4.8); Alkaline Phosphatase 76 U/L (40-110); Anion Gap 17 mmol/L (10-20); BUN (Urea Nitrogen) 11 mg/dL (8.4-25.7); Bilirubin, Total 0.5 mg/dL (0.2-1.2); Calc. Creatinine Clearance 0 mL/min (70-130); Calcium 9.5 mg/dL (7.8-10.44); Carbon Dioxide 30 mmol/L (23-31); Chloride 94 mmol/L (98-107); Glucose 122 mg/dL (80-115); Protein, Total 7.1 g/dL (5.8-8.1); Sodium 138 mmol/L (136-145)
[2021-01-01 18:52] LABS: Potassium 2.8 mmol/L (3.5-5.1)
[2021-01-01] MEDS ORDERED: Potassium Chloride 20 MEQ TAB ONE (19:16)
[2021-01-01] MEDS ORDERED: Lorazepam 2 MG/ML VIAL ONE (20:17)
[2021-01-01 21:57] LABS: Troponin I Less than 0.010 ng/mL (< 0.028)
== END 2021-01-01 23:04 | disposition home or self-care (01) ==
LOC: ERS 17:54
DX: J44.1 Chronic obstructive pulmonary disease with (acute) exacerbation (principal); E87.6 Hypokalemia; I11.0 Hypertensive heart disease with heart failure; I50.9 Heart failure, unspecified; I25.10 Atherosclerotic heart disease of native coronary artery without angina pectoris; E11.9 Type 2 diabetes mellitus without complications; E78.5 Hyperlipidemia, unspecified; Z87.891 Personal history of nicotine dependence
CPT/HCPCS: 36415; 71045; 71275; 80053; 83605; 83880; 84484; 85025; 85379; 93005; 94640; 96374; 96375; J2060; J2930; J7620; Q9967

== ENCOUNTER 2021-02-28 13:42 | Emergency (ER) | payer MEDICARE ==
[2021-02-28 14:47] LABS: #Eosinphils 0.1 thou/uL (0.0-0.7); #Lymphocytes 3.1 thou/uL (1.20-3.40); #Monocytes 1.4 thou/uL (0.11-0.59); #Neutrophils 9.6 thou/uL (1.40-6.50); %Basophils 0.1 % (0.0-1.0); %Eosinophils 0.7 % (0.0-10.0); %Lymphocytes 21.7 % (21.0-51.0); %Neutrophils 67.4 % (42.0-75.0); Hemoglobin 14.1 g/dL (14.0-18.0); Mean Corpuscular HGB CONC 32.7 g/dL (32.0-36.0); Mean Corpuscular Hemoglobin 30.3 pg (27.0-31.0); Mean Corpuscular Volume 92.6 fL (78.0-98.0); Mean Platelet Volume 6.3 fL (7.4-10.4); Platelet Count 249 thou/uL (130-400); RBC Distribution Width 12.2 % (11.5-14.5); Red Blood Cell (RBC) Count 4.65 mill/uL (4.70-6.10); White Blood Cell (WBC) Count 14.2 thou/uL (4.8-10.8)
[2021-02-28 15:07] LABS: ALT (SGPT) 15 U/L (8-55); AST (SGOT) 20 U/L (5-34); Albumin 4.1 g/dL (3.4-4.8); Alkaline Phosphatase 63 U/L (40-110); Anion Gap 12 mmol/L (10-20); BUN (Urea Nitrogen) 22 mg/dL (8.4-25.7); Bilirubin, Total 0.4 mg/dL (0.2-1.2); Calc. Creatinine Clearance 0 mL/min (70-130); Carbon Dioxide 33 mmol/L (23-31); Chloride 92 mmol/L (98-107); Globulin 3.9 g/dL (2.4-3.5); Glucose 159 mg/dL (80-115); Potassium 3.3 mmol/L (3.5-5.1); Sodium 134 mmol/L (136-145)
[2021-02-28] MEDS ORDERED: Potassium Chloride 20 MEQ TAB ONE (15:52)
[2021-02-28] MEDS ORDERED: Albuterol 200 PUFF (6.7GM INHALER) ONE (16:59)
[2021-03-01 15:08] LABS: SARS-CoV-2 PCR by NAA Not Detected (NotDetected)
== END 2021-02-28 17:21 | disposition home or self-care (01) ==
LOC: ERS 13:42
DX: J44.1 Chronic obstructive pulmonary disease with (acute) exacerbation (principal); Z20.822 Contact with and (suspected) exposure to COVID-19; I11.0 Hypertensive heart disease with heart failure; I50.9 Heart failure, unspecified; E78.5 Hyperlipidemia, unspecified; I25.10 Atherosclerotic heart disease of native coronary artery without angina pectoris; E11.9 Type 2 diabetes mellitus without complications; Z87.891 Personal history of nicotine dependence; Z79.82 Long term (current) use of aspirin; Z79.02 Long term (current) use of antithrombotics/antiplatelets
CPT/HCPCS: 71045; 80053; 85025; 93005; 94760; 99285; U0003; U0005; 36415

== ENCOUNTER 2021-07-05 10:43 | Outpatient (CLI) | payer OTHER | END 2021-07-05 10:44 | disposition home or self-care (01) | LOC: BICCT 10:43 | PROVIDERS: ATTEND Family Medicine Sports Medicine | DX: Z12.2 Encounter for screening for malignant neoplasm of respiratory organs (principal); J44.9 Chronic obstructive pulmonary disease, unspecified; I25.10 Atherosclerotic heart disease of native coronary artery without angina pectoris; Z87.891 Personal history of nicotine dependence | CPT/HCPCS: 71271 ==

== ENCOUNTER 2021-07-26 13:22 | Outpatient (CLI) | payer MEDICARE | END 2021-07-26 13:23 | disposition home or self-care (01) | LOC: BICRAD 13:22 | PROVIDERS: ATTEND Family Medicine | DX: M51.9 Unspecified thoracic, thoracolumbar and lumbosacral intervertebral disc disorder (principal); G89.4 Chronic pain syndrome; M79.18 Myalgia, other site; M51.36 Other intervertebral disc degeneration, lumbar region | CPT/HCPCS: 72100 ==

== ENCOUNTER 2021-08-16 19:28 | Emergency (ER) | payer MEDICARE ==
[2021-08-16] MEDS ORDERED: methylPREDNISolone Sod Succ/PF 125 MG/2 ML VIAL ONE (20:03)
[2021-08-16] MEDS ORDERED: Ondansetron ODT 4 MG TAB ONE (20:03)
[2021-08-16] MEDS ORDERED: predniSONE 20 MG TAB ONE (20:19)
[2021-08-16 20:24] LABS: #Eosinphils 0.3 thou/uL (0.0-0.7); #Lymphocytes 2.2 thou/uL (1.20-3.40); #Monocytes 0.8 thou/uL (0.11-0.59); #Neutrophils 9.6 thou/uL (1.40-6.50); %Basophils 0.2 % (0.0-1.0); %Eosinophils 2.4 % (0.0-10.0); %Lymphocytes 16.8 % (21.0-51.0); %Monocytes 6.3 % (0.0-10.0); %Neutrophils 74.2 % (42.0-75.0); Hemoglobin 12.3 g/dL (14.0-18.0); Mean Corpuscular HGB CONC 31.1 g/dL (32.0-36.0); Mean Corpuscular Hemoglobin 27.6 pg (27.0-31.0); Mean Corpuscular Volume 88.7 fL (78.0-98.0); Mean Platelet Volume 6.1 fL (7.4-10.4); Platelet Count 298 thou/uL (130-400); RBC Distribution Width 13.2 % (11.5-14.5); Red Blood Cell (RBC) Count 4.46 mill/uL (4.70-6.10); White Blood Cell (WBC) Count 12.9 thou/uL (4.8-10.8)
[2021-08-16 20:48] LABS: ALT (SGPT) 12 U/L (8-55); AST (SGOT) 15 U/L (5-34); Alkaline Phosphatase 77 U/L (40-110); Anion Gap 16 mmol/L (10-20); BUN (Urea Nitrogen) 20 mg/dL (8.4-25.7); Bilirubin, Total 0.2 mg/dL (0.2-1.2); Calc. Creatinine Clearance 0 mL/min (70-130); Calcium 9.7 mg/dL (7.8-10.44); Carbon Dioxide 29 mmol/L (23-31); Chloride 98 mmol/L (98-107); Globulin 3.4 g/dL (2.4-3.5); Glucose 125 mg/dL (80-115); Potassium 3.7 mmol/L (3.5-5.1); Protein, Total 7.4 g/dL (5.8-8.1); Sodium 139 mmol/L (136-145)
== END 2021-08-16 21:38 | disposition home or self-care (01) ==
LOC: ERS 19:28
DX: J44.1 Chronic obstructive pulmonary disease with (acute) exacerbation (principal); I11.0 Hypertensive heart disease with heart failure; I50.9 Heart failure, unspecified; I25.10 Atherosclerotic heart disease of native coronary artery without angina pectoris; E11.9 Type 2 diabetes mellitus without complications; E78.5 Hyperlipidemia, unspecified; Z79.899 Other long term (current) drug therapy
CPT/HCPCS: 71045; 80053; 83880; 84484; 85025; 93005; 94640; 96374; J2930; J7512; J7620; Q0162

== ENCOUNTER 2021-10-27 11:30 | Outpatient (CLI) | payer OTHER | END 2021-10-27 11:31 | disposition home or self-care (01) | LOC: CTENTCT 11:30 | PROVIDERS: ATTEND Otolaryngology Plastic Surgery within the Head & Neck | DX: J32.9 Chronic sinusitis, unspecified (principal) | CPT/HCPCS: 70486 ==

== ENCOUNTER 2022-04-30 10:34 | Inpatient (IN) | payer OTHER ==
[2022-04-30] MEDS ORDERED: diphenhydrAMINE 50 MG/ML VIAL ONE (11:19)
[2022-04-30] MEDS ORDERED: methylPREDNISolone Sod Succ/PF 125 MG/2 ML VIAL ONE (11:19)
[2022-04-30] MEDS ORDERED: Metoclopramide HCl 10 MG/2 ML VIAL ONE (11:19)
[2022-04-30] MEDS ORDERED: Acetaminophen 500 MG TAB ONE (11:19)
[2022-04-30 13:06] LABS: #Lymphocytes 1.7 thou/uL (1.20-3.40); #Monocytes 0.8 thou/uL (0.11-0.59); #Neutrophils 12.2 thou/uL (1.40-6.50); %Basophils 0.1 % (0.0-1.0); %Eosinophils 0.2 % (0.0-10.0); %Lymphocytes 11.6 % (21.0-51.0); %Monocytes 5.4 % (0.0-10.0); %Neutrophils 82.7 % (42.0-75.0); Hemoglobin 10.4 g/dL (14.0-18.0); Mean Corpuscular HGB CONC 32.4 g/dL (32.0-36.0); Mean Corpuscular Hemoglobin 28.9 pg (27.0-31.0); Mean Corpuscular Volume 89.2 fl (78.0-98.0); Mean Platelet Volume 6.3 fL (7.4-10.4); Platelet Count 290 10x3/uL (130-400); RBC Distribution Width 12.8 % (11.5-14.5); Red Blood Cell (RBC) Count 3.59 mill/uL (4.70-6.10); White Blood Cell (WBC) Count 14.7 10x3/uL (4.8-10.8)
[2022-04-30 13:21] LABS: PTT 30.2 sec (22.9-36.1); Prothrombin Time 13.8 sec (12.0-14.7)
[2022-04-30 13:28] LABS: ALT (SGPT) 10 U/L (8-55); AST (SGOT) 12 U/L (5-34); Albumin 3.7 g/dL (3.4-4.8); Alkaline Phosphatase 67 U/L (40-110); Anion Gap 13 mmol/L (10-20); BUN (Urea Nitrogen) 13 mg/dL (8.4-25.7); Bilirubin, Total 0.4 mg/dL (0.2-1.2); Calc. Creatinine Clearance 0 mL/min (70-130); Calcium 8.4 mg/dL (7.8-10.44); Carbon Dioxide 26 mmol/L (23-31); Chloride 98 mmol/L (98-107); Estimated GFR 94; Globulin 3.1 g/dL (2.4-3.5); Glucose 148 mg/dL (80-115); Potassium 3.7 mmol/L (3.5-5.1); Protein, Total 6.8 g/dL (5.8-8.1); Sodium 133 mmol/L (136-145)
[2022-04-30] MEDS ORDERED: niCARdipine 25 MG in Sodium Chloride 0.9% 250 ML 250 ML IVPB PRN ×3 (13:33→22:11)
[2022-04-30] MEDS ORDERED: levETIRAcetam 500 MG/5 ML VIAL SLOW IVP SCH ×2 (14:15→21:00)
[2022-04-30] MEDS ORDERED: levETIRAcetam in NS 1,000 MG in Premix Bag 1 BAG IVPB SCH (14:15)
[2022-04-30] MEDS ORDERED: levETIRAcetam 500 MG/5 ML VIAL ONE (14:33)
[2022-04-30 14:42] LABS: PTT 29.7 sec (22.9-36.1); Prothrombin Time 13.5 sec (12.0-14.7)
[2022-04-30 15:59] LABS: SARS-CoV-2 NAA Rapid Test Not Detected (NotDetected)
[2022-04-30] MEDS ORDERED: fentaNYL PF 100 MCG/2 ML SYRINGE ONE ×2 (16:18→19:54)
[2022-04-30] MEDS ORDERED: Ondansetron PF 4 MG/2 ML Vial ONE (16:38)
[2022-04-30] MEDS ORDERED: PROPOFOL 200 MG/20 ML VIAL ONE (16:38)
[2022-04-30] MEDS ORDERED: Vecuronium 10 MG VIAL ONE (16:38)
[2022-04-30] MEDS ORDERED: Lidocaine 1% PF 5 ML VIAL ONE (16:38)
[2022-04-30] MEDS ORDERED: Rocuronium Bromide 10 MG/ML (10ML VIAL) ONE (16:38)
[2022-04-30] MEDS ORDERED: PHENYLEPHRINE-NS 100 MCG/ML 10 ML SYRINGE ONE (16:38)
[2022-04-30] MEDS ORDERED: EPINEPHrine 1 MG/ML AMP ONE (16:55)
[2022-04-30] MEDS ORDERED: Lidocaine 1% (PF) 30 ML VIAL ONE (16:55)
[2022-04-30] MEDS ORDERED: Thrombin 5000 UNITS/5 ML VIAL ONE (17:14)
[2022-04-30] MEDS ORDERED: Dexamethasone 4 MG in Sodium Chloride 0.9% 50 ML IVPB SCH (18:00)
[2022-04-30] MEDS ORDERED: Dextrose 50% Abboject 50 ML SYRINGE SLOW IVP PRN (19:36)
[2022-04-30] MEDS ORDERED: Dextrose 5% in Water 1,000 ML IV PRN (19:36)
[2022-04-30] MEDS ORDERED: SUGAMMADEX SODIUM 200 MG/2 ML VIAL ONE (19:49)
[2022-04-30] MEDS: Ondansetron PF 4 MG/2 ML Vial IVP PRN (20:49)
[2022-04-30] MEDS: Famotidine/PF 20 mg/2ml Vial SLOW IVP SCH (20:54)
[2022-04-30] MEDS ORDERED: levETIRAcetam in NS 500 MG in Premix Bag 1 BAG IVPB SCH ×2 (21:00)
[2022-04-30] MEDS: Dexamethasone 4 mg/ml Vial SLOW IVP SCH (21:00)
[2022-04-30] MEDS ORDERED: levETIRAcetam 500 MG TAB PO SCH (21:00)
[2022-04-30] MEDS: Morphine 2 MG/ML VIAL SLOW IVP PRN (21:00)
[2022-04-30] MEDS: levETIRAcetam 500 MG/5 ML VIAL SLOW IVP SCH (21:07)
[2022-04-30] MEDS: hydrALAZINE 20 MG/ML VIAL SLOW IVP PRN (21:31)
[2022-04-30 21:52] VITALS: BMI 33.9
[2022-04-30] MEDS ORDERED: Labetalol HCl 100 MG/20 ML VIAL SLOW IVP PRN (21:52)
[2022-04-30] MEDS: CEFAZOLIN 2 GM in Sodium Chloride 0.9% 100 ML IVPB SCH ×3 (22:14→22:26)
[2022-05-01] MEDS: Dexamethasone 4 mg/ml Vial SLOW IVP SCH ×5 (00:24→23:25)
[2022-05-01] MEDS: niCARdipine 50 MG, Admixture Fee 1 EACH in Sodium Chloride 0.9% 250 ML 230 ML IVPB PRN ×3 (01:52→10:47)
[2022-05-01 04:26] LABS: #Monocytes 1.2 thou/uL (0.11-0.59); #Neutrophils 15.1 thou/uL (1.40-6.50); %Eosinophils 0.1 % (0.0-10.0); %Lymphocytes 5.6 % (21.0-51.0); %Monocytes 6.7 % (0.0-10.0); %Neutrophils 87.6 % (42.0-75.0); Hemoglobin 9.4 g/dL (14.0-18.0); Mean Corpuscular HGB CONC 33.1 g/dL (32.0-36.0); Mean Corpuscular Hemoglobin 29.1 pg (27.0-31.0); Platelet Count 369 10x3/uL (130-400); RBC Distribution Width 13.1 % (11.5-14.5); Red Blood Cell (RBC) Count 3.24 mill/uL (4.70-6.10); White Blood Cell (WBC) Count 17.2 10x3/uL (4.8-10.8)
[2022-05-01 04:49] LABS: Anion Gap 16 mmol/L (10-20); BUN (Urea Nitrogen) 18 mg/dL (8.4-25.7); Calc. Creatinine Clearance 87 mL/min (70-130); Calcium 8.8 mg/dL (7.8-10.44); Carbon Dioxide 24 mmol/L (23-31); Chloride 100 mmol/L (98-107); Estimated GFR 73; Glucose 196 mg/dL (80-115); Potassium 3.3 mmol/L (3.5-5.1); Sodium 137 mmol/L (136-145)
[2022-05-01] MEDS: CEFAZOLIN 2 GM in Sodium Chloride 0.9% 100 ML IVPB SCH (05:21)
[2022-05-01] MEDS ORDERED: Electrolyte Replacement Protocol 1 EACH FS SCH (08:15)
[2022-05-01] MEDS ORDERED: Potassium Chloride 20 MEQ TAB PO SCH (08:15)
[2022-05-01] MEDS ORDERED: Potassium Chloride 20 MEQ in Premix Bag 1 BAG IVPB SCH (08:15)
[2022-05-01] MEDS: Famotidine/PF 20 mg/2ml Vial SLOW IVP SCH ×2 (08:21→20:47)
[2022-05-01] MEDS: levETIRAcetam 500 MG/5 ML VIAL SLOW IVP SCH ×2 (08:21→20:47)
[2022-05-01] MEDS: Ondansetron PF 4 MG/2 ML Vial IVP PRN (12:00)
[2022-05-01] MEDS: HumaLOG 300 UNITS/3 ML VIAL SC PRN ×2 (12:20→17:49)
[2022-05-01] MEDS: Acetaminophen 325 MG TAB PO PRN ×2 (12:27→21:03)
[2022-05-01] MEDS: Ipratropium/Albuterol 3 ML NEB NEB PRN ×2 (14:25→19:14)
[2022-05-01] MEDS: Gabapentin 300 MG CAP PO SCH (20:46)
[2022-05-01] MEDS: Melatonin 3 MG TAB PO SCH (21:05)
[2022-05-02] MEDS: Labetalol HCl 100 MG/20 ML VIAL SLOW IVP PRN (03:24)
[2022-05-02 04:11] LABS: #Lymphocytes 0.9 thou/uL (1.20-3.40); #Neutrophils 12.6 thou/uL (1.40-6.50); %Basophils 0.1 % (0.0-1.0); %Eosinophils 0.2 % (0.0-10.0); %Lymphocytes 6.4 % (21.0-51.0); %Monocytes 6.7 % (0.0-10.0); %Neutrophils 86.6 % (42.0-75.0); Hemoglobin 9.3 g/dL (14.0-18.0); Mean Corpuscular Hemoglobin 28.7 pg (27.0-31.0); Mean Corpuscular Volume 89.6 fl (78.0-98.0); Mean Platelet Volume 6.9 fL (7.4-10.4); Platelet Count 383 10x3/uL (130-400); RBC Distribution Width 13.1 % (11.5-14.5); Red Blood Cell (RBC) Count 3.24 mill/uL (4.70-6.10); White Blood Cell (WBC) Count 14.6 10x3/uL (4.8-10.8)
[2022-05-02 04:26] LABS: Anion Gap 15 mmol/L (10-20); BUN (Urea Nitrogen) 19 mg/dL (8.4-25.7); Calc. Creatinine Clearance 86 mL/min (70-130); Carbon Dioxide 25 mmol/L (23-31); Chloride 102 mmol/L (98-107); Potassium 3.7 mmol/L (3.5-5.1); Sodium 138 mmol/L (136-145)
[2022-05-02 04:27] LABS: Calcium 8.7 mg/dL (7.8-10.44); Estimated GFR 72; Glucose 186 mg/dL (80-115)
[2022-05-02] MEDS: Dexamethasone 4 mg/ml Vial SLOW IVP SCH (05:46)
[2022-05-02] MEDS: HYDROcodone/Acetaminophen 5/325 mg Tablet PO PRN (05:46)
[2022-05-02] MEDS: niCARdipine 50 MG, Admixture Fee 1 EACH in Sodium Chloride 0.9% 250 ML 230 ML IVPB PRN ×5 (07:18→21:52)
[2022-05-02] MEDS: Gabapentin 300 MG CAP PO SCH ×2 (08:45→20:23)
[2022-05-02] MEDS: levETIRAcetam 500 MG/5 ML VIAL SLOW IVP SCH ×2 (08:45→20:22)
[2022-05-02] MEDS: Famotidine/PF 20 mg/2ml Vial SLOW IVP SCH ×2 (08:45→20:22)
[2022-05-02] MEDS: HumaLOG 300 UNITS/3 ML VIAL SC PRN ×2 (13:21→18:26)
[2022-05-02] MEDS: Morphine 2 MG/ML VIAL SLOW IVP PRN (16:01)
[2022-05-02] MEDS: Ipratropium/Albuterol 3 ML NEB NEB PRN ×2 (16:05→22:08)
[2022-05-02] MEDS: Melatonin 3 MG TAB PO SCH (20:23)
[2022-05-03] MEDS: niCARdipine 50 MG, Admixture Fee 1 EACH in Sodium Chloride 0.9% 250 ML 230 ML IVPB PRN ×3 (01:22→19:31)
[2022-05-03 07:30] LABS: #Lymphocytes 1.3 thou/uL (1.20-3.40); #Monocytes 1.7 thou/uL (0.11-0.59); #Neutrophils 13.3 thou/uL (1.40-6.50); %Eosinophils 0.2 % (0.0-10.0); %Lymphocytes 7.7 % (21.0-51.0); %Monocytes 10.2 % (0.0-10.0); %Neutrophils 81.9 % (42.0-75.0); Hemoglobin 9.5 g/dL (14.0-18.0); Mean Corpuscular HGB CONC 32.2 g/dL (32.0-36.0); Mean Corpuscular Hemoglobin 28.5 pg (27.0-31.0); Mean Corpuscular Volume 88.4 fl (78.0-98.0); Mean Platelet Volume 6.3 fL (7.4-10.4); Platelet Count 398 10x3/uL (130-400); RBC Distribution Width 13.2 % (11.5-14.5); Red Blood Cell (RBC) Count 3.33 mill/uL (4.70-6.10); White Blood Cell (WBC) Count 16.3 10x3/uL (4.8-10.8)
[2022-05-03 07:50] LABS: Anion Gap 15 mmol/L (10-20); BUN (Urea Nitrogen) 22 mg/dL (8.4-25.7); Calc. Creatinine Clearance 85 mL/min (70-130); Calcium 8.7 mg/dL (7.8-10.44); Carbon Dioxide 25 mmol/L (23-31); Chloride 101 mmol/L (98-107); Estimated GFR 70; Glucose 200 mg/dL (80-115); Potassium 3.6 mmol/L (3.5-5.1); Sodium 137 mmol/L (136-145)
[2022-05-03] MEDS: Ipratropium/Albuterol 3 ML NEB NEB PRN (07:55)
[2022-05-03] MEDS: levETIRAcetam 500 MG/5 ML VIAL SLOW IVP SCH ×2 (08:07→19:30)
[2022-05-03] MEDS: Gabapentin 300 MG CAP PO SCH ×2 (08:07→19:27)
[2022-05-03] MEDS: Dexamethasone 1 MG TAB PO SCH ×4 (10:08→19:43)
[2022-05-03] MEDS: HumaLOG 300 UNITS/3 ML VIAL SC PRN ×2 (12:32→18:38)
[2022-05-03 12:34] LABS: Bacteria/HPF None Seen HPF (None Seen); Bilirubin Negative (Negative); Blood, Urine Trace (Negative); CAUTI Indications for Culture Alt mental st,lethar; Clarity Clear (Clear); Glucose, Urine (Dipstick) 30 mg/dL (Negative); Ketone, Urine Negative (Negative); Leukocyte Negative Leu/uL (Negative); Nitrite Negative (Negative); Protein, Urine (Dipstick) 30 mg/dL (Neg-Trace); RBC/HPF 0-3 HPF (0-3); Specific Gravity, Urine 1.015 (1.002-1.036); Squamous Epithelial 0-3 HPF (0-3); Urobilinogen Normal mg/dL (Less than 2); WBC/HPF 0-3 HPF (0-3); pH, Urine 6.5 (5.0-9.0)
[2022-05-03 12:35] LABS: Urine Culture Reflex No No
[2022-05-03] MEDS: hydrALAZINE 20 MG/ML VIAL SLOW IVP PRN (14:53)
[2022-05-03] MEDS: HYDROcodone/Acetaminophen 5/325 mg Tablet PO PRN (18:18)
[2022-05-03] MEDS: Ipratropium/Albuterol 3 ML NEB NEB SCH ×2 (18:40→23:13)
[2022-05-03] MEDS: Budesonide 0.5 MG/2 ML NEB NEB SCH (18:41)
[2022-05-03] MEDS: Melatonin 3 MG TAB PO SCH (19:27)
[2022-05-03] MEDS: Carvedilol 6.25 MG TAB PO SCH (19:29)
[2022-05-03] MEDS: rOPINIRole HCl 0.25 MG TAB PO SCH (19:30)
[2022-05-03] MEDS: Morphine 2 MG/ML VIAL SLOW IVP PRN (20:42)
[2022-05-04] MEDS: niCARdipine 50 MG, Admixture Fee 1 EACH in Sodium Chloride 0.9% 250 ML 230 ML IVPB PRN ×5 (02:25→23:18)
[2022-05-04] MEDS: HumaLOG 300 UNITS/3 ML VIAL SC PRN ×3 (05:34→17:39)
[2022-05-04] MEDS: Ipratropium/Albuterol 3 ML NEB NEB SCH ×4 (07:51→22:19)
[2022-05-04] MEDS: Budesonide 0.5 MG/2 ML NEB NEB SCH ×2 (07:54→22:19)
[2022-05-04] MEDS: levETIRAcetam 500 MG/5 ML VIAL SLOW IVP SCH ×2 (08:21→21:18)
[2022-05-04] MEDS: Carvedilol 6.25 MG TAB PO SCH ×2 (08:21→21:15)
[2022-05-04] MEDS: Gabapentin 300 MG CAP PO SCH ×2 (08:22→21:16)
[2022-05-04] MEDS: busPIRone HCl 5 MG TAB PO SCH (08:23)
[2022-05-04] MEDS: DULoxetine 30 MG CAP PO SCH (08:24)
[2022-05-04] MEDS: Losartan 25 MG TAB PO SCH (08:24)
[2022-05-04] MEDS: Rosuvastatin 20 MG TAB PO SCH (08:25)
[2022-05-04] MEDS: Dexamethasone 1 MG TAB PO SCH ×4 (08:25→21:16)
[2022-05-04] MEDS: Cyanocobalamin (Vitamin B-12) 1,000 MCG TAB PO SCH (08:25)
[2022-05-04] MEDS: Labetalol HCl 100 MG/20 ML VIAL SLOW IVP PRN ×3 (11:02→17:34)
[2022-05-04] MEDS: HYDROcodone/Acetaminophen 5/325 mg Tablet PO PRN (14:13)
[2022-05-04] MEDS: hydrALAZINE 20 MG/ML VIAL SLOW IVP PRN (15:23)
[2022-05-04] MEDS: rOPINIRole HCl 0.25 MG TAB PO SCH (21:18)
[2022-05-04] MEDS: Melatonin 3 MG TAB PO SCH (21:18)
[2022-05-05] MEDS: HumaLOG 300 UNITS/3 ML VIAL SC PRN ×2 (00:11→14:17)
[2022-05-05] MEDS: niCARdipine 50 MG, Admixture Fee 1 EACH in Sodium Chloride 0.9% 250 ML 230 ML IVPB PRN (04:37)
[2022-05-05] MEDS: Ipratropium/Albuterol 3 ML NEB NEB SCH ×3 (05:23→19:27)
[2022-05-05] MEDS: Budesonide 0.5 MG/2 ML NEB NEB SCH ×2 (05:23→19:32)
[2022-05-05] MEDS: Losartan 25 MG TAB PO SCH (08:15)
[2022-05-05] MEDS: Cyanocobalamin (Vitamin B-12) 1,000 MCG TAB PO SCH (08:17)
[2022-05-05] MEDS: Rosuvastatin 20 MG TAB PO SCH (08:17)
[2022-05-05] MEDS: Carvedilol 6.25 MG TAB PO SCH (08:18)
[2022-05-05] MEDS: Dexamethasone 1 MG TAB PO SCH ×4 (08:18→20:06)
[2022-05-05] MEDS: Gabapentin 300 MG CAP PO SCH ×2 (08:20→19:58)
[2022-05-05] MEDS: DULoxetine 30 MG CAP PO SCH (08:22)
[2022-05-05] MEDS: Hydrochlorothiazide 25 MG TAB PO SCH (08:22)
[2022-05-05] MEDS: busPIRone HCl 5 MG TAB PO SCH (08:23)
[2022-05-05] MEDS: levETIRAcetam 500 MG/5 ML VIAL SLOW IVP SCH ×2 (08:25→19:57)
[2022-05-05] MEDS ORDERED: Carvedilol 6.25 MG TAB PO SCH (09:15)
[2022-05-05] MEDS: Roflumilast [Daliresp] 500 MCG Tablet PO SCH ×2 (12:45→12:51)
[2022-05-05] MEDS: hydrALAZINE 25 MG TAB PO SCH ×2 (15:10→19:58)
[2022-05-05] MEDS: metFORMIN 500 MG TAB PO SCH ×2 (15:11→19:58)
[2022-05-05] MEDS: Labetalol HCl 100 MG/20 ML VIAL SLOW IVP PRN (15:15)
[2022-05-05 15:25] LABS: #Lymphocytes 0.8 thou/uL (1.20-3.40); #Monocytes 0.7 thou/uL (0.11-0.59); #Neutrophils 12.1 thou/uL (1.40-6.50); %Basophils 0.1 % (0.0-1.0); %Eosinophils 0.1 % (0.0-10.0); %Lymphocytes 6.1 % (21.0-51.0); %Monocytes 5.4 % (0.0-10.0); %Neutrophils 88.3 % (42.0-75.0); Hemoglobin 9.9 g/dL (14.0-18.0); Mean Corpuscular HGB CONC 31.6 g/dL (32.0-36.0); Mean Corpuscular Hemoglobin 28.3 pg (27.0-31.0); Mean Corpuscular Volume 89.7 fl (78.0-98.0); Mean Platelet Volume 6.2 fL (7.4-10.4); Platelet Count 421 10x3/uL (130-400); RBC Distribution Width 13.2 % (11.5-14.5); Red Blood Cell (RBC) Count 3.51 mill/uL (4.70-6.10); White Blood Cell (WBC) Count 13.7 10x3/uL (4.8-10.8)
[2022-05-05 15:47] LABS: ALT (SGPT) 31 U/L (8-55); AST (SGOT) 28 U/L (5-34); Albumin 3.5 g/dL (3.4-4.8); Alkaline Phosphatase 60 U/L (40-110); Anion Gap 14 mmol/L (10-20); BUN (Urea Nitrogen) 38 mg/dL (8.4-25.7); Bilirubin, Total 0.4 mg/dL (0.2-1.2); Calc. Creatinine Clearance 68 mL/min (70-130); Calcium 8.7 mg/dL (7.8-10.44); Carbon Dioxide 25 mmol/L (23-31); Chloride 100 mmol/L (98-107); Estimated GFR 54; Globulin 3.3 g/dL (2.4-3.5); Glucose 305 mg/dL (80-115); Potassium 4.2 mmol/L (3.5-5.1); Protein, Total 6.8 g/dL (5.8-8.1); Sodium 135 mmol/L (136-145)
[2022-05-05] MEDS: rOPINIRole HCl 0.25 MG TAB PO SCH (19:54)
[2022-05-05] MEDS: Insulin Glargine 30 UNITS/0.3 ML VIAL SC SCH (19:56)
[2022-05-05] MEDS: Melatonin 3 MG TAB PO SCH (19:57)
[2022-05-05] MEDS: Carvedilol 25 MG TAB PO SCH (19:58)
[2022-05-06] MEDS: Ipratropium/Albuterol 3 ML NEB NEB SCH ×4 (00:51→19:54)
[2022-05-06] MEDS: HumaLOG 300 UNITS/3 ML VIAL SC PRN (01:54)
[2022-05-06 06:07] LABS: #Lymphocytes 1.3 thou/uL (1.20-3.40); #Monocytes 0.9 thou/uL (0.11-0.59); #Neutrophils 12.4 thou/uL (1.40-6.50); %Basophils 0.2 % (0.0-1.0); %Eosinophils 0.2 % (0.0-10.0); %Lymphocytes 8.6 % (21.0-51.0); %Monocytes 6.3 % (0.0-10.0); %Neutrophils 84.6 % (42.0-75.0); Hemoglobin 10.1 g/dL (14.0-18.0); Mean Corpuscular HGB CONC 32.6 g/dL (32.0-36.0); Mean Corpuscular Hemoglobin 28.9 pg (27.0-31.0); Mean Corpuscular Volume 88.8 fl (78.0-98.0); Mean Platelet Volume 6.6 fL (7.4-10.4); Platelet Count 438 10x3/uL (130-400); Red Blood Cell (RBC) Count 3.48 mill/uL (4.70-6.10); White Blood Cell (WBC) Count 14.6 10x3/uL (4.8-10.8)
[2022-05-06 06:48] LABS: Anion Gap 15 mmol/L (10-20); BUN (Urea Nitrogen) 34 mg/dL (8.4-25.7); Calc. Creatinine Clearance 85 mL/min (70-130); Calcium 8.6 mg/dL (7.8-10.44); Carbon Dioxide 23 mmol/L (23-31); Chloride 102 mmol/L (98-107); Estimated GFR 75; Glucose 173 mg/dL (80-115); Potassium 4.2 mmol/L (3.5-5.1); Sodium 136 mmol/L (136-145)
[2022-05-06] MEDS: Budesonide 0.5 MG/2 ML NEB NEB SCH ×2 (08:30→19:56)
[2022-05-06] MEDS: busPIRone HCl 5 MG TAB PO SCH (09:30)
[2022-05-06] MEDS: Gabapentin 300 MG CAP PO SCH ×2 (09:31→20:37)
[2022-05-06] MEDS: levETIRAcetam 500 MG/5 ML VIAL SLOW IVP SCH ×2 (09:31→20:37)
[2022-05-06] MEDS: Losartan 25 MG TAB PO SCH (09:32)
[2022-05-06] MEDS: Cyanocobalamin (Vitamin B-12) 1,000 MCG TAB PO SCH (09:32)
[2022-05-06] MEDS: metFORMIN 500 MG TAB PO SCH ×3 (09:32→20:37)
[2022-05-06] MEDS: Rosuvastatin 20 MG TAB PO SCH (09:33)
[2022-05-06] MEDS: hydrALAZINE 25 MG TAB PO SCH ×3 (09:33→20:36)
[2022-05-06] MEDS: DULoxetine 30 MG CAP PO SCH (09:33)
[2022-05-06] MEDS: Hydrochlorothiazide 25 MG TAB PO SCH (09:33)
[2022-05-06] MEDS: Carvedilol 25 MG TAB PO SCH ×2 (09:33→20:37)
[2022-05-06] MEDS: Insulin Glargine 30 UNITS/0.3 ML VIAL SC SCH (09:34)
[2022-05-06] MEDS: Roflumilast [Daliresp] 500 MCG Tablet PO SCH (10:26)
[2022-05-06] MEDS ORDERED: NIFEdipine XL 30 MG TAB PO SCH (12:00)
[2022-05-06] MEDS: rOPINIRole HCl 0.25 MG TAB PO SCH (20:35)
[2022-05-06] MEDS: Melatonin 3 MG TAB PO SCH (20:36)
[2022-05-07] MEDS: Ipratropium/Albuterol 3 ML NEB NEB SCH ×4 (00:25→19:22)
[2022-05-07 06:57] LABS: Anion Gap 14 mmol/L (10-20); BUN (Urea Nitrogen) 35 mg/dL (8.4-25.7); Calc. Creatinine Clearance 84 mL/min (70-130); Calcium 8.8 mg/dL (7.8-10.44); Carbon Dioxide 25 mmol/L (23-31); Chloride 101 mmol/L (98-107); Estimated GFR 74; Glucose 149 mg/dL (80-115); Potassium 4.2 mmol/L (3.5-5.1); Sodium 136 mmol/L (136-145)
[2022-05-07] MEDS: Budesonide 0.5 MG/2 ML NEB NEB SCH ×2 (07:08→19:23)
[2022-05-07] MEDS: NIFEdipine XL 30 MG TAB PO SCH (08:30)
[2022-05-07] MEDS: levETIRAcetam 500 MG/5 ML VIAL SLOW IVP SCH (08:30)
[2022-05-07] MEDS: metFORMIN 500 MG TAB PO SCH ×3 (08:31→21:11)
[2022-05-07] MEDS: Losartan 25 MG TAB PO SCH (08:31)
[2022-05-07] MEDS: hydrALAZINE 25 MG TAB PO SCH ×3 (08:31→21:11)
[2022-05-07] MEDS: DULoxetine 30 MG CAP PO SCH (08:32)
[2022-05-07] MEDS: busPIRone HCl 5 MG TAB PO SCH (08:32)
[2022-05-07] MEDS: Gabapentin 300 MG CAP PO SCH ×2 (08:32→21:11)
[2022-05-07] MEDS: Cyanocobalamin (Vitamin B-12) 1,000 MCG TAB PO SCH (08:33)
[2022-05-07] MEDS: Carvedilol 25 MG TAB PO SCH ×2 (08:33→21:11)
[2022-05-07] MEDS: Rosuvastatin 20 MG TAB PO SCH (08:34)
[2022-05-07] MEDS: Roflumilast [Daliresp] 500 MCG Tablet PO SCH (08:34)
[2022-05-07] MEDS: Hydrochlorothiazide 25 MG TAB PO SCH (08:35)
[2022-05-07] MEDS: rOPINIRole HCl 0.25 MG TAB PO SCH (21:10)
[2022-05-07] MEDS: Melatonin 3 MG TAB PO SCH (21:11)
[2022-05-07] MEDS: levETIRAcetam 500 mg/5 ml Oral Solution PO SCH (21:18)
[2022-05-08] MEDS: Ipratropium/Albuterol 3 ML NEB NEB SCH ×3 (02:25→12:56)
[2022-05-08 06:57] LABS: Anion Gap 12 mmol/L (10-20); BUN (Urea Nitrogen) 27 mg/dL (8.4-25.7); Calc. Creatinine Clearance 75 mL/min (70-130); Calcium 8.9 mg/dL (7.8-10.44); Carbon Dioxide 29 mmol/L (23-31); Chloride 98 mmol/L (98-107); Estimated GFR 71; Glucose 138 mg/dL (80-115); Potassium 3.4 mmol/L (3.5-5.1); Sodium 136 mmol/L (136-145)
[2022-05-08] MEDS: Budesonide 0.5 MG/2 ML NEB NEB SCH (07:39)
[2022-05-08] MEDS ORDERED: Potassium Chloride 20 MEQ TAB PO SCH (08:00)
[2022-05-08] MEDS: metFORMIN 500 MG TAB PO SCH ×2 (09:25→15:53)
[2022-05-08] MEDS: Gabapentin 300 MG CAP PO SCH (09:25)
[2022-05-08] MEDS: DULoxetine 30 MG CAP PO SCH (09:25)
[2022-05-08] MEDS: levETIRAcetam 500 mg/5 ml Oral Solution PO SCH (09:25)
[2022-05-08] MEDS: Cyanocobalamin (Vitamin B-12) 1,000 MCG TAB PO SCH (09:25)
[2022-05-08] MEDS: Carvedilol 25 MG TAB PO SCH (09:26)
[2022-05-08] MEDS: hydrALAZINE 25 MG TAB PO SCH (09:26)
[2022-05-08] MEDS: NIFEdipine XL 30 MG TAB PO SCH (09:26)
[2022-05-08] MEDS: busPIRone HCl 5 MG TAB PO SCH ×2 (09:30→10:31)
[2022-05-08] MEDS: Roflumilast [Daliresp] 500 MCG Tablet PO SCH (10:31)
[2022-05-08] MEDS ORDERED: Losartan 25 MG TAB PO SCH (12:00)
[2022-05-08] MEDS ORDERED: Hydrochlorothiazide 25 MG TAB PO SCH (12:00)
[2022-05-08 12:21] VITALS: BP 101/60; TEMP 98.3
[2022-05-08] MEDS ORDERED: Rosuvastatin 20 MG TAB PO SCH (21:00)
== END 2022-05-08 16:20 | disposition home or self-care (01) | DRG 25 ==
LOC: ERS 10:34 → SUATTDRO 10:34 → CCU 13:33 → NEURO 05-05 17:21
PROVIDERS: ADMIT Internal Medicine; ATTEND Internal Medicine
PROC: 00C40ZZ Extirpation of Matter from Intracranial Subdural Space, Open Approach (ICD-10-PCS; principal; 2022-04-30)
PROC: 30233R1 Transfusion of Nonautologous Platelets into Peripheral Vein, Percutaneous Approach (ICD-10-PCS; 2022-04-30)
DX: I62.00 Nontraumatic subdural hemorrhage, unspecified (principal); G93.5 Compression of brain; E87.1 Hypo-osmolality and hyponatremia; I50.32 Chronic diastolic (congestive) heart failure; G61.0 Guillain-Barre syndrome; I13.0 Hypertensive heart and chronic kidney disease with heart failure and stage 1 through stage 4 chronic kidney disease, or unspecified chronic kidney disease; I16.9 Hypertensive crisis, unspecified; Z20.822 Contact with and (suspected) exposure to COVID-19; Z51.5 Encounter for palliative care; N40.0 Benign prostatic hyperplasia without lower urinary tract symptoms; I25.10 Atherosclerotic heart disease of native coronary artery without angina pectoris; J43.9 Emphysema, unspecified; F41.9 Anxiety disorder, unspecified; F32.A Depression, unspecified; R13.10 Dysphagia, unspecified; E11.22 Type 2 diabetes mellitus with diabetic chronic kidney disease; N18.2 Chronic kidney disease, stage 2 (mild); E87.6 Hypokalemia; D63.1 Anemia in chronic kidney disease; E11.65 Type 2 diabetes mellitus with hyperglycemia; D72.829 Elevated white blood cell count, unspecified; E78.00 Pure hypercholesterolemia, unspecified; Z88.1 Allergy status to other antibiotic agents; Z79.899 Other long term (current) drug therapy; Z79.82 Long term (current) use of aspirin; Z79.84 Long term (current) use of oral hypoglycemic drugs; Z79.51 Long term (current) use of inhaled steroids; Z79.52 Long term (current) use of systemic steroids; Z99.81 Dependence on supplemental oxygen; Z87.891 Personal history of nicotine dependence
CPT/HCPCS: 36415; 36416; 36430; 70450; 70496; 80048; 80053; 81001; 85025; 85610; 85730; 86850; 86900; 86901; 87811; 94640; 96365; 96375; C1713; C1769; J0171; J0360; J1100; J1200; J1815; J1953; J2001; J2272; J2405; J2704; J2765; J2930; J3490; J7050; J7620; J7626; J8540; P9035; Q9967; S0028; U0002

== ENCOUNTER 2022-05-25 12:19 | Outpatient (CLI) | payer OTHER | END 2022-05-25 12:20 | disposition home or self-care (01) | LOC: BICCT 12:19 | PROVIDERS: ATTEND Neurological Surgery | DX: I62.03 Nontraumatic chronic subdural hemorrhage (principal); R22.0 Localized swelling, mass and lump, head | CPT/HCPCS: 70450 ==

== ENCOUNTER 2022-06-09 15:06 | Outpatient (CLI) | payer OTHER | END 2022-06-09 15:07 | disposition home or self-care (01) | LOC: BICCT 15:06 | PROVIDERS: ATTEND Neurological Surgery | DX: I62.03 Nontraumatic chronic subdural hemorrhage (principal) | CPT/HCPCS: 70450 ==

== ENCOUNTER 2022-11-29 11:51 | Outpatient (CLI) | payer OTHER | END 2022-11-29 11:52 | disposition home or self-care (01) | LOC: RAD 11:51 | PROVIDERS: ATTEND Family Medicine Sports Medicine | DX: J44.9 Chronic obstructive pulmonary disease, unspecified (principal) | CPT/HCPCS: 71046 ==

== ENCOUNTER 2022-12-20 12:33 | Outpatient (CLI) | payer OTHER | END 2022-12-20 12:34 | disposition home or self-care (01) | LOC: CT 12:33 | PROVIDERS: ATTEND Neurological Surgery | DX: I62.03 Nontraumatic chronic subdural hemorrhage (principal) | CPT/HCPCS: 70450 ==

== ENCOUNTER 2024-03-06 08:46 | Emergency (ER) | payer OTHER ==
[2024-03-06 09:28] LABS: #Basophils Less than 0.03 10x3/uL (0.0-0.2); #Eosinophils Less than 0.03 10x3/uL (0.0-0.7); %Basophils 0.1 % (0.0-1.0); %Lymphocytes 10.3 % (21.0-51.0); %Monocytes 7.6 % (0.0-10.0); %Neutrophils 81.6 % (42.0-75.0); Hematocrit 38.5 % (42.0-52.0); Hemoglobin 12.5 g/dL (14.0-18.0); Mean Corpuscular HGB CONC 32.5 g/dL (32.0-36.0); Mean Corpuscular Hemoglobin 28.5 pg (27.0-31.0); Mean Corpuscular Volume 87.7 fL (78.0-98.0); Mean Platelet Volume 9.1 fL (7.4-10.4); Platelet Count 263 10x3/uL (130-400); RBC Distribution Width 13.1 % (11.5-14.5); Red Blood Cell (RBC) Count 4.39 mill/uL (4.70-6.10)
[2024-03-06 09:45] LABS: Calc. Creatinine Clearance 0 mL/min (70-130); Estimated GFR 71
[2024-03-06 09:47] LABS: ALT (SGPT) 10 U/L (8-55); AST (SGOT) 16 U/L (5-34); Albumin 3.2 g/dL (3.4-4.8); Alkaline Phosphatase 82 U/L (40-110); Anion Gap 14 mmol/L (10-20); BUN (Urea Nitrogen) 19 mg/dL (8.4-25.7); Bilirubin, Total 0.2 mg/dL (0.2-1.2); Carbon Dioxide 25 mmol/L (23-31); Chloride 105 mmol/L (98-107); Globulin 3.9 g/dL (2.4-3.5); Glucose 176 mg/dL (80-115); Potassium 3.5 mmol/L (3.5-5.1); Protein, Total 7.1 g/dL (5.8-8.1); Sodium 140 mmol/L (136-145)
[2024-03-06] MEDS ORDERED: Ipratropium/Albuterol 3 ML NEB ONE (10:08)
[2024-03-06] MEDS ORDERED: Magnesium 2 GM/50 ML BAG (IN WATER) ONE (10:08)
[2024-03-06 10:28] LABS: Troponin I Less than 0.010 ng/mL (< 0.028)
== END 2024-03-06 11:25 | disposition home or self-care (01) ==
LOC: ERS 08:46
DX: J44.1 Chronic obstructive pulmonary disease with (acute) exacerbation (principal); I11.0 Hypertensive heart disease with heart failure; I50.9 Heart failure, unspecified; I25.10 Atherosclerotic heart disease of native coronary artery without angina pectoris; E11.9 Type 2 diabetes mellitus without complications; E78.5 Hyperlipidemia, unspecified; Z87.891 Personal history of nicotine dependence
CPT/HCPCS: 71045; 80053; 83880; 84484; 85025; 93005; J3475; 96365; J7620

== ENCOUNTER 2024-11-06 12:02 | Emergency (ER) | payer OTHER ==
[2024-11-06 13:21] LABS: #Basophils Less than 0.03 10x3/uL (0.0-0.2); #Eosinophils 0.24 10x3/uL (0.0-0.7); #Monocytes 1.55 10x3/uL (0.11-0.59); #Neutrophils 14.85 10x3/uL (1.40-6.50); %Basophils 0.1 % (0.0-1.0); %Eosinophils 1.3 % (0.0-10.0); %Lymphocytes 10.0 % (21.0-51.0); %Monocytes 8.3 % (0.0-10.0); %Neutrophils 79.9 % (42.0-75.0); Hematocrit 34.7 % (42.0-52.0); Hemoglobin 10.8 g/dL (14.0-18.0); Mean Corpuscular Hemoglobin 26.1 pg (27.0-31.0); Mean Corpuscular Volume 83.8 fL (78.0-98.0); Platelet Count 362 10x3/uL (130-400); Red Blood Cell (RBC) Count 4.14 mill/uL (4.70-6.10); White Blood Cell (WBC) Count 18.58 10x3/uL (4.8-10.8)
[2024-11-06 13:44] LABS: ALT (SGPT) 7 U/L (Less than 45); AST (SGOT) 20 U/L (11-34); Albumin 2.5 g/dL (3.1-4.5); Alkaline Phosphatase 81 U/L (40-110); Anion Gap 13 mmol/L (10-20); BUN (Urea Nitrogen) 15 mg/dL (8.4-25.7); Bilirubin, Total 0.5 mg/dL (0.3-1.2); Calc. Creatinine Clearance 0 mL/min (70-130); Calcium 8.8 mg/dL (7.8-10.44); Carbon Dioxide 31 mmol/L (23-31); Chloride 97 mmol/L (98-107); Globulin 4.3 g/dL (2.4-3.5); Glucose 128 mg/dL (80-115); Potassium 2.7 mmol/L (3.5-5.1); Sodium 138 mmol/L (136-145)
[2024-11-06] MEDS ORDERED: Potassium Chloride 20 MEQ (100 mL) BAG ONE (14:49)
== END 2024-11-06 15:26 | disposition home or self-care (01) ==
LOC: ERS 12:02
DX: J18.9 Pneumonia, unspecified organism (principal); E87.6 Hypokalemia; I11.0 Hypertensive heart disease with heart failure; I50.9 Heart failure, unspecified; E11.9 Type 2 diabetes mellitus without complications; E78.5 Hyperlipidemia, unspecified; J44.9 Chronic obstructive pulmonary disease, unspecified; Z87.891 Personal history of nicotine dependence; Z79.51 Long term (current) use of inhaled steroids; Z79.82 Long term (current) use of aspirin; Z79.899 Other long term (current) drug therapy
CPT/HCPCS: 71045; 71275; 80053; 84484; 85025; 93005; 94760; J3480; 96374